=== PATIENT | male | born 1960 | race Caucasian/White ===

== ENCOUNTER 2018-01-01 15:19 | Emergency (ER) | payer OTHER ==
--- NOTE | 2018-01-01 16:37 | ER Document Report ---
ED Medical Screen (RME) - General Chief Complaint: Fever Stated Complaint: SWOLLEN FEET/POSSIBLE FEVER Time Seen by Provider: 01/01/18 16:27 Notes: RAPID MEDICAL EVALUATION DISCLOSURE I have seen this patient as part of a Rapid Medical Evaluation and, if applicable, placed any initially appropriate orders. The patient will be seen and fully evaluated, including a full history and physical exam, by a provider ( in Main ED or Fast Track) when a room becomes available. 57-year-old male here with multiple complaints including chest pain shortness of breath lower extremity edema inability to control left upper extremity. The lower extremity edema has been ongoing for the past 1 month, no history of renal failure, urinating normally. The inability to control left upper extremity started 10 days ago and he thought he was having a stroke however the symptoms have resolved and are fairly minimal now. Denies other strokelike symptoms. He also states he is able to urinate per usual other than "my urine smells like frosted flakes". Denies history of heart failure. No recent medication changes. EXAM CTAB RRR 2+ pitting edema BLEs TRAVEL OUTSIDE OF THE [place] IN LAST 30 DAYS: No - Related Data Allergies/Adverse Reactions: No Known Allergies Allergy (Verified 01/01/18 15:20) Past Medical History - Social History Chew tobacco use (# tins/day): No Frequency of alcohol use: Rare Drug Abuse: None Renal/ Medical History: Denies: Hx Peritoneal Dialysis Physical Exam - Vital signs Vitals: Temp Pulse Resp BP Pulse Ox 99.0 F 120 H 16 123/78 94 01/01/18 15:38 01/01/18 15:38 01/01/18 15:38 01/01/18 15:38 01/01/18 15:38 Course - Vital Signs Vital signs: Temp Pulse Resp BP Pulse Ox 99.0 F 120 H 16 123/78 94 01/01/18 15:38 01/01/18 15:38 01/01/18 15:38 01/01/18 15:38 01/01/18 15:38
--- NOTE | 2018-01-01 17:29 | RADIOLOGY REPORT (SQ) ---
EXAM DESCRIPTION: CT HEAD WITHOUT COMPLETED DATE/TIME: 01/01/2018 5:14 pm REASON FOR STUDY: LUE motor abnormality; eval ischemia COMPARISON: None. TECHNIQUE: Axial images acquired through the brain without intravenous contrast. Images reviewed wi th bone, brain and subdural windows. Additional sagittal and coronal reconstructions were generated. Images stored on PACS. All CT scanners at this facility use dose modulation, iterative reconstruction, and/or weight based d osing when appropriate to reduce radiation dose to as low as reasonably achievable (ALARA). [facility]: Dose Right [facility]: CareDose [facility]: Dose Right [facility]: Teradose 4D [facility]: Smart [employer] RADIATION DOSE: CT Rad equipment meets quality standard of care and radiation dose reduction techniq ues were employed. CTDIvol: 53.2 mGy. DLP: 991 mGy-cm. mGy. LIMITATIONS: None. FINDINGS: VENTRICLES: Normal size and contour. CEREBRUM: No masses. No hemorrhage. No midline shift. No evidence for acute infarction. Normal gra y/white matter differentiation. No areas of low density in the white matter. CEREBELLUM: No masses. No hemorrhage. No alteration of density. No evidence for acute infarction. EXTRAAXIAL SPACES: No fluid collections. No masses. ORBITS AND GLOBE: No intra- or extraconal masses. Normal contour of globe without masses. CALVARIUM: No fracture. PARANASAL SINUSES: No fluid or mucosal thickening. SOFT TISSUES: No mass or hematoma. OTHER: No other significant finding. IMPRESSION: NORMAL BRAIN CT WITHOUT CONTRAST. EVIDENCE OF ACUTE STROKE: NO. COMMENT: Quality ID # [id number]: Final reports with documentation of one or more dose reduction techniques (e.g., Automated exposure control, adjustment of the mA and/or kV according to patient size, use of iterative reconstruction technique) TECHNICAL DOCUMENTATION: JOB ID: [id number] [employer]- All Rights Reserved Reading location - IP/workstation name: [email or web address]
[2018-01-01 17:40] LABS: ABSOLUTE BASOPHILS # (AUTO) 0.1 10^3/uL (0.0-0.2); ABSOLUTE EOSINOPHILS # (AUTO) 0.1 10^3/uL (0.0-0.6); ABSOLUTE MONOCYTES (AUTO) 1.1 10^3/uL (0.1-1.4); ABSOLUTE NEUT (AUTO) 12.8 10^3/uL (1.7-8.2); BASOPHILS % (AUTO) 0.5 % (0-2); EOSINOPHILS % (AUTO) 0.4 % (0-6); HEMATOCRIT 36.6 % (37.9-51.0); HEMOGLOBIN 12.1 g/dL (13.5-17.0); LYMPHOCYTES % (AUTO) 6.6 % (13-45); MEAN CORPUSCULAR HEMOGLOBIN 28.3 pg (27.0-33.4); MEAN CORPUSCULAR HGB CONC 33.1 g/dL (32.0-36.0); MEAN CORPUSCULAR VOLUME 86 fl (80-97); MONOCYTES % (AUTO) 7.3 % (3-13); PLATELET COUNT 376 10^3/uL (150-450); RED BLOOD COUNT 4.28 10^6/uL (4.35-5.55); SEGMENTED NEUTROPHILS % (AUTO) 85.2 % (42-78); TOTAL CELLS COUNTED % (AUTO) 100 %; WHITE BLOOD COUNT 15.1 10^3/uL (4.0-10.5)
--- NOTE | 2018-01-01 17:42 | RADIOLOGY REPORT (SQ) ---
EXAM DESCRIPTION: CHEST 2 VIEWS COMPLETED DATE/TIME: 01/01/2018 5:29 pm REASON FOR STUDY: SOB CP COMPARISON: None. EXAM PARAMETERS: NUMBER OF VIEWS: two views TECHNIQUE: Digital Frontal and Lateral radiographic views of the chest acquired. RADIATION DOSE: NA LIMITATIONS: none FINDINGS: LUNGS AND PLEURA: No opacities, masses or pneumothorax. No pleural effusion. MEDIASTINUM AND HILAR STRUCTURES: No masses or contour abnormalities. HEART AND VASCULAR STRUCTURES: Heart normal size. No evidence for failure. BONES: No acute findings. HARDWARE: None in the chest. OTHER: No other significant finding. IMPRESSION: NO ACUTE RADIOGRAPHIC FINDING IN THE CHEST. TECHNICAL DOCUMENTATION: JOB ID: [id number] [employer]- All Rights Reserved Reading location - IP/workstation name: [email or web address]
[2018-01-01 17:55] LABS: ALANINE AMINOTRANSFERASE 21 U/L (21-72); ALBUMIN 3.5 g/dL (3.5-5.0); ALKALINE PHOSPHATASE 83 U/L (38-126); ANION GAP 15 (5-19); ASPARTATE AMINO TRANSFERASE 13 U/L (17-59); BILIRUBIN,DIRECT 0.4 mg/dL (0.0-0.4); BILIRUBIN,TOTAL 0.9 mg/dL (0.2-1.3); BLOOD UREA NITROGEN 12 mg/dL (7-20); CALCIUM 8.3 mg/dL (8.4-10.2); CARBON DIOXIDE 27 mmol/L (22-30); CHLORIDE 96 mmol/L (98-107); GLUCOSE 147 mg/dL (75-110); SODIUM 137.8 mmol/L (137-145); TOTAL PROTEIN 6.3 g/dL (6.3-8.2)
[2018-01-01 18:05] LABS: TROPONIN I 0.034 ng/mL
[2018-01-01] MEDS ORDERED: LIDOCAINE 1% INJ-PF (10 MG/ML) 30 ML SDV INFIL ONE (19:17)
[2018-01-01] MEDS ORDERED: CEFTRIAXONE INJ 1000 MG VIAL IM ONE (19:17)
--- NOTE | 2018-01-01 19:18 | ER Document Report ---
ED General - General Chief Complaint: Fever Stated Complaint: SWOLLEN FEET/POSSIBLE FEVER Time Seen by Provider: 01/01/18 16:27 Mode of Arrival: Ambulatory Information source: Patient Notes: 57-year-old male here with multiple complaints including chest pain shortness of breath lower extremity edema inability to control left upper extremity. The lower extremity edema has been ongoing for the past 1 month, no history of renal failure, urinating normally. The inability to control left upper extremity started 10 days ago and he thought he was having a stroke however the symptoms have resolved and are fairly minimal now. Denies other strokelike symptoms. He also states he is able to urinate per usual other than "my urine smells like frosted flakes". Denies history of heart failure. No recent medication changes. Chief complaint: #1 dizziness #2 right lower leg pain History of complain:( obtained from----patient) 57 years old male presents today with dizziness and ringing sensation in the right ear for the last 3 weeks. It is on and off have the dizziness for about a week and it goes away and feels fine and then again it comes back. Not associated with any nausea vomiting. Denies any focal weakness numbness tingling sensation. Denies any difficulty in walking. He has been having right lower leg particularly over the medial side of the malleolus region on the right leg redness swelling and pain for the last 1 week. On and off feverish feeling. Onset: As above Duration: Gradual Severity: Moderate Quality: Sharp Context: Possible cellulitis Exacerbating factor and relieving factors: Change of position REVIEW OF SYSTEMS: CONSTITUTIONAL : Denies fever, chills, or sweats. Denies recent illness. EENT: Denies eye, ear, throat, or mouth pain or symptoms. Denies nasal or sinus congestion or discharge. Denies throat, tongue, or mouth swelling or difficulty swallowing. CARDIOVASCULAR: Denies chest pain. Denies palpitations or racing or irregular heart beat. Denies ankle edema. RESPIRATORY: Denies cough, cold, or chest congestion. Denies shortness of breath, difficulty breathing, or wheezing. GASTROINTESTINAL: Denies distention. Denies nausea, vomiting, or diarrhea. Denies blood in vomitus, stools, or per rectum. Denies black, tarry stools. Denies constipation. GENITOURINARY: Denies difficulty urinating, painful urination, burning, frequency, blood in urine, or discharge. FEMALE GENITOURINARY: Denies vaginal bleeding, heavy or abnormal periods, irregular periods. Denies vaginal discharge or odor. MUSCULOSKELETAL: Denies back or neck pain or stiffness. Denies joint pain or swelling. SKIN: Denies rash, lesions or sores. HEMATOLOGIC : Denies easy bruising or bleeding. LYMPHATIC: Denies swollen, enlarged glands. NEUROLOGICAL: Denies confusion or altered mental status. Denies passing out or loss of consciousness. Denies dizziness or lightheadedness. Denies headache. Denies weakness or paralysis or loss of use of either side. Denies problems with gait or speech. Denies sensory loss, numbness, or tingling. Denies seizures. PSYCHIATRIC: Denies anxiety or stress. Denies depression, suicidal ideation, or homicidal ideation. ALL OTHER SYSTEMS REVIEWED AND NEGATIVE. PHYSICAL EXAMINATION: GENERAL: Well-appearing, well-nourished and in no acute distress. Obese HEAD: Atraumatic, normocephalic. EYES: Pupils equal round and reactive to light, extraocular movements intact, conjunctiva are normal. ENT: Nares patent, oropharynx clear without exudates. Moist mucous membranes. NECK: Normal range of motion, supple without lymphadenopathy LUNGS: Breath sounds clear to auscultation bilaterally and equal. No wheezes rales or rhonchi. HEART: Regular rate and rhythm without murmurs ABDOMEN: Soft, nontender, nondistended abdomen. No guarding, no rebound. No masses appreciated. Examination of genitals-deferred Musculoskeletal: Normal range of motion, no pitting or edema. No cyanosis. Examination of the right lower leg-particularly over the medial side malleolus and around the area is very warm, erythematous and diffusely tender. NEUROLOGICAL: Cranial nerves grossly intact. Normal speech, normal gait. Normal sensory, motor exams. No focal neurological deficit. No pronator drift PSYCH: Normal mood, normal affect. SKIN: Warm, Dry, normal turgor, no rashes or lesions noted. Dictation was performed using [employer] voice recognition software TRAVEL OUTSIDE OF THE [place] IN LAST 30 DAYS: No - HPI Notes: Dictated - Related Data Allergies/Adverse Reactions: No Known Allergies Allergy (Verified 01/01/18 15:20) Past Medical History - Social History Smoking Status: Current Every Day Smoker Chew tobacco use (# tins/day): No Frequency of alcohol use: Rare Drug Abuse: None Family History: Reviewed & Not Pertinent Patient has suicidal ideation: No Patient has homicidal ideation: No - Past Medical History Cardiac Medical History: Reports: Hx Hypertension Pulmonary Medical History: Reports: Hx COPD Renal/ Medical History: Denies: Hx Peritoneal Dialysis Psychiatric Medical History: Reports: Hx Depression - anxiety Past Surgical History: Reports: Hx Abdominal Surgery - hernia right groin, Hx Appendectomy, Hx Orthopedic Surgery - left ankle Review of Systems - Review of Systems Notes: Dictated Physical Exam - Vital signs Vitals: Temp Pulse Resp BP Pulse Ox 99.0 F 120 H 16 123/78 94 01/01/18 15:38 01/01/18 15:38 01/01/18 15:38 01/01/18 15:38 01/01/18 15:38 - Notes Notes: Dictated Course - Vital Signs Vital signs: Temp Pulse Resp BP Pulse Ox 99.0 F 120 H 22 H 131/87 H 88 L 01/01/18 15:38 01/01/18 15:38 01/01/18 19:01 01/01/18 19:01 01/01/18 19:01 01/01/18 19:18 He was given ceftriaxone 1 g IM - Laboratory Result Diagrams: 01/01/18 17:27 01/01/18 17:27 Laboratory results interpreted by me: 01/01/18 01/01/18 17:27 17:27 WBC 15.1 H RBC 4.28 L Hgb 12.1 L Hct 36.6 L Seg Neutrophils % 85.2 H Lymphocytes % 6.6 L Absolute Neutrophils 12.8 H Chloride 96 L Glucose 147 H Calcium 8.3 L AST 13 L - Diagnostic Test Radiology reviewed: Reports reviewed - 1. CT of the brain was reported by radiologist as normal no acute pathology. 2. Chest x-ray reported by radiologist as normal Discharge - Discharge Clinical Impression: Benign positional vertigo Qualifiers: Laterality: right Qualified Code(s): H81.11 - Benign paroxysmal vertigo, right ear Cellulitis Qualifiers: Site of cellulitis: extremity Site of cellulitis of extremity: lower extremity Laterality: right Qualified Code(s): L03.115 - Cellulitis of right lower limb Disposition: HOME, SELF-CARE Instructions: Cellulitis ([facility]), Vertigo ([facility]) Prescriptions: Cephalexin [Keflex] 500 mg PO QID #40 capsule Meclizine HCl 25 mg PO TID PRN #60 tab.chew PRN Reason:
[2018-01-01 19:50] VITALS: BP 130/70
[2018-01-01 20:24] LABS: APPEARANCE,URINE SLIGHTLY-CLOUDY; BILIRUBIN,URINE NEGATIVE (NEGATIVE); COLOR,URINE DARK YELLOW; GLUCOSE, URINE NEGATIVE (NEGATIVE); KETONES,URINE NEGATIVE (NEGATIVE); LEUKOCYTE ESTERASE,URINE NEGATIVE (NEGATIVE); NITRITE,URINE NEGATIVE (NEGATIVE); PROTEIN,URINE 30 mg/dL (NEGATIVE); URINE SPECIFIC GRAVITY 1.023
== END 2018-01-01 19:54 | disposition home or self-care (01) ==
LOC: ER 15:19
DX: H81.11 Benign paroxysmal vertigo, right ear (principal); L03.115 Cellulitis of right lower limb; M79.604 Pain in right leg; R50.9 Fever, unspecified; M79.89 Other specified soft tissue disorders; R07.9 Chest pain, unspecified; R06.02 Shortness of breath; R60.0 Localized edema; H93.11 Tinnitus, right ear; F17.200 Nicotine dependence, unspecified, uncomplicated
CPT/HCPCS: 99284; 96372; 36415; 85025; 80053; 81001; 84484; 83880; 71046; 70450; J3490; J0696

== ENCOUNTER 2018-01-14 09:28 | Emergency (ER) | payer OTHER ==
[2018-01-14 09:37] VITALS: BP 157/73
[2018-01-14] MEDS ORDERED: NAPROXEN 250 MG TABLET PO ONE (09:41)
[2018-01-14] MEDS ORDERED: METHOCARBAMOL 750 MG TABLET PO ONE (09:41)
--- NOTE | 2018-01-14 09:44 | ER Document Report ---
ED Neck/Back Problem - General Chief Complaint: Neck Injury Stated Complaint: FALL/NECK PAIN Time Seen by Provider: 01/14/18 09:40 Notes: The patient is a 57-year-old male, past medical history neuropathy, presents with posterior neck and head pain after he fell out of bed 3 nights ago. He went to the [place] this morning and was sent to the ER for further evaluation and treatment. Patient denies blurry vision, focal weakness, numbness, new tingling , difficulty walking, chest pain, shortness of breath, difficulty swallowing or stridor. TRAVEL OUTSIDE OF THE [place] IN LAST 30 DAYS: No - Related Data Allergies/Adverse Reactions: No Known Allergies Allergy (Verified 01/14/18 09:30) Past Medical History - General Information source: Patient - Social History Smoking Status: Current Every Day Smoker Family History: Reviewed & Not Pertinent - Past Medical History Cardiac Medical History: Reports: Hx Hypertension Pulmonary Medical History: Reports: Hx COPD Renal/ Medical History: Denies: Hx Peritoneal Dialysis Psychiatric Medical History: Reports: Hx Depression - anxiety Past Surgical History: Reports: Hx Abdominal Surgery - hernia right groin, Hx Appendectomy, Hx Orthopedic Surgery - left ankle Review of Systems - Review of Systems Notes: REVIEW OF SYSTEMS: CONSTITUTIONAL: -fevers, -chills EENT: -eye pain, -difficulty swallowing, -nasal congestion CARDIOVASCULAR: -chest pain, -syncope. RESPIRATORY: -cough, -SOB GASTROINTESTINAL: -abdominal pain, -nausea, -vomiting, -diarrhea GENITOURINARY: -dysuria, -hematuria MUSCULOSKELETAL: -back pain, +neck pain SKIN: -rash or skin lesions. HEMATOLOGIC: -easy bruising or bleeding. LYMPHATIC: -swollen, enlarged glands. NEUROLOGICAL: -altered mental status or loss of consciousness, +posterior headache, -neurologic symptoms PSYCHIATRIC: -anxiety, -depression. ALL OTHER SYSTEMS REVIEWED AND NEGATIVE. Physical Exam - Vital signs Vitals: Temp Pulse Resp BP Pulse Ox 98.5 F 96 20 157/73 H 96 01/14/18 09:35 01/14/18 09:35 01/14/18 09:35 01/14/18 09:35 01/14/18 09:35 - Notes Notes: PHYSICAL EXAMINATION: GENERAL: Uncomfortable. HEAD: Atraumatic, normocephalic. EYES: Pupils equal round and reactive to light, extraocular movements intact, sclera anicteric, conjunctiva are normal. ENT: nares patent, oropharynx clear without exudates. Moist mucous membranes. NECK: No midline tenderness, tenderness over B/L paracervical muscles. Pain with neck flexion and extension. Small left anterior cervical lymph node with mild tenderness. LUNGS: Breath sounds clear to auscultation bilaterally and equal. No wheezes rales or rhonchi. HEART: Regular rate and rhythm without murmurs ABDOMEN: Soft, nontender, normoactive bowel sounds. No guarding, no rebound. No masses appreciated. EXTREMITIES: Normal range of motion, no pitting or edema. No cyanosis. NEUROLOGICAL: Cranial nerves grossly intact. Normal speech, normal gait. Normal sensory and motor exams. PSYCH: Normal mood, normal affect. SKIN: Warm, Dry, normal turgor, no rashes or lesions noted. Course - Re-evaluation Re-evalutation: Patient's head CT and C-spine CT did not show any acute changes after his fall 3 days ago. He has no focal neuro deficits to suggest a spinal cord injury. He does have moderate to severe spondylitic changes on his CAT scan, which are chronic in nature. Instructed him about using anti-inflammatories, muscle relaxers and following up with his primary care physician. Given strict return precautions and he understands. - Vital Signs Vital signs: Temp Pulse Resp BP Pulse Ox 98.5 F 96 20 157/73 H 96 01/14/18 09:35 01/14/18 09:35 01/14/18 09:35 01/14/18 09:35 01/14/18 09:35 - Diagnostic Test Radiology reviewed: Image reviewed, Reports reviewed Radiology results interpreted by me: CT Head: NAD CT C-spine: No post-traumatic changes. Moderate to severe spondylitic changes C5 -C6, C6-C7. Discharge - Discharge Clinical Impression: Neck strain Qualifiers: Encounter type: initial encounter Qualified Code(s): S16.1XXA - Strain of muscle, fascia and tendon at neck level, initial encounter Head contusion Qualifiers: Encounter type: initial encounter Contusion of head detail: scalp Qualified Code(s): S00.03XA - Contusion of scalp, initial encounter Condition: Stable Disposition: HOME, SELF-CARE Additional Instructions: Your CAT scan did not show any broken neck bones or skull injuries. 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 You may benefit from physical therapy. Take anti-inflammatories and use muscle relaxers to help with any neck strain symptoms. Neck Injury (Cervical Strain) You have a neck strain. This is an injury to the muscles and ligaments in the neck. There is no evidence of a fracture of the neck bones. Also, no injury to the spinal cord or nerve roots was detected. Usually, stiffness and pain INCREASE for the first 24-48 hours after the injury. The pain will gradually resolve and the neck will become more mobile. Most patients are back at work or school within a few days. Typically, complete healing takes about two or three weeks. The usual initial treatment is rest and cold packs. A neck collar may be placed to keep the muscles of the neck at rest. Antiinflammatory and muscle relaxing medication are often used to reduce the spasm and irritation. You should call the doctor, or go to the hospital, if you develop numbness or weakness in any extremity, problems with your bladder or bowel, or pain radiating down the arms. Contusion Your injury has resulted in a contusion -- a crushing of the deep tissues. No injury to important structures was detected during the physician's exam. Contusions vary in the amount of pain they cause, and in the length of time required for healing. Typically, the area will become bruised, and will remain painful to touch for two or three weeks. However, most patients are back to working and playing within a few days. After the initial period of rest and cold-packs, your symptoms (together with the doctor's recommendations) will determine how rapidly you can get back to full activity. Usually this means "do what feels okay, but don't do things that hurt." If re-examination was recommended, it's important to follow up as instructed. Call the doctor or return any time if pain increases, if swelling becomes severe, if you develop numbness or weakness in an injured extremity, or if any other alarming symptoms occur. Prescriptions: Methocarbamol [Robaxin 500 mg Tablet] 500 mg PO Q4H PRN #15 tablet PRN Reason: Methocarbamol [Robaxin 500 mg Tablet] 500 mg PO Q4H PRN #15 tablet PRN Reason: Methocarbamol [Robaxin 500 mg Tablet] 500 mg PO Q4H PRN #15 tablet PRN Reason: Naproxen [Naprosyn 250 mg Tablet] 500 mg PO Q12H PRN #14 tablet PRN Reason: Naproxen [Naprosyn 250 mg Tablet] 500 mg PO Q12H PRN #14 tablet PRN Reason: Naproxen [Naprosyn 250 mg Tablet] 500 mg PO Q12H PRN #14 tablet PRN Reason: Forms: Elevated Blood Pressure Referrals: JEANNETTE NARANJO MD [ACTIVE STAFF] - Follow up as needed
--- NOTE | 2018-01-14 10:21 | RADIOLOGY REPORT (SQ) ---
EXAM DESCRIPTION: CT HEAD WITHOUT COMPLETED DATE/TIME: 01/14/2018 10:09 am REASON FOR STUDY: 01/01/2018 head injury, fall COMPARISON: None. TECHNIQUE: Axial images acquired through the brain without intravenous contrast. Images reviewed wi th bone, brain and subdural windows. Additional sagittal and coronal reconstructions were generated. Images stored on PACS. All CT scanners at this facility use dose modulation, iterative reconstruction, and/or weight based d osing when appropriate to reduce radiation dose to as low as reasonably achievable (ALARA). [facility]: Dose Right [facility]: CareDose [facility]: Dose Right [facility]: Teradose 4D [facility]: [email or web address] RADIATION DOSE: CT Rad equipment meets quality standard of care and radiation dose reduction techniq ues were employed. CTDIvol: 53.2 mGy. DLP: 1124 mGy-cm. mGy. LIMITATIONS: None. FINDINGS: VENTRICLES: Normal size and contour. CEREBRUM: No masses. No hemorrhage. No midline shift. No evidence for acute infarction. Normal gra y/white matter differentiation. No areas of low density in the white matter. CEREBELLUM: No masses. No hemorrhage. No alteration of density. No evidence for acute infarction. EXTRAAXIAL SPACES: No fluid collections. No masses. ORBITS AND GLOBE: No intra- or extraconal masses. Normal contour of globe without masses. CALVARIUM: No fracture. PARANASAL SINUSES: No fluid or mucosal thickening. SOFT TISSUES: No mass or hematoma. OTHER: No other significant finding. IMPRESSION: No acute intracranial findings. No interval change since the recent CT scan. EVIDENCE OF ACUTE STROKE: NO. COMMENT: Quality ID # [id number]: Final reports with documentation of one or more dose reduction techniques (e.g., Automated exposure control, adjustment of the mA and/or kV according to patient size, use of iterative reconstruction technique) TECHNICAL DOCUMENTATION: JOB ID: [id number] [employer]- All Rights Reserved Reading location - IP/workstation name: [email or web address]
--- NOTE | 2018-01-14 10:23 | RADIOLOGY REPORT (SQ) ---
EXAM DESCRIPTION: CT CERVICAL SPINE WITHOUT COMPLETED DATE/TIME: 01/14/2018 10:09 am REASON FOR STUDY: neck pain after fall COMPARISON: None. TECHNIQUE: Axial images acquired through the cervical spine without intravenous contrast. Images re viewed with lung, soft tissue and bone windows. Reconstructed coronal and sagittal MPR images review ed. Images stored on PACS. All CT scanners at this facility use dose modulation, iterative reconstruction, and/or weight based d osing when appropriate to reduce radiation dose to as low as reasonably achievable (ALARA). [facility]: Dose Right [facility]: CareDose [facility]: Dose Right [facility]: Teradose 4D [facility]: [email or web address] RADIATION DOSE: CT Rad equipment meets quality standard of care and radiation dose reduction techniq ues were employed. CTDIvol: 24.9 mGy. DLP: 492 mGy-cm. mGy. LIMITATIONS: None. FINDINGS: ALIGNMENT: Anatomic. MINERALIZATION: Normal. VERTEBRAL BODIES: No fractures or dislocation. DISCS: Moderate to severe disc space narrowing C5-C6, C6-C7. Degenerative spurring posteriorly. FACETS, LATERAL MASSES, POSTERIOR ELEMENTS: No fractures. No dislocation. No acute findings. HARDWARE: None in the spine. VISUALIZED RIBS: No fractures. LUNG APICES AND SOFT TISSUES: No significant or acute findings. OTHER: No other significant finding. IMPRESSION: No acute posttraumatic changes. Moderate to severe spondylotic change C5-C6, C6-C7. TECHNICAL DOCUMENTATION: JOB ID: [id number] Quality ID # [id number]: Final reports with documentation of one or more dose reduction techniques (e.g., Au tomated exposure control, adjustment of the mA and/or kV according to patient size, use of iterative reconstruction technique) 2010 [employer]- All Rights Reserved Reading location - IP/workstation name: [email or web address]
== END 2018-01-14 10:59 | disposition home or self-care (01) ==
LOC: ER 09:28
DX: S16.1XXA Strain of muscle, fascia and tendon at neck level, initial encounter (principal); S00.03XA Contusion of scalp, initial encounter; W06.XXXA Fall from bed, initial encounter; Y92.003 Bedroom of unspecified non-institutional (private) residence as the place of occurrence of the external cause; M46.02 Spinal enthesopathy, cervical region; I10 Essential (primary) hypertension; M54.2 Cervicalgia; R51 Headache; J44.9 Chronic obstructive pulmonary disease, unspecified; F17.200 Nicotine dependence, unspecified, uncomplicated
CPT/HCPCS: 99283; 70450; 72125; J3490

== ENCOUNTER 2018-01-28 14:46 | Inpatient (IN) | payer OTHER ==
--- NOTE | 2018-01-28 15:08 | RADIOLOGY REPORT (SQ) ---
EXAM DESCRIPTION: CT HEAD WITHOUT COMPLETED DATE/TIME: 01/28/2018 2:56 pm REASON FOR STUDY: bed 15 stroke alert COMPARISON: None. TECHNIQUE: Axial images acquired through the brain without intravenous contrast. Images reviewed wi th bone, brain and subdural windows. Additional sagittal and coronal reconstructions were generated. Images stored on PACS. All CT scanners at this facility use dose modulation, iterative reconstruction, and/or weight based d osing when appropriate to reduce radiation dose to as low as reasonably achievable (ALARA). [facility]: Dose Right [facility]: CareDose [facility]: Dose Right [facility]: Teradose 4D [facility]: [employer] RADIATION DOSE: mGy. LIMITATIONS: None. FINDINGS: VENTRICLES: Prominent. CEREBRUM: No masses. No hemorrhage. No midline shift. Old right frontal lobe are. Areas of low de nsity in the white matter most likely due to chronic micro-vascular ischemic change. No evidence for acute infarction. CEREBELLUM: No masses. No hemorrhage. Old left cerebellar infarct. No evidence for acute infarctio n. EXTRAAXIAL SPACES: Age-related involutional change. No fluid collections. No masses. ORBITS AND GLOBE: No intra- or extraconal masses. Normal contour of globe without masses. CALVARIUM: No fracture. PARANASAL SINUSES: No fluid or mucosal thickening. SOFT TISSUES: No mass or hematoma. OTHER: No other significant finding. IMPRESSION: Chronic ischemic changes. EVIDENCE OF ACUTE STROKE: NO. COMMENT: Pertinent positive or negative findings of the imaging study reported as a CRITICAL EXAM tanya Yancey at15:02 on 01/28/2018. Category of Critical Exam: Stroke alert TECHNICAL DOCUMENTATION: JOB ID: [id number] Quality ID # [id number]: Final reports with documentation of one or more dose reduction techniques (e.g., Au tomated exposure control, adjustment of the mA and/or kV according to patient size, use of iterative reconstruction technique) 2010 [employer]- All Rights Reserved Reading location - IP/workstation name: [facility]
--- NOTE | 2018-01-28 15:08 | RADIOLOGY REPORT (SQ) ---
EXAM DESCRIPTION: CHEST SINGLE VIEW COMPLETED DATE/TIME: 01/28/2018 2:54 pm REASON FOR STUDY: bed 15 stroke alert COMPARISON: None. EXAM PARAMETERS: NUMBER OF VIEWS: One view. TECHNIQUE: Single frontal radiographic view of the chest acquired. RADIATION DOSE: NA LIMITATIONS: None. FINDINGS: LUNGS AND PLEURA: No opacities, masses or pneumothorax. No pleural effusion. MEDIASTINUM AND HILAR STRUCTURES: No masses. Contour normal. HEART AND VASCULAR STRUCTURES: Heart normal in size. Normal vasculature. BONES: No acute findings. HARDWARE: None in the chest. OTHER: No other significant finding. IMPRESSION: NO ACUTE RADIOGRAPHIC FINDING IN THE CHEST. TECHNICAL DOCUMENTATION: JOB ID: [id number] [employer]- All Rights Reserved Reading location - IP/workstation name: [email or web address]
--- NOTE | 2018-01-28 15:29 | ER Document Report ---
ED General - General Stated Complaint: WEAKNESS Time Seen by Provider: 01/28/18 15:13 Information source: Patient Notes: Patient is a 57-year-old male that was brought by EMS secondary to 1 hour prior to arrival walking and then falling to the ground supposedly being "unable to walk" according to EMS. They state that the stroke screen was negative showing no focal weakness. Patient was only mumbling words. No assistance of information from bystanders. Patient was called the code stroke and immediately brought to CT scan before being presented to the provider. TRAVEL OUTSIDE OF THE [place] IN LAST 30 DAYS: No - HPI Onset: Just prior to arrival Onset/Duration: Sudden Quality of pain: Other - Unable to obtain seconadary to patient's condition. Severity: Severe Associated symptoms: Other - Unable to obtain seconadary to patient's condition. Exacerbated by: Other - Unable to obtain seconadary to patient's condition. Relieved by: Other - Unable to obtain seconadary to patient's condition. Similar symptoms previously: No - Unable to obtain seconadary to patient's condition. Recently seen / treated by doctor: No - Unable to obtain seconadary to patient' s condition. - Related Data Allergies/Adverse Reactions: No Known Allergies Allergy (Verified 01/14/18 09:30) Past Medical History - Social History Smoking Status: Unknown if Ever Smoked Cigarette use (# per day): No - Unable to obtain seconadary to patient's condition. Chew tobacco use (# tins/day): No - Unable to obtain seconadary to patient's condition. Smoking Education Provided: No - Unable to obtain seconadary to patient's condition. Frequency of alcohol use: Unable to obtain seconadary to patient's condition. Drug Abuse: Other - Unable to obtain seconadary to patient's condition. Family History: Other - Unable to obtain seconadary to patient's condition. - Past Medical History Cardiac Medical History: Reports: Hx Hypertension Pulmonary Medical History: Reports: Hx COPD Renal/ Medical History: Denies: Hx Peritoneal Dialysis Psychiatric Medical History: Reports: Hx Depression - anxiety Past Surgical History: Reports: Hx Abdominal Surgery - hernia right groin, Hx Appendectomy, Hx Orthopedic Surgery - left ankle Review of Systems - Review of Systems -: Yes ROS unobtainable due to patient's medical condition Physical Exam - Vital signs Vitals: Pulse Resp BP Pulse Ox 98 17 140/72 H 95 01/28/18 15:00 01/28/18 15:00 01/28/18 15:00 01/28/18 15:00 Interpretation: Normal Notes: Reviewed vital signs and nursing note as charted by RN. CONSTITUTIONAL: Alert but slightly lethargic. Patient does follow commands. Patient only mumbles comments unintelligibly. Patient is disheveled in appearance with bilateral legs with a lot of dirt located on the legs with matted unkept hair HEAD: Normocephalic; atraumatic EYES: PERRL; sclerae non-icteric ENT: Normal nose; no rhinorrhea; very dry appearing mucous membranes; poor dentition; pharynx without lesions noted NECK: Supple without meningismus; non-tender; no carotid bruits; no cervical lymphadenopathy, no masses CARD: Regular rate and rhythm; no murmurs, no clicks, no rubs, no gallops; symmetric distal pulses RESP: Normal chest excursion without splinting or tachypnea; breath sounds clear and equal bilaterally; no wheezes, no rhonchi, no rales ABD/GI: Normal bowel sounds; non-distended; soft, non-tender, no rebound, no guarding; no abdominal bruits or palpable masses present; no palpable organomegaly or masses BACK: The back appears normal and is non-tender to palpation EXT: Normal ROM in all joints; non-tender to palpation; no cyanosis, no effusions, no edema SKIN: See constitutional exam above; no obvious petechiae present NEURO: Patient has 5 out of 5 strength and sensation to all 4 extremities. CN II through XII appear to be intact. Course - Re-evaluation Re-evalutation: 01/28/18 15:25 Given the history and physical examination we will order CT scan of the head, basic labs, ammonia level, liver panel, coagulation profile, EKG, and a troponin. I am uncertain of the etiology of the patient's altered mental status. Patient is afebrile. NIH score as recorded. Given no focal weakness, with no underlying cause for the altered mental status, with an unclear history, with an Accu-Chek by EMS of 119, I do not believe that the patient is appropriate for TPA treatment at this time. CT scan of the head shows no obvious acute abnormalities or bleeds. EKG shows a heart of 105, sinus tachycardia, normal axis, no obvious ST elevation or depression 01/28/18 15:30 I completely undressed the patient. I do not see any obvious skin lesions. Patient has no scrotal erythema or perineal erythema or edema. No obvious patches to the back. Patient is slightly tachycardic, afebrile, with very dry mucous membranes. There is a report that the patient may have been recently diagnosed with diabetes and started on medications. Patient was seen earlier this month with some neck pain and started on an NSAID. Concern for possible dehydration/acute kidney failure, I have also added a urine drug screen and given the altered mental status with a disheveled appearance, I will provide a dose of Narcan. It appears 2 weeks prior to this the patient was here for what appears to be a foot cellulitis. 01/28/18 16:46 Labs as recorded. No obvious x-ray finding of acute pneumonia. Patient is more oriented and still denies any pain. The daughter is currently at bedside and states the patient has been having some slightly slurred speech for around 2 weeks. She also states the patient has passed out 2. She states that she went to see the primary care physician recently and was told he had new onset diabetes and hepatitis. Narcan did not appear to have any effect. Temperature 99.3. White blood cell count is recorded. Rectal temperature 99.1. Given the above history and physical examination, with some altered mental status, I am hesitant to perform a lumbar puncture given the patient's excessive intermittent movement. Blood cultures and lactic acid has been sent. I will admit the patient to the hospitalist for further assessment. I am unsure of the etiology of the patient's intermittent slurred speech for 2 weeks and the intermittent syncopal events. 01/28/18 17:18 The hospitalist will start the patient on antibiotics. He would like the patient admitted to the medical ICU. Antibiotics and blood cultures have been ordered. Given the altered mental status and the large body habitus, hospice would like lumbar puncture performed under fluoroscopy. I have called over to radiology to help expedite this process. Antibiotics will not be held. - Vital Signs Vital signs: Temp Pulse Resp BP Pulse Ox 99.1 F 98 29 H 142/92 H 95 01/28/18 16:47 01/28/18 15:00 01/28/18 16:00 01/28/18 15:24 01/28/18 16:00 - Laboratory Result Diagrams: 01/28/18 15:28 01/28/18 15:28 Laboratory results interpreted by me: 01/28/18 01/28/18 01/28/18 15:15 15:28 15:28 WBC 21.2 H RBC 4.32 L Hgb 11.6 L Hct 36.0 L MCH 26.9 L RDW 15.4 H Plt Count 551 H Seg Neuts % (Manual) 88 H Lymphocytes % (Manual) 5 L Abs Neuts (Manual) 18.7 H Chloride 96 L Glucose 204 H POC Glucose 209 H Lactic Acid Direct Bilirubin 0.5 H Ammonia Creatine Kinase 23 L Albumin 3.4 L 01/28/18 01/28/18 15:28 16:22 WBC RBC Hgb Hct MCH RDW Plt Count Seg Neuts % (Manual) Lymphocytes % (Manual) Abs Neuts (Manual) Chloride Glucose POC Glucose Lactic Acid 2.3 H Direct Bilirubin Ammonia < 8.7 L Creatine Kinase Albumin Critical Care Note - Critical Care Note Total time excluding time spent on procedures (mins): 35 Discharge - Discharge Clinical Impression: Altered mental status Qualifiers: Altered mental status type: unspecified Qualified Code(s): R41.82 - Altered mental status, unspecified Leukocytosis Qualifiers: Leukocytosis type: other Qualified Code(s): D72.828 - Other elevated white blood cell count Condition: Fair Disposition: ADMITTED INPATIENT Admitting Provider: Hospitalist Unit Admitted: ICU
[2018-01-28] MEDS ORDERED: NORMAL SALINE 1000 ML 1,000 ML IV ONE (15:36)
[2018-01-28 15:40] LABS: HEMOGLOBIN 11.6 g/dL (13.5-17.0); MEAN CORPUSCULAR HEMOGLOBIN 26.9 pg (27.0-33.4); MEAN CORPUSCULAR HGB CONC 32.3 g/dL (32.0-36.0); MEAN CORPUSCULAR VOLUME 83 fl (80-97); PLATELET COUNT 551 10^3/uL (150-450); RED BLOOD COUNT 4.32 10^6/uL (4.35-5.55); RED CELL DISTRIBUTION WIDTH 15.4 % (11.5-14.0); WHITE BLOOD COUNT 21.2 10^3/uL (4.0-10.5)
[2018-01-28] MEDS ORDERED: NALOXONE HCL INJ/PF 0.4 MG/1 ML SDV IV ONE (15:42)
[2018-01-28 15:43] LABS: INTERNATIONAL RATION (INR) 1.02; PROTHROMBIN TIME 13.9 SEC (11.4-15.4)
[2018-01-28 15:44] LABS: PARTIAL THROMBOPLASTIN TIME 23.6 SEC (23.5-35.8)
[2018-01-28 15:56] LABS: ABSOLUTE LYMPHOCYTES# (MANUAL) 1.1 10^3/uL (0.5-4.7); ABSOLUTE MONOCYTES # (MANUAL) 1.3 10^3/uL (0.1-1.4); ABSOLUTE NEUTROPHILS# (MANUAL) 18.7 10^3/uL (1.7-8.2); BASOPHILS % (MANUAL) 0 % (0-2); EOSINOPHILS % (MANUAL) 1 % (0-6); LYMPHOCYTES % (MANUAL) 5 % (13-45); MONOCYTES % (MANUAL) 6 % (3-13); SEGMENTED NEUTROPHILS % (MAN) 88 % (42-78); TOTAL CELLS COUNTED 100
[2018-01-28 15:57] LABS: ANISOCYTOSIS SLIGHT; PLATELET COMMENT INCREASED; TOXIC GRANULATION SLIGHT
[2018-01-28 15:58] LABS: ALANINE AMINOTRANSFERASE 30 U/L (21-72); ALBUMIN 3.4 g/dL (3.5-5.0); ALKALINE PHOSPHATASE 107 U/L (38-126); ANION GAP 13 (5-19); ASPARTATE AMINO TRANSFERASE 47 U/L (17-59); BILIRUBIN,DIRECT 0.5 mg/dL (0.0-0.4); BILIRUBIN,TOTAL 0.7 mg/dL (0.2-1.3); BLOOD UREA NITROGEN 13 mg/dL (7-20); CALCIUM 8.6 mg/dL (8.4-10.2); CARBON DIOXIDE 30 mmol/L (22-30); CHLORIDE 96 mmol/L (98-107); CREATINE KINASE 23 U/L (55-170); GLUCOSE 204 mg/dL (75-110); POTASSIUM 4.6 mmol/L (3.6-5.0); SODIUM 138.8 mmol/L (137-145); TOTAL PROTEIN 7.9 g/dL (6.3-8.2)
[2018-01-28 15:59] LABS: ALCOHOL < 10 mg/dL (NONE DETECTED)
[2018-01-28 16:07] LABS: CREATINE KINASE MB 0.58 ng/mL (<4.55)
[2018-01-28 16:13] LABS: TROPONIN I 0.263 ng/mL
[2018-01-28] MEDS ORDERED: CEFEPIME 2 GM/D5W RTU 2 GM/50 ML RTUPB IV SCH ×3 (17:15→18:00)
[2018-01-28] MEDS ORDERED: VANCOMYCIN HCL INJ 1000 MG VIAL IV ONE (17:16)
[2018-01-28] MEDS ORDERED: ACYCLOVIR SODIUM INJ/PF 500 MG/10 ML SDV IV ONE (17:22)
[2018-01-28] MEDS ORDERED: ONDANSETRON HCL INJ/PF 4 MG/2 ML SDV IV PRN (17:30)
[2018-01-28] MEDS ORDERED: VANCOMYCIN HCL 0 MG in DEXTROSE 5%-WATER 250 ML IV NR (17:45)
--- NOTE | 2018-01-28 18:02 | PDOC H&P ---
History of Present Illness History of Present Illness: AGNIESZKA GOMEZ is a 57 year old male with past medical history of hypertension, COPD and an anxiety disorder brought by EMS for altered mental status and questionable slurred speech. Due to cognitive impairment patient is not source of history. Brief information is obtained from ER attending note. Attending notes patient brought by EMS secondary to 1 hour prior to arrival walking and then falling to the ground supposedly being "unable to walk" according to EMS. They state that the stroke schedule was negative showing no focal weakness. Patient was only mumbling words. His initial blood workup shows leukocytosis of 31,000. CT scan of the head is negative further detailed history and review of system is unobtainable. Past Medical History Cardiac Medical History: Reports: Hypertension Pulmonary Medical History: Reports: Chronic Obstructive Pulmonary Disease (COPD) Endocrine Medical History: Reports: Diabetes Mellitus Type 2 Psychiatric Medical History: Reports: Depression - anxiety Past Surgical History Past Surgical History: Reports: Appendectomy, Orthopedic Surgery - left ankle Social History Smoking Status: Current Every Day Smoker Hx Recreational Drug Use: No Family History Family History: Other - Unable to obtain seconadary to patient's condition. Parental Family History Reviewed: Yes Children Family History Reviewed: Yes Sibling(s) Family History Reviewed.: Yes Medication/Allergy Home Medications: Cephalexin [Keflex] 500 mg PO QID #40 capsule 01/01/18 Meclizine HCl 25 mg PO TID PRN #60 tab.chew 01/01/18 Methocarbamol [Robaxin 500 mg Tablet] 500 mg PO Q4H PRN #15 tablet 01/14/18 Methocarbamol [Robaxin 500 mg Tablet] 500 mg PO Q4H PRN #15 tablet 01/14/18 Methocarbamol [Robaxin 500 mg Tablet] 500 mg PO Q4H PRN #15 tablet 01/14/18 Naproxen [Naprosyn 250 mg Tablet] 500 mg PO Q12H PRN #14 tablet 01/14/18 Naproxen [Naprosyn 250 mg Tablet] 500 mg PO Q12H PRN #14 tablet 01/14/18 Naproxen [Naprosyn 250 mg Tablet] 500 mg PO Q12H PRN #14 tablet 01/14/18 Allergies/Adverse Reactions: No Known Allergies Allergy (Verified 01/14/18 09:30) Physical Exam Vital Signs: Temp Pulse Resp BP Pulse Ox 99.1 F 98 29 H 142/92 H 95 01/28/18 16:47 01/28/18 15:00 01/28/18 16:00 01/28/18 15:24 01/28/18 16:00 Intake & Output 01/27/18 01/28/18 01/29/18 06:59 06:59 06:59 Weight 111.5 kg General appearance: PRESENT: no acute distress, disheveled Head exam: PRESENT: atraumatic Eye exam: PRESENT: conjunctiva pink Mouth exam: PRESENT: dry mucosa Neck exam: PRESENT: carotid bruit Respiratory exam: PRESENT: clear to auscultation karime. ABSENT: rales, rhonchi, wheezes Cardiovascular exam: PRESENT: RRR. ABSENT: diastolic murmur, rubs, systolic murmur Results Laboratory Results: 01/28/18 15:28 01/28/18 15:28 01/28/18 01/28/18 01/28/18 15:28 15:28 15:28 WBC 21.2 H RBC 4.32 L Hgb 11.6 L Hct 36.0 L MCV 83 MCH 26.9 L MCHC 32.3 RDW 15.4 H Plt Count 551 H Seg Neutrophils % Not Reportable Lymphocytes % Not Reportable Monocytes % Not Reportable Eosinophils % Not Reportable Basophils % Not Reportable Absolute Neutrophils Not Reportable Absolute Lymphocytes Not Reportable Absolute Monocytes Not Reportable Absolute Eosinophils Not Reportable Absolute Basophils Not Reportable Sodium 138.8 Potassium 4.6 Chloride 96 L Carbon Dioxide 30 Anion Gap 13 BUN 13 Creatinine 0.94 Est GFR ( Amer) > 60 Est GFR (Non-Af Amer) > 60 Glucose 204 H Lactic Acid Calcium 8.6 Total Bilirubin 0.7 AST 47 ALT 30 Alkaline Phosphatase 107 Ammonia < 8.7 L Total Protein 7.9 Albumin 3.4 L 01/28/18 01/28/18 16:22 16:22 WBC RBC Hgb Hct MCV MCH MCHC RDW Plt Count Seg Neutrophils % Lymphocytes % Monocytes % Eosinophils % Basophils % Absolute Neutrophils Absolute Lymphocytes Absolute Monocytes Absolute Eosinophils Absolute Basophils Sodium Potassium Chloride Carbon Dioxide Anion Gap BUN Creatinine Est GFR ( Amer) Est GFR (Non-Af Amer) Glucose Lactic Acid Cancelled 2.3 H Calcium Total Bilirubin AST ALT Alkaline Phosphatase Ammonia Total Protein Albumin 01/28/18 01/28/18 15:28 15:28 Creatine Kinase 23 L CK-MB (CK-2) 0.58 Troponin I 0.263 Impressions: Chest X-Ray 01/28/18 14:49 IMPRESSION: NO ACUTE RADIOGRAPHIC FINDING IN THE CHEST. Head CT 01/28/18 14:49 IMPRESSION: Chronic ischemic changes. EVIDENCE OF ACUTE STROKE: NO. Assessment & Plan - Diagnosis (1) Leukocytosis Is this a current diagnosis for this admission?: Yes Plan: Continue antibiotics and daily CBC (2) Altered mental status Qualifiers: Altered mental status type: unspecified Qualified Code(s): R41.82 - Altered mental status, unspecified Is this a current diagnosis for this admission?: Yes Plan: Etiology unclear at this time. LMP to rule out meningitis. MRI of the brain to rule out stroke or any acute intracranial process. Patient empirically covered with cefepime, vancomycin and Zovirax (3) Type 2 diabetes mellitus Is this a current diagnosis for this admission?: Yes Plan: Patient will be kept n.p.o. Sliding-scale (4) Hypertension Is this a current diagnosis for this admission?: Yes Plan: We will continue his home medication johnson when he is able to tolerate p.o. (5) COPD (chronic obstructive pulmonary disease) Qualifiers: Emphysema type: unspecified Is this a current diagnosis for this admission?: Yes Plan: Bronchodilator as needed
--- NOTE | 2018-01-28 20:53 | RADIOLOGY REPORT (SQ) ---
EXAM DESCRIPTION: LUMBAR PUNCTURE COMPLETED DATE/TIME: 01/28/2018 8:45 pm REASON FOR STUDY: 15, AMS, FEVER, HIGH WBC COMPARISON: CT of the head without contrast dated 01/28/2018. FLUOROSCOPY TIME: 8 seconds 2 images saved to PACS. TECHNIQUE: Fluoroscopic guided lumbar puncture with opening and closing pressures. LIMITATIONS: None. PROCEDURE: After written consent and assessment were obtained, the patient was brought into the fluo roscopy room and placed prone on the table. The patient's lower back was prepped in a sterile fashio n and an entry site was selected under live fluoroscopic guidance. The entry site was anesthetized wi th 1% lidocaine. A 22 gauge needle was advanced through the skin and into the thecal sac at the level of L3-L4. An opening pressure of 15 water units was obtained. After approximately 4.5ml of CSF was drained, a closing pressure of 15 water units was obtained. The needle was removed and a sterile band age was placed of the site. Specimens were sent to the lab for testing. A fluoroscopic spot image was saved to PACS confirming level access. FINDINGS: Clear CSF IMPRESSION: Lumbar puncture under fluoroscopy. No immediate complication. COMMENT: Patient medication list reviewed:Yes- Quality ID# [id number]:Eligible professional attests to docu menting in the medical record they obtained, updated, or reviewed the patient's current medications.. Quality ID 145: Final reports for procedures using fluoroscopy that document radiation exposure donte shazia, or exposure time and number of fluorographic images (if radiation exposure indices are not avail able) TECHNICAL DOCUMENTATION: JOB ID: [id number] [employer]- All Rights Reserved Reading location - IP/workstation name: [email or web address]
[2018-01-28 21:20] LABS: APPEARANCE ALL TUBES CLEAR; COLOR ALL TUBES COLORLESS; CSF TOTAL VOLUME 4.5 CC; CSF TUBE NUMBER 1; VOLUME TUBE 3 1.5 CC
[2018-01-28 21:21] LABS: RED BLOOD CELL,CSF 96 /uL (0-10); WHITE BLOOD CELL,CSF 2 /uL (0-5)
[2018-01-28 21:22] LABS: APPEARANCE ALL TUBES CLEAR; COLOR ALL TUBES COLORLESS; CSF TOTAL VOLUME 4.5 CC; CSF TUBE NUMBER 4; RED BLOOD CELL,CSF 1 /uL (0-10); VOLUME TUBE 3 1.5 CC
[2018-01-28 21:23] LABS: WHITE BLOOD CELL,CSF 1 /uL (0-5)
[2018-01-28 21:46] LABS: GLUCOSE,CSF 75 mg/dL (40-70); PROTEIN,CSF 71 mg/dL (12-60)
--- NOTE | 2018-01-28 22:35 | RADIOLOGY REPORT (SQ) ---
EXAM DESCRIPTION: MRI HEAD COMBO COMPLETED DATE/TIME: 01/28/2018 9:28 pm REASON FOR STUDY: Altered mental status COMPARISON: Earlier head CT TECHNIQUE: Multiplanar imaging includes noncontrasted T1, T2, FLAIR, and Diffusion with ADC map seq uences. Contrast enhanced T1 images. Images stored on PACS. CONTRAST TYPE AND DOSE: 20 mL Prohance. RENAL FUNCTION: GFR > 60. LIMITATIONS: Motion artifact FINDINGS: ANATOMY: No anomalies. Normal vascular flow voids. Pituitary fossa normal. CSF SPACES: Normal size and contour. No hemorrhage. CEREBRUM: A few high-signal intensity lesions scattered throughout the white matter on FLAIR imaging with distribution suggesting chronic microvascular ischemic change. Sulci and gyri normal in size and contour. No evidence of hemorrhage, mass or extraaxial fluid collection. No enhancing lesions. POSTERIOR FOSSA: No signal alteration. No hemorrhage. No edema, masses or mass effect. Internal audit ory canals, cerebello-pontine angles, mastoids normal. ORBITS: No masses. Globes normal. PARANASAL SINUSES: No fluid levels. Mucosa normal. OTHER: No other significant finding. DIFFUSION: Positive for acute or sub-acute punctate- lacunar infarctions in multiple locations of bot h frontal lobes, left parietal-occipital lobe, and the left cerebellum. IMPRESSION: Positive for acute or sub-acute punctate- lacunar infarctions in multiple locations of b oth frontal lobes, left parietal-occipital lobe, and the left cerebellum. This pattern suggests embo lic phenomenon but can be seen with other etiologies such as traumatic brain injury, correlate clinic ally. No enhancing lesions. EVIDENCE OF ACUTE STROKE: YES. Multiple vessel distribution TECHNICAL DOCUMENTATION: JOB ID: [id number] [place]-72 2010 [employer]- All Rights Reserved Reading location - IP/workstation name: [employer]
[2018-01-28] MEDS: PANTOPRAZOLE SODIUM 40 MG VIAL IV SCH (23:31)
[2018-01-28] MEDS: CEFEPIME 2 GM/D5W RTU 2 GM/50 ML RTUPB IV SCH (23:39)
[2018-01-28] MEDS: VANCOMYCIN HCL 2,000 MG in DEXTROSE 5%-WATER 500 ML IV SCH (23:40)
[2018-01-28] MEDS: ACYCLOVIR SODIUM 750 MG in NORMAL SALINE 250 ML IV SCH (23:44)
[2018-01-28] MEDS: NORMAL SALINE 1000 ML 1,000 ML IV PRN (23:49)
--- NOTE | 2018-01-29 00:16 | EKG REPORT ---
SEVERITY:- ABNORMAL ECG - SINUS TACHYCARDIA INFERIOR INFARCT, AGE INDETERMINATE : Confirmed by: America Swartz MD 29-Jan-2018 00:16:09
[2018-01-29 03:15] LABS: APPEARANCE,URINE SLIGHTLY-CLOUDY; BILIRUBIN,URINE NEGATIVE (NEGATIVE); COLOR,URINE YELLOW; GLUCOSE, URINE NEGATIVE (NEGATIVE); KETONES,URINE NEGATIVE (NEGATIVE); LEUKOCYTE ESTERASE,URINE NEGATIVE (NEGATIVE); NITRITE,URINE NEGATIVE (NEGATIVE); PROTEIN,URINE NEGATIVE (NEGATIVE); URINE SPECIFIC GRAVITY 1.026
[2018-01-29 05:18] LABS: ABSOLUTE BASOPHILS # (AUTO) 0.1 10^3/uL (0.0-0.2); ABSOLUTE EOSINOPHILS # (AUTO) 0.1 10^3/uL (0.0-0.6); ABSOLUTE LYMPHOCYTES (AUTO) 1.4 10^3/uL (0.5-4.7); ABSOLUTE MONOCYTES (AUTO) 0.9 10^3/uL (0.1-1.4); ABSOLUTE NEUT (AUTO) 15.2 10^3/uL (1.7-8.2); BASOPHILS % (AUTO) 0.7 % (0-2); EOSINOPHILS % (AUTO) 0.4 % (0-6); HEMATOCRIT 29.7 % (37.9-51.0); HEMOGLOBIN 9.9 g/dL (13.5-17.0); LYMPHOCYTES % (AUTO) 7.9 % (13-45); MEAN CORPUSCULAR HEMOGLOBIN 27.1 pg (27.0-33.4); MEAN CORPUSCULAR HGB CONC 33.1 g/dL (32.0-36.0); MEAN CORPUSCULAR VOLUME 82 fl (80-97); MONOCYTES % (AUTO) 4.9 % (3-13); PLATELET COUNT 464 10^3/uL (150-450); RED BLOOD COUNT 3.63 10^6/uL (4.35-5.55); RED CELL DISTRIBUTION WIDTH 15.4 % (11.5-14.0); SEGMENTED NEUTROPHILS % (AUTO) 86.1 % (42-78); TOTAL CELLS COUNTED % (AUTO) 100 %; WHITE BLOOD COUNT 17.6 10^3/uL (4.0-10.5)
[2018-01-29 05:38] LABS: ALANINE AMINOTRANSFERASE 21 U/L (21-72); ALKALINE PHOSPHATASE 88 U/L (38-126); ANION GAP 9 (5-19); ASPARTATE AMINO TRANSFERASE 38 U/L (17-59); BILIRUBIN,DIRECT 0.4 mg/dL (0.0-0.4); BILIRUBIN,TOTAL 0.6 mg/dL (0.2-1.3); BLOOD UREA NITROGEN 12 mg/dL (7-20); CALCIUM 8.3 mg/dL (8.4-10.2); CARBON DIOXIDE 26 mmol/L (22-30); CHLORIDE 103 mmol/L (98-107); GLUCOSE 140 mg/dL (75-110); POTASSIUM 3.8 mmol/L (3.6-5.0)
[2018-01-29] MEDS: HEPARIN SOD (PORCINE) 5,000 UNIT/ML 1 ML SYRINGE SUBCUT SCH ×4 (06:23→21:46)
[2018-01-29] MEDS: ACYCLOVIR SODIUM 750 MG in NORMAL SALINE 250 ML IV SCH (06:46)
[2018-01-29 09:59] LABS: URINE AMPHETAMINES SCREEN UNCONFIRMED POSITIVE; URINE BARBITURATES SCREEN NEGATIVE; URINE BENZODIAZEPINES SCREEN NEGATIVE; URINE COCAINE SCREEN NEGATIVE; URINE MARIJUANA (THC) SCREEN NEGATIVE; URINE METHADONE SCREEN NEGATIVE; URINE PHENCYCLIDINE SCREEN NEGATIVE
[2018-01-29] MEDS: PANTOPRAZOLE SODIUM 40 MG VIAL IV SCH ×2 (10:33→21:46)
[2018-01-29] MEDS: CEFEPIME 2 GM/D5W RTU 2 GM/50 ML RTUPB IV SCH (10:35)
[2018-01-29 10:48] LABS: VANCOMYCIN,TROUGH 9.6 ug/mL (5.0-20.0)
[2018-01-29] MEDS: VANCOMYCIN HCL 2,000 MG in DEXTROSE 5%-WATER 500 ML IV SCH (11:34)
--- NOTE | 2018-01-29 11:49 | RADIOLOGY REPORT (SQ) ---
EXAM DESCRIPTION: FLUORO/NEEDLE PLACEMENT/SPINE COMPLETE DATE/TIME: 01/28/2018 8:45 pm REASON FOR STUDY: AMS, FEVER, HIGH WBC FINDINGS: Please see combined report for performance of procedure and radiologic supervision and int erpretation. IMPRESSION: Please see combined report for performance of procedure and radiologic supervision and i nterpretation. Reading location - IP/workstation name: [email or web address]
[2018-01-29] MEDS ORDERED: VANCOMYCIN HCL 0 MG in DEXTROSE 5%-WATER 250 ML IV NR (14:00)
--- NOTE | 2018-01-29 14:25 | PDOC PROGRESS REPORT ---
Subjective Subjective:: This is 57 years old male patient brought by EMS for altered mental status, slurred speech and difficulty walking. Patient also running leukocytosis of 21,000. The possibility of meningitis and stroke was considered. AP produced clear CSF with WBC of 2 which is not compatible with any [employer] infection. But MRI of the brain reported as positive for acute or subacute punctate lacunar infarctions in multiple locations of both frontal lobes, left parietal-occipital lobe, and the left cerebellum. Initially patient was empirically started on Zovirax, cefepime and vancomycin. The cefepime and Lovenox has been discontinued and I continue the vancomycin since his blood culture is reported as positive for gram-positive cocci. Patient has been started on aspirin 325 mg p.o. daily Plavix 75 mg p.o. daily and Lipitor 80 mg p.o. nightly. This morning I seen patient resting in bed he is awake alert and cooperative. Carotid Doppler and echo are pending. Reason For Visit: ALTERED MENTAL STATUS,LEUKOCYTOSIS Physical Exam Vital Signs: Temp Pulse Resp BP Pulse Ox 98.0 F 78 20 157/93 H 96 01/29/18 08:46 01/29/18 11:00 01/29/18 12:00 01/29/18 12:01 01/29/18 12:01 Intake & Output 01/28/18 01/29/18 01/30/18 06:59 06:59 06:59 Intake Total 815 315 Output Total 600 Balance 815 -285 Weight 111.5 kg General appearance: PRESENT: no acute distress Mouth exam: PRESENT: moist Neck exam: ABSENT: carotid bruit, JVD, lymphadenopathy, thyromegaly Respiratory exam: PRESENT: clear to auscultation karime. ABSENT: rales, rhonchi, wheezes Cardiovascular exam: PRESENT: RRR. ABSENT: diastolic murmur, rubs, systolic murmur Neurological exam: PRESENT: alert, other - The patient has slurred speech. Results Laboratory Results: 01/29/18 05:05 01/29/18 05:05 01/28/18 01/28/18 01/28/18 20:24 20:24 20:54 WBC RBC Hgb Hct MCV MCH MCHC RDW Plt Count Seg Neutrophils % Lymphocytes % Monocytes % Eosinophils % Basophils % Absolute Neutrophils Absolute Lymphocytes Absolute Monocytes Absolute Eosinophils Absolute Basophils Sodium Potassium Chloride Carbon Dioxide Anion Gap BUN Creatinine Est GFR ( Amer) Est GFR (Non-Af Amer) Glucose Lactic Acid Calcium Total Bilirubin AST ALT Alkaline Phosphatase Total Protein Albumin Urine Color Urine Appearance Urine pH Ur Specific [place] Urine Protein Urine Glucose (UA) Urine Ketones Urine Blood Urine Nitrite Ur Leukocyte Esterase Urine WBC (Auto) Urine RBC (Auto) Fluid Tube Number 1 4 CSF Volume 4.5 4.5 CSF Appearance CLEAR CLEAR CSF Color COLORLESS COLORLESS CSF WBC 2 1 CSF RBC 96 1 CSF Glucose 75 H CSF Total Protein 71 H 01/28/18 01/29/18 01/29/18 21:46 02:23 05:05 WBC 17.6 H RBC 3.63 L Hgb 9.9 L Hct 29.7 L MCV 82 MCH 27.1 MCHC 33.1 RDW 15.4 H Plt Count 464 H Seg Neutrophils % 86.1 H Lymphocytes % 7.9 L Monocytes % 4.9 Eosinophils % 0.4 Basophils % 0.7 Absolute Neutrophils 15.2 H Absolute Lymphocytes 1.4 Absolute Monocytes 0.9 Absolute Eosinophils 0.1 Absolute Basophils 0.1 Sodium Potassium Chloride Carbon Dioxide Anion Gap BUN Creatinine Est GFR ( Amer) Est GFR (Non-Af Amer) Glucose Lactic Acid 2.5 H Calcium Total Bilirubin AST ALT Alkaline Phosphatase Total Protein Albumin Urine Color YELLOW Urine Appearance SLIGHTLY-CLOUDY Urine pH 5.0 Ur Specific [place] 1.026 Urine Protein NEGATIVE Urine Glucose (UA) NEGATIVE Urine Ketones NEGATIVE Urine Blood NEGATIVE Urine Nitrite NEGATIVE Ur Leukocyte Esterase NEGATIVE Urine WBC (Auto) 4 Urine RBC (Auto) 2 Fluid Tube Number CSF Volume CSF Appearance CSF Color CSF WBC CSF RBC CSF Glucose CSF Total Protein 01/29/18 05:05 WBC RBC Hgb Hct MCV MCH MCHC RDW Plt Count Seg Neutrophils % Lymphocytes % Monocytes % Eosinophils % Basophils % Absolute Neutrophils Absolute Lymphocytes Absolute Monocytes Absolute Eosinophils Absolute Basophils Sodium 138.0 Potassium 3.8 Chloride 103 Carbon Dioxide 26 Anion Gap 9 BUN 12 Creatinine 0.82 Est GFR ( Amer) > 60 Est GFR (Non-Af Amer) > 60 Glucose 140 H Lactic Acid Calcium 8.3 L Total Bilirubin 0.6 AST 38 ALT 21 Alkaline Phosphatase 88 Total Protein 7.0 Albumin 3.0 L Urine Color Urine Appearance Urine pH Ur Specific [place] Urine Protein Urine Glucose (UA) Urine Ketones Urine Blood Urine Nitrite Ur Leukocyte Esterase Urine WBC (Auto) Urine RBC (Auto) Fluid Tube Number CSF Volume CSF Appearance CSF Color CSF WBC CSF RBC CSF Glucose CSF Total Protein Impressions: Guidance Fluoroscopy 01/28/18 00:00 IMPRESSION: Please see combined report for performance of procedure and radiologic supervision and interpretation. Head MRI 01/28/18 00:00 IMPRESSION: Positive for acute or sub-acute punctate- lacunar infarctions in multiple locations of both frontal lobes, left parietal-occipital lobe, and the left cerebellum. This pattern suggests embolic phenomenon but can be seen with other etiologies such as traumatic brain injury, correlate clinically. No enhancing lesions. EVIDENCE OF ACUTE STROKE: YES. Multiple vessel distribution Chest X-Ray 01/28/18 14:49 IMPRESSION: NO ACUTE RADIOGRAPHIC FINDING IN THE CHEST. Head CT 01/28/18 14:49 IMPRESSION: Chronic ischemic changes. EVIDENCE OF ACUTE STROKE: NO. Lumbar Puncture 01/28/18 17:17 IMPRESSION: Lumbar puncture under fluoroscopy. No immediate complication. Assessment & Plan - Diagnosis (1) Acute ischemic stroke Is this a current diagnosis for this admission?: Yes Plan: Patient has been started on aspirin, Plavix and Lipitor. (2) Leukocytosis Is this a current diagnosis for this admission?: Yes Plan: Trending down (3) Altered mental status Qualifiers: Altered mental status type: unspecified Qualified Code(s): R41.82 - Altered mental status, unspecified Is this a current diagnosis for this admission?: Yes Plan: Due to #1 (4) Type 2 diabetes mellitus Is this a current diagnosis for this admission?: Yes Plan: Patient will be kept n.p.o. Sliding-scale (5) Hypertension Is this a current diagnosis for this admission?: Yes Plan: We will continue his home medication johnson when he is able to tolerate p.o. (6) COPD (chronic obstructive pulmonary disease) Qualifiers: Emphysema type: unspecified Is this a current diagnosis for this admission?: Yes Plan: Bronchodilator as needed
[2018-01-29] MEDS ORDERED: ASPIRIN 325 MG TABLET PO SCH (15:00)
[2018-01-29] MEDS ORDERED: CLOPIDOGREL BISULFATE 75 MG TABLET PO SCH (15:00)
[2018-01-29] MEDS ORDERED: HALOPERIDOL LACTATE INJ 5 MG/1 ML VIAL ONE (15:11)
[2018-01-29] MEDS ORDERED: HALOPERIDOL LACTATE INJ 5 MG/1 ML VIAL IV ONE (15:28)
[2018-01-29] MEDS: NORMAL SALINE 1000 ML 1,000 ML IV PRN ×2 (16:04→18:48)
[2018-01-29] MEDS ORDERED: FENTANYL CITRATE INJ/PF 100 MCG/2 ML AMPUL ONE (16:45)
--- NOTE | 2018-01-29 17:29 | Progress Note ---
Provider Note Provider Note: 01/29/2018 16:30 Pt coded on floor. Intubated patient for Hospitalist after ROSC. INTUBATION NOTE: 8.0 ETT placed using 4 Mac blade. 26 cm at the lips. No complications.
[2018-01-29] MEDS ORDERED: EPINEPHRINE INJ 1 MG/10 ML DISP.SYRIN ONE (17:46)
[2018-01-29] MEDS ORDERED: LIDOCAINE RTU 2 GM/D5W 250 ML (8 MG/ML) PREMIX IV ONE (17:46)
[2018-01-29] MEDS ORDERED: SODIUM BICARBONATE 8.4% INJ 50 MEQ/50 ML DISP.SYRIN ONE (17:46)
[2018-01-29] MEDS ORDERED: SUCCINYLCHOLINE CHLORIDE INJ 200 MG/10 ML VIAL ONE (17:53)
[2018-01-29] MEDS ORDERED: NOREPINEPHRINE BITARTRATE INJ/PF 4 MG/4 ML SDV IV ONE (17:58)
[2018-01-29] MEDS ORDERED: MIDAZOLAM HCL 50 MG/100 ML RTUINJ ONE (17:59)
[2018-01-29 18:07] LABS: ARTERIAL BLOOD BASE EXCESS -1.2 mmol/L; ARTERIAL BLOOD FIO2 40%; ARTERIAL BLOOD HCO3 23.6 mmol/L (20-26); ARTERIAL BLOOD O2 SATURATION 96.7 % (94-98); ARTERIAL BLOOD PCO2 39.9 mmHg (35-45); ARTERIAL BLOOD PH 7.39 (7.35-7.45); ARTERIAL BLOOD PO2 88.1 mmHg (80-100); ARTERIAL BLOOD TOTAL CO2 24.8 mmol/L (23-27)
[2018-01-29] MEDS ORDERED: NORMAL SALINE 1000 ML 1,000 ML IV PRN (18:32)
[2018-01-29] MEDS ORDERED: DEXTROSE 5%-WATER 250 ML with NOREPINEPHRINE BITARTRATE 4 MG IV PRN ×2 (18:32)
[2018-01-29] MEDS ORDERED: DEXTROSE 5%-WATER 250 ML with EPINEPHRINE/PF 1 MG IV PRN ×2 (18:38)
--- NOTE | 2018-01-29 18:43 | RADIOLOGY REPORT (SQ) ---
EXAM DESCRIPTION: CHEST SINGLE VIEW COMPLETED DATE/TIME: 01/29/2018 5:39 pm REASON FOR STUDY: code, intubation COMPARISON: 01/28/2018 EXAM PARAMETERS: NUMBER OF VIEWS: Two views TECHNIQUE: Single frontal radiographic view of the chest acquired. RADIATION DOSE: NA LIMITATIONS: Patient rotation. FINDINGS: LUNGS AND PLEURA: No opacities, masses or pneumothorax. No pleural effusion. MEDIASTINUM AND HILAR STRUCTURES: No masses. Contour normal. HEART AND VASCULAR STRUCTURES: Heart normal in size. Normal vasculature. BONES: No acute findings. HARDWARE: An endotracheal tube terminates approximately 4 cm cranial to the paty. An apparent ente ian tube is seen along the expected course of the esophagus, terminating subdiaphragmatically within the left upper quadrant. OTHER: No other significant finding. IMPRESSION: No evidence of acute cardiopulmonary abnormality. Endotracheal and enteric tubes demons trate appropriate positioning. TECHNICAL DOCUMENTATION: JOB ID: [id number] [employer]- All Rights Reserved Reading location - IP/workstation name: [email or web address]
[2018-01-29 18:47] LABS: HEMATOCRIT 29.1 % (37.9-51.0); HEMOGLOBIN 9.4 g/dL (13.5-17.0); MEAN CORPUSCULAR HEMOGLOBIN 26.9 pg (27.0-33.4); MEAN CORPUSCULAR HGB CONC 32.4 g/dL (32.0-36.0); MEAN CORPUSCULAR VOLUME 83 fl (80-97); PLATELET COUNT 423 10^3/uL (150-450); RED BLOOD COUNT 3.51 10^6/uL (4.35-5.55); RED CELL DISTRIBUTION WIDTH 15.3 % (11.5-14.0); WHITE BLOOD COUNT 16.1 10^3/uL (4.0-10.5)
[2018-01-29] MEDS: MAGNESIUM SULFATE/D5W 1 GM/100 ML RTUPB IV SCH (18:47)
[2018-01-29 18:49] LABS: ALANINE AMINOTRANSFERASE 92 U/L (21-72); ALBUMIN 2.5 g/dL (3.5-5.0); ALKALINE PHOSPHATASE 82 U/L (38-126); ANION GAP 14 (5-19); ASPARTATE AMINO TRANSFERASE 168 U/L (17-59); BILIRUBIN,DIRECT 0.5 mg/dL (0.0-0.4); BILIRUBIN,TOTAL 0.8 mg/dL (0.2-1.3); BLOOD UREA NITROGEN 11 mg/dL (7-20); CALCIUM 8.1 mg/dL (8.4-10.2); CARBON DIOXIDE 22 mmol/L (22-30); CHLORIDE 103 mmol/L (98-107); GLUCOSE 211 mg/dL (75-110); POTASSIUM 3.7 mmol/L (3.6-5.0); SODIUM 139.4 mmol/L (137-145)
[2018-01-29] MEDS ORDERED: MIDAZOLAM HCL 50 MG/100 ML RTUINJ IV PRN (18:56)
[2018-01-29 19:05] LABS: ABSOLUTE LYMPHOCYTES# (MANUAL) 0.8 10^3/uL (0.5-4.7); ABSOLUTE MONOCYTES # (MANUAL) 0.6 10^3/uL (0.1-1.4); ABSOLUTE NEUTROPHILS# (MANUAL) 14.7 10^3/uL (1.7-8.2); BASOPHILS % (MANUAL) 0 % (0-2); EOSINOPHILS % (MANUAL) 0 % (0-6); LYMPHOCYTES % (MANUAL) 5 % (13-45); MONOCYTES % (MANUAL) 4 % (3-13); SEGMENTED NEUTROPHILS % (MAN) 91 % (42-78); TOTAL CELLS COUNTED 100; TOXIC GRANULATION SLIGHT
[2018-01-29 19:06] LABS: ANISOCYTOSIS SLIGHT; HYPOCHROMASIA SLIGHT; PLATELET COMMENT ADEQUATE
--- NOTE | 2018-01-29 19:08 | RADIOLOGY REPORT (SQ) ---
EXAM DESCRIPTION: CHEST SINGLE VIEW COMPLETED DATE/TIME: 01/29/2018 6:56 pm REASON FOR STUDY: central line placement COMPARISON: None. EXAM PARAMETERS: NUMBER OF VIEWS: One view. TECHNIQUE: Single frontal radiographic view of the chest acquired. RADIATION DOSE: NA LIMITATIONS: The left costophrenic angle is excluded from the imaged field of view. FINDINGS: LUNGS AND PLEURA: Limited exam. No focal consolidation, large pleural effusion, or pneumo thorax is evident. MEDIASTINUM AND HILAR STRUCTURES: No masses. Contour normal. HEART AND VASCULAR STRUCTURES: Stable. BONES: No acute findings. HARDWARE: An endotracheal tube terminates approximately 3.5 cm cranial to the paty. An enteric tub e terminates subdiaphragmatically out of the field of view. Interval placement of a right-sided cent ral vascular access catheter which terminates in the region of the superior vena cava. OTHER: No other significant finding. IMPRESSION: 1. Stable pulmonary exam. 2. Lines and tubes as above. TECHNICAL DOCUMENTATION: JOB ID: [id number] [employer]- All Rights Reserved Reading location - IP/workstation name: [email or web address]
[2018-01-29 19:15] LABS: ARTERIAL BLOOD BASE EXCESS -2.2 mmol/L; ARTERIAL BLOOD H2CO3 1.51 mmol/L (1.05-1.35); ARTERIAL BLOOD HCO3 24.4 mmol/L (20-26); ARTERIAL BLOOD O2 SATURATION 46.4 % (94-98); ARTERIAL BLOOD PCO2 50.2 mmHg (35-45); ARTERIAL BLOOD PH 7.31 (7.35-7.45)
[2018-01-29 19:16] LABS: ARTERIAL BLOOD FIO2 40%
[2018-01-29 19:17] LABS: ARTERIAL BLOOD PO2 28.1 mmHg (80-100)
[2018-01-29 19:33] LABS: ARTERIAL BLOOD BASE EXCESS 0.6 mmol/L; ARTERIAL BLOOD H2CO3 1.12 mmol/L (1.05-1.35); ARTERIAL BLOOD HCO3 24.7 mmol/L (20-26); ARTERIAL BLOOD O2 SATURATION 96.7 % (94-98); ARTERIAL BLOOD PCO2 37.3 mmHg (35-45); ARTERIAL BLOOD PH 7.44 (7.35-7.45); ARTERIAL BLOOD PO2 84.5 mmHg (80-100); ARTERIAL BLOOD TOTAL CO2 25.8 mmol/L (23-27)
[2018-01-29 19:34] LABS: ARTERIAL BLOOD FIO2 40%
--- NOTE | 2018-01-29 21:05 | Progress Note ---
Provider Note Provider Note: Pt seen and examined. EKG no acute ST segment changes. Recommend ruling out PE as cause of CODE BLUE.
[2018-01-29] MEDS: VANCOMYCIN HCL 1,250 MG in DEXTROSE 5%-WATER 250 ML IV SCH (21:20)
[2018-01-29] MEDS ORDERED: ATORVASTATIN CALCIUM 80 MG TABLET PO SCH (22:00)
--- NOTE | 2018-01-29 22:50 | Operative Report ---
Nonrecallable Operative Report DATE OF SURGERY: 01/29/18 PREOPERATIVE DIAGNOSIS: 1. Pulses Electrical activity (arrhythmia). 2. Hypotension. 3. Phlebosclerosis POSTOPERATIVE DIAGNOSIS: Same as above OPERATION: 1. ultrasound-guided central venous puncture. 2. Right subclavian vein central line placement SURGEON: RASHAAD TRIVEDI ANESTHESIA: Local TISSUE REMOVED OR ALTERED: None COMPLICATIONS: None apparent ESTIMATED BLOOD LOSS: Minimal PROCEDURE: Drains/implants: Right subclavian central line at 15 cm. Procedure in detail: After emergency consent was verified with the nurse, the patient was laid in the Trendelenburg position. The area of the right neck and chest were prepped and draped in a normal sterile fashion. An ultrasound was used to identify the right subclavian vein. It was compressible with normal flow. Under direct ultrasonic guidance, the right subclavian vein was accessed. Dark venous, nonpulsatile blood was returned into the syringe. The wire was then inserted into the vein easily. The wire was confirmed to be within the lumen of the vein using the ultrasound device. The catheter was slid over the wire using a modified Seldinger technique. The catheter was aspirated and flushed 3. The catheter returned dark venous, nonpulsatile blood. The catheter was sutured to the skin, and a sterile dressing was placed. The procedure was concluded. All sponge, instrument, and needle counts were correct 2. Condition: Critical.
--- NOTE | 2018-01-29 23:03 | EKG REPORT ---
SEVERITY:- ABNORMAL ECG - SINUS RHYTHM PROBABLE INFERIOR INFARCT, AGE INDETERMINATE PROLONGED QT INTERVAL : Confirmed by: America Swartz MD 29-Jan-2018 23:03:02
[2018-01-30] MEDS ORDERED: PROPOFOL 1,000 MG/100 ML INFUS..BTL IV ONE (00:49)
[2018-01-30] MEDS ORDERED: FENTANYL CITRATE INJ/PF 100 MCG/2 ML AMPUL INJ PRN (00:53)
[2018-01-30] MEDS: PROPOFOL 1,000 MG/100 ML INFUS..BTL IV PRN ×4 (01:12→23:35)
[2018-01-30] MEDS: VANCOMYCIN HCL 1,250 MG in DEXTROSE 5%-WATER 250 ML IV SCH ×3 (03:00→18:28)
--- NOTE | 2018-01-30 03:27 | RADIOLOGY REPORT (SQ) ---
EXAM DESCRIPTION: CT HEAD WITHOUT IV CONTRAST COMPLETED DATE/TME: 01/30/2018 00:00 CLINICAL HISTORY: stroke 01/28/18. CARDIAC ARREST 01/29/18 APPROX 1630HRS COMPARISON: 01/28/2018 TECHNIQUE: Axial CT of the head obtained from the skull apex to the skull base without contrast. FINDINGS: No acute intracranial hemorrhage identified. No mass, mass effect, shift of the midline, abnormal extra-axial fluid collection or CT evidence of acute ischemic change identified. The ventricular system is unremarkable. No acute abnormalities of the supratentorial white matter, basal ganglia, cerebellum, or brainstem. The visualized paranasal sinuses and the mastoids are clear. No skull fracture identified. Visualized orbits and globes are unremarkable. Endotracheal tube identified. DLP: 1166.82 mGy-cm IMPRESSION: 1. No acute intracranial abnormality identified. This exam was performed according to our departmental dose-optimization program, which includes automated exposure control, adjustment of the mA and/or kV according to patient size and/or use of iterative reconstruction technique.
[2018-01-30] MEDS: NORMAL SALINE 1000 ML 1,000 ML IV PRN ×3 (03:32→23:34)
[2018-01-30] MEDS: HEPARIN SOD (PORCINE) 5,000 UNIT/ML 1 ML SYRINGE SUBCUT SCH ×3 (06:18→23:32)
[2018-01-30] MEDS: MAGNESIUM SULFATE/D5W 1 GM/100 ML RTUPB IV SCH (06:22)
[2018-01-30 06:25] LABS: ABSOLUTE BASOPHILS # (AUTO) 0.1 10^3/uL (0.0-0.2); ABSOLUTE EOSINOPHILS # (AUTO) 0.1 10^3/uL (0.0-0.6); ABSOLUTE LYMPHOCYTES (AUTO) 1.2 10^3/uL (0.5-4.7); ABSOLUTE MONOCYTES (AUTO) 0.7 10^3/uL (0.1-1.4); ABSOLUTE NEUT (AUTO) 10.6 10^3/uL (1.7-8.2); BASOPHILS % (AUTO) 0.5 % (0-2); EOSINOPHILS % (AUTO) 0.6 % (0-6); HEMATOCRIT 28.3 % (37.9-51.0); HEMOGLOBIN 9.1 g/dL (13.5-17.0); LYMPHOCYTES % (AUTO) 9.3 % (13-45); MEAN CORPUSCULAR HEMOGLOBIN 26.8 pg (27.0-33.4); MEAN CORPUSCULAR HGB CONC 32.1 g/dL (32.0-36.0); MEAN CORPUSCULAR VOLUME 83 fl (80-97); MONOCYTES % (AUTO) 5.2 % (3-13); PLATELET COUNT 390 10^3/uL (150-450); RED BLOOD COUNT 3.39 10^6/uL (4.35-5.55); RED CELL DISTRIBUTION WIDTH 15.7 % (11.5-14.0); SEGMENTED NEUTROPHILS % (AUTO) 84.4 % (42-78); TOTAL CELLS COUNTED % (AUTO) 100 %; WHITE BLOOD COUNT 12.6 10^3/uL (4.0-10.5)
[2018-01-30 06:39] LABS: ARTERIAL BLOOD BASE EXCESS -0.4 mmol/L; ARTERIAL BLOOD H2CO3 1.16 mmol/L (1.05-1.35); ARTERIAL BLOOD HCO3 24.1 mmol/L (20-26); ARTERIAL BLOOD O2 SATURATION 95.8 % (94-98); ARTERIAL BLOOD PCO2 38.5 mmHg (35-45); ARTERIAL BLOOD PH 7.41 (7.35-7.45); ARTERIAL BLOOD PO2 78.7 mmHg (80-100); ARTERIAL BLOOD TOTAL CO2 25.3 mmol/L (23-27)
[2018-01-30 06:44] LABS: ALANINE AMINOTRANSFERASE 65 U/L (21-72); ALBUMIN 2.4 g/dL (3.5-5.0); ALKALINE PHOSPHATASE 72 U/L (38-126); ANION GAP 8 (5-19); ASPARTATE AMINO TRANSFERASE 95 U/L (17-59); BILIRUBIN,DIRECT 0.3 mg/dL (0.0-0.4); BILIRUBIN,TOTAL 0.4 mg/dL (0.2-1.3); BLOOD UREA NITROGEN 10 mg/dL (7-20); CARBON DIOXIDE 27 mmol/L (22-30); CHLORIDE 107 mmol/L (98-107); GLUCOSE 144 mg/dL (75-110); POTASSIUM 3.9 mmol/L (3.6-5.0); SODIUM 141.7 mmol/L (137-145); TOTAL PROTEIN 5.8 g/dL (6.3-8.2)
[2018-01-30 06:47] LABS: ARTERIAL BLOOD FIO2 30%
--- NOTE | 2018-01-30 08:27 | RADIOLOGY REPORT (SQ) ---
EXAM DESCRIPTION: CHEST SINGLE VIEW COMPLETED DATE/TIME: 01/30/2018 6:13 am REASON FOR STUDY: INTUBATED COMPARISON: 01/29/2018. EXAM PARAMETERS: NUMBER OF VIEWS: One view. TECHNIQUE: Single frontal radiographic view of the chest acquired. RADIATION DOSE: NA LIMITATIONS: None. FINDINGS: LUNGS AND PLEURA: No opacities, masses or pneumothorax. No pleural effusion. MEDIASTINUM AND HILAR STRUCTURES: No masses. Contour normal. HEART AND VASCULAR STRUCTURES: Heart normal in size. Normal vasculature. BONES: No acute findings. HARDWARE: Endotracheal tube with the tip proximal to the paty. Nasogastric tube with the tip in th e stomach. Central line with the tip at the level of the superior vena cava. OTHER: No other significant finding. IMPRESSION: STABLE CHEST. NO ACUTE FINDINGS. TECHNICAL DOCUMENTATION: JOB ID: [id number] [employer]- All Rights Reserved Reading location - IP/workstation name: [email or web address]
[2018-01-30] MEDS ORDERED: CEFEPIME 2 GM/D5W RTU 2 GM/50 ML RTUPB IV SCH (10:00)
[2018-01-30] MEDS: PANTOPRAZOLE SODIUM 40 MG VIAL IV SCH ×2 (10:34→23:32)
--- NOTE | 2018-01-30 11:52 | PDOC CONSULTATION ---
Consultation Consult Date: 01/30/18 Attending physician:: JOBY NOLAN Consult reason:: Acute respiratory failure History of Present Illness Admission Date/PCP: 01/28/18 17:39 History of Present Illness: AGNIESZKA GOMEZ is a 57 year old male,admitted via ED for acute CVA (Multiple infarcts)with left-sided hemiparesis was admitted to the IMCU subsequently became bradycardic hypotensive and had a respiratory arrest after several attempts of resuscitation he went to [facility] and later had a substantial rhythm subsequently was intubated and brought to the ICU, Reportedly the patient was initially posturing but no longer is posturing and does have spontaneous respirations though is not arousable. Past Medical History Cardiac Medical History: Reports: Hypertension Pulmonary Medical History: Reports: Chronic Obstructive Pulmonary Disease (COPD) Endocrine Medical History: Reports: Diabetes Mellitus Type 2 GI Medical History: Reports: Hepatitis Skin Medical History: Reports: Psoriasis Psychiatric Medical History: Reports: Depression - anxiety Traumatic Medical History: Denies: Traumatic Brain Injury Hematology: Denies: Hemophilia, Sickle Cell Disease Infectious Medical History: Denies: Clostridium Difficile Past Surgical History Past Surgical History: Reports: Appendectomy, Orthopedic Surgery - left ankle Social History Information Source: [facility] Records Smoking Status: Current Every Day Smoker Passive smoke exposure as: Both Hx Recreational Drug Use: No Family History Family History: Other - Unable to obtain seconadary to patient's condition. Parental Family History Reviewed: No Children Family History Reviewed: No Sibling(s) Family History Reviewed.: No Medication/Allergy Home Medications: Albuterol Sulfate [Proair HFA] 2 puff IH Q6HP PRN 01/29/18 Amlodipine Besylate/Benazepril [Amlodipine-Benazepril 10-20 mg] 1 tab PO DAILY 01/29/18 Budesonide/Formoterol Fumarate [Symbicort HFA 160-4.5 mcg Inhaler 6 gm] 2 puff IH BID 01/29/18 Bupropion HCl [Wellbutrin 75 mg Tablet] 150 mg PO BID 01/29/18 Gabapentin [Neurontin] 300 mg PO Q12 01/29/18 Metformin HCl [Glucophage XR 500 mg Tablet] 1,000 mg PO DAILY 01/29/18 Tiotropium [place] [Spiriva Respimat] 2 puff IH BID 01/29/18 Allergies/Adverse Reactions: No Known Allergies Allergy (Verified 01/29/18 10:52) Review of Systems ROS unobtainable: Due to endotracheal tube, Due to mental status Physical Exam Vital Signs: Temp Pulse Resp BP Pulse Ox 95.7 F L 66 19 133/76 H 97 01/30/18 08:00 01/30/18 08:00 01/30/18 08:00 01/30/18 08:00 01/30/18 08:33 Intake & Output 01/29/18 01/30/18 01/31/18 06:59 06:59 06:59 Intake Total 815 3657 Output Total 1775 60 Balance 815 1882 -60 Weight 111.5 kg 113.3 kg 113.3 kg General appearance: PRESENT: disheveled, morbidly obese Head exam: PRESENT: atraumatic, normocephalic Eye exam: PRESENT: conjunctiva pale. ABSENT: nystagmus, periorbital swelling, scleral icterus Mouth exam: PRESENT: dry mucosa, neck supple, tongue midline, other - ET tube Neck exam: ABSENT: carotid bruit, JVD, lymphadenopathy, thyromegaly, tracheal deviation, tracheostomy Respiratory exam: PRESENT: decreased breath sounds, prolonged expiratory phas, rales, rhonchi, unlabored. ABSENT: retraction, stridor, tachypnea Cardiovascular exam: PRESENT: RRR, +S1, +S2 Pulses: PRESENT: normal radial pulses GI/Abdominal exam: PRESENT: diminished bowel sounds, soft Extremities exam: PRESENT: pedal edema. ABSENT: clubbing, joint swelling Musculoskeletal exam: ABSENT: deformity, dislocation Neurological exam: ABSENT: alert, awake, oriented to person Skin exam: PRESENT: dry, warm Results Laboratory Results: 01/30/18 05:45 01/30/18 05:45 01/29/18 01/29/18 01/29/18 17:45 17:45 17:45 WBC 16.1 H RBC 3.51 L Hgb 9.4 L Hct 29.1 L MCV 83 MCH 26.9 L MCHC 32.4 RDW 15.3 H Plt Count 423 Seg Neutrophils % Not Reportable Lymphocytes % Not Reportable Monocytes % Not Reportable Eosinophils % Not Reportable Basophils % Not Reportable Absolute Neutrophils Not Reportable Absolute Lymphocytes Not Reportable Absolute Monocytes Not Reportable Absolute Eosinophils Not Reportable Absolute Basophils Not Reportable Carbonic Acid 1.20 HCO3/H2CO3 Ratio 19:1 ABG pH 7.39 ABG pCO2 39.9 ABG pO2 88.1 ABG HCO3 23.6 ABG O2 Saturation 96.7 ABG Base Excess -1.2 FiO2 40% Sodium 139.4 Potassium 3.7 Chloride 103 Carbon Dioxide 22 Anion Gap 14 BUN 11 Creatinine 1.02 Est GFR ( Amer) > 60 Est GFR (Non-Af Amer) > 60 Glucose 211 H Calcium 8.1 L Magnesium 2.2 Total Bilirubin 0.8 AST 168 H ALT 92 H Alkaline Phosphatase 82 Total Protein 6.0 L Albumin 2.5 L 01/29/18 01/29/18 01/30/18 19:00 19:22 05:45 WBC 12.6 H RBC 3.39 L Hgb 9.1 L Hct 28.3 L MCV 83 MCH 26.8 L MCHC 32.1 RDW 15.7 H Plt Count 390 Seg Neutrophils % 84.4 H Lymphocytes % 9.3 L Monocytes % 5.2 Eosinophils % 0.6 Basophils % 0.5 Absolute Neutrophils 10.6 H Absolute Lymphocytes 1.2 Absolute Monocytes 0.7 Absolute Eosinophils 0.1 Absolute Basophils 0.1 Carbonic Acid 1.51 H 1.12 HCO3/H2CO3 Ratio 16:1 22:1 ABG pH 7.31 L 7.44 ABG pCO2 50.2 H 37.3 ABG pO2 28.1 L* 84.5 ABG HCO3 24.4 24.7 ABG O2 Saturation 46.4 L 96.7 ABG Base Excess -2.2 0.6 FiO2 40% 40% Sodium Potassium Chloride Carbon Dioxide Anion Gap BUN Creatinine Est GFR ( Amer) Est GFR (Non-Af Amer) Glucose Calcium Magnesium Total Bilirubin AST ALT Alkaline Phosphatase Total Protein Albumin 01/30/18 01/30/18 05:45 05:45 WBC RBC Hgb Hct MCV MCH MCHC RDW Plt Count Seg Neutrophils % Lymphocytes % Monocytes % Eosinophils % Basophils % Absolute Neutrophils Absolute Lymphocytes Absolute Monocytes Absolute Eosinophils Absolute Basophils Carbonic Acid 1.16 HCO3/H2CO3 Ratio 20:1 ABG pH 7.41 ABG pCO2 38.5 ABG pO2 78.7 L ABG HCO3 24.1 ABG O2 Saturation 95.8 ABG Base Excess -0.4 FiO2 30% Sodium 141.7 Potassium 3.9 Chloride 107 Carbon Dioxide 27 Anion Gap 8 BUN 10 Creatinine 0.90 Est GFR ( Amer) > 60 Est GFR (Non-Af Amer) > 60 Glucose 144 H Calcium 8.0 L Magnesium Total Bilirubin 0.4 AST 95 H ALT 65 Alkaline Phosphatase 72 Total Protein 5.8 L Albumin 2.4 L 01/28/18 20:24 Cerebral Spinal Fluid - Csf Gram Stain - Final 01/29/18 01/29/18 01/30/18 17:45 23:40 05:45 Troponin I 0.244 0.319 0.379 Impressions: Guidance Fluoroscopy 01/28/18 00:00 IMPRESSION: Please see combined report for performance of procedure and radiologic supervision and interpretation. Head MRI 01/28/18 00:00 IMPRESSION: Positive for acute or sub-acute punctate- lacunar infarctions in multiple locations of both frontal lobes, left parietal-occipital lobe, and the left cerebellum. This pattern suggests embolic phenomenon but can be seen with other etiologies such as traumatic brain injury, correlate clinically. No enhancing lesions. EVIDENCE OF ACUTE STROKE: YES. Multiple vessel distribution Lumbar Puncture 01/28/18 17:17 IMPRESSION: Lumbar puncture under fluoroscopy. No immediate complication. Head CT 01/30/18 00:00 IMPRESSION: 1. No acute intracranial abnormality identified. This exam was performed according to our departmental dose-optimization program, which includes automated exposure control, adjustment of the mA and/or kV according to patient size and/or use of iterative reconstruction technique. Chest X-Ray 01/30/18 06:00 IMPRESSION: STABLE CHEST. NO ACUTE FINDINGS. Assessment & Plan - Diagnosis (1) Acute ischemic stroke Is this a current diagnosis for this admission?: Yes Plan: Multiple infarcts radiology suspicious for thromboembolic event (2) COPD (chronic obstructive pulmonary disease) Qualifiers: Emphysema type: unspecified Is this a current diagnosis for this admission?: Yes Plan: Xopenex as needed DuoNeb every 6 hours (3) Cardiopulmonary arrest with successful resuscitation Is this a current diagnosis for this admission?: Yes Plan: Had been on 2 vasopressors currently on none currently has spontaneous respirations at least for the last 2 hours - Time Total Critical Time (Minutes): 55
[2018-01-30] MEDS ORDERED: LEVALBUTEROL HCL NEB 1.25 MG/3 ML AMPUL NEB SCH (12:00)
[2018-01-30] MEDS: CEFEPIME 2 GM/D5W RTU 2 GM/50 ML RTUPB IV SCH ×2 (12:23→23:32)
[2018-01-30 12:50] LABS: VANCOMYCIN,TROUGH 46.4 ug/mL (5.0-20.0)
[2018-01-30 13:01] LABS: ARTERIAL BLOOD BASE EXCESS 1.8 mmol/L; ARTERIAL BLOOD FIO2 30%; ARTERIAL BLOOD H2CO3 1.08 mmol/L (1.05-1.35); ARTERIAL BLOOD HCO3 25.4 mmol/L (20-26); ARTERIAL BLOOD O2 SATURATION 95.9 % (94-98); ARTERIAL BLOOD PCO2 35.9 mmHg (35-45); ARTERIAL BLOOD PH 7.47 (7.35-7.45); ARTERIAL BLOOD PO2 75.3 mmHg (80-100); ARTERIAL BLOOD TOTAL CO2 26.5 mmol/L (23-27)
[2018-01-30 13:42] LABS: CREATINE KINASE MB 5.01 ng/mL (<4.55); TROPONIN I 0.349 ng/mL
--- NOTE | 2018-01-30 14:23 | RADIOLOGY REPORT (SQ) ---
EXAM DESCRIPTION: CAROTID DOPPLER COMPLETED DATE/TIME: 01/30/2018 2:03 pm REASON FOR STUDY: Multiple stroke COMPARISON: None. TECHNIQUE: Grayscale ultrasound, Doppler velocity and spectra, and color Doppler images acquired of the extra-cranial carotid and vertebral arteries. Images stored on PACS. LIMITATIONS: None. FINDINGS: RIGHT CAROTID CCA Velocities: Within normal limits. ICA Velocities Peak systolic 0.67 m/s. End diastolic 0.21 m/s. Proximal ICA/CCA peak systolic ratio 1.0. Spectra normal. No significant plaque. LEFT CAROTID CCA Velocities: Within normal limits. ICA Velocities Peak systolic 0.82 m/s. End diastolic 0.27 m/s. Proximal ICA/CCA peak systolic ratio 1.2. Spectra normal. No significant plaque. VERTEBRAL ARTERIES: Antegrade flow. Normal waveforms. SUBCLAVIAN ARTERIES: No finding. OTHER: No other significant finding. IMPRESSION: NO HEMODYNAMICALLY SIGNIFICANT STENOSIS. COMMENT: Quality ID #[id number]: Velocity criteria are extrapolated from the diameter data as defined by t he Society of Radiologists in Ultrasound Consensus Conference. Radiology 2003: 229; 340-346. TECHNICAL DOCUMENTATION: JOB ID: [id number] [employer]- All Rights Reserved Reading location - IP/workstation name: [email or web address]
--- NOTE | 2018-01-30 16:11 | PDOC PROGRESS REPORT ---
Subjective Subjective:: This is 57 years old male patient brought by EMS for altered mental status, slurred speech and difficulty walking. Patient found to have multiple ischemic stroke based on MRI findings. Patient transferred from ED to IMCU and an hour later he become hypotensive bradycardic and went into cardiopulmonary arrest. He is coated and immediate cardiopulmonary resuscitation started, patient intubated emergently, she got 2 ampules of epinephrine and one ampule of bicarb. Patient successfully resuscitated and transferred to ICU. This morning I seen patient while he is intubated and on mechanical ventilation. He responds to noxious stimuli appropriately. Patient has been seen by Dr. Coker and I appreciate his input. Reason For Visit: ALTERED MENTAL STATUS,LEUKOCYTOSIS Physical Exam Vital Signs: Temp Pulse Resp BP Pulse Ox 98.6 F 72 11 L 137/81 H 96 01/30/18 14:19 01/30/18 12:00 01/30/18 12:00 01/30/18 14:19 01/30/18 14:21 Intake & Output 01/29/18 01/30/18 01/31/18 06:59 06:59 06:59 Intake Total 815 3657 1395 Output Total 1775 60 Balance 815 1882 1335 Weight 111.5 kg 113.3 kg 113.3 kg General appearance: PRESENT: no acute distress Eye exam: PRESENT: conjunctiva pink, other - Pupils are mildly reactive bilateral Mouth exam: PRESENT: moist Cardiovascular exam: PRESENT: RRR. ABSENT: diastolic murmur, rubs, systolic murmur GI/Abdominal exam: PRESENT: normal bowel sounds, soft. ABSENT: distended, guarding, mass, organolmegaly, rebound, tenderness Results Laboratory Results: 01/30/18 05:45 01/30/18 05:45 01/29/18 01/29/18 01/29/18 17:45 17:45 17:45 WBC 16.1 H RBC 3.51 L Hgb 9.4 L Hct 29.1 L MCV 83 MCH 26.9 L MCHC 32.4 RDW 15.3 H Plt Count 423 Seg Neutrophils % Not Reportable Lymphocytes % Not Reportable Monocytes % Not Reportable Eosinophils % Not Reportable Basophils % Not Reportable Absolute Neutrophils Not Reportable Absolute Lymphocytes Not Reportable Absolute Monocytes Not Reportable Absolute Eosinophils Not Reportable Absolute Basophils Not Reportable Carbonic Acid 1.20 HCO3/H2CO3 Ratio 19:1 ABG pH 7.39 ABG pCO2 39.9 ABG pO2 88.1 ABG HCO3 23.6 ABG O2 Saturation 96.7 ABG Base Excess -1.2 FiO2 40% Sodium 139.4 Potassium 3.7 Chloride 103 Carbon Dioxide 22 Anion Gap 14 BUN 11 Creatinine 1.02 Est GFR ( Amer) > 60 Est GFR (Non-Af Amer) > 60 Glucose 211 H Calcium 8.1 L Magnesium 2.2 Total Bilirubin 0.8 AST 168 H ALT 92 H Alkaline Phosphatase 82 Total Protein 6.0 L Albumin 2.5 L 01/29/18 01/29/18 01/30/18 19:00 19:22 05:45 WBC 12.6 H RBC 3.39 L Hgb 9.1 L Hct 28.3 L MCV 83 MCH 26.8 L MCHC 32.1 RDW 15.7 H Plt Count 390 Seg Neutrophils % 84.4 H Lymphocytes % 9.3 L Monocytes % 5.2 Eosinophils % 0.6 Basophils % 0.5 Absolute Neutrophils 10.6 H Absolute Lymphocytes 1.2 Absolute Monocytes 0.7 Absolute Eosinophils 0.1 Absolute Basophils 0.1 Carbonic Acid 1.51 H 1.12 HCO3/H2CO3 Ratio 16:1 22:1 ABG pH 7.31 L 7.44 ABG pCO2 50.2 H 37.3 ABG pO2 28.1 L* 84.5 ABG HCO3 24.4 24.7 ABG O2 Saturation 46.4 L 96.7 ABG Base Excess -2.2 0.6 FiO2 40% 40% Sodium Potassium Chloride Carbon Dioxide Anion Gap BUN Creatinine Est GFR ( Amer) Est GFR (Non-Af Amer) Glucose Calcium Magnesium Total Bilirubin AST ALT Alkaline Phosphatase Total Protein Albumin 01/30/18 01/30/18 01/30/18 05:45 05:45 12:00 WBC RBC Hgb Hct MCV MCH MCHC RDW Plt Count Seg Neutrophils % Lymphocytes % Monocytes % Eosinophils % Basophils % Absolute Neutrophils Absolute Lymphocytes Absolute Monocytes Absolute Eosinophils Absolute Basophils Carbonic Acid 1.16 1.08 HCO3/H2CO3 Ratio 20:1 23:1 ABG pH 7.41 7.47 H ABG pCO2 38.5 35.9 ABG pO2 78.7 L 75.3 L ABG HCO3 24.1 25.4 ABG O2 Saturation 95.8 95.9 ABG Base Excess -0.4 1.8 FiO2 30% 30% Sodium 141.7 Potassium 3.9 Chloride 107 Carbon Dioxide 27 Anion Gap 8 BUN 10 Creatinine 0.90 Est GFR ( Amer) > 60 Est GFR (Non-Af Amer) > 60 Glucose 144 H Calcium 8.0 L Magnesium Total Bilirubin 0.4 AST 95 H ALT 65 Alkaline Phosphatase 72 Total Protein 5.8 L Albumin 2.4 L 01/28/18 20:24 Cerebral Spinal Fluid - Csf Gram Stain - Final 01/29/18 01/29/18 01/30/18 17:45 23:40 05:45 Creatine Kinase CK-MB (CK-2) Troponin I 0.244 0.319 0.379 01/30/18 01/30/18 12:00 12:00 Creatine Kinase 105 CK-MB (CK-2) 5.01 H Troponin I 0.349 Impressions: Guidance Fluoroscopy 01/28/18 00:00 IMPRESSION: Please see combined report for performance of procedure and radiologic supervision and interpretation. Head MRI 01/28/18 00:00 IMPRESSION: Positive for acute or sub-acute punctate- lacunar infarctions in multiple locations of both frontal lobes, left parietal-occipital lobe, and the left cerebellum. This pattern suggests embolic phenomenon but can be seen with other etiologies such as traumatic brain injury, correlate clinically. No enhancing lesions. EVIDENCE OF ACUTE STROKE: YES. Multiple vessel distribution Lumbar Puncture 01/28/18 17:17 IMPRESSION: Lumbar puncture under fluoroscopy. No immediate complication. Carotid Doppler Study 01/30/18 00:00 IMPRESSION: NO HEMODYNAMICALLY SIGNIFICANT STENOSIS. Head CT 01/30/18 00:00 IMPRESSION: 1. No acute intracranial abnormality identified. This exam was performed according to our departmental dose-optimization program, which includes automated exposure control, adjustment of the mA and/or kV according to patient size and/or use of iterative reconstruction technique. Chest X-Ray 01/30/18 06:00 IMPRESSION: STABLE CHEST. NO ACUTE FINDINGS. Assessment & Plan - Diagnosis (1) Acute ischemic stroke Is this a current diagnosis for this admission?: Yes Plan: Continue Lipitor aspirin and Plavix. (2) Leukocytosis Is this a current diagnosis for this admission?: Yes Plan: Has been trending down. Continue cefepime and vancomycin. (3) Altered mental status Qualifiers: Altered mental status type: unspecified Qualified Code(s): R41.82 - Altered mental status, unspecified Is this a current diagnosis for this admission?: Yes Plan: Due to acute ischemic stroke. (4) Type 2 diabetes mellitus Is this a current diagnosis for this admission?: Yes Plan: Patient will be kept n.p.o. Sliding-scale (5) Hypertension Is this a current diagnosis for this admission?: Yes Plan: We will continue his home medication johnson when he is able to tolerate p.o. (6) COPD (chronic obstructive pulmonary disease) Qualifiers: Emphysema type: unspecified Is this a current diagnosis for this admission?: Yes Plan: Bronchodilator as needed
[2018-01-30] MEDS: LEVALBUTEROL HCL NEB 1.25 MG/3 ML AMPUL NEB SCH (16:45)
[2018-01-30 19:29] LABS: CREATINE KINASE MB 3.04 ng/mL (<4.55)
[2018-01-30 19:40] LABS: TROPONIN I 0.29 ng/mL
[2018-01-30] MEDS: FENTANYL CITRATE INJ/PF 100 MCG/2 ML AMPUL IV PRN (19:41)
--- NOTE | 2018-01-30 20:43 | PDOC PROGRESS REPORT ---
Subjective Progress Note for:: 01/30/18 Subjective:: Patient about the same and has made very little progress. There is no significant change in general condition. Patient remains intubated, sedated, patient however looks comfortable and in acute distress. Medications reviewed. Reason For Visit: ALTERED MENTAL STATUS,LEUKOCYTOSIS Physical Exam Vital Signs: Temp Pulse Resp BP Pulse Ox 99.7 F 91 17 125/70 97 01/30/18 19:34 01/30/18 18:00 01/30/18 18:00 01/30/18 18:34 01/30/18 18:19 Intake & Output 01/29/18 01/30/18 01/31/18 06:59 06:59 06:59 Intake Total 815 3657 1395 Output Total 1775 560 Balance 815 1882 835 Weight 111.5 kg 113.3 kg 113.3 kg Exam: GENERAL: well-nourished and in no acute distress. Patient is intubated and sedated. Orientation cannot be checked HEAD: Atraumatic, normocephalic. EYES: Pupils equal round and reactive to light, extraocular movements could not be checked, sclera anicteric, conjunctiva are normal. ENT: TMs normal, nares patent, oropharynx clear without exudates. Moist mucous membranes. No oral ulcerations or bleeding gums noted NECK: supple without lymphadenopathy or JVD. Trachea is central. No cervical or axillary lymphadenopathy noted. Carotids are 2+ LUNGS: Breath sounds mostly clear to auscultation patient is noted to have bibasal crackles at the extreme bases CHEST: Palpation of the chest wall shows no significant chest wall tenderness or abnormalities. HEART: [place] [employer] HAND, No PSH, 2/6 GIACOMO aortic area, 1/6 no systolic murmur mitral area , no rubs or gallops. ABDOMEN: Soft, no significant tenderness appreciated, normoactive bowel sounds. No guarding, no rebound. No rigidity noted . No masses appreciated. EXTREMITIES: Pedal pulses are 1-2+, no calf tenderness noted, 1+ pedal edema noted. No clubbing or cyanosis. NEUROLOGICAL: The patient cannot participate in the neurological exam but no facial asymmetry noted. Extremities slightly hypotonic PSYCH: This cannot be evaluated. Patient cannot participate. SKIN: No significant ecchymosis, rash, or signs of pruritus noted. MUSCULOSKELETAL EXAM: No significant joint swelling noted. Patient cannot participate in musculoskeletal exam Results Laboratory Results: 01/30/18 05:45 01/30/18 05:45 01/30/18 01/30/18 01/30/18 05:45 05:45 05:45 WBC 12.6 H RBC 3.39 L Hgb 9.1 L Hct 28.3 L MCV 83 MCH 26.8 L MCHC 32.1 RDW 15.7 H Plt Count 390 Seg Neutrophils % 84.4 H Lymphocytes % 9.3 L Monocytes % 5.2 Eosinophils % 0.6 Basophils % 0.5 Absolute Neutrophils 10.6 H Absolute Lymphocytes 1.2 Absolute Monocytes 0.7 Absolute Eosinophils 0.1 Absolute Basophils 0.1 Carbonic Acid 1.16 HCO3/H2CO3 Ratio 20:1 ABG pH 7.41 ABG pCO2 38.5 ABG pO2 78.7 L ABG HCO3 24.1 ABG O2 Saturation 95.8 ABG Base Excess -0.4 FiO2 30% Sodium 141.7 Potassium 3.9 Chloride 107 Carbon Dioxide 27 Anion Gap 8 BUN 10 Creatinine 0.90 Est GFR ( Amer) > 60 Est GFR (Non-Af Amer) > 60 Glucose 144 H Calcium 8.0 L Total Bilirubin 0.4 AST 95 H ALT 65 Alkaline Phosphatase 72 Total Protein 5.8 L Albumin 2.4 L 01/30/18 12:00 WBC RBC Hgb Hct MCV MCH MCHC RDW Plt Count Seg Neutrophils % Lymphocytes % Monocytes % Eosinophils % Basophils % Absolute Neutrophils Absolute Lymphocytes Absolute Monocytes Absolute Eosinophils Absolute Basophils Carbonic Acid 1.08 HCO3/H2CO3 Ratio 23:1 ABG pH 7.47 H ABG pCO2 35.9 ABG pO2 75.3 L ABG HCO3 25.4 ABG O2 Saturation 95.9 ABG Base Excess 1.8 FiO2 30% Sodium Potassium Chloride Carbon Dioxide Anion Gap BUN Creatinine Est GFR ( Amer) Est GFR (Non-Af Amer) Glucose Calcium Total Bilirubin AST ALT Alkaline Phosphatase Total Protein Albumin 01/28/18 20:24 Cerebral Spinal Fluid - Csf Gram Stain - Final 01/29/18 01/29/18 01/30/18 17:45 23:40 05:45 Creatine Kinase CK-MB (CK-2) Troponin I 0.244 0.319 0.379 01/30/18 01/30/18 01/30/18 12:00 12:00 18:44 Creatine Kinase 105 74 CK-MB (CK-2) 5.01 H Troponin I 0.349 01/30/18 18:44 Creatine Kinase CK-MB (CK-2) 3.04 Troponin I 0.290 EKG Comments: Shows sinus rhythm without any sustained tachycardia or bradycardia arrhythmias. Impressions: Guidance Fluoroscopy 01/28/18 00:00 IMPRESSION: Please see combined report for performance of procedure and radiologic supervision and interpretation. Head MRI 01/28/18 00:00 IMPRESSION: Positive for acute or sub-acute punctate- lacunar infarctions in multiple locations of both frontal lobes, left parietal-occipital lobe, and the left cerebellum. This pattern suggests embolic phenomenon but can be seen with other etiologies such as traumatic brain injury, correlate clinically. No enhancing lesions. EVIDENCE OF ACUTE STROKE: YES. Multiple vessel distribution Lumbar Puncture 01/28/18 17:17 IMPRESSION: Lumbar puncture under fluoroscopy. No immediate complication. Carotid Doppler Study 01/30/18 00:00 IMPRESSION: NO HEMODYNAMICALLY SIGNIFICANT STENOSIS. Head CT 01/30/18 00:00 IMPRESSION: 1. No acute intracranial abnormality identified. This exam was performed according to our departmental dose-optimization program, which includes automated exposure control, adjustment of the mA and/or kV according to patient size and/or use of iterative reconstruction technique. Chest X-Ray 01/30/18 06:00 IMPRESSION: STABLE CHEST. NO ACUTE FINDINGS. 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 2D echo shows relatively well- preserved LVEF. Recommend scheduling patient for a pulmonary CTA to rule out pulmonary embolism as cause of code. Continue current supportive care. Troponin I elevation: Most likely related to CODE BLUE. Will repeat an EKG. occasionally [employer] events can cause troponin I elevation. EKG reviewed. No acute ST-T wave or ischemic changes noted. Cannot rule out prior inferior NE possibly old. Acute ischemic stroke: Patient being well managed by hospitalist. May consider neurology consultation and evaluation. COPD: Currently stable. Patient being intubated and ventilated. Cardiopulmonary arrest: Successful resuscitation. Diabetes: Patient is being well managed by the hospitalist. - Time Time with patient: Greater than 35 minutes - More than 50% of the time spent coordinating care, discussing management plans with involved caregivers. Management plans discussed with involved personnels. Medical decision making was of moderate to high complexity, patient's has multiple comorbidities.
[2018-01-31] MEDS: LEVALBUTEROL HCL NEB 1.25 MG/3 ML AMPUL NEB SCH ×3 (00:11→16:02)
[2018-01-31] MEDS: LORAZEPAM INJ 2 MG/1 ML VIAL IV PRN (01:41)
[2018-01-31 02:34] LABS: CREATINE KINASE MB 2.1 ng/mL (<4.55); TROPONIN I 0.268 ng/mL
[2018-01-31] MEDS: VANCOMYCIN HCL 1,250 MG in DEXTROSE 5%-WATER 250 ML IV SCH ×3 (03:45→18:07)
[2018-01-31] MEDS: PROPOFOL 1,000 MG/100 ML INFUS..BTL IV PRN ×3 (03:48→17:56)
[2018-01-31] MEDS: HEPARIN SOD (PORCINE) 5,000 UNIT/ML 1 ML SYRINGE SUBCUT SCH ×3 (05:19→22:26)
[2018-01-31 05:20] LABS: ARTERIAL BLOOD BASE EXCESS -0.7 mmol/L; ARTERIAL BLOOD H2CO3 0.98 mmol/L (1.05-1.35); ARTERIAL BLOOD HCO3 22.8 mmol/L (20-26); ARTERIAL BLOOD O2 SATURATION 96.5 % (94-98); ARTERIAL BLOOD PCO2 32.6 mmHg (35-45); ARTERIAL BLOOD PH 7.46 (7.35-7.45); ARTERIAL BLOOD PO2 79.7 mmHg (80-100); ARTERIAL BLOOD TOTAL CO2 23.8 mmol/L (23-27)
[2018-01-31 05:21] LABS: ARTERIAL BLOOD FIO2 30%
[2018-01-31 05:31] LABS: ABSOLUTE BASOPHILS # (AUTO) 0.1 10^3/uL (0.0-0.2); ABSOLUTE EOSINOPHILS # (AUTO) 0.1 10^3/uL (0.0-0.6); ABSOLUTE LYMPHOCYTES (AUTO) 1.3 10^3/uL (0.5-4.7); ABSOLUTE MONOCYTES (AUTO) 0.7 10^3/uL (0.1-1.4); ABSOLUTE NEUT (AUTO) 9.3 10^3/uL (1.7-8.2); BASOPHILS % (AUTO) 0.6 % (0-2); EOSINOPHILS % (AUTO) 1.3 % (0-6); HEMATOCRIT 26.3 % (37.9-51.0); HEMOGLOBIN 8.5 g/dL (13.5-17.0); LYMPHOCYTES % (AUTO) 11.4 % (13-45); MEAN CORPUSCULAR HGB CONC 32.4 g/dL (32.0-36.0); MEAN CORPUSCULAR VOLUME 83 fl (80-97); MONOCYTES % (AUTO) 5.8 % (3-13); PLATELET COUNT 386 10^3/uL (150-450); RED BLOOD COUNT 3.16 10^6/uL (4.35-5.55); RED CELL DISTRIBUTION WIDTH 15.8 % (11.5-14.0); SEGMENTED NEUTROPHILS % (AUTO) 80.9 % (42-78); TOTAL CELLS COUNTED % (AUTO) 100 %; WHITE BLOOD COUNT 11.5 10^3/uL (4.0-10.5)
[2018-01-31 05:37] LABS: ALANINE AMINOTRANSFERASE 51 U/L (21-72); ALBUMIN 2.3 g/dL (3.5-5.0); ALKALINE PHOSPHATASE 63 U/L (38-126); ANION GAP 9 (5-19); ASPARTATE AMINO TRANSFERASE 41 U/L (17-59); BILIRUBIN,DIRECT 0.3 mg/dL (0.0-0.4); BILIRUBIN,TOTAL 0.5 mg/dL (0.2-1.3); BLOOD UREA NITROGEN 10 mg/dL (7-20); CALCIUM 7.4 mg/dL (8.4-10.2); CARBON DIOXIDE 23 mmol/L (22-30); CHLORIDE 108 mmol/L (98-107); GLUCOSE 152 mg/dL (75-110); POTASSIUM 3.8 mmol/L (3.6-5.0); SODIUM 139.9 mmol/L (137-145); TOTAL PROTEIN 5.3 g/dL (6.3-8.2)
--- NOTE | 2018-01-31 08:10 | RADIOLOGY REPORT (SQ) ---
EXAM DESCRIPTION: CHEST SINGLE VIEW COMPLETED DATE/TIME: 01/31/2018 6:14 am REASON FOR STUDY: INTUBATED COMPARISON: 01/30/2018 EXAM PARAMETERS: NUMBER OF VIEWS: One view TECHNIQUE: Single frontal radiograph of the chest. RADIATION DOSE: N/A LIMITATIONS: None. FINDINGS: TEMPORARY SUPPORT DEVICES:ETT in expected location. NG tube courses below the otto-diaphr agm in to the stomach. PICC catheter from right peripheral approach is in expected location. LUNGS AND PLEURA: No opacities. No masses. No effusions. No pneumothorax. MEDIASTINUM AND HILAR STRUCTURES: No masses. Contour normal. HEART AND VASCULAR STRUCTURES: Heart size normal. Normal vascularity. Aorta normal for age BONES: No acute findings. OTHER: No other significant finding. IMPRESSION: NO ACUTE RADIOGRAPHIC FINDING IN THE CHEST. SUPPORT DEVICE(S) IN EXPECTED LOCATIONS. TECHNICAL DOCUMENTATION: JOB ID: [id number] Circular- All Rights Reserved Reading location - IP/workstation name: [email or web address]
--- NOTE | 2018-01-31 09:57 | XCELERA REPORT ---
[address] [address] Transthoracic Echocardiogram Report Name: AGNIESZKA GOMEZ Age: 57 yrs Gender: Male : 1960 Patient Status: Inpatient Patient Location: ICU^607^A Study Date: 01/30/2018 10:34 AM Height: 71 in Weight: 245 lb BSA: 2.3 m2 Procedure: A complete two-dimensional transthoracic echocardiogram was performed (2D, M-mode, spectral and color flow Doppler). The study was technically adequate with some images being suboptimal in quality. Reason For Study: Multiple stroke Ordering Physician: JOBY NOLAN Performed By: Karla Menendez Interpretation Summary The left ventricular ejection fraction is normal. There is borderline concentric left ventricular hypertrophy. The left ventricle is grossly normal size. LV diastolic function could not be adequately assessed. Wall motion cannot be accurately commented on, but no definite regional wall motion abnormalities noted. Borderline right ventricular enlargement. The right ventricle appears to be hypertrophied The right ventricular systolic function is normal. The right atrium is normal in size The left atrial size is normal. There is no mitral valve stenosis. There is no mitral regurgitation noted. No aortic regurgitation is present. There is no aortic valve stenosis There is a trace or physiologic amount of tricuspid regurgitation Tricuspid regurgitation jet envelope not well defined to measure RV systolic pressure accurately. The aortic root is not well visualized but is probably normal size. The inferior vena cava appeared normal and decreased < 50% with respiration (RAP 10-15 mmHg) There is no pericardial effusion. MMode/2D Measurements & Calculations RVDd: 1.7 cm LVIDd: 6.0 cm FS: 42.0 % Ao root diam: 3.1 cm IVSd: 0.99 cm LVIDs: 3.5 cm EDV(Teich): 180.7 ml LVPWd: 1.0 cm ESV(Teich): 50.4 ml Ao root area: 7.7 cm2 EF(Teich): 72.1 % Doppler Measurements & Calculations MV E max lori: MV dec slope: Ao V2 max: LV V1 max P.5 cm/sec 133.7 cm/sec 5.7 mmHg MV A max lori: 431.6 cm/sec2 Ao max PG: LV V1 max: 115.4 cm/sec MV dec time: 7.1 mmHg 119.8 cm/sec MV E/A: 0.90 0.24 sec PA V2 max: 92.3 cm/sec PA max P.4 mmHg Left Ventricle The left ventricle is grossly normal size. There is borderline concentric left ventricular hypertrophy. The left ventricular ejection fraction is normal. LV diastolic function could not be adequately assessed. Wall motion cannot be accurately commented on, but no definite regional wall motion abnormalities noted. Right Ventricle Borderline right ventricular enlargement. The right ventricle appears to be hypertrophied. The right ventricular systolic function is normal. Atria The right atrium is normal in size. The left atrial size is normal. Interarterial septum not well visualized and not well dopplered. Cannot comment on ASD/PFO presence. Mitral Valve The mitral valve is grossly normal. There is no mitral valve stenosis. There is no mitral regurgitation noted. Aortic Valve The aortic valve is grossly normal. There is no aortic valve stenosis. No aortic regurgitation is present. Tricuspid Valve The tricuspid valve is not well visualized, but is grossly normal. There is no tricuspid stenosis. There is a trace or physiologic amount of tricuspid regurgitation. Tricuspid regurgitation jet envelope not well defined to measure RV systolic pressure accurately. Pulmonic Valve The pulmonic valve is not well visualized. Great Vessels The aortic root is not well visualized but is probably normal size. The inferior vena cava appeared normal and decreased < 50% with respiration (RAP 10-15 mmHg). Effusions There is no pericardial effusion. : JOBY NOLAN > Michele Davey
[2018-01-31] MEDS: PANTOPRAZOLE SODIUM 40 MG VIAL IV SCH (09:59)
[2018-01-31] MEDS: NORMAL SALINE 1000 ML 1,000 ML IV PRN ×2 (10:00→15:36)
--- NOTE | 2018-01-31 10:56 | PDOC PROGRESS REPORT ---
Subjective Progress Note for:: 01/31/18 Subjective:: intubated Reason For Visit: ALTERED MENTAL STATUS,LEUKOCYTOSIS Physical Exam Vital Signs: Temp Pulse Resp BP Pulse Ox 99.0 F 85 24 H 136/80 H 96 01/31/18 06:20 01/31/18 03:40 01/31/18 06:20 01/31/18 06:20 01/31/18 06:20 Intake & Output 01/30/18 01/31/18 02/01/18 06:59 06:59 06:59 Intake Total 3657 3135 Output Total 1775 1240 Balance 1882 1895 Weight 113.3 kg 112.6 kg General appearance: PRESENT: no acute distress, disheveled, obese. ABSENT: cooperative Head exam: PRESENT: atraumatic, normocephalic Eye exam: PRESENT: conjunctiva pale, PERRLA. ABSENT: EOMI, nystagmus, periorbital swelling, scleral icterus Mouth exam: PRESENT: dry mucosa, neck supple, tongue midline, other - ET Neck exam: ABSENT: carotid bruit, JVD, lymphadenopathy, thyromegaly, tracheal deviation, tracheostomy Respiratory exam: PRESENT: decreased breath sounds, prolonged expiratory phas, rales, rhonchi, unlabored. ABSENT: retraction, stridor Cardiovascular exam: PRESENT: RRR, +S1, +S2, tachycardia Pulses: PRESENT: normal radial pulses GI/Abdominal exam: PRESENT: diminished bowel sounds, soft Extremities exam: ABSENT: calf tenderness, clubbing, joint swelling Musculoskeletal exam: ABSENT: ambulatory, deformity, dislocation Neurological exam: ABSENT: awake, oriented to person Skin exam: PRESENT: dry, warm Results Laboratory Results: 01/31/18 05:00 01/31/18 05:00 01/30/18 01/31/18 01/31/18 12:00 05:00 05:00 WBC 11.5 H RBC 3.16 L Hgb 8.5 L Hct 26.3 L MCV 83 MCH 27.0 MCHC 32.4 RDW 15.8 H Plt Count 386 Seg Neutrophils % 80.9 H Lymphocytes % 11.4 L Monocytes % 5.8 Eosinophils % 1.3 Basophils % 0.6 Absolute Neutrophils 9.3 H Absolute Lymphocytes 1.3 Absolute Monocytes 0.7 Absolute Eosinophils 0.1 Absolute Basophils 0.1 Carbonic Acid 1.08 0.98 L HCO3/H2CO3 Ratio 23:1 23:1 ABG pH 7.47 H 7.46 H ABG pCO2 35.9 32.6 L ABG pO2 75.3 L 79.7 L ABG HCO3 25.4 22.8 ABG O2 Saturation 95.9 96.5 ABG Base Excess 1.8 -0.7 FiO2 30% 30% Sodium Potassium Chloride Carbon Dioxide Anion Gap BUN Creatinine Est GFR ( Amer) Est GFR (Non-Af Amer) Glucose Calcium Magnesium Total Bilirubin AST ALT Alkaline Phosphatase Total Protein Albumin 01/31/18 05:00 WBC RBC Hgb Hct MCV MCH MCHC RDW Plt Count Seg Neutrophils % Lymphocytes % Monocytes % Eosinophils % Basophils % Absolute Neutrophils Absolute Lymphocytes Absolute Monocytes Absolute Eosinophils Absolute Basophils Carbonic Acid HCO3/H2CO3 Ratio ABG pH ABG pCO2 ABG pO2 ABG HCO3 ABG O2 Saturation ABG Base Excess FiO2 Sodium 139.9 Potassium 3.8 Chloride 108 H Carbon Dioxide 23 Anion Gap 9 BUN 10 Creatinine 1.05 Est GFR ( Amer) > 60 Est GFR (Non-Af Amer) > 60 Glucose 152 H Calcium 7.4 L Magnesium 2.2 Total Bilirubin 0.5 AST 41 ALT 51 Alkaline Phosphatase 63 Total Protein 5.3 L Albumin 2.3 L 01/28/18 20:24 Cerebral Spinal Fluid - Csf Gram Stain - Final 01/28/18 20:24 Cerebral Spinal Fluid - Csf CSF Culture - Final NO GROWTH 3 DAYS 01/28/18 21:46 Blood Blood Culture - Final Enterococcus Faecalis(Group D) 01/29/18 01/29/18 01/30/18 17:45 23:40 05:45 Creatine Kinase CK-MB (CK-2) Troponin I 0.244 0.319 0.379 01/30/18 01/30/18 01/30/18 12:00 12:00 18:44 Creatine Kinase 105 74 CK-MB (CK-2) 5.01 H Troponin I 0.349 01/30/18 01/30/18 01/30/18 18:44 23:55 23:55 Creatine Kinase 58 CK-MB (CK-2) 3.04 2.10 Troponin I 0.290 0.268 Impressions: Guidance Fluoroscopy 01/28/18 00:00 IMPRESSION: Please see combined report for performance of procedure and radiologic supervision and interpretation. Head MRI 01/28/18 00:00 IMPRESSION: Positive for acute or sub-acute punctate- lacunar infarctions in multiple locations of both frontal lobes, left parietal-occipital lobe, and the left cerebellum. This pattern suggests embolic phenomenon but can be seen with other etiologies such as traumatic brain injury, correlate clinically. No enhancing lesions. EVIDENCE OF ACUTE STROKE: YES. Multiple vessel distribution Lumbar Puncture 01/28/18 17:17 IMPRESSION: Lumbar puncture under fluoroscopy. No immediate complication. Carotid Doppler Study 01/30/18 00:00 IMPRESSION: NO HEMODYNAMICALLY SIGNIFICANT STENOSIS. Head CT 01/30/18 00:00 IMPRESSION: 1. No acute intracranial abnormality identified. This exam was performed according to our departmental dose-optimization program, which includes automated exposure control, adjustment of the mA and/or kV according to patient size and/or use of iterative reconstruction technique. Chest X-Ray 01/31/18 06:00 IMPRESSION: NO ACUTE RADIOGRAPHIC FINDING IN THE CHEST. SUPPORT DEVICE(S) IN EXPECTED LOCATIONS. Assessment & Plan - Diagnosis (1) Acute ischemic stroke Is this a current diagnosis for this admission?: Yes Plan: no longer posturing (2) COPD (chronic obstructive pulmonary disease) Qualifiers: Emphysema type: unspecified Is this a current diagnosis for this admission?: Yes Plan: Xopenex as needed DuoNeb every 6 hours (3) Cardiopulmonary arrest with successful resuscitation Is this a current diagnosis for this admission?: Yes Plan: Had been on 2 vasopressors currently on none currently has spontaneous respirations at least for the last 2 hours - Time Total Critical Time (Minutes): 45
[2018-01-31] MEDS: CEFEPIME 2 GM/D5W RTU 2 GM/50 ML RTUPB IV SCH (12:00)
--- NOTE | 2018-01-31 12:49 | PDOC CONSULTATION ---
Consultation Consult Date: 01/29/18 Attending physician:: JOBY NOLAN Consult reason:: Positive troponin I History of Present Illness Admission Date/PCP: 01/28/18 17:39 Patient complains of: Currently intubated and sedated. Patient is status post CODE BLUE History of Present Illness: AGNIESZKA GOMEZ is a 57 year old male with past medical history of hypertension , COPD and an anxiety disorder brought by EMS for altered mental status and questionable slurred speech. Due to cognitive impairment patient is not source of history. Brief information is obtained from ER attending note. Attending notes patient brought by EMS secondary to 1 hour prior to arrival walking and then falling to the ground supposedly being "unable to walk" according to EMS. They state that the stroke schedule was negative showing no focal weakness. Patient was only mumbling words. His initial blood workup shows leukocytosis of 31,000. CT scan of the head is negative further detailed history and review of system is unobtainable. This history obtained on admission was reviewed and confirmed. Course following admission was reviewed. While recuperating in IMCU, patient subsequently became bradycardic hypotensive and had a respiratory arrest after several attempts of resuscitation he went to [facility] and later had a substantial rhythm subsequently was intubated and brought to the ICU, in the ICU he was noted to be in small dose of epinephrine drip. He was noted to be maintaining a stable sinus rhythm. Blood pressure was noted to be stabilized when patient seen in the late afternoon. Past Medical History Cardiac Medical History: Reports: Hypertension Pulmonary Medical History: Reports: Chronic Obstructive Pulmonary Disease (COPD) Endocrine Medical History: Reports: Diabetes Mellitus Type 2 Psychiatric Medical History: Reports: Depression - anxiety Past Surgical History Past Surgical History: Reports: Appendectomy, Orthopedic Surgery - left ankle Social History Information Source: [facility] Records Smoking Status: Current Every Day Smoker Hx Recreational Drug Use: No - Advance Directive Resuscitation Status: Full Code Surrogate healthcare decision maker:: Not available Family History Family History: Other - Unable to obtain seconadary to patient's condition. Parental Family History Reviewed: No Children Family History Reviewed: No Sibling(s) Family History Reviewed.: No Medication/Allergy Home Medications: Albuterol Sulfate [Proair HFA] 2 puff IH Q6HP PRN 01/29/18 Amlodipine Besylate/Benazepril [Amlodipine-Benazepril 10-20 mg] 1 tab PO DAILY 01/29/18 Budesonide/Formoterol Fumarate [Symbicort HFA 160-4.5 mcg Inhaler 6 gm] 2 puff IH BID 01/29/18 Bupropion HCl [Wellbutrin 75 mg Tablet] 150 mg PO BID 01/29/18 Gabapentin [Neurontin] 300 mg PO Q12 01/29/18 Metformin HCl [Glucophage XR 500 mg Tablet] 1,000 mg PO DAILY 01/29/18 Tiotropium Flomot [Spiriva Respimat] 2 puff IH BID 01/29/18 Allergies/Adverse Reactions: No Known Allergies Allergy (Verified 01/29/18 10:52) Review of Systems ROS unobtainable: Due to endotracheal tube Physical Exam Vital Signs: Temp Pulse Resp BP Pulse Ox 99.9 F 92 19 103/60 99 01/29/18 19:15 01/29/18 15:39 01/29/18 19:15 01/29/18 19:15 01/29/18 19:15 Intake & Output 01/28/18 01/29/18 01/30/18 06:59 06:59 06:59 Intake Total 815 2157 Output Total 800 Balance 815 1357 Weight 111.5 kg Exam: GENERAL: well-nourished and in no acute distress. Patient is intubated and sedated. Orientation cannot be checked HEAD: Atraumatic, normocephalic. EYES: Pupils equal round and reactive to light, extraocular movements could not be checked, sclera anicteric, conjunctiva are normal. ENT: TMs normal, nares patent, oropharynx clear without exudates. Moist mucous membranes. No oral ulcerations or bleeding gums noted NECK: supple without lymphadenopathy or JVD. Trachea is central. No cervical or axillary lymphadenopathy noted. Carotids are 2+ LUNGS: Breath sounds mostly clear to auscultation patient is noted to have bibasal crackles at the extreme bases CHEST: Palpation of the chest wall shows no significant chest wall tenderness or abnormalities. HEART: [place] [employer], No PSH, 2/6 GIACOMO aortic area, 1/6 no systolic murmur mitral area , no rubs or gallops. ABDOMEN: Soft, no significant tenderness appreciated, normoactive bowel sounds. No guarding, no rebound. No rigidity noted . No masses appreciated. EXTREMITIES: Pedal pulses are 1-2+, no calf tenderness noted, 1+ pedal edema noted. No clubbing or cyanosis. NEUROLOGICAL: The patient cannot participate in the neurological exam but no facial asymmetry noted. Extremities slightly hypotonic PSYCH: This cannot be evaluated. Patient cannot participate. SKIN: No significant ecchymosis, rash, or signs of pruritus noted. MUSCULOSKELETAL EXAM: No significant joint swelling noted. Patient cannot participate in musculoskeletal exam Results Laboratory Results: 01/29/18 17:45 01/29/18 17:45 01/28/18 01/28/18 01/28/18 20:24 20:24 20:54 WBC RBC Hgb Hct MCV MCH MCHC RDW Plt Count Seg Neutrophils % Lymphocytes % Monocytes % Eosinophils % Basophils % Absolute Neutrophils Absolute Lymphocytes Absolute Monocytes Absolute Eosinophils Absolute Basophils Carbonic Acid HCO3/H2CO3 Ratio ABG pH ABG pCO2 ABG pO2 ABG HCO3 ABG O2 Saturation ABG Base Excess FiO2 Sodium Potassium Chloride Carbon Dioxide Anion Gap BUN Creatinine Est GFR ( Amer) Est GFR (Non-Af Amer) Glucose Lactic Acid Calcium Magnesium Total Bilirubin AST ALT Alkaline Phosphatase Total Protein Albumin Urine Color Urine Appearance Urine pH Ur Specific Verbena Urine Protein Urine Glucose (UA) Urine Ketones Urine Blood Urine Nitrite Ur Leukocyte Esterase Urine WBC (Auto) Urine RBC (Auto) Fluid Tube Number 1 4 CSF Volume 4.5 4.5 CSF Appearance CLEAR CLEAR CSF Color COLORLESS COLORLESS CSF WBC 2 1 CSF RBC 96 1 CSF Glucose 75 H CSF Total Protein 71 H 01/28/18 01/29/18 01/29/18 21:46 02:23 05:05 WBC 17.6 H RBC 3.63 L Hgb 9.9 L Hct 29.7 L MCV 82 MCH 27.1 MCHC 33.1 RDW 15.4 H Plt Count 464 H Seg Neutrophils % 86.1 H Lymphocytes % 7.9 L Monocytes % 4.9 Eosinophils % 0.4 Basophils % 0.7 Absolute Neutrophils 15.2 H Absolute Lymphocytes 1.4 Absolute Monocytes 0.9 Absolute Eosinophils 0.1 Absolute Basophils 0.1 Carbonic Acid HCO3/H2CO3 Ratio ABG pH ABG pCO2 ABG pO2 ABG HCO3 ABG O2 Saturation ABG Base Excess FiO2 Sodium Potassium Chloride Carbon Dioxide Anion Gap BUN Creatinine Est GFR ( Amer) Est GFR (Non-Af Amer) Glucose Lactic Acid 2.5 H Calcium Magnesium Total Bilirubin AST ALT Alkaline Phosphatase Total Protein Albumin Urine Color YELLOW Urine Appearance SLIGHTLY-CLOUDY Urine pH 5.0 Ur Specific Verbena 1.026 Urine Protein NEGATIVE Urine Glucose (UA) NEGATIVE Urine Ketones NEGATIVE Urine Blood NEGATIVE Urine Nitrite NEGATIVE Ur Leukocyte Esterase NEGATIVE Urine WBC (Auto) 4 Urine RBC (Auto) 2 Fluid Tube Number CSF Volume CSF Appearance CSF Color CSF WBC CSF RBC CSF Glucose CSF Total Protein 01/29/18 01/29/18 01/29/18 05:05 17:45 17:45 WBC 16.1 H RBC 3.51 L Hgb 9.4 L Hct 29.1 L MCV 83 MCH 26.9 L MCHC 32.4 RDW 15.3 H Plt Count 423 Seg Neutrophils % Not Reportable Lymphocytes % Not Reportable Monocytes % Not Reportable Eosinophils % Not Reportable Basophils % Not Reportable Absolute Neutrophils Not Reportable Absolute Lymphocytes Not Reportable Absolute Monocytes Not Reportable Absolute Eosinophils Not Reportable Absolute Basophils Not Reportable Carbonic Acid 1.20 HCO3/H2CO3 Ratio 19:1 ABG pH 7.39 ABG pCO2 39.9 ABG pO2 88.1 ABG HCO3 23.6 ABG O2 Saturation 96.7 ABG Base Excess -1.2 FiO2 40% Sodium 138.0 Potassium 3.8 Chloride 103 Carbon Dioxide 26 Anion Gap 9 BUN 12 Creatinine 0.82 Est GFR ( Amer) > 60 Est GFR (Non-Af Amer) > 60 Glucose 140 H Lactic Acid Calcium 8.3 L Magnesium Total Bilirubin 0.6 AST 38 ALT 21 Alkaline Phosphatase 88 Total Protein 7.0 Albumin 3.0 L Urine Color Urine Appearance Urine pH Ur Specific Verbena Urine Protein Urine Glucose (UA) Urine Ketones Urine Blood Urine Nitrite Ur Leukocyte Esterase Urine WBC (Auto) Urine RBC (Auto) Fluid Tube Number CSF Volume CSF Appearance CSF Color CSF WBC CSF RBC CSF Glucose CSF Total Protein 01/29/18 01/29/18 01/29/18 17:45 19:00 19:22 WBC RBC Hgb Hct MCV MCH MCHC RDW Plt Count Seg Neutrophils % Lymphocytes % Monocytes % Eosinophils % Basophils % Absolute Neutrophils Absolute Lymphocytes Absolute Monocytes Absolute Eosinophils Absolute Basophils Carbonic Acid 1.51 H 1.12 HCO3/H2CO3 Ratio 16:1 22:1 ABG pH 7.31 L 7.44 ABG pCO2 50.2 H 37.3 ABG pO2 28.1 L* 84.5 ABG HCO3 24.4 24.7 ABG O2 Saturation 46.4 L 96.7 ABG Base Excess -2.2 0.6 FiO2 40% 40% Sodium 139.4 Potassium 3.7 Chloride 103 Carbon Dioxide 22 Anion Gap 14 BUN 11 Creatinine 1.02 Est GFR ( Amer) > 60 Est GFR (Non-Af Amer) > 60 Glucose 211 H Lactic Acid Calcium 8.1 L Magnesium 2.2 Total Bilirubin 0.8 AST 168 H ALT 92 H Alkaline Phosphatase 82 Total Protein 6.0 L Albumin 2.5 L Urine Color Urine Appearance Urine pH Ur Specific Verbena Urine Protein Urine Glucose (UA) Urine Ketones Urine Blood Urine Nitrite Ur Leukocyte Esterase Urine WBC (Auto) Urine RBC (Auto) Fluid Tube Number CSF Volume CSF Appearance CSF Color CSF WBC CSF RBC CSF Glucose CSF Total Protein 01/29/18 17:45 Troponin I 0.244 EKG Comments: Shows sinus rhythm but cannot rule out previous inferior infarct Impressions: Guidance Fluoroscopy 01/28/18 00:00 IMPRESSION: Please see combined report for performance of procedure and radiologic supervision and interpretation. Head MRI 01/28/18 00:00 IMPRESSION: Positive for acute or sub-acute punctate- lacunar infarctions in multiple locations of both frontal lobes, left parietal-occipital lobe, and the left cerebellum. This pattern suggests embolic phenomenon but can be seen with other etiologies such as traumatic brain injury, correlate clinically. No enhancing lesions. EVIDENCE OF ACUTE STROKE: YES. Multiple vessel distribution Head CT 01/28/18 14:49 IMPRESSION: Chronic ischemic changes. EVIDENCE OF ACUTE STROKE: NO. Lumbar Puncture 01/28/18 17:17 IMPRESSION: Lumbar puncture under fluoroscopy. No immediate complication. Chest X-Ray 01/29/18 18:45 IMPRESSION: 1. Stable pulmonary exam. 2. Lines and tubes as above. Assessment & Plan - Diagnosis (1) Cardiopulmonary arrest with successful resuscitation Is this a current diagnosis for this admission?: Yes (2) Acute ischemic stroke Is this a current diagnosis for this admission?: Yes (3) Altered mental status Qualifiers: Altered mental status type: unspecified Qualified Code(s): R41.82 - Altered mental status, unspecified Is this a current diagnosis for this admission?: Yes (4) COPD (chronic obstructive pulmonary disease) Qualifiers: Emphysema type: unspecified Is this a current diagnosis for this admission?: Yes (5) Type 2 diabetes mellitus Qualifiers: Diabetes mellitus usp insulin use: unspecified usp insulin use status Diabetes mellitus complication status: with unspecified complications Qualified Code(s): E11.8 - Type 2 diabetes mellitus with unspecified complications Is this a current diagnosis for this admission?: Yes - Notes Notes: Status post cardiopulmonary arrest with successful resuscitation: Need to rule out pulmonary embolism. Other causes could be cardiac dysrhythmia related, internal bleed related, pericardial tamponade however these were ruled out. Need to rule out new [place]. Cardiac enzymes has been drawn. Acute ischemic stroke: Discussed patient's presentation. Possibility of brainstem infarct cannot be ruled out as cause of cardiopulmonary arrest. Altered mental status: Secondary to acute ischemic strokes COPD: Currently intubated and being artificially ventilated Diabetes: Currently well managed by hospitalist. A 2D echo ordered will be reviewed. Further management plans to be formulated after review of 2D echo. - Time Time Spent: 30 to 50 Minutes - More than 50% of the time spent coordinating care , discussing management plans with involved caregivers. Management plans discussed with involved personnels. Medical decision making was of moderate to high complexity, patient's has multiple comorbidities. Medications reviewed and adjusted accordingly: Yes
--- NOTE | 2018-01-31 12:54 | PDOC PROGRESS REPORT ---
Subjective Progress Note for:: 01/31/18 Subjective:: I seen patient resting in bed, intubated and on full support mechanical ventilation. Currently he is off sedation and pressors. His blood culture is positive Enterococcus faecalis sensitive to penicillin and ampicillin, gentamicin and vancomycin. Reason For Visit: ALTERED MENTAL STATUS,LEUKOCYTOSIS Physical Exam Vital Signs: Temp Pulse Resp BP Pulse Ox 99.7 F 90 22 H 137/78 H 96 01/31/18 10:05 01/31/18 08:15 01/31/18 10:05 01/31/18 10:05 01/31/18 10:05 Intake & Output 01/30/18 01/31/18 02/01/18 06:59 06:59 06:59 Intake Total 3657 3135 1000 Output Total 1775 1240 440 Balance 1882 1895 560 Weight 113.3 kg 112.6 kg General appearance: PRESENT: no acute distress Head exam: PRESENT: atraumatic Neck exam: ABSENT: carotid bruit, JVD, lymphadenopathy, thyromegaly Respiratory exam: PRESENT: clear to auscultation karime. ABSENT: rales, rhonchi, wheezes Cardiovascular exam: PRESENT: RRR. ABSENT: diastolic murmur, rubs, systolic murmur Results Laboratory Results: 01/31/18 05:00 01/31/18 05:00 01/30/18 01/31/18 01/31/18 12:00 05:00 05:00 WBC 11.5 H RBC 3.16 L Hgb 8.5 L Hct 26.3 L MCV 83 MCH 27.0 MCHC 32.4 RDW 15.8 H Plt Count 386 Seg Neutrophils % 80.9 H Lymphocytes % 11.4 L Monocytes % 5.8 Eosinophils % 1.3 Basophils % 0.6 Absolute Neutrophils 9.3 H Absolute Lymphocytes 1.3 Absolute Monocytes 0.7 Absolute Eosinophils 0.1 Absolute Basophils 0.1 Carbonic Acid 1.08 0.98 L HCO3/H2CO3 Ratio 23:1 23:1 ABG pH 7.47 H 7.46 H ABG pCO2 35.9 32.6 L ABG pO2 75.3 L 79.7 L ABG HCO3 25.4 22.8 ABG O2 Saturation 95.9 96.5 ABG Base Excess 1.8 -0.7 FiO2 30% 30% Sodium Potassium Chloride Carbon Dioxide Anion Gap BUN Creatinine Est GFR ( Amer) Est GFR (Non-Af Amer) Glucose Calcium Magnesium Total Bilirubin AST ALT Alkaline Phosphatase Total Protein Albumin 01/31/18 05:00 WBC RBC Hgb Hct MCV MCH MCHC RDW Plt Count Seg Neutrophils % Lymphocytes % Monocytes % Eosinophils % Basophils % Absolute Neutrophils Absolute Lymphocytes Absolute Monocytes Absolute Eosinophils Absolute Basophils Carbonic Acid HCO3/H2CO3 Ratio ABG pH ABG pCO2 ABG pO2 ABG HCO3 ABG O2 Saturation ABG Base Excess FiO2 Sodium 139.9 Potassium 3.8 Chloride 108 H Carbon Dioxide 23 Anion Gap 9 BUN 10 Creatinine 1.05 Est GFR ( Amer) > 60 Est GFR (Non-Af Amer) > 60 Glucose 152 H Calcium 7.4 L Magnesium 2.2 Total Bilirubin 0.5 AST 41 ALT 51 Alkaline Phosphatase 63 Total Protein 5.3 L Albumin 2.3 L 01/28/18 20:24 Cerebral Spinal Fluid - Csf Gram Stain - Final 01/28/18 20:24 Cerebral Spinal Fluid - Csf CSF Culture - Final NO GROWTH 3 DAYS 01/28/18 21:46 Blood Blood Culture - Final Enterococcus Faecalis(Group D) 01/29/18 01/29/18 01/30/18 17:45 23:40 05:45 Creatine Kinase CK-MB (CK-2) Troponin I 0.244 0.319 0.379 01/30/18 01/30/18 01/30/18 12:00 12:00 18:44 Creatine Kinase 105 74 CK-MB (CK-2) 5.01 H Troponin I 0.349 01/30/18 01/30/18 01/30/18 18:44 23:55 23:55 Creatine Kinase 58 CK-MB (CK-2) 3.04 2.10 Troponin I 0.290 0.268 Impressions: Guidance Fluoroscopy 01/28/18 00:00 IMPRESSION: Please see combined report for performance of procedure and radiologic supervision and interpretation. Head MRI 01/28/18 00:00 IMPRESSION: Positive for acute or sub-acute punctate- lacunar infarctions in multiple locations of both frontal lobes, left parietal-occipital lobe, and the left cerebellum. This pattern suggests embolic phenomenon but can be seen with other etiologies such as traumatic brain injury, correlate clinically. No enhancing lesions. EVIDENCE OF ACUTE STROKE: YES. Multiple vessel distribution Lumbar Puncture 01/28/18 17:17 IMPRESSION: Lumbar puncture under fluoroscopy. No immediate complication. Carotid Doppler Study 01/30/18 00:00 IMPRESSION: NO HEMODYNAMICALLY SIGNIFICANT STENOSIS. Head CT 01/30/18 00:00 IMPRESSION: 1. No acute intracranial abnormality identified. This exam was performed according to our departmental dose-optimization program, which includes automated exposure control, adjustment of the mA and/or kV according to patient size and/or use of iterative reconstruction technique. Chest X-Ray 01/31/18 06:00 IMPRESSION: NO ACUTE RADIOGRAPHIC FINDING IN THE CHEST. SUPPORT DEVICE(S) IN EXPECTED LOCATIONS. Assessment & Plan - Diagnosis (1) Acute ischemic stroke Is this a current diagnosis for this admission?: Yes Plan: Continue Lipitor aspirin and Plavix. (2) Altered mental status Qualifiers: Altered mental status type: unspecified Qualified Code(s): R41.82 - Altered mental status, unspecified Is this a current diagnosis for this admission?: Yes Plan: Due to acute ischemic stroke. (3) Type 2 diabetes mellitus Qualifiers: Qualified Code(s): E11.8 - Type 2 diabetes mellitus with unspecified complications Is this a current diagnosis for this admission?: Yes Plan: Patient will be kept n.p.o. Sliding-scale (4) Hypertension Is this a current diagnosis for this admission?: Yes Plan: We will continue his home medication johnson when he is able to tolerate p.o. (5) COPD (chronic obstructive pulmonary disease) Qualifiers: Emphysema type: unspecified Qualified Code(s): J43.9 - Emphysema, unspecified Is this a current diagnosis for this admission?: Yes Plan: Bronchodilator as needed
[2018-01-31 16:30] LABS: ARTERIAL BLOOD BASE EXCESS -2.2 mmol/L; ARTERIAL BLOOD H2CO3 0.97 mmol/L (1.05-1.35); ARTERIAL BLOOD HCO3 21.4 mmol/L (20-26); ARTERIAL BLOOD O2 SATURATION 89.9 % (94-98); ARTERIAL BLOOD PCO2 32.3 mmHg (35-45); ARTERIAL BLOOD PH 7.44 (7.35-7.45); ARTERIAL BLOOD PO2 54.6 mmHg (80-100); ARTERIAL BLOOD TOTAL CO2 22.4 mmol/L (23-27)
[2018-01-31 16:31] LABS: ARTERIAL BLOOD FIO2 35%
[2018-01-31] MEDS: FENTANYL CITRATE INJ/PF 100 MCG/2 ML AMPUL IV PRN (16:33)
--- NOTE | 2018-01-31 16:49 | RADIOLOGY REPORT (SQ) ---
EXAM DESCRIPTION: CHEST SINGLE VIEW COMPLETED DATE/TIME: 01/31/2018 4:38 pm REASON FOR STUDY: ETT placement COMPARISON: 01/31/2018 0610 hours EXAM PARAMETERS: NUMBER OF VIEWS: One view TECHNIQUE: Single frontal radiograph of the chest. RADIATION DOSE: N/A LIMITATIONS: None. FINDINGS: TEMPORARY SUPPORT DEVICES:ETT in expected location. NG tube courses below the otto-diaphr agm in to the stomach. PICC catheter from right peripheral approach is in expected location. LUNGS AND PLEURA: No opacities. No effusions. No masses. No pneumothorax. MEDIASTINUM AND HILAR STRUCTURES: Elevated right hemidiaphragm. No mediastinal masses. HEART AND VASCULAR STRUCTURES: Heart normal in size. normal vascularity. Aorta normal for age. BONES: No acute findings. OTHER: No other significant finding. IMPRESSION: NO ACUTE RADIOGRAPHIC FINDING IN THE CHEST. SUPPORT DEVICE(S) IN EXPECTED LOCATIONS. TECHNICAL DOCUMENTATION: JOB ID: [id number] [employer]- All Rights Reserved Reading location - IP/workstation name: [email or web address]
--- NOTE | 2018-01-31 18:08 | RADIOLOGY REPORT (SQ) ---
EXAM DESCRIPTION: CTA CHEST COMPLETED DATE/TIME: 01/31/2018 5:43 pm REASON FOR STUDY: Status post code rule out pulmonary embolism COMPARISON: Chest radiograph 01/31/2018 TECHNIQUE: CT scan of the chest performed using helical scanning technique with dynamic intravenous contrast injection. Images reviewed with lung, soft tissue and bone windows. Reconstructed coronal and sagittal MPR images reviewed. Additional 3 dimensional post-processing performed to develop Maximal Intensity Projection images (PA P). All images stored on PACS. All CT scanners at this facility use dose modulation, iterative reconstruction, and/or weight based d osing when appropriate to reduce radiation dose to as low as reasonably achievable (ALARA). [facility]: Dose Right [facility]: CareDose [facility]: Dose Right [facility]: Teradose 4D [facility]: theRightAPI CONTRAST TYPE AND DOSE: contrast/concentration: Isovue 370.00 mg/ml; Total Contrast Delivered: 80.0 ml; Total Saline Delivered: 70.0 ml Contrast bolus optimized for the pulmonary arteries. Not diagnostic for the aorta. RENAL FUNCTION: BUN 10; creatinine 1.05 RADIATION DOSE: CT Rad equipment meets quality standard of care and radiation dose reduction techniq ues were employed. CTDIvol: 26.4 - 26.7 mGy. DLP: 1071 mGy-cm. . LIMITATIONS: None. FINDINGS: LUNGS AND PLEURA: Right lower lobe consolidation versus atelectasis. Left lower lobe atel ectasis. AORTA AND GREAT VESSELS: No aneurysm. Contrast bolus not optimized for the aorta. HEART: No pericardial effusion. No significant coronary artery calcifications. PULMONARY ARTERIES: No emboli visualized in the main pulmonary arteries or the segmental branches. HILAR AND MEDIASTINAL STRUCTURES: No identified masses or abnormal nodes. HARDWARE: Endotracheal tube terminates 4.0 cm cranial to the paty. Enteric tube terminates within the gastric body. Right subclavian catheter terminates within the superior vena cava. UPPER ABDOMEN: Limited exam. Cholelithiasis without evidence of cholecystitis. 5.9 cm exophytic cys t left kidney superior pole. 4.5 x 4.0 x 3.5 cm relatively hypoenhancing, irregularly marginated, he terogeneous appearing mass within the superior pole the right kidney. THYROID AND OTHER SOFT TISSUES: No masses. No adenopathy. BONES: Degenerative changes of the spine. No worrisome bone lesions. 3D MIPS: Confirm above findings. OTHER: No other significant finding. IMPRESSION: 1. Normal CTA of the chest. No pulmonary emboli. 2. Right lower lobe consolidation may represent atelectasis on the basis of submaximal aeration in t his intubated patient. Left lower lobe atelectasis. 3. 4.5 x 4.0 x 3.5 cm irregularly marginated heterogeneous appearing mass within the superior pole o f the right kidney. This requires further evaluation with dedicated renal CT or MR imaging when feas ible. COMMENT: This report was called to the patient's nurse, Brigida, at18:00 on 01/31/2018. Quality ID # [id number]: Final reports with documentation of one or more dose reduction techniques (e.g., Au tomated exposure control, adjustment of the mA and/or kV according to patient size, use of iterative reconstruction technique) TECHNICAL DOCUMENTATION: JOB ID: [id number] [employer]- All Rights Reserved Reading location - IP/workstation name: [email or web address]
[2018-01-31 18:26] LABS: ABSOLUTE BASOPHILS # (AUTO) 0.1 10^3/uL (0.0-0.2); ABSOLUTE EOSINOPHILS # (AUTO) 0.1 10^3/uL (0.0-0.6); ABSOLUTE LYMPHOCYTES (AUTO) 0.8 10^3/uL (0.5-4.7); ABSOLUTE MONOCYTES (AUTO) 0.6 10^3/uL (0.1-1.4); ABSOLUTE NEUT (AUTO) 10.2 10^3/uL (1.7-8.2); BASOPHILS % (AUTO) 0.5 % (0-2); EOSINOPHILS % (AUTO) 1.1 % (0-6); HEMATOCRIT 26.1 % (37.9-51.0); HEMOGLOBIN 8.4 g/dL (13.5-17.0); LYMPHOCYTES % (AUTO) 6.5 % (13-45); MEAN CORPUSCULAR HEMOGLOBIN 26.7 pg (27.0-33.4); MEAN CORPUSCULAR HGB CONC 32.1 g/dL (32.0-36.0); MEAN CORPUSCULAR VOLUME 83 fl (80-97); MONOCYTES % (AUTO) 5.2 % (3-13); PLATELET COUNT 400 10^3/uL (150-450); RED BLOOD COUNT 3.13 10^6/uL (4.35-5.55); RED CELL DISTRIBUTION WIDTH 15.5 % (11.5-14.0); SEGMENTED NEUTROPHILS % (AUTO) 86.7 % (42-78); TOTAL CELLS COUNTED % (AUTO) 100 %; WHITE BLOOD COUNT 11.8 10^3/uL (4.0-10.5)
[2018-01-31 18:35] LABS: FIBRINOGEN 577 mg/dL (209-497); INTERNATIONAL RATION (INR) 1.11; PROTHROMBIN TIME 14.9 SEC (11.4-15.4)
[2018-01-31 18:44] LABS: D-DIMER 2.53 ug/mL (0.00-0.50)
[2018-01-31 19:01] LABS: VANCOMYCIN,TROUGH 26.9 ug/mL (5.0-20.0)
--- NOTE | 2018-01-31 22:30 | EKG REPORT ---
SEVERITY:- ABNORMAL ECG - SINUS RHYTHM INFERIOR INFARCT, AGE INDETERMINATE BORDERLINE PROLONGED QT INTERVAL : Confirmed by: America Swartz MD 31-Jan-2018 22:29:15
[2018-02-01] MEDS: PROPOFOL 1,000 MG/100 ML INFUS..BTL IV PRN ×5 (00:14→23:33)
[2018-02-01] MEDS: LEVALBUTEROL HCL NEB 1.25 MG/3 ML AMPUL NEB SCH ×4 (00:18→23:49)
[2018-02-01] MEDS: CEFEPIME 2 GM/D5W RTU 2 GM/50 ML RTUPB IV SCH ×3 (00:49→23:33)
[2018-02-01] MEDS: NORMAL SALINE 1000 ML 1,000 ML IV PRN ×3 (02:09→18:50)
[2018-02-01] MEDS: LORAZEPAM INJ 2 MG/1 ML VIAL IV PRN ×2 (02:46→17:33)
[2018-02-01 06:16] LABS: ABSOLUTE BASOPHILS # (AUTO) 0.1 10^3/uL (0.0-0.2); ABSOLUTE EOSINOPHILS # (AUTO) 0.2 10^3/uL (0.0-0.6); ABSOLUTE LYMPHOCYTES (AUTO) 0.9 10^3/uL (0.5-4.7); ABSOLUTE MONOCYTES (AUTO) 0.5 10^3/uL (0.1-1.4); ABSOLUTE NEUT (AUTO) 8.3 10^3/uL (1.7-8.2); BASOPHILS % (AUTO) 0.7 % (0-2); EOSINOPHILS % (AUTO) 1.6 % (0-6); HEMATOCRIT 25.7 % (37.9-51.0); HEMOGLOBIN 8.4 g/dL (13.5-17.0); LYMPHOCYTES % (AUTO) 9.1 % (13-45); MEAN CORPUSCULAR HEMOGLOBIN 27.3 pg (27.0-33.4); MEAN CORPUSCULAR HGB CONC 32.8 g/dL (32.0-36.0); MEAN CORPUSCULAR VOLUME 83 fl (80-97); MONOCYTES % (AUTO) 5.5 % (3-13); PLATELET COUNT 389 10^3/uL (150-450); RED BLOOD COUNT 3.09 10^6/uL (4.35-5.55); RED CELL DISTRIBUTION WIDTH 15.9 % (11.5-14.0); SEGMENTED NEUTROPHILS % (AUTO) 83.1 % (42-78); TOTAL CELLS COUNTED % (AUTO) 100 %
[2018-02-01] MEDS: HEPARIN SOD (PORCINE) 5,000 UNIT/ML 1 ML SYRINGE SUBCUT SCH ×3 (06:21→22:44)
[2018-02-01 06:26] LABS: ARTERIAL BLOOD H2CO3 1.12 mmol/L (1.05-1.35); ARTERIAL BLOOD HCO3 23.3 mmol/L (20-26); ARTERIAL BLOOD O2 SATURATION 98.6 % (94-98); ARTERIAL BLOOD PCO2 37.1 mmHg (35-45); ARTERIAL BLOOD PH 7.42 (7.35-7.45); ARTERIAL BLOOD PO2 129.3 mmHg (80-100); ARTERIAL BLOOD TOTAL CO2 24.4 mmol/L (23-27)
[2018-02-01 06:30] LABS: ALANINE AMINOTRANSFERASE 34 U/L (21-72); ALBUMIN 2.2 g/dL (3.5-5.0); ALKALINE PHOSPHATASE 61 U/L (38-126); ANION GAP 9 (5-19); ASPARTATE AMINO TRANSFERASE 26 U/L (17-59); BILIRUBIN,DIRECT 0.4 mg/dL (0.0-0.4); BILIRUBIN,TOTAL 0.4 mg/dL (0.2-1.3); BLOOD UREA NITROGEN 8 mg/dL (7-20); CALCIUM 7.7 mg/dL (8.4-10.2); CARBON DIOXIDE 23 mmol/L (22-30); CHLORIDE 110 mmol/L (98-107); GLUCOSE 119 mg/dL (75-110); SODIUM 142.1 mmol/L (137-145); TOTAL PROTEIN 5.4 g/dL (6.3-8.2)
--- NOTE | 2018-02-01 08:21 | RADIOLOGY REPORT (SQ) ---
EXAM DESCRIPTION: CHEST SINGLE VIEW COMPLETED DATE/TIME: 02/01/2018 7:07 am REASON FOR STUDY: resp fail COMPARISON: 01/31/2018. FINDINGS: Single-view chest AP portable upright timed approximately 0650 hours. Appropriate endotracheal and nasogastric tubes. Right subclavian line remains in place. Persistently diminished lung volumes with slight elevation right hemidiaphragm. No change. No pneum othorax or new infiltrates. IMPRESSION: Stable appearance of the chest. Appropriate lines and tubes with low lung volumes gener ally. No developing infiltrates. TECHNICAL DOCUMENTATION: JOB ID: [id number] Reading location - IP/workstation name: [email or web address]
[2018-02-01] MEDS: VANCOMYCIN HCL 1,250 MG in DEXTROSE 5%-WATER 250 ML IV SCH ×2 (09:37→22:44)
--- NOTE | 2018-02-01 09:57 | PDOC CONSULTATION ---
Consultation Consult Date: 02/01/18 Attending physician:: ANIBAL HUDSON Consult reason:: renal mass History of Present Illness Admission Date/PCP: 01/28/18 17:39 History of Present Illness: AGNIESZKA GOMEZ is a 57 year old male Past Medical History Cardiac Medical History: Reports: Hypertension Pulmonary Medical History: Reports: Chronic Obstructive Pulmonary Disease (COPD) Endocrine Medical History: Reports: Diabetes Mellitus Type 2 GI Medical History: Reports: Hepatitis Skin Medical History: Reports: Psoriasis Psychiatric Medical History: Reports: Depression - anxiety Traumatic Medical History: Denies: Traumatic Brain Injury Hematology: Denies: Hemophilia, Sickle Cell Disease Infectious Medical History: Denies: Clostridium Difficile Past Surgical History Past Surgical History: Reports: Appendectomy, Orthopedic Surgery - left ankle Social History Smoking Status: Current Every Day Smoker Hx Recreational Drug Use: No - Advance Directive Resuscitation Status: Full Code Family History Family History: Other - Unable to obtain seconadary to patient's condition. Parental Family History Reviewed: No Children Family History Reviewed: No Sibling(s) Family History Reviewed.: No Medication/Allergy Home Medications: Albuterol Sulfate [Proair HFA] 2 puff IH Q6HP PRN 01/29/18 Amlodipine Besylate/Benazepril [Amlodipine-Benazepril 10-20 mg] 1 tab PO DAILY 01/29/18 Budesonide/Formoterol Fumarate [Symbicort HFA 160-4.5 mcg Inhaler 6 gm] 2 puff IH BID 01/29/18 Bupropion HCl [Wellbutrin 75 mg Tablet] 150 mg PO BID 01/29/18 Gabapentin [Neurontin] 300 mg PO Q12 01/29/18 Metformin HCl [Glucophage XR 500 mg Tablet] 1,000 mg PO DAILY 01/29/18 Tiotropium Warriormine [Spiriva Respimat] 2 puff IH BID 01/29/18 Allergies/Adverse Reactions: No Known Allergies Allergy (Verified 01/29/18 10:52) Physical Exam Vital Signs: Temp Pulse Resp BP Pulse Ox 99.1 F 79 12 132/72 H 100 02/01/18 06:00 02/01/18 08:00 02/01/18 08:00 02/01/18 03:02 02/01/18 08:00 Intake & Output 01/31/18 02/01/18 02/02/18 06:59 06:59 06:59 Intake Total 3135 3244 840 Output Total 5580 1610 145 Balance 1895 5184 695 Weight 112.6 kg 117.6 kg Results Laboratory Results: 02/01/18 05:55 02/01/18 05:55 01/31/18 01/31/18 02/01/18 16:20 18:00 05:55 WBC 11.8 H 10.0 RBC 3.13 L 3.09 L Hgb 8.4 L 8.4 L Hct 26.1 L 25.7 L MCV 83 83 MCH 26.7 L 27.3 MCHC 32.1 32.8 RDW 15.5 H 15.9 H Plt Count 400 389 Seg Neutrophils % 86.7 H 83.1 H Lymphocytes % 6.5 L 9.1 L Monocytes % 5.2 5.5 Eosinophils % 1.1 1.6 Basophils % 0.5 0.7 Absolute Neutrophils 10.2 H 8.3 H Absolute Lymphocytes 0.8 0.9 Absolute Monocytes 0.6 0.5 Absolute Eosinophils 0.1 0.2 Absolute Basophils 0.1 0.1 Carbonic Acid 0.97 L HCO3/H2CO3 Ratio 22:1 ABG pH 7.44 ABG pCO2 32.3 L ABG pO2 54.6 L ABG HCO3 21.4 ABG O2 Saturation 89.9 L ABG Base Excess -2.2 FiO2 35% Sodium Potassium Chloride Carbon Dioxide Anion Gap BUN Creatinine Est GFR ( Amer) Est GFR (Non-Af Amer) Glucose Calcium Total Bilirubin AST ALT Alkaline Phosphatase Total Protein Albumin 02/01/18 02/01/18 05:55 05:55 WBC RBC Hgb Hct MCV MCH MCHC RDW Plt Count Seg Neutrophils % Lymphocytes % Monocytes % Eosinophils % Basophils % Absolute Neutrophils Absolute Lymphocytes Absolute Monocytes Absolute Eosinophils Absolute Basophils Carbonic Acid 1.12 HCO3/H2CO3 Ratio 20:1 ABG pH 7.42 ABG pCO2 37.1 ABG pO2 129.3 H ABG HCO3 23.3 ABG O2 Saturation 98.6 H ABG Base Excess -1.0 FiO2 44% Sodium 142.1 Potassium 4.0 Chloride 110 H Carbon Dioxide 23 Anion Gap 9 BUN 8 Creatinine 1.05 Est GFR ( Amer) > 60 Est GFR (Non-Af Amer) > 60 Glucose 119 H Calcium 7.7 L Total Bilirubin 0.4 AST 26 ALT 34 Alkaline Phosphatase 61 Total Protein 5.4 L Albumin 2.2 L 01/28/18 20:24 Cerebral Spinal Fluid - Csf Gram Stain - Final 01/28/18 20:24 Cerebral Spinal Fluid - Csf CSF Culture - Final NO GROWTH 3 DAYS 01/28/18 21:46 Blood Blood Culture - Final Enterococcus Faecalis(Group D) 01/29/18 01/29/18 01/30/18 17:45 23:40 05:45 Creatine Kinase CK-MB (CK-2) Troponin I 0.244 0.319 0.379 01/30/18 01/30/18 01/30/18 12:00 12:00 18:44 Creatine Kinase 105 74 CK-MB (CK-2) 5.01 H Troponin I 0.349 01/30/18 01/30/18 01/30/18 18:44 23:55 23:55 Creatine Kinase 58 CK-MB (CK-2) 3.04 2.10 Troponin I 0.290 0.268 Impressions: Guidance Fluoroscopy 01/28/18 00:00 IMPRESSION: Please see combined report for performance of procedure and radiologic supervision and interpretation. Head MRI 01/28/18 00:00 IMPRESSION: Positive for acute or sub-acute punctate- lacunar infarctions in multiple locations of both frontal lobes, left parietal-occipital lobe, and the left cerebellum. This pattern suggests embolic phenomenon but can be seen with other etiologies such as traumatic brain injury, correlate clinically. No enhancing lesions. EVIDENCE OF ACUTE STROKE: YES. Multiple vessel distribution Lumbar Puncture 01/28/18 17:17 IMPRESSION: Lumbar puncture under fluoroscopy. No immediate complication. Carotid Doppler Study 01/30/18 00:00 IMPRESSION: NO HEMODYNAMICALLY SIGNIFICANT STENOSIS. Head CT 01/30/18 00:00 IMPRESSION: 1. No acute intracranial abnormality identified. This exam was performed according to our departmental dose-optimization program, which includes automated exposure control, adjustment of the mA and/or kV according to patient size and/or use of iterative reconstruction technique. Chest/Abdomen CTA 01/31/18 12:47 IMPRESSION: 1. Normal CTA of the chest. No pulmonary emboli. 2. Right lower lobe consolidation may represent atelectasis on the basis of submaximal aeration in this intubated patient. Left lower lobe atelectasis. 3. 4.5 x 4.0 x 3.5 cm irregularly marginated heterogeneous appearing mass within the superior pole of the right kidney. This requires further evaluation with dedicated renal CT or MR imaging when feasible. Chest X-Ray 02/01/18 06:00 IMPRESSION: Stable appearance of the chest. Appropriate lines and tubes with low lung volumes generally. No developing infiltrates. Assessment & Plan - Diagnosis (1) Right kidney mass Is this a current diagnosis for this admission?: No - Plan Summary Plan Summary: right upper pole renal mass, most likely malignant, when his condition is stable then decide the best option of treatment, excision or cryoablation .this is done after proper radiographic evaluation
--- NOTE | 2018-02-01 10:08 | PDOC PROGRESS REPORT ---
Subjective Progress Note for:: 02/01/18 Subjective:: Patient is on mechanical ventilator. His vitals are stable and his blood works are unremarkable. Yesterday he had CTA of the chest and abdomen and the report is no pulmonary emboli. He has right lower lobe consolidation may represent atelectasis. He has also 4.5 times by 4.02 x 43.5 cm irregularly marginated heterogeneous appearing mass within the superior pole of the right kidney. I consulted urologist Dr. Pina states this mass to be suspicious for renal cell carcinoma so further plan depends on how the patient responds to her his current condition. Reason For Visit: ALTERED MENTAL STATUS,LEUKOCYTOSIS Physical Exam Vital Signs: Temp Pulse Resp BP Pulse Ox 99.1 F 79 12 132/72 H 100 02/01/18 06:00 02/01/18 08:00 02/01/18 08:00 02/01/18 03:02 02/01/18 08:00 Intake & Output 01/31/18 02/01/18 02/02/18 06:59 06:59 06:59 Intake Total 3135 3244 840 Output Total 1240 1610 145 Balance 1895 1634 695 Weight 112.6 kg 117.6 kg General appearance: PRESENT: no acute distress Head exam: PRESENT: atraumatic Eye exam: PRESENT: conjunctiva pink Mouth exam: PRESENT: moist Respiratory exam: PRESENT: clear to auscultation karime. ABSENT: rales, rhonchi, wheezes Cardiovascular exam: PRESENT: RRR. ABSENT: diastolic murmur, rubs, systolic murmur Results Laboratory Results: 02/01/18 05:55 02/01/18 05:55 01/31/18 01/31/18 02/01/18 16:20 18:00 05:55 WBC 11.8 H 10.0 RBC 3.13 L 3.09 L Hgb 8.4 L 8.4 L Hct 26.1 L 25.7 L MCV 83 83 MCH 26.7 L 27.3 MCHC 32.1 32.8 RDW 15.5 H 15.9 H Plt Count 400 389 Seg Neutrophils % 86.7 H 83.1 H Lymphocytes % 6.5 L 9.1 L Monocytes % 5.2 5.5 Eosinophils % 1.1 1.6 Basophils % 0.5 0.7 Absolute Neutrophils 10.2 H 8.3 H Absolute Lymphocytes 0.8 0.9 Absolute Monocytes 0.6 0.5 Absolute Eosinophils 0.1 0.2 Absolute Basophils 0.1 0.1 Carbonic Acid 0.97 L HCO3/H2CO3 Ratio 22:1 ABG pH 7.44 ABG pCO2 32.3 L ABG pO2 54.6 L ABG HCO3 21.4 ABG O2 Saturation 89.9 L ABG Base Excess -2.2 FiO2 35% Sodium Potassium Chloride Carbon Dioxide Anion Gap BUN Creatinine Est GFR ( Amer) Est GFR (Non-Af Amer) Glucose Calcium Total Bilirubin AST ALT Alkaline Phosphatase Total Protein Albumin 02/01/18 02/01/18 05:55 05:55 WBC RBC Hgb Hct MCV MCH MCHC RDW Plt Count Seg Neutrophils % Lymphocytes % Monocytes % Eosinophils % Basophils % Absolute Neutrophils Absolute Lymphocytes Absolute Monocytes Absolute Eosinophils Absolute Basophils Carbonic Acid 1.12 HCO3/H2CO3 Ratio 20:1 ABG pH 7.42 ABG pCO2 37.1 ABG pO2 129.3 H ABG HCO3 23.3 ABG O2 Saturation 98.6 H ABG Base Excess -1.0 FiO2 44% Sodium 142.1 Potassium 4.0 Chloride 110 H Carbon Dioxide 23 Anion Gap 9 BUN 8 Creatinine 1.05 Est GFR ( Amer) > 60 Est GFR (Non-Af Amer) > 60 Glucose 119 H Calcium 7.7 L Total Bilirubin 0.4 AST 26 ALT 34 Alkaline Phosphatase 61 Total Protein 5.4 L Albumin 2.2 L 01/28/18 20:24 Cerebral Spinal Fluid - Csf Gram Stain - Final 01/28/18 20:24 Cerebral Spinal Fluid - Csf CSF Culture - Final NO GROWTH 3 DAYS 01/28/18 21:46 Blood Blood Culture - Final Enterococcus Faecalis(Group D) 01/29/18 01/29/18 01/30/18 17:45 23:40 05:45 Creatine Kinase CK-MB (CK-2) Troponin I 0.244 0.319 0.379 01/30/18 01/30/18 01/30/18 12:00 12:00 18:44 Creatine Kinase 105 74 CK-MB (CK-2) 5.01 H Troponin I 0.349 01/30/18 01/30/18 01/30/18 18:44 23:55 23:55 Creatine Kinase 58 CK-MB (CK-2) 3.04 2.10 Troponin I 0.290 0.268 Impressions: Guidance Fluoroscopy 01/28/18 00:00 IMPRESSION: Please see combined report for performance of procedure and radiologic supervision and interpretation. Head MRI 01/28/18 00:00 IMPRESSION: Positive for acute or sub-acute punctate- lacunar infarctions in multiple locations of both frontal lobes, left parietal-occipital lobe, and the left cerebellum. This pattern suggests embolic phenomenon but can be seen with other etiologies such as traumatic brain injury, correlate clinically. No enhancing lesions. EVIDENCE OF ACUTE STROKE: YES. Multiple vessel distribution Lumbar Puncture 01/28/18 17:17 IMPRESSION: Lumbar puncture under fluoroscopy. No immediate complication. Carotid Doppler Study 01/30/18 00:00 IMPRESSION: NO HEMODYNAMICALLY SIGNIFICANT STENOSIS. Head CT 01/30/18 00:00 IMPRESSION: 1. No acute intracranial abnormality identified. This exam was performed according to our departmental dose-optimization program, which includes automated exposure control, adjustment of the mA and/or kV according to patient size and/or use of iterative reconstruction technique. Chest/Abdomen CTA 01/31/18 12:47 IMPRESSION: 1. Normal CTA of the chest. No pulmonary emboli. 2. Right lower lobe consolidation may represent atelectasis on the basis of submaximal aeration in this intubated patient. Left lower lobe atelectasis. 3. 4.5 x 4.0 x 3.5 cm irregularly marginated heterogeneous appearing mass within the superior pole of the right kidney. This requires further evaluation with dedicated renal CT or MR imaging when feasible. Chest X-Ray 02/01/18 06:00 IMPRESSION: Stable appearance of the chest. Appropriate lines and tubes with low lung volumes generally. No developing infiltrates. Assessment & Plan - Diagnosis (1) Cardiopulmonary arrest with successful resuscitation Is this a current diagnosis for this admission?: Yes Plan: On mechanical ventilation. (2) Acute ischemic stroke Is this a current diagnosis for this admission?: Yes Plan: Continue Lipitor aspirin and Plavix. (3) Altered mental status Qualifiers: Altered mental status type: unspecified Qualified Code(s): R41.82 - Altered mental status, unspecified Is this a current diagnosis for this admission?: Yes Plan: Due to acute ischemic stroke. (4) Type 2 diabetes mellitus Qualifiers: Diabetes mellitus intermediate card tender insulin use: unspecified care home insulin use status Diabetes mellitus complication status: with unspecified complications Qualified Code(s): E11.8 - Type 2 diabetes mellitus with unspecified complications Is this a current diagnosis for this admission?: Yes Plan: Patient will be kept n.p.o. Sliding-scale (5) Hypertension Is this a current diagnosis for this admission?: Yes Plan: We will continue his home medication johnson when he is able to tolerate p.o. (6) COPD (chronic obstructive pulmonary disease) Qualifiers: Emphysema type: unspecified Is this a current diagnosis for this admission?: Yes Plan: Bronchodilator as needed (7) Right renal mass Is this a current diagnosis for this admission?: Yes Plan: This is a new finding on the CT scan of the abdomen. Which revealed 4.5 x. 4.0 8 x 3.5 cm irregular marginated heterogeneous appearing mass within the superior pole of the right kidney. Urologist consulted
[2018-02-01] MEDS ORDERED: ALTEPLASE INJ 2 MG VIAL (CATH CLEARANCE) IV ONE (11:30)
--- NOTE | 2018-02-01 17:44 | PDOC PROGRESS REPORT ---
Subjective Progress Note for:: 01/31/18 Subjective:: Patient was seen yesterday in the morning on critical care rounds but progress note got missed. It seems a CTA has not been done to rule out pulmonary embolism as cause of CODE BLUE. This was therefore ordered by me. Patient's lab work and EKG is reviewed. EKG and heart rhythm remained stable. No acute ST-T wave changes are noted. Patient about the same and has made very little progress. There is no significant change in general condition. Patient remains intubated, sedated, patient however looks comfortable and in acute distress. Medications reviewed. Reason For Visit: ALTERED MENTAL STATUS,LEUKOCYTOSIS Physical Exam Vital Signs: Temp Pulse Resp BP Pulse Ox 99.9 F 91 16 129/92 H 96 02/01/18 17:24 02/01/18 15:42 02/01/18 15:42 02/01/18 14:25 02/01/18 15:42 Intake & Output 01/31/18 02/01/18 02/02/18 06:59 06:59 06:59 Intake Total 3135 3294 1235 Output Total 1240 1610 1825 Balance 1895 1684 -590 Weight 112.6 kg 117.6 kg Exam: GENERAL: well-nourished and in no acute distress. Patient is intubated and sedated. Orientation cannot be checked HEAD: Atraumatic, normocephalic. EYES: Pupils equal round and reactive to light, extraocular movements could not be checked, sclera anicteric, conjunctiva are normal. ENT: TMs normal, nares patent, oropharynx clear without exudates. Moist mucous membranes. No oral ulcerations or bleeding gums noted NECK: supple without lymphadenopathy or JVD. Trachea is central. No cervical or axillary lymphadenopathy noted. Carotids are 2+ LUNGS: Breath sounds mostly clear to auscultation patient is noted to have bibasal crackles at the extreme bases CHEST: Palpation of the chest wall shows no significant chest wall tenderness or abnormalities. 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 ABDOMEN: Soft, no significant tenderness appreciated, normoactive bowel sounds. No guarding, no rebound. No rigidity noted . No masses appreciated. EXTREMITIES: Pedal pulses are 1-2+, no calf tenderness noted, 1+ pedal edema noted. No clubbing or cyanosis. NEUROLOGICAL: The patient cannot participate in the neurological exam but no facial asymmetry noted. Extremities slightly hypotonic PSYCH: This cannot be evaluated. Patient cannot participate. SKIN: No significant ecchymosis, rash, or signs of pruritus noted. MUSCULOSKELETAL EXAM: No significant joint swelling noted. Patient cannot participate in musculoskeletal exam Results Laboratory Results: 02/01/18 05:55 02/01/18 05:55 01/31/18 02/01/18 02/01/18 18:00 05:55 05:55 WBC 11.8 H 10.0 RBC 3.13 L 3.09 L Hgb 8.4 L 8.4 L Hct 26.1 L 25.7 L MCV 83 83 MCH 26.7 L 27.3 MCHC 32.1 32.8 RDW 15.5 H 15.9 H Plt Count 400 389 Seg Neutrophils % 86.7 H 83.1 H Lymphocytes % 6.5 L 9.1 L Monocytes % 5.2 5.5 Eosinophils % 1.1 1.6 Basophils % 0.5 0.7 Absolute Neutrophils 10.2 H 8.3 H Absolute Lymphocytes 0.8 0.9 Absolute Monocytes 0.6 0.5 Absolute Eosinophils 0.1 0.2 Absolute Basophils 0.1 0.1 Carbonic Acid HCO3/H2CO3 Ratio ABG pH ABG pCO2 ABG pO2 ABG HCO3 ABG O2 Saturation ABG Base Excess FiO2 Sodium 142.1 Potassium 4.0 Chloride 110 H Carbon Dioxide 23 Anion Gap 9 BUN 8 Creatinine 1.05 Est GFR ( Amer) > 60 Est GFR (Non-Af Amer) > 60 Glucose 119 H Calcium 7.7 L Total Bilirubin 0.4 AST 26 ALT 34 Alkaline Phosphatase 61 Total Protein 5.4 L Albumin 2.2 L 02/01/18 05:55 WBC RBC Hgb Hct MCV MCH MCHC RDW Plt Count Seg Neutrophils % Lymphocytes % Monocytes % Eosinophils % Basophils % Absolute Neutrophils Absolute Lymphocytes Absolute Monocytes Absolute Eosinophils Absolute Basophils Carbonic Acid 1.12 HCO3/H2CO3 Ratio 20:1 ABG pH 7.42 ABG pCO2 37.1 ABG pO2 129.3 H ABG HCO3 23.3 ABG O2 Saturation 98.6 H ABG Base Excess -1.0 FiO2 44% Sodium Potassium Chloride Carbon Dioxide Anion Gap BUN Creatinine Est GFR ( Amer) Est GFR (Non-Af Amer) Glucose Calcium Total Bilirubin AST ALT Alkaline Phosphatase Total Protein Albumin 01/30/18 03:00 Catheterized Urine Urine Culture - Final NO GROWTH 2 DAYS 01/29/18 01/29/18 01/30/18 17:45 23:40 05:45 Creatine Kinase CK-MB (CK-2) Troponin I 0.244 0.319 0.379 01/30/18 01/30/18 01/30/18 12:00 12:00 18:44 Creatine Kinase 105 74 CK-MB (CK-2) 5.01 H Troponin I 0.349 01/30/18 01/30/18 01/30/18 18:44 23:55 23:55 Creatine Kinase 58 CK-MB (CK-2) 3.04 2.10 Troponin I 0.290 0.268 Impressions: Guidance Fluoroscopy 01/28/18 00:00 IMPRESSION: Please see combined report for performance of procedure and radiologic supervision and interpretation. Head MRI 01/28/18 00:00 IMPRESSION: Positive for acute or sub-acute punctate- lacunar infarctions in multiple locations of both frontal lobes, left parietal-occipital lobe, and the left cerebellum. This pattern suggests embolic phenomenon but can be seen with other etiologies such as traumatic brain injury, correlate clinically. No enhancing lesions. EVIDENCE OF ACUTE STROKE: YES. Multiple vessel distribution Lumbar Puncture 01/28/18 17:17 IMPRESSION: Lumbar puncture under fluoroscopy. No immediate complication. Carotid Doppler Study 01/30/18 00:00 IMPRESSION: NO HEMODYNAMICALLY SIGNIFICANT STENOSIS. Head CT 01/30/18 00:00 IMPRESSION: 1. No acute intracranial abnormality identified. This exam was performed according to our departmental dose-optimization program, which includes automated exposure control, adjustment of the mA and/or kV according to patient size and/or use of iterative reconstruction technique. Chest/Abdomen CTA 01/31/18 12:47 IMPRESSION: 1. Normal CTA of the chest. No pulmonary emboli. 2. Right lower lobe consolidation may represent atelectasis on the basis of submaximal aeration in this intubated patient. Left lower lobe atelectasis. 3. 4.5 x 4.0 x 3.5 cm irregularly marginated heterogeneous appearing mass within the superior pole of the right kidney. This requires further evaluation with dedicated renal CT or MR imaging when feasible. Chest X-Ray 02/01/18 06:00 IMPRESSION: Stable appearance of the chest. Appropriate lines and tubes with low lung volumes generally. No developing infiltrates. Assessment & Plan - Diagnosis (1) Elevated troponin I level Is this a current diagnosis for this admission?: Yes (2) Acute ischemic stroke Is this a current diagnosis for this admission?: Yes (3) COPD (chronic obstructive pulmonary disease) Qualifiers: Emphysema type: unspecified Is this a current diagnosis for this admission?: Yes (4) Cardiopulmonary arrest with successful resuscitation Is this a current diagnosis for this admission?: Yes (5) Type 2 diabetes mellitus Qualifiers: Diabetes mellitus supervisor intermediates insulin use: unspecified supervisor intermediates insulin use status Diabetes mellitus complication status: with unspecified complications Qualified Code(s): E11.8 - Type 2 diabetes mellitus with unspecified complications Is this a current diagnosis for this admission?: Yes - Notes Notes: Status post cardiopulmonary arrest with successful resuscitation: CTA chest ordered. Other causes could be cardiac dysrhythmia related, internal bleed related, pericardial tamponade however these were ruled out. Cardiac enzymes are in the non-STEMI range but no definite WMA noted on echocardiogram. Patient will benefit from an ischemia evaluation when more stable especially with a nuclear stress test. Acute ischemic stroke: Reviewed patient's presentation. Possibility of brainstem infarct cannot be ruled out as cause of cardiopulmonary arrest. Altered mental status: Secondary to acute ischemic strokes. Currently mental status cannot be evaluated as patient on the ventilator. COPD: Has respiratory failure. Currently intubated and being artificially ventilated Diabetes: Currently well managed by hospitalist. 2D echo shows normal LVEF. These findings were reviewed. CTA of the chest ordered.. - Time Time with patient: 15-25 minutes - CODE STATUS was discussed, patient remains full code. Surrogate decision-maker unchanged. Multiple medical problems were addressed. More than 50% of the time spent coordinating care, discussing management plans with involved caregivers. Management plans discussed with involved personnels. Medical decision making was of moderate to high complexity , patient's has multiple comorbidities. Medications reviewed and adjusted accordingly: Yes
--- NOTE | 2018-02-01 17:50 | PDOC PROGRESS REPORT ---
Subjective Progress Note for:: 02/01/18 Subjective:: EKG and heart rhythm remained stable. No acute ST-T wave changes are noted. Patient about the same and has made very little progress. There is no significant change in general condition. Patient remains intubated, sedated, patient however looks comfortable and in acute distress. Medications reviewed. Reason For Visit: ALTERED MENTAL STATUS,LEUKOCYTOSIS Physical Exam Vital Signs: Temp Pulse Resp BP Pulse Ox 99.9 F 91 16 129/92 H 96 02/01/18 17:24 02/01/18 15:42 02/01/18 15:42 02/01/18 14:25 02/01/18 15:42 Intake & Output 01/31/18 02/01/18 02/02/18 06:59 06:59 06:59 Intake Total 3135 3294 1235 Output Total 1240 1610 1825 Balance 1895 1684 -590 Weight 112.6 kg 117.6 kg Exam: GENERAL: well-nourished and in no acute distress. Patient is intubated and sedated. Orientation cannot be checked HEAD: Atraumatic, normocephalic. EYES: Pupils equal round and reactive to light, extraocular movements could not be checked, sclera anicteric, conjunctiva are normal. ENT: TMs normal, nares patent, oropharynx clear without exudates. Moist mucous membranes. No oral ulcerations or bleeding gums noted NECK: supple without lymphadenopathy or JVD. Trachea is central. No cervical or axillary lymphadenopathy noted. Carotids are 2+ LUNGS: Breath sounds mostly clear to auscultation patient is noted to have bibasal crackles at the extreme bases CHEST: Palpation of the chest wall shows no significant chest wall tenderness or abnormalities. 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 ABDOMEN: Soft, no significant tenderness appreciated, normoactive bowel sounds. No guarding, no rebound. No rigidity noted . No masses appreciated. EXTREMITIES: Pedal pulses are 1-2+, no calf tenderness noted, 1+ pedal edema noted. No clubbing or cyanosis. NEUROLOGICAL: The patient cannot participate in the neurological exam but no facial asymmetry noted. Extremities slightly hypotonic PSYCH: This cannot be evaluated. Patient cannot participate. SKIN: No significant ecchymosis, rash, or signs of pruritus noted. MUSCULOSKELETAL EXAM: No significant joint swelling noted. Patient cannot participate in musculoskeletal exam Results Laboratory Results: 02/01/18 05:55 02/01/18 05:55 01/31/18 02/01/18 02/01/18 18:00 05:55 05:55 WBC 11.8 H 10.0 RBC 3.13 L 3.09 L Hgb 8.4 L 8.4 L Hct 26.1 L 25.7 L MCV 83 83 MCH 26.7 L 27.3 MCHC 32.1 32.8 RDW 15.5 H 15.9 H Plt Count 400 389 Seg Neutrophils % 86.7 H 83.1 H Lymphocytes % 6.5 L 9.1 L Monocytes % 5.2 5.5 Eosinophils % 1.1 1.6 Basophils % 0.5 0.7 Absolute Neutrophils 10.2 H 8.3 H Absolute Lymphocytes 0.8 0.9 Absolute Monocytes 0.6 0.5 Absolute Eosinophils 0.1 0.2 Absolute Basophils 0.1 0.1 Carbonic Acid HCO3/H2CO3 Ratio ABG pH ABG pCO2 ABG pO2 ABG HCO3 ABG O2 Saturation ABG Base Excess FiO2 Sodium 142.1 Potassium 4.0 Chloride 110 H Carbon Dioxide 23 Anion Gap 9 BUN 8 Creatinine 1.05 Est GFR ( Amer) > 60 Est GFR (Non-Af Amer) > 60 Glucose 119 H Calcium 7.7 L Total Bilirubin 0.4 AST 26 ALT 34 Alkaline Phosphatase 61 Total Protein 5.4 L Albumin 2.2 L 02/01/18 05:55 WBC RBC Hgb Hct MCV MCH MCHC RDW Plt Count Seg Neutrophils % Lymphocytes % Monocytes % Eosinophils % Basophils % Absolute Neutrophils Absolute Lymphocytes Absolute Monocytes Absolute Eosinophils Absolute Basophils Carbonic Acid 1.12 HCO3/H2CO3 Ratio 20:1 ABG pH 7.42 ABG pCO2 37.1 ABG pO2 129.3 H ABG HCO3 23.3 ABG O2 Saturation 98.6 H ABG Base Excess -1.0 FiO2 44% Sodium Potassium Chloride Carbon Dioxide Anion Gap BUN Creatinine Est GFR ( Amer) Est GFR (Non-Af Amer) Glucose Calcium Total Bilirubin AST ALT Alkaline Phosphatase Total Protein Albumin 01/30/18 03:00 Catheterized Urine Urine Culture - Final NO GROWTH 2 DAYS 01/29/18 01/29/18 01/30/18 17:45 23:40 05:45 Creatine Kinase CK-MB (CK-2) Troponin I 0.244 0.319 0.379 01/30/18 01/30/18 01/30/18 12:00 12:00 18:44 Creatine Kinase 105 74 CK-MB (CK-2) 5.01 H Troponin I 0.349 01/30/18 01/30/18 01/30/18 18:44 23:55 23:55 Creatine Kinase 58 CK-MB (CK-2) 3.04 2.10 Troponin I 0.290 0.268 EKG Comments: Patient maintaining sinus rhythm without any significant cardiac dysrhythmia being noted. Impressions: Guidance Fluoroscopy 01/28/18 00:00 IMPRESSION: Please see combined report for performance of procedure and radiologic supervision and interpretation. Head MRI 01/28/18 00:00 IMPRESSION: Positive for acute or sub-acute punctate- lacunar infarctions in multiple locations of both frontal lobes, left parietal-occipital lobe, and the left cerebellum. This pattern suggests embolic phenomenon but can be seen with other etiologies such as traumatic brain injury, correlate clinically. No enhancing lesions. EVIDENCE OF ACUTE STROKE: YES. Multiple vessel distribution Lumbar Puncture 01/28/18 17:17 IMPRESSION: Lumbar puncture under fluoroscopy. No immediate complication. Carotid Doppler Study 01/30/18 00:00 IMPRESSION: NO HEMODYNAMICALLY SIGNIFICANT STENOSIS. Head CT 01/30/18 00:00 IMPRESSION: 1. No acute intracranial abnormality identified. This exam was performed according to our departmental dose-optimization program, which includes automated exposure control, adjustment of the mA and/or kV according to patient size and/or use of iterative reconstruction technique. Chest/Abdomen CTA 01/31/18 12:47 IMPRESSION: 1. Normal CTA of the chest. No pulmonary emboli. 2. Right lower lobe consolidation may represent atelectasis on the basis of submaximal aeration in this intubated patient. Left lower lobe atelectasis. 3. 4.5 x 4.0 x 3.5 cm irregularly marginated heterogeneous appearing mass within the superior pole of the right kidney. This requires further evaluation with dedicated renal CT or MR imaging when feasible. Chest X-Ray 02/01/18 06:00 IMPRESSION: Stable appearance of the chest. Appropriate lines and tubes with low lung volumes generally. No developing infiltrates. Assessment & Plan - Diagnosis (1) Elevated troponin I level Is this a current diagnosis for this admission?: Yes (2) Acute ischemic stroke Is this a current diagnosis for this admission?: Yes (3) COPD (chronic obstructive pulmonary disease) Qualifiers: Emphysema type: unspecified Is this a current diagnosis for this admission?: Yes (4) Cardiopulmonary arrest with successful resuscitation Is this a current diagnosis for this admission?: Yes (5) Type 2 diabetes mellitus Qualifiers: Diabetes mellitus detention insulin use: unspecified detention insulin use status Diabetes mellitus complication status: with unspecified complications Qualified Code(s): E11.8 - Type 2 diabetes mellitus with unspecified complications Is this a current diagnosis for this admission?: Yes - Notes Notes: Status post cardiopulmonary arrest with successful resuscitation: CTA results reviewed. It shows possible neoplasm involving the right kidney. In addition patient noted to have right lower lobe consolidation versus atelectasis. Left lower lobe atelectasis noted. Surprisingly, coronaries did not show any calcification. Elevated troponin I: Most likely related to cardiopulmonary arrest with resultant hypoxemia, lack of blood pressure etc. Patient will however benefit from an ischemia evaluation when he is more stable and off ventilator. Acute ischemic stroke: Discussed patient's presentation. Possibility of brainstem infarct cannot be ruled out as cause of cardiopulmonary arrest. Altered mental status: Secondary to acute ischemic strokes COPD: Currently intubated and being artificially ventilated Diabetes: Currently well managed by hospitalist. 2D echo shows normal LVEF without any significant valvular abnormalities. - Time Time with patient: Greater than 35 minutes - CODE STATUS was discussed, patient remains full code. Surrogate decision-maker unchanged. Multiple medical problems were addressed. More than 50% of the time spent coordinating care, discussing management plans with involved caregivers. Management plans discussed with involved personnels. Medical decision making was of moderate to high complexity, patient's has multiple comorbidities. Medications reviewed and adjusted accordingly: Yes
[2018-02-02] MEDS: PROPOFOL 1,000 MG/100 ML INFUS..BTL IV PRN ×4 (05:53→22:15)
[2018-02-02] MEDS: NORMAL SALINE 1000 ML 1,000 ML IV PRN (05:53)
[2018-02-02] MEDS: HEPARIN SOD (PORCINE) 5,000 UNIT/ML 1 ML SYRINGE SUBCUT SCH ×3 (05:54→22:16)
[2018-02-02 05:56] LABS: ABSOLUTE BASOPHILS # (AUTO) 0.1 10^3/uL (0.0-0.2); ABSOLUTE EOSINOPHILS # (AUTO) 0.2 10^3/uL (0.0-0.6); ABSOLUTE LYMPHOCYTES (AUTO) 0.9 10^3/uL (0.5-4.7); ABSOLUTE MONOCYTES (AUTO) 0.5 10^3/uL (0.1-1.4); ABSOLUTE NEUT (AUTO) 6.5 10^3/uL (1.7-8.2); BASOPHILS % (AUTO) 0.9 % (0-2); EOSINOPHILS % (AUTO) 2.6 % (0-6); HEMATOCRIT 25.2 % (37.9-51.0); HEMOGLOBIN 8.2 g/dL (13.5-17.0); LYMPHOCYTES % (AUTO) 10.8 % (13-45); MEAN CORPUSCULAR HEMOGLOBIN 27.2 pg (27.0-33.4); MEAN CORPUSCULAR HGB CONC 32.7 g/dL (32.0-36.0); MEAN CORPUSCULAR VOLUME 83 fl (80-97); MONOCYTES % (AUTO) 6.5 % (3-13); PLATELET COUNT 410 10^3/uL (150-450); RED BLOOD COUNT 3.03 10^6/uL (4.35-5.55); RED CELL DISTRIBUTION WIDTH 15.8 % (11.5-14.0); SEGMENTED NEUTROPHILS % (AUTO) 79.2 % (42-78); TOTAL CELLS COUNTED % (AUTO) 100 %; WHITE BLOOD COUNT 8.3 10^3/uL (4.0-10.5)
[2018-02-02 06:13] LABS: ARTERIAL BLOOD BASE EXCESS -1.1 mmol/L; ARTERIAL BLOOD H2CO3 1.09 mmol/L (1.05-1.35); ARTERIAL BLOOD O2 SATURATION 98.5 % (94-98); ARTERIAL BLOOD PCO2 36.1 mmHg (35-45); ARTERIAL BLOOD PH 7.42 (7.35-7.45); ARTERIAL BLOOD PO2 120.6 mmHg (80-100); ARTERIAL BLOOD TOTAL CO2 24.2 mmol/L (23-27)
[2018-02-02 06:15] LABS: ARTERIAL BLOOD FIO2 45%
[2018-02-02 06:44] LABS: ALANINE AMINOTRANSFERASE 30 U/L (21-72); ALBUMIN 2.2 g/dL (3.5-5.0); ALKALINE PHOSPHATASE 65 U/L (38-126); ANION GAP 8 (5-19); ASPARTATE AMINO TRANSFERASE 20 U/L (17-59); BILIRUBIN,DIRECT 0.3 mg/dL (0.0-0.4); BILIRUBIN,TOTAL 0.3 mg/dL (0.2-1.3); BLOOD UREA NITROGEN 9 mg/dL (7-20); CALCIUM 7.8 mg/dL (8.4-10.2); CARBON DIOXIDE 24 mmol/L (22-30); CHLORIDE 110 mmol/L (98-107); GLUCOSE 122 mg/dL (75-110); POTASSIUM 4.1 mmol/L (3.6-5.0); SODIUM 141.5 mmol/L (137-145); TOTAL PROTEIN 5.3 g/dL (6.3-8.2)
--- NOTE | 2018-02-02 08:20 | RADIOLOGY REPORT (SQ) ---
EXAM DESCRIPTION: CHEST SINGLE VIEW COMPLETED DATE/TIME: 02/02/2018 7:10 am REASON FOR STUDY: resp failure COMPARISON: 02/01/2018. FINDINGS: AP portable upright at approximately 0639 hours. Endotracheal, nasogastric tubes and right subclavian line remain in place. Relatively low lung volumes with basilar subsegmental atelectasis but no developing pneumonia or fail ure. No pneumothorax. Stable cardiomediastinal silhouette. IMPRESSION: Stable chest. Appropriate lines and tubes. TECHNICAL DOCUMENTATION: JOB ID: [id number] Reading location - IP/workstation name: [email or web address]
[2018-02-02] MEDS: LEVALBUTEROL HCL NEB 1.25 MG/3 ML AMPUL NEB SCH ×2 (08:36→15:47)
[2018-02-02] MEDS: VANCOMYCIN HCL 1,250 MG in DEXTROSE 5%-WATER 250 ML IV SCH ×2 (09:46→22:45)
[2018-02-02] MEDS: CEFEPIME 2 GM/D5W RTU 2 GM/50 ML RTUPB IV SCH (13:06)
--- NOTE | 2018-02-02 13:10 | PDOC PROGRESS REPORT ---
Subjective Progress Note for:: 02/02/18 Subjective:: Patient remained intubated and on mechanical ventilation. Currently patient is off sedation he but barely responds to verbal stimuli. His vital signs intelligence blood works are unremarkable. Reason For Visit: ALTERED MENTAL STATUS,LEUKOCYTOSIS Physical Exam Vital Signs: Temp Pulse Resp BP Pulse Ox 99.3 F 97 17 142/77 H 96 02/02/18 10:11 02/02/18 08:36 02/02/18 10:11 02/02/18 10:11 02/02/18 11:08 Intake & Output 02/01/18 02/02/18 02/03/18 06:59 06:59 06:59 Intake Total 3294 3760 42 Output Total 1610 3060 615 Balance 1684 700 -573 Weight 117.6 kg 118.7 kg General appearance: PRESENT: no acute distress Head exam: PRESENT: atraumatic Eye exam: PRESENT: conjunctiva pink Mouth exam: PRESENT: moist Respiratory exam: PRESENT: clear to auscultation karime. ABSENT: rales, rhonchi, wheezes Cardiovascular exam: PRESENT: RRR. ABSENT: diastolic murmur, rubs, systolic murmur Results Laboratory Results: 02/02/18 05:40 02/02/18 05:40 02/02/18 02/02/18 02/02/18 05:40 05:40 05:45 WBC 8.3 RBC 3.03 L Hgb 8.2 L Hct 25.2 L MCV 83 MCH 27.2 MCHC 32.7 RDW 15.8 H Plt Count 410 Seg Neutrophils % 79.2 H Lymphocytes % 10.8 L Monocytes % 6.5 Eosinophils % 2.6 Basophils % 0.9 Absolute Neutrophils 6.5 Absolute Lymphocytes 0.9 Absolute Monocytes 0.5 Absolute Eosinophils 0.2 Absolute Basophils 0.1 Carbonic Acid 1.09 HCO3/H2CO3 Ratio 21:1 ABG pH 7.42 ABG pCO2 36.1 ABG pO2 120.6 H ABG HCO3 23.0 ABG O2 Saturation 98.5 H ABG Base Excess -1.1 FiO2 45% Sodium 141.5 Potassium 4.1 Chloride 110 H Carbon Dioxide 24 Anion Gap 8 BUN 9 Creatinine 1.03 Est GFR ( Amer) > 60 Est GFR (Non-Af Amer) > 60 Glucose 122 H Calcium 7.8 L Magnesium 2.2 Total Bilirubin 0.3 AST 20 ALT 30 Alkaline Phosphatase 65 Total Protein 5.3 L Albumin 2.2 L 01/30/18 03:00 Catheterized Urine Urine Culture - Final NO GROWTH 2 DAYS 01/29/18 01/29/18 01/30/18 17:45 23:40 05:45 Creatine Kinase CK-MB (CK-2) Troponin I 0.244 0.319 0.379 01/30/18 01/30/18 01/30/18 12:00 12:00 18:44 Creatine Kinase 105 74 CK-MB (CK-2) 5.01 H Troponin I 0.349 01/30/18 01/30/18 01/30/18 18:44 23:55 23:55 Creatine Kinase 58 CK-MB (CK-2) 3.04 2.10 Troponin I 0.290 0.268 Impressions: Guidance Fluoroscopy 01/28/18 00:00 IMPRESSION: Please see combined report for performance of procedure and radiologic supervision and interpretation. Head MRI 01/28/18 00:00 IMPRESSION: Positive for acute or sub-acute punctate- lacunar infarctions in multiple locations of both frontal lobes, left parietal-occipital lobe, and the left cerebellum. This pattern suggests embolic phenomenon but can be seen with other etiologies such as traumatic brain injury, correlate clinically. No enhancing lesions. EVIDENCE OF ACUTE STROKE: YES. Multiple vessel distribution Lumbar Puncture 01/28/18 17:17 IMPRESSION: Lumbar puncture under fluoroscopy. No immediate complication. Carotid Doppler Study 01/30/18 00:00 IMPRESSION: NO HEMODYNAMICALLY SIGNIFICANT STENOSIS. Head CT 01/30/18 00:00 IMPRESSION: 1. No acute intracranial abnormality identified. This exam was performed according to our departmental dose-optimization program, which includes automated exposure control, adjustment of the mA and/or kV according to patient size and/or use of iterative reconstruction technique. Chest/Abdomen CTA 01/31/18 12:47 IMPRESSION: 1. Normal CTA of the chest. No pulmonary emboli. 2. Right lower lobe consolidation may represent atelectasis on the basis of submaximal aeration in this intubated patient. Left lower lobe atelectasis. 3. 4.5 x 4.0 x 3.5 cm irregularly marginated heterogeneous appearing mass within the superior pole of the right kidney. This requires further evaluation with dedicated renal CT or MR imaging when feasible. Chest X-Ray 02/02/18 06:00 IMPRESSION: Stable chest. Appropriate lines and tubes. Assessment & Plan - Diagnosis (1) Cardiopulmonary arrest with successful resuscitation Is this a current diagnosis for this admission?: Yes Plan: Currently patient is on mechanical ventilation. (2) Acute ischemic stroke Is this a current diagnosis for this admission?: Yes Plan: He is on Plavix and aspirin (3) Altered mental status Qualifiers: Altered mental status type: unspecified Qualified Code(s): R41.82 - Altered mental status, unspecified Is this a current diagnosis for this admission?: Yes Plan: Due to acute ischemic stroke. (4) Type 2 diabetes mellitus Qualifiers: Diabetes mellitus detention insulin use: unspecified detention insulin use status Diabetes mellitus complication status: with unspecified complications Qualified Code(s): E11.8 - Type 2 diabetes mellitus with unspecified complications Is this a current diagnosis for this admission?: Yes Plan: Patient will be kept n.p.o. Sliding-scale (5) Hypertension Is this a current diagnosis for this admission?: Yes Plan: We will continue his home medication johnson when he is able to tolerate p.o. (6) COPD (chronic obstructive pulmonary disease) Qualifiers: Emphysema type: unspecified Is this a current diagnosis for this admission?: Yes Plan: Bronchodilator as needed (7) Right renal mass Is this a current diagnosis for this admission?: Yes Plan: This is a new finding on the CT scan of the abdomen. Which revealed 4.5 x. 4.0 8 x 3.5 cm irregular marginated heterogeneous appearing mass within the superior pole of the right kidney. Urologist consulted
--- NOTE | 2018-02-02 18:38 | PDOC PROGRESS REPORT ---
Subjective Progress Note for:: 02/02/18 Subjective:: EKG and heart rhythm remained stable. No acute ST-T wave changes are noted. Patient about the same and has made very little progress. There is no significant change in general condition. Patient remains with very little responsiveness. Patient remains intubated, sedated, patient however looks comfortable and in acute distress. Medications reviewed. Reason For Visit: ALTERED MENTAL STATUS,LEUKOCYTOSIS Physical Exam Vital Signs: Temp Pulse Resp BP Pulse Ox 99.1 F 92 16 119/66 96 02/02/18 14:00 02/02/18 15:47 02/02/18 15:47 02/02/18 13:56 02/02/18 15:47 Intake & Output 02/01/18 02/02/18 02/03/18 06:59 06:59 06:59 Intake Total 3294 3810 380 Output Total 1610 3060 1655 Balance 1684 750 -1275 Weight 117.6 kg 118.7 kg Exam: GENERAL: well-nourished and in no acute distress. Patient is intubated. Orientation cannot be checked HEAD: Atraumatic, normocephalic. EYES: Pupils equal round and reactive to light, extraocular movements could not be checked, sclera anicteric, conjunctiva are normal. ENT: TMs normal, nares patent, oropharynx clear without exudates. Moist mucous membranes. No oral ulcerations or bleeding gums noted NECK: supple without lymphadenopathy or JVD. Trachea is central. No cervical or axillary lymphadenopathy noted. Carotids are 2+ LUNGS: Breath sounds mostly clear to auscultation patient is noted to have bibasal crackles at the extreme bases CHEST: Palpation of the chest wall shows no significant chest wall tenderness or abnormalities. 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 ABDOMEN: Soft, no significant tenderness appreciated, normoactive bowel sounds. No guarding, no rebound. No rigidity noted . No masses appreciated. EXTREMITIES: Pedal pulses are 1-2+, no calf tenderness noted, 1+ pedal edema noted. No clubbing or cyanosis. NEUROLOGICAL: The patient cannot participate in the neurological exam but no facial asymmetry noted. Extremities slightly hypotonic PSYCH: This cannot be evaluated. Patient cannot participate. SKIN: No significant ecchymosis, rash, or signs of pruritus noted. MUSCULOSKELETAL EXAM: No significant joint swelling noted. Patient cannot participate in musculoskeletal exam Results Laboratory Results: 02/02/18 05:40 02/02/18 05:40 02/02/18 02/02/18 02/02/18 05:40 05:40 05:45 WBC 8.3 RBC 3.03 L Hgb 8.2 L Hct 25.2 L MCV 83 MCH 27.2 MCHC 32.7 RDW 15.8 H Plt Count 410 Seg Neutrophils % 79.2 H Lymphocytes % 10.8 L Monocytes % 6.5 Eosinophils % 2.6 Basophils % 0.9 Absolute Neutrophils 6.5 Absolute Lymphocytes 0.9 Absolute Monocytes 0.5 Absolute Eosinophils 0.2 Absolute Basophils 0.1 Carbonic Acid 1.09 HCO3/H2CO3 Ratio 21:1 ABG pH 7.42 ABG pCO2 36.1 ABG pO2 120.6 H ABG HCO3 23.0 ABG O2 Saturation 98.5 H ABG Base Excess -1.1 FiO2 45% Sodium 141.5 Potassium 4.1 Chloride 110 H Carbon Dioxide 24 Anion Gap 8 BUN 9 Creatinine 1.03 Est GFR ( Amer) > 60 Est GFR (Non-Af Amer) > 60 Glucose 122 H Calcium 7.8 L Magnesium 2.2 Total Bilirubin 0.3 AST 20 ALT 30 Alkaline Phosphatase 65 Total Protein 5.3 L Albumin 2.2 L 01/29/18 01/29/18 01/30/18 17:45 23:40 05:45 Creatine Kinase CK-MB (CK-2) Troponin I 0.244 0.319 0.379 01/30/18 01/30/18 01/30/18 12:00 12:00 18:44 Creatine Kinase 105 74 CK-MB (CK-2) 5.01 H Troponin I 0.349 01/30/18 01/30/18 01/30/18 18:44 23:55 23:55 Creatine Kinase 58 CK-MB (CK-2) 3.04 2.10 Troponin I 0.290 0.268 EKG Comments: Telemetry shows sinus rhythm, no sustained tachycardia or bradycardia noted Impressions: Guidance Fluoroscopy 01/28/18 00:00 IMPRESSION: Please see combined report for performance of procedure and radiologic supervision and interpretation. Head MRI 01/28/18 00:00 IMPRESSION: Positive for acute or sub-acute punctate- lacunar infarctions in multiple locations of both frontal lobes, left parietal-occipital lobe, and the left cerebellum. This pattern suggests embolic phenomenon but can be seen with other etiologies such as traumatic brain injury, correlate clinically. No enhancing lesions. EVIDENCE OF ACUTE STROKE: YES. Multiple vessel distribution Lumbar Puncture 01/28/18 17:17 IMPRESSION: Lumbar puncture under fluoroscopy. No immediate complication. Carotid Doppler Study 01/30/18 00:00 IMPRESSION: NO HEMODYNAMICALLY SIGNIFICANT STENOSIS. Head CT 01/30/18 00:00 IMPRESSION: 1. No acute intracranial abnormality identified. This exam was performed according to our departmental dose-optimization program, which includes automated exposure control, adjustment of the mA and/or kV according to patient size and/or use of iterative reconstruction technique. Chest/Abdomen CTA 01/31/18 12:47 IMPRESSION: 1. Normal CTA of the chest. No pulmonary emboli. 2. Right lower lobe consolidation may represent atelectasis on the basis of submaximal aeration in this intubated patient. Left lower lobe atelectasis. 3. 4.5 x 4.0 x 3.5 cm irregularly marginated heterogeneous appearing mass within the superior pole of the right kidney. This requires further evaluation with dedicated renal CT or MR imaging when feasible. Chest X-Ray 02/02/18 06:00 IMPRESSION: Stable chest. Appropriate lines and tubes. 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 This is most likely secondary to a stroke. Cardiac johnson patient has been stable without any vasopressors. Rhythm has been stable. Status post cardiopulmonary arrest with successful resuscitation: CTA results reviewed. It shows possible neoplasm involving the right kidney. In addition patient noted to have right lower lobe consolidation versus atelectasis. Left lower lobe atelectasis noted. Surprisingly, coronaries did not show any calcification. Elevated troponin I: Most likely related to cardiopulmonary arrest with resultant hypoxemia, lack of blood pressure etc. Patient will however benefit from an ischemia evaluation when he is more stable and off ventilator. However patient may have sustained some neurological damage from either acute stroke or cardiopulmonary arrest, therefore it may be a while. Acute ischemic stroke: Discussed patient's presentation. Possibility of brainstem infarct cannot be ruled out as cause of cardiopulmonary arrest. Altered mental status: Secondary to acute ischemic strokes COPD: Currently intubated and being artificially ventilated Diabetes: Currently well managed by hospitalist. 2D echo shows normal LVEF without any significant valvular abnormalities. Will sign off. Please reconsult if needed. - Time Time with patient: 15-25 minutes - CODE STATUS was discussed, patient remains full code. Surrogate decision-maker unchanged. Multiple medical problems were addressed. More than 50% of the time spent coordinating care, discussing management plans with involved caregivers. Management plans discussed with involved personnels. Medical decision making was of moderate to high complexity , patient's has multiple comorbidities. Medications reviewed and adjusted accordingly: Yes
[2018-02-02 22:48] LABS: VANCOMYCIN,TROUGH 19.6 ug/mL (5.0-20.0)
[2018-02-03] MEDS: LEVALBUTEROL HCL NEB 1.25 MG/3 ML AMPUL NEB SCH ×3 (00:29→15:45)
[2018-02-03] MEDS: CEFEPIME 2 GM/D5W RTU 2 GM/50 ML RTUPB IV SCH (02:32)
[2018-02-03] MEDS: PROPOFOL 1,000 MG/100 ML INFUS..BTL IV PRN ×2 (03:34→07:02)
[2018-02-03 05:46] LABS: ARTERIAL BLOOD BASE EXCESS 2.2 mmol/L; ARTERIAL BLOOD HCO3 26.5 mmol/L (20-26); ARTERIAL BLOOD O2 SATURATION 95.6 % (94-98); ARTERIAL BLOOD PCO2 39.9 mmHg (35-45); ARTERIAL BLOOD PH 7.44 (7.35-7.45); ARTERIAL BLOOD PO2 75.5 mmHg (80-100); ARTERIAL BLOOD TOTAL CO2 27.7 mmol/L (23-27)
[2018-02-03 05:47] LABS: ARTERIAL BLOOD FIO2 30%
[2018-02-03 05:53] LABS: ABSOLUTE BASOPHILS # (AUTO) 0.1 10^3/uL (0.0-0.2); ABSOLUTE EOSINOPHILS # (AUTO) 0.2 10^3/uL (0.0-0.6); ABSOLUTE LYMPHOCYTES (AUTO) 0.7 10^3/uL (0.5-4.7); ABSOLUTE MONOCYTES (AUTO) 0.5 10^3/uL (0.1-1.4); ABSOLUTE NEUT (AUTO) 6.4 10^3/uL (1.7-8.2); BASOPHILS % (AUTO) 0.9 % (0-2); EOSINOPHILS % (AUTO) 2.7 % (0-6); HEMATOCRIT 26.7 % (37.9-51.0); HEMOGLOBIN 8.7 g/dL (13.5-17.0); LYMPHOCYTES % (AUTO) 9.4 % (13-45); MEAN CORPUSCULAR HEMOGLOBIN 27.3 pg (27.0-33.4); MEAN CORPUSCULAR HGB CONC 32.7 g/dL (32.0-36.0); MEAN CORPUSCULAR VOLUME 84 fl (80-97); MONOCYTES % (AUTO) 6.6 % (3-13); PLATELET COUNT 410 10^3/uL (150-450); RED CELL DISTRIBUTION WIDTH 15.6 % (11.5-14.0); SEGMENTED NEUTROPHILS % (AUTO) 80.4 % (42-78); TOTAL CELLS COUNTED % (AUTO) 100 %; WHITE BLOOD COUNT 7.9 10^3/uL (4.0-10.5)
[2018-02-03] MEDS: HEPARIN SOD (PORCINE) 5,000 UNIT/ML 1 ML SYRINGE SUBCUT SCH ×3 (06:03→21:52)
[2018-02-03] MEDS: NORMAL SALINE 250 ML IV PRN (06:05)
[2018-02-03 06:14] LABS: ALANINE AMINOTRANSFERASE 27 U/L (21-72); ALBUMIN 2.3 g/dL (3.5-5.0); ALKALINE PHOSPHATASE 66 U/L (38-126); ANION GAP 8 (5-19); ASPARTATE AMINO TRANSFERASE 18 U/L (17-59); BILIRUBIN,DIRECT 0.2 mg/dL (0.0-0.4); BILIRUBIN,TOTAL 0.2 mg/dL (0.2-1.3); BLOOD UREA NITROGEN 11 mg/dL (7-20); CALCIUM 8.2 mg/dL (8.4-10.2); CARBON DIOXIDE 25 mmol/L (22-30); CHLORIDE 108 mmol/L (98-107); GLUCOSE 134 mg/dL (75-110); PHOSPHORUS 4.2 mg/dL (2.5-4.5); POTASSIUM 4.3 mmol/L (3.6-5.0); SODIUM 141.4 mmol/L (137-145); TOTAL PROTEIN 5.5 g/dL (6.3-8.2)
--- NOTE | 2018-02-03 08:51 | RADIOLOGY REPORT (SQ) ---
EXAM DESCRIPTION: CHEST SINGLE VIEW COMPLETED DATE/TIME: 02/03/2018 5:52 am REASON FOR STUDY: pna COMPARISON: 02/02/2018 NUMBER OF VIEWS: One view. TECHNIQUE: Single frontal radiographic image of the chest acquired. LIMITATIONS: Positioning. FINDINGS: LUNGS AND PLEURA: Unchanged volume loss on the right. No developing infiltrate or pneumot horax. MEDIASTINUM AND HILAR STRUCTURES: Stable heart size and mediastinal structures. HEART AND VASCULAR STRUCTURES: Stable appearance. SUPPORT DEVICES: Appropriate location without change. BONES: No acute findings. OTHER: No other significant finding. IMPRESSION: STABLE APPEARANCE OF THE CHEST. SUPPORT DEVICES UNCHANGED. TECHNICAL DOCUMENTATION: JOB ID: [id number] [employer]- All Rights Reserved Reading location - IP/workstation name: [email or web address]
--- NOTE | 2018-02-03 09:04 | EKG REPORT ---
SEVERITY:- NORMAL ECG - SINUS RHYTHM : Confirmed by: Michele Davey 03-Feb-2018 09:02:57
[2018-02-03] MEDS: VANCOMYCIN HCL 1,250 MG in DEXTROSE 5%-WATER 250 ML IV SCH ×2 (12:00→21:52)
--- NOTE | 2018-02-03 13:37 | PDOC PROGRESS REPORT ---
Subjective Progress Note for:: 02/03/18 Subjective:: Patient remained intubated. He is off sedation and pressors. He does not follow commands but responds to noxious stimuli appropriately. His blood works are remarkably normal. This morning she is reevaluated by Dr. Coker who planned to do EEG on him. Reason For Visit: ALTERED MENTAL STATUS,LEUKOCYTOSIS Physical Exam Vital Signs: Temp Pulse Resp BP Pulse Ox 100.2 F 104 H 30 H 162/94 H 95 02/03/18 12:00 02/03/18 12:00 02/03/18 12:00 02/03/18 12:00 02/03/18 12:00 Intake & Output 02/02/18 02/03/18 02/04/18 06:59 06:59 06:59 Intake Total 3810 888 70 Output Total 3060 3075 505 Balance 828 -3858 -709 Weight 118.7 kg 117.8 kg General appearance: PRESENT: no acute distress Eye exam: PRESENT: conjunctiva pink Respiratory exam: PRESENT: clear to auscultation karime. ABSENT: rales, rhonchi, wheezes Cardiovascular exam: PRESENT: RRR. ABSENT: diastolic murmur, rubs, systolic murmur Results Laboratory Results: 02/03/18 05:33 02/03/18 05:33 02/03/18 02/03/18 02/03/18 05:33 05:33 05:33 WBC 7.9 RBC 3.20 L Hgb 8.7 L Hct 26.7 L MCV 84 MCH 27.3 MCHC 32.7 RDW 15.6 H Plt Count 410 Seg Neutrophils % 80.4 H Lymphocytes % 9.4 L Monocytes % 6.6 Eosinophils % 2.7 Basophils % 0.9 Absolute Neutrophils 6.4 Absolute Lymphocytes 0.7 Absolute Monocytes 0.5 Absolute Eosinophils 0.2 Absolute Basophils 0.1 Carbonic Acid 1.20 HCO3/H2CO3 Ratio 22:1 ABG pH 7.44 ABG pCO2 39.9 ABG pO2 75.5 L ABG HCO3 26.5 H ABG O2 Saturation 95.6 ABG Base Excess 2.2 FiO2 30% Sodium 141.4 Potassium 4.3 Chloride 108 H Carbon Dioxide 25 Anion Gap 8 BUN 11 Creatinine 0.88 Est GFR ( Amer) > 60 Est GFR (Non-Af Amer) > 60 Glucose 134 H Calcium 8.2 L Phosphorus 4.2 Magnesium 2.0 Total Bilirubin 0.2 AST 18 ALT 27 Alkaline Phosphatase 66 Total Protein 5.5 L Albumin 2.3 L 01/29/18 01/29/18 01/30/18 17:45 23:40 05:45 Creatine Kinase CK-MB (CK-2) Troponin I 0.244 0.319 0.379 01/30/18 01/30/18 01/30/18 12:00 12:00 18:44 Creatine Kinase 105 74 CK-MB (CK-2) 5.01 H Troponin I 0.349 01/30/18 01/30/18 01/30/18 18:44 23:55 23:55 Creatine Kinase 58 CK-MB (CK-2) 3.04 2.10 Troponin I 0.290 0.268 Impressions: Guidance Fluoroscopy 01/28/18 00:00 IMPRESSION: Please see combined report for performance of procedure and radiologic supervision and interpretation. Head MRI 01/28/18 00:00 IMPRESSION: Positive for acute or sub-acute punctate- lacunar infarctions in multiple locations of both frontal lobes, left parietal-occipital lobe, and the left cerebellum. This pattern suggests embolic phenomenon but can be seen with other etiologies such as traumatic brain injury, correlate clinically. No enhancing lesions. EVIDENCE OF ACUTE STROKE: YES. Multiple vessel distribution Lumbar Puncture 01/28/18 17:17 IMPRESSION: Lumbar puncture under fluoroscopy. No immediate complication. Carotid Doppler Study 01/30/18 00:00 IMPRESSION: NO HEMODYNAMICALLY SIGNIFICANT STENOSIS. Head CT 01/30/18 00:00 IMPRESSION: 1. No acute intracranial abnormality identified. This exam was performed according to our departmental dose-optimization program, which includes automated exposure control, adjustment of the mA and/or kV according to patient size and/or use of iterative reconstruction technique. Chest/Abdomen CTA 01/31/18 12:47 IMPRESSION: 1. Normal CTA of the chest. No pulmonary emboli. 2. Right lower lobe consolidation may represent atelectasis on the basis of submaximal aeration in this intubated patient. Left lower lobe atelectasis. 3. 4.5 x 4.0 x 3.5 cm irregularly marginated heterogeneous appearing mass within the superior pole of the right kidney. This requires further evaluation with dedicated renal CT or MR imaging when feasible. Chest X-Ray 02/03/18 06:00 IMPRESSION: STABLE APPEARANCE OF THE CHEST. SUPPORT DEVICES UNCHANGED. Assessment & Plan - Diagnosis (1) Cardiopulmonary arrest with successful resuscitation Is this a current diagnosis for this admission?: Yes Plan: Currently patient is on mechanical ventilation. (2) Acute ischemic stroke Is this a current diagnosis for this admission?: Yes Plan: He is on Plavix and aspirin (3) Altered mental status Qualifiers: Altered mental status type: unspecified Qualified Code(s): R41.82 - Altered mental status, unspecified Is this a current diagnosis for this admission?: Yes Plan: Due to acute ischemic stroke. (4) Type 2 diabetes mellitus Qualifiers: Diabetes mellitus salvage determiner insulin use: unspecified jail insulin use status Diabetes mellitus complication status: with unspecified complications Qualified Code(s): E11.8 - Type 2 diabetes mellitus with unspecified complications Is this a current diagnosis for this admission?: Yes Plan: Patient will be kept n.p.o. Sliding-scale (5) Hypertension Is this a current diagnosis for this admission?: Yes Plan: We will continue his home medication johnson when he is able to tolerate p.o. (6) COPD (chronic obstructive pulmonary disease) Qualifiers: Emphysema type: unspecified Is this a current diagnosis for this admission?: Yes Plan: Bronchodilator as needed (7) Right renal mass Is this a current diagnosis for this admission?: Yes Plan: This is a new finding on the CT scan of the abdomen. Which revealed 4.5 x. 4.0 8 x 3.5 cm irregular marginated heterogeneous appearing mass within the superior pole of the right kidney. Urologist consulted
[2018-02-03] MEDS: PANTOPRAZOLE SODIUM 40 MG VIAL IV SCH (16:50)
[2018-02-03] MEDS: LORAZEPAM INJ 2 MG/1 ML VIAL IV PRN (20:58)
[2018-02-04] MEDS: LEVALBUTEROL HCL NEB 1.25 MG/3 ML AMPUL NEB SCH ×4 (00:05→23:43)
[2018-02-04] MEDS: LORAZEPAM INJ 2 MG/1 ML VIAL IV PRN ×2 (02:57→19:42)
[2018-02-04 05:25] LABS: ARTERIAL BLOOD H2CO3 1.14 mmol/L (1.05-1.35); ARTERIAL BLOOD HCO3 27.6 mmol/L (20-26); ARTERIAL BLOOD O2 SATURATION 97.2 % (94-98); ARTERIAL BLOOD PCO2 37.8 mmHg (35-45); ARTERIAL BLOOD PH 7.48 (7.35-7.45); ARTERIAL BLOOD PO2 86.5 mmHg (80-100); ARTERIAL BLOOD TOTAL CO2 28.8 mmol/L (23-27)
[2018-02-04 05:26] LABS: ABSOLUTE BASOPHILS # (AUTO) 0.1 10^3/uL (0.0-0.2); ABSOLUTE EOSINOPHILS # (AUTO) 0.2 10^3/uL (0.0-0.6); ABSOLUTE LYMPHOCYTES (AUTO) 0.8 10^3/uL (0.5-4.7); ABSOLUTE MONOCYTES (AUTO) 0.8 10^3/uL (0.1-1.4); BASOPHILS % (AUTO) 0.7 % (0-2); EOSINOPHILS % (AUTO) 2.2 % (0-6); HEMATOCRIT 26.7 % (37.9-51.0); HEMOGLOBIN 8.9 g/dL (13.5-17.0); LYMPHOCYTES % (AUTO) 7.5 % (13-45); MEAN CORPUSCULAR HEMOGLOBIN 27.6 pg (27.0-33.4); MEAN CORPUSCULAR HGB CONC 33.5 g/dL (32.0-36.0); MEAN CORPUSCULAR VOLUME 83 fl (80-97); PLATELET COUNT 451 10^3/uL (150-450); RED BLOOD COUNT 3.24 10^6/uL (4.35-5.55); RED CELL DISTRIBUTION WIDTH 16.5 % (11.5-14.0); SEGMENTED NEUTROPHILS % (AUTO) 82.6 % (42-78); TOTAL CELLS COUNTED % (AUTO) 100 %
[2018-02-04 05:30] LABS: ARTERIAL BLOOD FIO2 30%
[2018-02-04] MEDS: HEPARIN SOD (PORCINE) 5,000 UNIT/ML 1 ML SYRINGE SUBCUT SCH ×3 (05:44→22:46)
[2018-02-04] MEDS: NORMAL SALINE 250 ML IV PRN ×2 (05:44→22:49)
[2018-02-04 05:47] LABS: ANION GAP 7 (5-19); BLOOD UREA NITROGEN 15 mg/dL (7-20); CARBON DIOXIDE 28 mmol/L (22-30); CHLORIDE 103 mmol/L (98-107); GLUCOSE 138 mg/dL (75-110); PHOSPHORUS 4.2 mg/dL (2.5-4.5); POTASSIUM 4.2 mmol/L (3.6-5.0); SODIUM 138.2 mmol/L (137-145)
--- NOTE | 2018-02-04 06:50 | RADIOLOGY REPORT (SQ) ---
EXAM DESCRIPTION: XR CHEST 1 VIEW COMPLETED DATE/TME: 02/04/2018 06:00 CLINICAL HISTORY: 57 years Male, resp failure COMPARISON: One day prior. NUMBER OF VIEWS/TECHNIQUE: 1/AP FINDINGS: Moderate lung volume, small blunting-effusion of the right costophrenic angle, normal cardiac silhouette, tip of an endotracheal tube is 4.3 cm from the paty, adequate appearing enteric tube, right subclavian central line tip at the SVC. No pneumothorax. No acute bone defect. IMPRESSION: No significant change.
[2018-02-04] MEDS: PANTOPRAZOLE SODIUM 40 MG VIAL IV SCH (10:05)
[2018-02-04] MEDS: VANCOMYCIN HCL 1,250 MG in DEXTROSE 5%-WATER 250 ML IV SCH ×2 (10:05→22:51)
--- NOTE | 2018-02-04 15:41 | RADIOLOGY REPORT (SQ) ---
EXAM DESCRIPTION: CT ABD/PELVIS COMBO COMPLETED DATE/TIME: 02/04/2018 3:15 pm REASON FOR STUDY: renal mass COMPARISON: Chest CTA dated 01/31/2018. TECHNIQUE: CT scan of the abdomen and pelvis performed with and without intravenous contrast, and wi thout oral contrast. Contrasted imaging performed helical scanning technique and dynamic intravenous contrast injection. Images reviewed with lung, soft tissue, and bone windows. Reconstructed coronal a nd sagittal MPR images reviewed. Delayed images for evaluation of the urinary system also acquired. A ll images stored on PACS. All CT scanners at this facility use dose modulation, iterative reconstruction, and/or weight based d osing when appropriate to reduce radiation dose to as low as reasonably achievable (ALARA). [facility]: Dose Right [facility]: CareDose [facility]: Dose Right [facility]: Teradose 4D [facility]: SetMeUp CONTRAST TYPE AND DOSE: contrast/concentration: Isovue 370.00 mg/ml; Total Contrast Delivered: 62.0 ml; Total Saline Delivered: 80.0 ml RENAL FUNCTION: BUN 15 creatinine 0.85. RADIATION DOSE: CT Rad equipment meets quality standard of care and radiation dose reduction techniq ues were employed. CTDIvol: 2.8 - 56.3 mGy. DLP: 4810 mGy-cm. . LIMITATIONS: Streak artifact due to position of the patient's arms adjacent to the. FINDINGS: NON-CONTRASTED IMAGING: No significant renal or bladder calcifications. No other significa nt organ calcifications. POST-CONTRASTED IMAGING: LOWER CHEST: Small right pleural effusion and trace left pleural effusion. Basilar infiltrates, righ t greater than left. LIVER: Normal size. No masses. No dilated ducts. SPLEEN: Normal size. No focal lesions. PANCREAS: No masses. No significant calcifications. No adjacent inflammation or peripancreatic fluid collections. Pancreatic duct not dilated. GALLBLADDER: Gallstones. No inflammatory changes to suggest cholecystitis. ADRENAL GLANDS: No significant masses or asymmetry. RIGHT KIDNEY AND URETER: There is an indistinct area of decreased attenuation in the upper pole. Thi s is difficult to delineate due to the streak artifact from the patient's arms. Overall size is jaylene mated at approximately 3 to 4 cm. No significant calcifications. No hydronephrosis or hydroureter . LEFT KIDNEY AND URETER: 5.5 cm cortical cyst. No solid masses. No significant calcifications. No hydronephrosis or hydroureter. AORTA AND VESSELS: 3.5 cm infrarenal abdominal aortic aneurysm. No dissection. Renal arteries, SMA, c eliac without stenosis. RETROPERITONEUM: No retroperitoneal adenopathy, hemorrhage or masses. BOWEL AND PERITONEAL CAVITY: No masses or inflammatory changes. No free fluid or peritoneal masses. APPENDIX: Normal. PELVIS: No mass. No free fluid. Normal bladder. ABDOMINAL WALL: No masses. No hernias. BONES: No significant or acute findings. OTHER: No other significant finding. IMPRESSION: 1. LIMITED STUDY. INDISTINCT AREA OF DECREASED ATTENUATION IN THE UPPER POLE OF THE RIGHT KIDNEY, DI FFICULT TO COMPLETELY VISUALIZE DUE TO STREAK ARTIFACT FROM PATIENT'S ARMS. MALIGNANCY SUCH RENAL CELL CARCINOMA IS IN THE DIFFERENTIAL. ANOTHER POSSIBILITY COULD BE AN AREA OF RENAL INFARCTION. I DEALLY, AN MRI OF THE KIDNEYS AFTER THE PATIENT'S CLINICAL CONDITION HAS IMPROVED WOULD BE OPTIMAL TO PROVIDE COMPLETE EVALUATION. 2. CORTICAL CYST IN THE LEFT KIDNEY. 3. GALLSTONES. 4. 3.5 CM INFRARENAL ABDOMINAL AORTIC ANEURYSM. 5. SMALL PLEURAL EFFUSIONS AND BASILAR INFILTRATES, RIGHT GREATER THAN LEFT. TECHNICAL DOCUMENTATION: JOB ID: [id number] Quality ID # [id number]: Final reports with documentation of one or more dose reduction techniques (e.g., Au tomated exposure control, adjustment of the mA and/or kV according to patient size, use of iterative reconstruction technique) 2010 [employer]- All Rights Reserved Reading location - IP/workstation name: [email or web address]
--- NOTE | 2018-02-04 15:42 | EEG PRO FEE REPORT ---
EEG INTERPRETATION PATIENT NAME: AGNIESZKA GOMEZ ROOM#: [id number] ORDER#: [id number] DATE OF STUDY: 02/03/2018 : 1960 REFERRING MD: JULIETA MURILLO M.D. MEDICATIONS: Cefipime, Heparin, Xopenex, Ativan, Zofran, Vancomycin, Diprivan, Midazolam, Fentanyl History This is a 57 year old right handed man with a history of hypertension, COPD, Type II diabetes, anxiety, psoriasis, admitted with a stroke currently on life support. This EEG was requested for stroke. EEG Interpretation This EEG was recorded in the coma state only. The background is characterized by generalized periodic discharges and there was no reactivity to eye opening and closing. There was significant artifact throughout much of the EEG. Photic stimulation resulted in no significant changes. The EKG showed a regular rhythm with approximately 100 beats per minute. EEG Classification 1. Generalized periodic discharges (GPDs, formerly known as GPEDs) 2. Unreactivity 3. Artifact impairing interpretation EEG Impression This EEG is severely abnormal. It is characterized by generalized periodic discharges without reactivity. This can be associated with severe diffuse encephalopathy (e.g. anoxia, metabolic). The clinical significance is indistinct. Treatment with antiepileptic medications as beneficial is unclear. INTERPRETING PHYSICIAN: BLAKE BREWER M.D. /: MTMADI TT: 1504 ID: [id number] /: [id number] TD: 1125 JOB: [id number] cc:Manohar CALVILLO M.D. ALBERT CURSEEN, M.D. > MTDD
--- NOTE | 2018-02-04 15:51 | PDOC PROGRESS REPORT ---
Subjective Progress Note for:: 02/04/18 Subjective:: Patient remained intubated but he is breathing by himself. His blood works are unremarkable. Patient could not be extubated because he is not able to protect his airway. He had an EEG and reported "EEG is severely abnormal. It is characterized by generalized. Headache discharged without reactivity. This can be associated with severe diffuse encephalopathy. His daughter states patient does not want tracheostomy or PEG tube placement. Reason For Visit: ALTERED MENTAL STATUS,LEUKOCYTOSIS Physical Exam Vital Signs: Temp Pulse Resp BP Pulse Ox 100.0 F 92 19 130/76 H 99 02/04/18 15:16 02/04/18 14:00 02/04/18 15:16 02/04/18 15:15 02/04/18 15:17 Intake & Output 02/03/18 02/04/18 02/05/18 06:59 06:59 06:59 Intake Total 938 1284 250 Output Total 3475 1965 775 Balance -2537 -681 -525 Weight 117.8 kg 118.8 kg General appearance: PRESENT: no acute distress Head exam: PRESENT: atraumatic Neck exam: ABSENT: carotid bruit, JVD, lymphadenopathy, thyromegaly Respiratory exam: PRESENT: clear to auscultation karime. ABSENT: rales, rhonchi, wheezes Cardiovascular exam: PRESENT: RRR. ABSENT: diastolic murmur, rubs, systolic murmur Results Laboratory Results: 02/04/18 05:10 02/04/18 05:10 02/04/18 02/04/18 02/04/18 05:10 05:10 05:10 WBC 11.0 H RBC 3.24 L Hgb 8.9 L Hct 26.7 L MCV 83 MCH 27.6 MCHC 33.5 RDW 16.5 H Plt Count 451 H Seg Neutrophils % 82.6 H Lymphocytes % 7.5 L Monocytes % 7.0 Eosinophils % 2.2 Basophils % 0.7 Absolute Neutrophils 9.0 H Absolute Lymphocytes 0.8 Absolute Monocytes 0.8 Absolute Eosinophils 0.2 Absolute Basophils 0.1 Carbonic Acid 1.14 HCO3/H2CO3 Ratio 24:1 ABG pH 7.48 H ABG pCO2 37.8 ABG pO2 86.5 ABG HCO3 27.6 H ABG O2 Saturation 97.2 ABG Base Excess 4.0 FiO2 30% Sodium 138.2 Potassium 4.2 Chloride 103 Carbon Dioxide 28 Anion Gap 7 BUN 15 Creatinine 0.85 Est GFR ( Amer) > 60 Est GFR (Non-Af Amer) > 60 Glucose 138 H Calcium 8.0 L Phosphorus 4.2 Magnesium 2.0 01/29/18 01/29/18 01/30/18 17:45 23:40 05:45 Creatine Kinase CK-MB (CK-2) Troponin I 0.244 0.319 0.379 01/30/18 01/30/18 01/30/18 12:00 12:00 18:44 Creatine Kinase 105 74 CK-MB (CK-2) 5.01 H Troponin I 0.349 01/30/18 01/30/18 01/30/18 18:44 23:55 23:55 Creatine Kinase 58 CK-MB (CK-2) 3.04 2.10 Troponin I 0.290 0.268 Impressions: Guidance Fluoroscopy 01/28/18 00:00 IMPRESSION: Please see combined report for performance of procedure and radiologic supervision and interpretation. Head MRI 01/28/18 00:00 IMPRESSION: Positive for acute or sub-acute punctate- lacunar infarctions in multiple locations of both frontal lobes, left parietal-occipital lobe, and the left cerebellum. This pattern suggests embolic phenomenon but can be seen with other etiologies such as traumatic brain injury, correlate clinically. No enhancing lesions. EVIDENCE OF ACUTE STROKE: YES. Multiple vessel distribution Lumbar Puncture 01/28/18 17:17 IMPRESSION: Lumbar puncture under fluoroscopy. No immediate complication. Carotid Doppler Study 01/30/18 00:00 IMPRESSION: NO HEMODYNAMICALLY SIGNIFICANT STENOSIS. Head CT 01/30/18 00:00 IMPRESSION: 1. No acute intracranial abnormality identified. This exam was performed according to our departmental dose-optimization program, which includes automated exposure control, adjustment of the mA and/or kV according to patient size and/or use of iterative reconstruction technique. Chest/Abdomen CTA 01/31/18 12:47 IMPRESSION: 1. Normal CTA of the chest. No pulmonary emboli. 2. Right lower lobe consolidation may represent atelectasis on the basis of submaximal aeration in this intubated patient. Left lower lobe atelectasis. 3. 4.5 x 4.0 x 3.5 cm irregularly marginated heterogeneous appearing mass within the superior pole of the right kidney. This requires further evaluation with dedicated renal CT or MR imaging when feasible. Chest X-Ray 02/04/18 06:00 IMPRESSION: No significant change. Abdomen/Pelvis CT 02/04/18 10:57 IMPRESSION: 1. LIMITED STUDY. INDISTINCT AREA OF DECREASED ATTENUATION IN THE UPPER POLE OF THE RIGHT KIDNEY, DIFFICULT TO COMPLETELY VISUALIZE DUE TO STREAK ARTIFACT FROM PATIENT'S ARMS. MALIGNANCY SUCH RENAL CELL CARCINOMA IS IN THE DIFFERENTIAL. ANOTHER POSSIBILITY COULD BE AN AREA OF RENAL INFARCTION. IDEALLY, AN MRI OF THE KIDNEYS AFTER THE PATIENT'S CLINICAL CONDITION HAS IMPROVED WOULD BE OPTIMAL TO PROVIDE COMPLETE EVALUATION. 2. CORTICAL CYST IN THE LEFT KIDNEY. 3. GALLSTONES. 4. 3.5 CM INFRARENAL ABDOMINAL AORTIC ANEURYSM. 5. SMALL PLEURAL EFFUSIONS AND BASILAR INFILTRATES, RIGHT GREATER THAN LEFT. Assessment & Plan - Diagnosis (1) Cardiopulmonary arrest with successful resuscitation Is this a current diagnosis for this admission?: Yes Plan: Currently patient is on mechanical ventilation. (2) Acute ischemic stroke Is this a current diagnosis for this admission?: Yes Plan: He is on Plavix and aspirin (3) Altered mental status Qualifiers: Altered mental status type: unspecified Qualified Code(s): R41.82 - Altered mental status, unspecified Is this a current diagnosis for this admission?: Yes Plan: Due to acute ischemic stroke. (4) Type 2 diabetes mellitus Qualifiers: Diabetes mellitus ferry terminal agent insulin use: unspecified ferry terminal agent insulin use status Diabetes mellitus complication status: with unspecified complications Qualified Code(s): E11.8 - Type 2 diabetes mellitus with unspecified complications Is this a current diagnosis for this admission?: Yes Plan: Patient will be kept n.p.o. Sliding-scale (5) Hypertension Is this a current diagnosis for this admission?: Yes Plan: We will continue his home medication johnson when he is able to tolerate p.o. (6) COPD (chronic obstructive pulmonary disease) Qualifiers: Emphysema type: unspecified Is this a current diagnosis for this admission?: Yes Plan: Bronchodilator as needed (7) Right renal mass Is this a current diagnosis for this admission?: Yes Plan: This is a new finding on the CT scan of the abdomen. Which revealed 4.5 x. 4.0 8 x 3.5 cm irregular marginated heterogeneous appearing mass within the superior pole of the right kidney. Urologist consulted
[2018-02-05] MEDS: LORAZEPAM INJ 2 MG/1 ML VIAL IV PRN (00:52)
[2018-02-05 04:36] LABS: ABSOLUTE BASOPHILS # (AUTO) 0.2 10^3/uL (0.0-0.2); ABSOLUTE EOSINOPHILS # (AUTO) 0.3 10^3/uL (0.0-0.6); ABSOLUTE LYMPHOCYTES (AUTO) 1.1 10^3/uL (0.5-4.7); ABSOLUTE MONOCYTES (AUTO) 0.9 10^3/uL (0.1-1.4); ABSOLUTE NEUT (AUTO) 10.5 10^3/uL (1.7-8.2); ARTERIAL BLOOD BASE EXCESS 6.3 mmol/L; ARTERIAL BLOOD H2CO3 1.24 mmol/L (1.05-1.35); ARTERIAL BLOOD HCO3 30.3 mmol/L (20-26); ARTERIAL BLOOD O2 SATURATION 96.6 % (94-98); ARTERIAL BLOOD PCO2 41.2 mmHg (35-45); ARTERIAL BLOOD PH 7.48 (7.35-7.45); ARTERIAL BLOOD PO2 80.9 mmHg (80-100); ARTERIAL BLOOD TOTAL CO2 31.5 mmol/L (23-27); BASOPHILS % (AUTO) 1.4 % (0-2); EOSINOPHILS % (AUTO) 2.2 % (0-6); HEMATOCRIT 27.9 % (37.9-51.0); LYMPHOCYTES % (AUTO) 8.3 % (13-45); MEAN CORPUSCULAR HEMOGLOBIN 26.8 pg (27.0-33.4); MEAN CORPUSCULAR HGB CONC 32.4 g/dL (32.0-36.0); MEAN CORPUSCULAR VOLUME 83 fl (80-97); MONOCYTES % (AUTO) 6.7 % (3-13); PLATELET COUNT 466 10^3/uL (150-450); RED BLOOD COUNT 3.37 10^6/uL (4.35-5.55); RED CELL DISTRIBUTION WIDTH 16.2 % (11.5-14.0); SEGMENTED NEUTROPHILS % (AUTO) 81.4 % (42-78); TOTAL CELLS COUNTED % (AUTO) 100 %; WHITE BLOOD COUNT 12.9 10^3/uL (4.0-10.5)
[2018-02-05 04:37] LABS: ARTERIAL BLOOD FIO2 30
[2018-02-05 04:49] LABS: ALANINE AMINOTRANSFERASE 27 U/L (21-72); ALBUMIN 2.6 g/dL (3.5-5.0); ALKALINE PHOSPHATASE 69 U/L (38-126); ANION GAP 9 (5-19); ASPARTATE AMINO TRANSFERASE 47 U/L (17-59); BILIRUBIN,DIRECT 0.4 mg/dL (0.0-0.4); BILIRUBIN,TOTAL 0.4 mg/dL (0.2-1.3); BLOOD UREA NITROGEN 18 mg/dL (7-20); CALCIUM 8.4 mg/dL (8.4-10.2); CARBON DIOXIDE 29 mmol/L (22-30); CHLORIDE 100 mmol/L (98-107); GLUCOSE 145 mg/dL (75-110); POTASSIUM 4.6 mmol/L (3.6-5.0); SODIUM 138.1 mmol/L (137-145); TOTAL PROTEIN 6.3 g/dL (6.3-8.2)
--- NOTE | 2018-02-05 06:34 | RADIOLOGY REPORT (SQ) ---
EXAM DESCRIPTION: XR CHEST 1 VIEW COMPLETED DATE/TME: 02/05/2018 06:00 CLINICAL HISTORY: 57 years Male, resp failure COMPARISON: One day prior. NUMBER OF VIEWS/TECHNIQUE: 1/AP FINDINGS: Moderate lung volume, normal cardiac silhouette, adequate appearing endotracheal tube tip is 4.3 cm from the paty, adequate appearing enteric tube, right subclavian central line tip at the SVC. No pneumothorax. No acute bone defect. IMPRESSION: No significant change.
[2018-02-05] MEDS: HEPARIN SOD (PORCINE) 5,000 UNIT/ML 1 ML SYRINGE SUBCUT SCH ×3 (07:44→21:59)
[2018-02-05] MEDS: LEVALBUTEROL HCL NEB 1.25 MG/3 ML AMPUL NEB SCH ×2 (08:17→16:59)
[2018-02-05 11:18] LABS: VANCOMYCIN,TROUGH 16.2 ug/mL (5.0-20.0)
[2018-02-05] MEDS: PANTOPRAZOLE SODIUM 40 MG VIAL IV SCH (11:27)
[2018-02-05] MEDS: VANCOMYCIN HCL 1,250 MG in DEXTROSE 5%-WATER 250 ML IV SCH ×2 (11:28→21:58)
--- NOTE | 2018-02-05 14:49 | PDOC PROGRESS REPORT ---
Subjective Progress Note for:: 02/05/18 Subjective:: No new development. Patient remained intubated but his breathing by himself. Extubation is deferred because patient is not able to protect his airway. This patient will probably end up with tracheostomy if the POA approved. Reason For Visit: ALTERED MENTAL STATUS,LEUKOCYTOSIS Physical Exam Vital Signs: Temp Pulse Resp BP Pulse Ox 99.9 F 98 14 127/79 H 95 02/05/18 14:06 02/05/18 10:00 02/05/18 14:06 02/05/18 14:06 02/05/18 14:06 Intake & Output 02/04/18 02/05/18 02/06/18 06:59 06:59 06:59 Intake Total 1284 1518 Output Total 4954 7135 890 Balance -681 -737 -890 Weight 118.8 kg 116.8 kg General appearance: PRESENT: no acute distress Head exam: PRESENT: atraumatic Neck exam: ABSENT: carotid bruit, JVD, lymphadenopathy, thyromegaly Respiratory exam: PRESENT: clear to auscultation karime. ABSENT: rales, rhonchi, wheezes Cardiovascular exam: PRESENT: RRR. ABSENT: diastolic murmur, rubs, systolic murmur Results Laboratory Results: 02/05/18 04:20 02/05/18 10:10 02/05/18 02/05/18 02/05/18 04:20 04:20 04:20 WBC 12.9 H RBC 3.37 L Hgb 9.0 L Hct 27.9 L MCV 83 MCH 26.8 L MCHC 32.4 RDW 16.2 H Plt Count 466 H Seg Neutrophils % 81.4 H Lymphocytes % 8.3 L Monocytes % 6.7 Eosinophils % 2.2 Basophils % 1.4 Absolute Neutrophils 10.5 H Absolute Lymphocytes 1.1 Absolute Monocytes 0.9 Absolute Eosinophils 0.3 Absolute Basophils 0.2 Carbonic Acid 1.24 HCO3/H2CO3 Ratio 24:1 ABG pH 7.48 H ABG pCO2 41.2 ABG pO2 80.9 ABG HCO3 30.3 H ABG O2 Saturation 96.6 ABG Base Excess 6.3 FiO2 30 Sodium 138.1 Potassium 4.6 Chloride 100 Carbon Dioxide 29 Anion Gap 9 BUN 18 Creatinine 0.81 Est GFR ( Amer) > 60 Est GFR (Non-Af Amer) > 60 Glucose 145 H Calcium 8.4 Magnesium 2.1 Total Bilirubin 0.4 AST 47 ALT 27 Alkaline Phosphatase 69 Total Protein 6.3 Albumin 2.6 L 02/05/18 10:10 WBC RBC Hgb Hct MCV MCH MCHC RDW Plt Count Seg Neutrophils % Lymphocytes % Monocytes % Eosinophils % Basophils % Absolute Neutrophils Absolute Lymphocytes Absolute Monocytes Absolute Eosinophils Absolute Basophils Carbonic Acid HCO3/H2CO3 Ratio ABG pH ABG pCO2 ABG pO2 ABG HCO3 ABG O2 Saturation ABG Base Excess FiO2 Sodium Potassium Chloride Carbon Dioxide Anion Gap BUN Creatinine 0.81 Est GFR ( Amer) > 60 Est GFR (Non-Af Amer) > 60 Glucose Calcium Magnesium Total Bilirubin AST ALT Alkaline Phosphatase Total Protein Albumin 01/29/18 01/29/18 01/30/18 17:45 23:40 05:45 Creatine Kinase CK-MB (CK-2) Troponin I 0.244 0.319 0.379 01/30/18 01/30/18 01/30/18 12:00 12:00 18:44 Creatine Kinase 105 74 CK-MB (CK-2) 5.01 H Troponin I 0.349 01/30/18 01/30/18 01/30/18 18:44 23:55 23:55 Creatine Kinase 58 CK-MB (CK-2) 3.04 2.10 Troponin I 0.290 0.268 Impressions: Guidance Fluoroscopy 01/28/18 00:00 IMPRESSION: Please see combined report for performance of procedure and radiologic supervision and interpretation. Head MRI 01/28/18 00:00 IMPRESSION: Positive for acute or sub-acute punctate- lacunar infarctions in multiple locations of both frontal lobes, left parietal-occipital lobe, and the left cerebellum. This pattern suggests embolic phenomenon but can be seen with other etiologies such as traumatic brain injury, correlate clinically. No enhancing lesions. EVIDENCE OF ACUTE STROKE: YES. Multiple vessel distribution Lumbar Puncture 01/28/18 17:17 IMPRESSION: Lumbar puncture under fluoroscopy. No immediate complication. Carotid Doppler Study 01/30/18 00:00 IMPRESSION: NO HEMODYNAMICALLY SIGNIFICANT STENOSIS. Head CT 01/30/18 00:00 IMPRESSION: 1. No acute intracranial abnormality identified. This exam was performed according to our departmental dose-optimization program, which includes automated exposure control, adjustment of the mA and/or kV according to patient size and/or use of iterative reconstruction technique. Chest/Abdomen CTA 01/31/18 12:47 IMPRESSION: 1. Normal CTA of the chest. No pulmonary emboli. 2. Right lower lobe consolidation may represent atelectasis on the basis of submaximal aeration in this intubated patient. Left lower lobe atelectasis. 3. 4.5 x 4.0 x 3.5 cm irregularly marginated heterogeneous appearing mass within the superior pole of the right kidney. This requires further evaluation with dedicated renal CT or MR imaging when feasible. Abdomen/Pelvis CT 02/04/18 10:57 IMPRESSION: 1. LIMITED STUDY. INDISTINCT AREA OF DECREASED ATTENUATION IN THE UPPER POLE OF THE RIGHT KIDNEY, DIFFICULT TO COMPLETELY VISUALIZE DUE TO STREAK ARTIFACT FROM PATIENT'S ARMS. MALIGNANCY SUCH RENAL CELL CARCINOMA IS IN THE DIFFERENTIAL. ANOTHER POSSIBILITY COULD BE AN AREA OF RENAL INFARCTION. IDEALLY, AN MRI OF THE KIDNEYS AFTER THE PATIENT'S CLINICAL CONDITION HAS IMPROVED WOULD BE OPTIMAL TO PROVIDE COMPLETE EVALUATION. 2. CORTICAL CYST IN THE LEFT KIDNEY. 3. GALLSTONES. 4. 3.5 CM INFRARENAL ABDOMINAL AORTIC ANEURYSM. 5. SMALL PLEURAL EFFUSIONS AND BASILAR INFILTRATES, RIGHT GREATER THAN LEFT. Chest X-Ray 02/05/18 06:00 IMPRESSION: No significant change. Assessment & Plan - Diagnosis (1) Cardiopulmonary arrest with successful resuscitation Is this a current diagnosis for this admission?: Yes Plan: Currently patient is on mechanical ventilation. (2) Acute ischemic stroke Is this a current diagnosis for this admission?: Yes Plan: He is on Plavix and aspirin (3) Altered mental status Qualifiers: Altered mental status type: unspecified Qualified Code(s): R41.82 - Altered mental status, unspecified Is this a current diagnosis for this admission?: Yes Plan: Due to acute ischemic stroke. (4) Type 2 diabetes mellitus Qualifiers: Diabetes mellitus long term care administrator insulin use: unspecified long term care administrator insulin use status Diabetes mellitus complication status: with unspecified complications Qualified Code(s): E11.8 - Type 2 diabetes mellitus with unspecified complications Is this a current diagnosis for this admission?: Yes Plan: Patient will be kept n.p.o. Sliding-scale (5) Hypertension Is this a current diagnosis for this admission?: Yes Plan: We will continue his home medication johnson when he is able to tolerate p.o. (6) COPD (chronic obstructive pulmonary disease) Qualifiers: Emphysema type: unspecified Is this a current diagnosis for this admission?: Yes Plan: Bronchodilator as needed (7) Right renal mass Is this a current diagnosis for this admission?: Yes
[2018-02-05] MEDS: NORMAL SALINE 250 ML IV PRN (18:10)
[2018-02-06] MEDS: LEVALBUTEROL HCL NEB 1.25 MG/3 ML AMPUL NEB SCH ×4 (00:18→23:48)
[2018-02-06 06:17] LABS: ABSOLUTE BASOPHILS # (AUTO) 0.1 10^3/uL (0.0-0.2); ABSOLUTE EOSINOPHILS # (AUTO) 0.2 10^3/uL (0.0-0.6); ABSOLUTE LYMPHOCYTES (AUTO) 0.9 10^3/uL (0.5-4.7); ABSOLUTE MONOCYTES (AUTO) 0.9 10^3/uL (0.1-1.4); ABSOLUTE NEUT (AUTO) 12.1 10^3/uL (1.7-8.2); BASOPHILS % (AUTO) 0.6 % (0-2); EOSINOPHILS % (AUTO) 1.3 % (0-6); HEMATOCRIT 27.5 % (37.9-51.0); LYMPHOCYTES % (AUTO) 6.4 % (13-45); MEAN CORPUSCULAR HGB CONC 32.7 g/dL (32.0-36.0); MEAN CORPUSCULAR VOLUME 83 fl (80-97); MONOCYTES % (AUTO) 6.4 % (3-13); PLATELET COUNT 556 10^3/uL (150-450); RED BLOOD COUNT 3.33 10^6/uL (4.35-5.55); RED CELL DISTRIBUTION WIDTH 15.7 % (11.5-14.0); SEGMENTED NEUTROPHILS % (AUTO) 85.3 % (42-78); TOTAL CELLS COUNTED % (AUTO) 100 %; WHITE BLOOD COUNT 14.2 10^3/uL (4.0-10.5)
--- NOTE | 2018-02-06 06:24 | RADIOLOGY REPORT (SQ) ---
EXAM DESCRIPTION: XR CHEST 1 VIEW COMPLETED DATE/TME: 02/06/2018 06:00 CLINICAL HISTORY: 57 years Male, pna COMPARISON: One day prior. NUMBER OF VIEWS/TECHNIQUE: 1/AP FINDINGS: Moderate lung volume, normal cardiac silhouette size, pulmonary vascular congestion, endotracheal tube tip is 3.2 cm from the paty, adequate appearing enteric tube, right jugular central line tip at the junction of the brachiocephalic vein and SVC. No pneumothorax. No acute bone defect. IMPRESSION: No significant change.
[2018-02-06] MEDS: HEPARIN SOD (PORCINE) 5,000 UNIT/ML 1 ML SYRINGE SUBCUT SCH ×3 (06:30→22:46)
[2018-02-06 06:34] LABS: ALANINE AMINOTRANSFERASE 36 U/L (21-72); ALBUMIN 2.7 g/dL (3.5-5.0); ALKALINE PHOSPHATASE 84 U/L (38-126); ANION GAP 9 (5-19); ASPARTATE AMINO TRANSFERASE 51 U/L (17-59); BILIRUBIN,DIRECT 0.3 mg/dL (0.0-0.4); BILIRUBIN,TOTAL 0.3 mg/dL (0.2-1.3); BLOOD UREA NITROGEN 21 mg/dL (7-20); CALCIUM 8.5 mg/dL (8.4-10.2); CARBON DIOXIDE 30 mmol/L (22-30); CHLORIDE 99 mmol/L (98-107); GLUCOSE 164 mg/dL (75-110); POTASSIUM 4.6 mmol/L (3.6-5.0); SODIUM 138.1 mmol/L (137-145); TOTAL PROTEIN 6.2 g/dL (6.3-8.2)
[2018-02-06] MEDS: NORMAL SALINE 250 ML IV PRN (06:34)
[2018-02-06 06:51] LABS: ARTERIAL BLOOD BASE EXCESS 6.1 mmol/L; ARTERIAL BLOOD H2CO3 1.15 mmol/L (1.05-1.35); ARTERIAL BLOOD HCO3 29.6 mmol/L (20-26); ARTERIAL BLOOD O2 SATURATION 97.1 % (94-98); ARTERIAL BLOOD PCO2 38.3 mmHg (35-45); ARTERIAL BLOOD PH 7.51 (7.35-7.45); ARTERIAL BLOOD PO2 84.2 mmHg (80-100); ARTERIAL BLOOD TOTAL CO2 30.8 mmol/L (23-27)
[2018-02-06 06:52] LABS: ARTERIAL BLOOD FIO2 30%
[2018-02-06] MEDS: VANCOMYCIN HCL 1,250 MG in DEXTROSE 5%-WATER 250 ML IV SCH ×2 (09:06→22:46)
[2018-02-06] MEDS: PANTOPRAZOLE SODIUM 40 MG VIAL IV SCH (09:06)
--- NOTE | 2018-02-06 17:13 | PDOC PROGRESS REPORT ---
Subjective Subjective:: This is 57 years old male patient brought by EMS for altered mental status, slurred speech and difficulty walking. Patient also running leukocytosis of 21,000. The possibility of meningitis and stroke was considered. AP produced clear CSF with WBC of 2 which is not compatible with any DIRECTORY CLERK infection. But MRI of the brain reported as positive for acute or subacute punctate lacunar infarctions in multiple locations of both frontal lobes, left parietal-occipital lobe, and the left cerebellum. Initially patient was empirically started on Zovirax, cefepime and vancomycin. The cefepime and Lovenox has been discontinued and I continue the vancomycin since his blood culture is reported as positive for gram-positive cocci. Patient has been started on aspirin 325 mg p.o. daily Plavix 75 mg p.o. daily and Lipitor 80 mg p.o. nightly. On the second day of his admission patient went into sudden respiratory arrest at the time patient coded and immediate cardio respiratory resuscitation was performed and it was successful. Patient intubated and transferred to ICU. Currently patient is not on sedation or pressor and he is breathing by himself. He responds to noxious stimuli appropriately. But he does not respond to command. Extubation is deferred since patient is not able to protect his airway. Family does not want tracheostomy or PEG tube placement since this is patient's switch. Reason For Visit: ALTERED MENTAL STATUS,LEUKOCYTOSIS Physical Exam Vital Signs: Temp Pulse Resp BP Pulse Ox 100.0 F 98 17 136/95 H 97 02/06/18 14:00 02/06/18 10:00 02/06/18 14:00 02/06/18 13:33 02/06/18 14:00 Intake & Output 02/05/18 02/06/18 02/07/18 06:59 06:59 06:59 Intake Total 1518 1596 250 Output Total 5801 4281 550 Balance -737 -444 -300 Weight 116.8 kg 115.4 kg General appearance: PRESENT: no acute distress Head exam: PRESENT: atraumatic Neck exam: ABSENT: carotid bruit, JVD, lymphadenopathy, thyromegaly Respiratory exam: PRESENT: clear to auscultation karime. ABSENT: rales, rhonchi, wheezes Cardiovascular exam: PRESENT: RRR. ABSENT: diastolic murmur, rubs, systolic murmur GI/Abdominal exam: PRESENT: normal bowel sounds, soft. ABSENT: distended, guarding, mass, organolmegaly, rebound, tenderness Results Laboratory Results: 02/06/18 06:00 02/06/18 06:00 02/06/18 02/06/18 02/06/18 06:00 06:00 06:40 WBC 14.2 H RBC 3.33 L Hgb 9.0 L Hct 27.5 L MCV 83 MCH 27.0 MCHC 32.7 RDW 15.7 H Plt Count 556 H Seg Neutrophils % 85.3 H Lymphocytes % 6.4 L Monocytes % 6.4 Eosinophils % 1.3 Basophils % 0.6 Absolute Neutrophils 12.1 H Absolute Lymphocytes 0.9 Absolute Monocytes 0.9 Absolute Eosinophils 0.2 Absolute Basophils 0.1 Carbonic Acid 1.15 HCO3/H2CO3 Ratio 25:1 ABG pH 7.51 H ABG pCO2 38.3 ABG pO2 84.2 ABG HCO3 29.6 H ABG O2 Saturation 97.1 ABG Base Excess 6.1 FiO2 30% Sodium 138.1 Potassium 4.6 Chloride 99 Carbon Dioxide 30 Anion Gap 9 BUN 21 H Creatinine 0.80 Est GFR ( Amer) > 60 Est GFR (Non-Af Amer) > 60 Glucose 164 H Calcium 8.5 Phosphorus 4.0 Magnesium 2.2 Total Bilirubin 0.3 AST 51 ALT 36 Alkaline Phosphatase 84 Total Protein 6.2 L Albumin 2.7 L 01/29/18 01/29/18 01/30/18 17:45 23:40 05:45 Creatine Kinase CK-MB (CK-2) Troponin I 0.244 0.319 0.379 01/30/18 01/30/18 01/30/18 12:00 12:00 18:44 Creatine Kinase 105 74 CK-MB (CK-2) 5.01 H Troponin I 0.349 01/30/18 01/30/18 01/30/18 18:44 23:55 23:55 Creatine Kinase 58 CK-MB (CK-2) 3.04 2.10 Troponin I 0.290 0.268 Impressions: Guidance Fluoroscopy 01/28/18 00:00 IMPRESSION: Please see combined report for performance of procedure and radiologic supervision and interpretation. Head MRI 01/28/18 00:00 IMPRESSION: Positive for acute or sub-acute punctate- lacunar infarctions in multiple locations of both frontal lobes, left parietal-occipital lobe, and the left cerebellum. This pattern suggests embolic phenomenon but can be seen with other etiologies such as traumatic brain injury, correlate clinically. No enhancing lesions. EVIDENCE OF ACUTE STROKE: YES. Multiple vessel distribution Lumbar Puncture 01/28/18 17:17 IMPRESSION: Lumbar puncture under fluoroscopy. No immediate complication. Carotid Doppler Study 01/30/18 00:00 IMPRESSION: NO HEMODYNAMICALLY SIGNIFICANT STENOSIS. Head CT 01/30/18 00:00 IMPRESSION: 1. No acute intracranial abnormality identified. This exam was performed according to our departmental dose-optimization program, which includes automated exposure control, adjustment of the mA and/or kV according to patient size and/or use of iterative reconstruction technique. Chest/Abdomen CTA 01/31/18 12:47 IMPRESSION: 1. Normal CTA of the chest. No pulmonary emboli. 2. Right lower lobe consolidation may represent atelectasis on the basis of submaximal aeration in this intubated patient. Left lower lobe atelectasis. 3. 4.5 x 4.0 x 3.5 cm irregularly marginated heterogeneous appearing mass within the superior pole of the right kidney. This requires further evaluation with dedicated renal CT or MR imaging when feasible. Abdomen/Pelvis CT 02/04/18 10:57 IMPRESSION: 1. LIMITED STUDY. INDISTINCT AREA OF DECREASED ATTENUATION IN THE UPPER POLE OF THE RIGHT KIDNEY, DIFFICULT TO COMPLETELY VISUALIZE DUE TO STREAK ARTIFACT FROM PATIENT'S ARMS. MALIGNANCY SUCH RENAL CELL CARCINOMA IS IN THE DIFFERENTIAL. ANOTHER POSSIBILITY COULD BE AN AREA OF RENAL INFARCTION. IDEALLY, AN MRI OF THE KIDNEYS AFTER THE PATIENT'S CLINICAL CONDITION HAS IMPROVED WOULD BE OPTIMAL TO PROVIDE COMPLETE EVALUATION. 2. CORTICAL CYST IN THE LEFT KIDNEY. 3. GALLSTONES. 4. 3.5 CM INFRARENAL ABDOMINAL AORTIC ANEURYSM. 5. SMALL PLEURAL EFFUSIONS AND BASILAR INFILTRATES, RIGHT GREATER THAN LEFT. Chest X-Ray 02/06/18 06:00 IMPRESSION: No significant change. Assessment & Plan - Diagnosis (1) Cardiopulmonary arrest with successful resuscitation Is this a current diagnosis for this admission?: Yes Plan: Currently patient is on mechanical ventilation. (2) Acute ischemic stroke Is this a current diagnosis for this admission?: Yes Plan: He is on Plavix and aspirin (3) Altered mental status Qualifiers: Altered mental status type: unspecified Qualified Code(s): R41.82 - Altered mental status, unspecified Is this a current diagnosis for this admission?: Yes Plan: Due to acute ischemic stroke. (4) Type 2 diabetes mellitus Qualifiers: Diabetes mellitus fpc insulin use: unspecified fpc insulin use status Diabetes mellitus complication status: with unspecified complications Qualified Code(s): E11.8 - Type 2 diabetes mellitus with unspecified complications Is this a current diagnosis for this admission?: Yes Plan: Patient will be kept n.p.o. Sliding-scale (5) Hypertension Is this a current diagnosis for this admission?: Yes Plan: We will continue his home medication johnson when he is able to tolerate p.o. (6) COPD (chronic obstructive pulmonary disease) Qualifiers: Emphysema type: unspecified Is this a current diagnosis for this admission?: Yes Plan: Bronchodilator as needed (7) Right renal mass Is this a current diagnosis for this admission?: Yes Plan: This is a new finding on the CT scan of the abdomen. Which revealed 4.5 x. 4.0 8 x 3.5 cm irregular marginated heterogeneous appearing mass within the superior pole of the right kidney. Urologist consulted
[2018-02-06] MEDS: FENTANYL CITRATE INJ/PF 100 MCG/2 ML AMPUL IV PRN (17:22)
[2018-02-06 19:46] LABS: AMORPHOUS SEDIMENT,URINE TRACE /HPF; APPEARANCE,URINE CLOUDY; BILIRUBIN,URINE NEGATIVE (NEGATIVE); GLUCOSE, URINE NEGATIVE (NEGATIVE); KETONES,URINE NEGATIVE (NEGATIVE); LEUKOCYTE ESTERASE,URINE NEGATIVE (NEGATIVE); NITRITE,URINE NEGATIVE (NEGATIVE); PROTEIN,URINE 100 mg/dL (NEGATIVE); URINE SPECIFIC GRAVITY 1.024; UROBILINOGEN,URINE NEGATIVE mg/dL (<2.0)
[2018-02-06 19:47] LABS: COLOR,URINE YELLOW
[2018-02-07] MEDS: FENTANYL CITRATE INJ/PF 100 MCG/2 ML AMPUL IV PRN ×3 (03:43→22:48)
[2018-02-07 05:32] LABS: ABSOLUTE BASOPHILS # (AUTO) 0.1 10^3/uL (0.0-0.2); ABSOLUTE EOSINOPHILS # (AUTO) 0.2 10^3/uL (0.0-0.6); ABSOLUTE LYMPHOCYTES (AUTO) 0.9 10^3/uL (0.5-4.7); ABSOLUTE MONOCYTES (AUTO) 0.8 10^3/uL (0.1-1.4); ABSOLUTE NEUT (AUTO) 10.1 10^3/uL (1.7-8.2); ARTERIAL BLOOD BASE EXCESS 4.8 mmol/L; ARTERIAL BLOOD H2CO3 1.23 mmol/L (1.05-1.35); ARTERIAL BLOOD HCO3 28.9 mmol/L (20-26); ARTERIAL BLOOD O2 SATURATION 96.7 % (94-98); ARTERIAL BLOOD PH 7.47 (7.35-7.45); ARTERIAL BLOOD TOTAL CO2 30.2 mmol/L (23-27); BASOPHILS % (AUTO) 0.7 % (0-2); EOSINOPHILS % (AUTO) 1.8 % (0-6); HEMATOCRIT 26.4 % (37.9-51.0); HEMOGLOBIN 8.6 g/dL (13.5-17.0); LYMPHOCYTES % (AUTO) 7.3 % (13-45); MEAN CORPUSCULAR HEMOGLOBIN 26.6 pg (27.0-33.4); MEAN CORPUSCULAR HGB CONC 32.5 g/dL (32.0-36.0); MEAN CORPUSCULAR VOLUME 82 fl (80-97); MONOCYTES % (AUTO) 6.9 % (3-13); PLATELET COUNT 492 10^3/uL (150-450); RED BLOOD COUNT 3.22 10^6/uL (4.35-5.55); RED CELL DISTRIBUTION WIDTH 16.2 % (11.5-14.0); SEGMENTED NEUTROPHILS % (AUTO) 83.3 % (42-78); TOTAL CELLS COUNTED % (AUTO) 100 %; WHITE BLOOD COUNT 12.2 10^3/uL (4.0-10.5)
[2018-02-07] MEDS: HEPARIN SOD (PORCINE) 5,000 UNIT/ML 1 ML SYRINGE SUBCUT SCH ×3 (05:32→21:10)
[2018-02-07 05:40] LABS: ARTERIAL BLOOD FIO2 30%
[2018-02-07 05:53] LABS: ALANINE AMINOTRANSFERASE 38 U/L (21-72); ALBUMIN 2.8 g/dL (3.5-5.0); ALKALINE PHOSPHATASE 90 U/L (38-126); ANION GAP 10 (5-19); ASPARTATE AMINO TRANSFERASE 45 U/L (17-59); BILIRUBIN,DIRECT 0.3 mg/dL (0.0-0.4); BILIRUBIN,TOTAL 0.4 mg/dL (0.2-1.3); BLOOD UREA NITROGEN 22 mg/dL (7-20); CALCIUM 8.2 mg/dL (8.4-10.2); CARBON DIOXIDE 30 mmol/L (22-30); CHLORIDE 97 mmol/L (98-107); GLUCOSE 157 mg/dL (75-110); POTASSIUM 4.4 mmol/L (3.6-5.0); SODIUM 136.7 mmol/L (137-145); TOTAL PROTEIN 6.2 g/dL (6.3-8.2)
--- NOTE | 2018-02-07 07:40 | RADIOLOGY REPORT (SQ) ---
EXAM DESCRIPTION: XR CHEST 1 VIEW COMPLETED DATE/TME: 02/07/2018 06:00 CLINICAL HISTORY: 57 years Male, Resp. Failure COMPARISON: One day prior. NUMBER OF VIEWS/TECHNIQUE: 1/AP FINDINGS: Moderate right lung volume, tip of an endotracheal tube is 5.3 cm from the paty, partially obscured, adequate appearing enteric tube, right subclavian central line tip at the junction of the brachiocephalic vein and SVC. Normal cardiac silhouette. No pneumothorax. No acute bone defect. IMPRESSION: No significant change.
[2018-02-07] MEDS: LEVALBUTEROL HCL NEB 1.25 MG/3 ML AMPUL NEB SCH ×3 (08:35→23:25)
[2018-02-07] MEDS ORDERED: ALTEPLASE INJ 2 MG VIAL (CATH CLEARANCE) IV PRN (08:44)
[2018-02-07] MEDS ORDERED: FUROSEMIDE INJ/PF 40 MG/4 ML SDV IV ONE (09:00)
[2018-02-07] MEDS: PANTOPRAZOLE SODIUM 40 MG VIAL IV SCH (09:28)
[2018-02-07] MEDS: VANCOMYCIN HCL 1,250 MG in DEXTROSE 5%-WATER 250 ML IV SCH (09:30)
--- NOTE | 2018-02-07 13:56 | PDOC PROGRESS REPORT ---
Subjective Progress Note for:: 02/07/18 - seen on rounds this morning Subjective:: intubated- not on sedation but doesn't respond to commands Reason For Visit: ALTERED MENTAL STATUS,LEUKOCYTOSIS Physical Exam Vital Signs: Temp Pulse Resp BP Pulse Ox 99.3 F 84 15 138/80 H 96 02/07/18 06:00 02/07/18 08:00 02/07/18 06:00 02/07/18 05:33 02/07/18 06:00 Intake & Output 02/06/18 02/07/18 02/08/18 06:59 06:59 06:59 Intake Total 1596 2493 Output Total 2040 1425 225 Balance -444 1068 -225 Weight 254 lb 6.615 oz 252 lb 6.868 oz General appearance: PRESENT: no acute distress - intubated but not on sedation, other - obese Head exam: PRESENT: atraumatic, normocephalic Eye exam: PRESENT: other - constricted pupils- reacts to light but sluggish Ear exam: PRESENT: normal external ear exam Mouth exam: PRESENT: tongue midline Neck exam: ABSENT: tracheal deviation Respiratory exam: PRESENT: clear to auscultation karime, symmetrical, other - ET tube noted. ABSENT: rhonchi, wheezes Cardiovascular exam: PRESENT: +S1, +S2, other - right subclavian noted Pulses: ABSENT: +2 pedal pulses bilateral GI/Abdominal exam: PRESENT: normal bowel sounds, soft, other - NGT noted Gentrourinary exam: PRESENT: indwelling catheter Extremities exam: PRESENT: other - bilateral UE and LE edema- 1-2+ at the hands and feet. Neurological exam: PRESENT: other - intubated- unable to perform CN exams. eyes opens involuntarily. involuntary posturing. doesn't respond to commands. jayme scale- at best 4.. ABSENT: alert Skin exam: PRESENT: dry, warm Results Laboratory Results: 02/07/18 05:20 02/07/18 05:20 02/06/18 02/07/18 02/07/18 19:30 05:20 05:20 WBC 12.2 H RBC 3.22 L Hgb 8.6 L Hct 26.4 L MCV 82 MCH 26.6 L MCHC 32.5 RDW 16.2 H Plt Count 492 H Seg Neutrophils % 83.3 H Lymphocytes % 7.3 L Monocytes % 6.9 Eosinophils % 1.8 Basophils % 0.7 Absolute Neutrophils 10.1 H Absolute Lymphocytes 0.9 Absolute Monocytes 0.8 Absolute Eosinophils 0.2 Absolute Basophils 0.1 Carbonic Acid 1.23 HCO3/H2CO3 Ratio 23:1 ABG pH 7.47 H ABG pCO2 41.0 ABG pO2 83.0 ABG HCO3 28.9 H ABG O2 Saturation 96.7 ABG Base Excess 4.8 FiO2 30% Sodium Potassium Chloride Carbon Dioxide Anion Gap BUN Creatinine Est GFR ( Amer) Est GFR (Non-Af Amer) Glucose Calcium Magnesium Total Bilirubin AST ALT Alkaline Phosphatase Total Protein Albumin Urine Color YELLOW Urine Appearance CLOUDY Urine pH 5.0 Ur Specific [place] 1.024 Urine Protein 100 H Urine Glucose (UA) NEGATIVE Urine Ketones NEGATIVE Urine Blood SMALL H Urine Nitrite NEGATIVE Ur Leukocyte Esterase NEGATIVE Urine WBC (Auto) 2 Urine RBC (Auto) 4 02/07/18 05:20 WBC RBC Hgb Hct MCV MCH MCHC RDW Plt Count Seg Neutrophils % Lymphocytes % Monocytes % Eosinophils % Basophils % Absolute Neutrophils Absolute Lymphocytes Absolute Monocytes Absolute Eosinophils Absolute Basophils Carbonic Acid HCO3/H2CO3 Ratio ABG pH ABG pCO2 ABG pO2 ABG HCO3 ABG O2 Saturation ABG Base Excess FiO2 Sodium 136.7 L Potassium 4.4 Chloride 97 L Carbon Dioxide 30 Anion Gap 10 BUN 22 H Creatinine 0.87 Est GFR ( Amer) > 60 Est GFR (Non-Af Amer) > 60 Glucose 157 H Calcium 8.2 L Magnesium 2.3 Total Bilirubin 0.4 AST 45 ALT 38 Alkaline Phosphatase 90 Total Protein 6.2 L Albumin 2.8 L Urine Color Urine Appearance Urine pH Ur Specific [place] Urine Protein Urine Glucose (UA) Urine Ketones Urine Blood Urine Nitrite Ur Leukocyte Esterase Urine WBC (Auto) Urine RBC (Auto) 01/29/18 01/29/18 01/30/18 17:45 23:40 05:45 Creatine Kinase CK-MB (CK-2) Troponin I 0.244 0.319 0.379 01/30/18 01/30/18 01/30/18 12:00 12:00 18:44 Creatine Kinase 105 74 CK-MB (CK-2) 5.01 H Troponin I 0.349 01/30/18 01/30/18 01/30/18 18:44 23:55 23:55 Creatine Kinase 58 CK-MB (CK-2) 3.04 2.10 Troponin I 0.290 0.268 Impressions: Guidance Fluoroscopy 01/28/18 00:00 IMPRESSION: Please see combined report for performance of procedure and radiologic supervision and interpretation. Head MRI 01/28/18 00:00 IMPRESSION: Positive for acute or sub-acute punctate- lacunar infarctions in multiple locations of both frontal lobes, left parietal-occipital lobe, and the left cerebellum. This pattern suggests embolic phenomenon but can be seen with other etiologies such as traumatic brain injury, correlate clinically. No enhancing lesions. EVIDENCE OF ACUTE STROKE: YES. Multiple vessel distribution Lumbar Puncture 01/28/18 17:17 IMPRESSION: Lumbar puncture under fluoroscopy. No immediate complication. Carotid Doppler Study 01/30/18 00:00 IMPRESSION: NO HEMODYNAMICALLY SIGNIFICANT STENOSIS. Head CT 01/30/18 00:00 IMPRESSION: 1. No acute intracranial abnormality identified. This exam was performed according to our departmental dose-optimization program, which includes automated exposure control, adjustment of the mA and/or kV according to patient size and/or use of iterative reconstruction technique. Chest/Abdomen CTA 01/31/18 12:47 IMPRESSION: 1. Normal CTA of the chest. No pulmonary emboli. 2. Right lower lobe consolidation may represent atelectasis on the basis of submaximal aeration in this intubated patient. Left lower lobe atelectasis. 3. 4.5 x 4.0 x 3.5 cm irregularly marginated heterogeneous appearing mass within the superior pole of the right kidney. This requires further evaluation with dedicated renal CT or MR imaging when feasible. Abdomen/Pelvis CT 02/04/18 10:57 IMPRESSION: 1. LIMITED STUDY. INDISTINCT AREA OF DECREASED ATTENUATION IN THE UPPER POLE OF THE RIGHT KIDNEY, DIFFICULT TO COMPLETELY VISUALIZE DUE TO STREAK ARTIFACT FROM PATIENT'S ARMS. MALIGNANCY SUCH RENAL CELL CARCINOMA IS IN THE DIFFERENTIAL. ANOTHER POSSIBILITY COULD BE AN AREA OF RENAL INFARCTION. IDEALLY, AN MRI OF THE KIDNEYS AFTER THE PATIENT'S CLINICAL CONDITION HAS IMPROVED WOULD BE OPTIMAL TO PROVIDE COMPLETE EVALUATION. 2. CORTICAL CYST IN THE LEFT KIDNEY. 3. GALLSTONES. 4. 3.5 CM INFRARENAL ABDOMINAL AORTIC ANEURYSM. 5. SMALL PLEURAL EFFUSIONS AND BASILAR INFILTRATES, RIGHT GREATER THAN LEFT. Chest X-Ray 02/07/18 06:00 IMPRESSION: No significant change. Assessment & Plan - Diagnosis (1) Acute ischemic stroke Is this a current diagnosis for this admission?: Yes Plan: unclear etiology of his ischemia- but MRI did show bilateral ischemia suggestive of thromboembolic phenomenon - cardiology was consulted and ECHO was done. ?U/S carotids vs CTA head/neck to check for etiology of his embolic phenomenon. 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 spoke with ICU attending about this (6) Ventilator dependent Is this a current diagnosis for this admission?: Yes Plan: although he's on pressure support at times and able to take breaths at time- due to anoxic brain injury there's a concern for aspiration and able to support his airway without vent support. - Time Total Critical Time (Minutes): 45 - spoke with ICU attending on rounds Anticipated discharge: Other - awaiting families decision for trach - Plan Summary Plan Summary: Spoke with son-in-law at bedside. family is awaiting for 2 weeks of vent before considering trach. they are not sure if trach is the option for them. daughter who is POA as per chart wants to wait for 2 weeks on the vent prior to making decision on comfort care vs trach placement. his 2 weeks is due on 02/12/18
[2018-02-07] MEDS: AMPICILLIN SODIUM 2 GM in NORMAL SALINE 100 ML IV SCH ×2 (17:42→21:09)
[2018-02-07] MEDS ORDERED: AMPICILLIN SOD INJ 2 GM VIAL IV SCH (18:00)
[2018-02-07] MEDS: NORMAL SALINE 250 ML IV PRN (21:09)
[2018-02-07] MEDS: CEFTRIAXONE 2 GM/D5W RTU 2 GM/50 ML RTUPB IV SCH (21:10)
[2018-02-07] MEDS: LORAZEPAM INJ 2 MG/1 ML VIAL IV PRN (21:34)
--- NOTE | 2018-02-07 22:29 | Progress Note ---
Provider Note Provider Note: ID Consult Note Asked by Pharmacy to review patient's chart. Pt not seen or examined. Mr. Wagner is a 57 year old man with PMH including obesity, HTN, COPD and anxiety who presented to the ED on 01/28/18 with c/o inability to ambulate, acute in onset. His daughter also reported he had been having problems with speech over the past two weeks. He had been falling at home over the same time period and had prior ED visit earlier in January for fall. CT head w/o contrast was negative. No fever on presentation. Had some tachycardia. Exam was negative for murmur, abdominal pain, or focal neuro deficit. Pt had leukocytosis to 21k on initial labs. Urinalysis showed no pyuria. Blood cultures on admission showed growth of Enterococcus faecalis from both sets. For altered mental status , LP was performed, and empirically vancomycin, cefepime and acyclovir were started. CSF protein was mildly elevated 71, glucose was 75, there was no CSF pleocytosis, and CSF culture was negative. MRI on 01/28/18 showed acute or subacute punctate infarcts in multiterritory distribution - multiple locations in b/l frontal lobes, L parietal-occipital lobe, and L cerebellum. No repeat BCx were performed. An hour after transfer from ED to MICU, pt became hypotensive and bradycardic and had cardiopulmonary arrest, for which resuscitation was successful. Cefepime and acyclovir were discontinued, and vancomycin continued in light of the blood culture results. 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 Portals for entry of Enterococcus faecalis are typically GI or tract, but patient presented without a known source of this bacteremia on exam (no abdominal pain, U/A inconsistent with UTI). This presentation is concerning potentially for an endovascular infection, and Enterococcus faecalis is an organism that can cause subacute bacterial endocarditis (accounts for 5-20% of cases) and is usually a disease of older men when it occurs. Although no vegetation was visualized on TTE and pt has had no murmur appreciated, he was found to have bilateral multiterritory cerebral infarcts on brain MRI that may represent embolic phenomena in this setting. TTE sensitivity for IE is also much less than GAUTAM, variably reported in the literature but perhaps around 50-75%. The absence of vegetation on TTE cannot be taken to mean that IE has been ruled out in this setting with evidence of sustained bacteremia and possible embolic shower. - Although traditionally aminoglycosides (gentamicin or streptomycin if gentamicin resistant) have been used in combination with ampicillin, IV ampicillin/Rocephin appears to be an effective combination that may present less toxicity, particularly if appropriate monitoring of gentamicin levels (and adjustment if needed) is not necessarily assured. Recommendations - Discontinue IV vancomycin as the patient's Enterococcus faecalis isolate was sensitive to ampicillin - Treat with IV ampicillin 12 grams total daily in divided doses as long as renal function is normal in conjunction with Rocephin 2 g BID IV for synergy. Recommend completing 6 weeks treatment with this regimen (anticipated end date Mar 14) - While on IV antibiotics, CBC and CMP should be monitored at least weekly, and if PICC line is required, it should be removed once treatment has been completed. Rad Fonseca MD [facility] pager [phone]
[2018-02-08] MEDS: AMPICILLIN SODIUM 2 GM in NORMAL SALINE 100 ML IV SCH ×6 (01:39→22:15)
[2018-02-08] MEDS: HEPARIN SOD (PORCINE) 5,000 UNIT/ML 1 ML SYRINGE SUBCUT SCH ×3 (05:08→22:14)
[2018-02-08 05:28] LABS: ABSOLUTE BASOPHILS # (AUTO) 0.1 10^3/uL (0.0-0.2); ABSOLUTE EOSINOPHILS # (AUTO) 0.3 10^3/uL (0.0-0.6); ABSOLUTE LYMPHOCYTES (AUTO) 0.8 10^3/uL (0.5-4.7); ABSOLUTE MONOCYTES (AUTO) 0.8 10^3/uL (0.1-1.4); ABSOLUTE NEUT (AUTO) 8.6 10^3/uL (1.7-8.2); ARTERIAL BLOOD BASE EXCESS 7.3 mmol/L; ARTERIAL BLOOD H2CO3 1.31 mmol/L (1.05-1.35); ARTERIAL BLOOD HCO3 31.6 mmol/L (20-26); ARTERIAL BLOOD O2 SATURATION 94.7 % (94-98); ARTERIAL BLOOD PCO2 43.5 mmHg (35-45); ARTERIAL BLOOD PH 7.48 (7.35-7.45); ARTERIAL BLOOD PO2 68.3 mmHg (80-100); ARTERIAL BLOOD TOTAL CO2 32.9 mmol/L (23-27); BASOPHILS % (AUTO) 0.6 % (0-2); EOSINOPHILS % (AUTO) 2.6 % (0-6); HEMATOCRIT 26.1 % (37.9-51.0); HEMOGLOBIN 8.7 g/dL (13.5-17.0); MEAN CORPUSCULAR HEMOGLOBIN 27.4 pg (27.0-33.4); MEAN CORPUSCULAR HGB CONC 33.3 g/dL (32.0-36.0); MEAN CORPUSCULAR VOLUME 82 fl (80-97); MONOCYTES % (AUTO) 7.7 % (3-13); PLATELET COUNT 471 10^3/uL (150-450); RED BLOOD COUNT 3.17 10^6/uL (4.35-5.55); RED CELL DISTRIBUTION WIDTH 16.3 % (11.5-14.0); SEGMENTED NEUTROPHILS % (AUTO) 81.1 % (42-78); TOTAL CELLS COUNTED % (AUTO) 100 %; WHITE BLOOD COUNT 10.6 10^3/uL (4.0-10.5)
[2018-02-08 05:29] LABS: ARTERIAL BLOOD FIO2 30%
[2018-02-08 05:38] LABS: ANION GAP 9 (5-19); BLOOD UREA NITROGEN 25 mg/dL (7-20); CALCIUM 8.4 mg/dL (8.4-10.2); CARBON DIOXIDE 33 mmol/L (22-30); CHLORIDE 97 mmol/L (98-107); GLUCOSE 143 mg/dL (75-110); PHOSPHORUS 4.6 mg/dL (2.5-4.5); POTASSIUM 4.3 mmol/L (3.6-5.0); SODIUM 138.9 mmol/L (137-145)
--- NOTE | 2018-02-08 06:30 | RADIOLOGY REPORT (SQ) ---
EXAM DESCRIPTION: XR CHEST 1 VIEW COMPLETED DATE/TME: 02/08/2018 06:00 CLINICAL HISTORY: 57 years Male, Resp. Failure COMPARISON: One day prior. NUMBER OF VIEWS/TECHNIQUE: 1/AP FINDINGS: Moderate right lung volume, normal cardiac silhouette, pulmonary vascular congestion, endotracheal tube tip is 5.4 cm from the paty, right subclavian central line tip at the SVC. No pneumothorax. No acute bone defect. IMPRESSION: No significant change.
[2018-02-08] MEDS: LEVALBUTEROL HCL NEB 1.25 MG/3 ML AMPUL NEB SCH ×3 (08:24→23:50)
[2018-02-08] MEDS ORDERED: NORMAL SALINE 100 ML with PANTOPRAZOLE SODIUM 80 MG IV PRN ×2 (08:41)
[2018-02-08] MEDS: CEFTRIAXONE 2 GM/D5W RTU 2 GM/50 ML RTUPB IV SCH ×2 (09:00→22:15)
[2018-02-08] MEDS: PANTOPRAZOLE SODIUM 40 MG VIAL IV SCH (09:01)
[2018-02-08] MEDS: FUROSEMIDE INJ/PF 20 MG/2 ML SDV IV SCH (09:01)
[2018-02-08] MEDS ORDERED: ENOXAPARIN SODIUM INJ 120 MG/0.8 ML DISP.SYRIN SUBCUT SCH (13:30)
--- NOTE | 2018-02-08 13:40 | PDOC PROGRESS REPORT ---
Subjective Progress Note for:: 02/08/18 - seen patient on ICU rounds this morning Subjective:: intubated- not on sedation but doesn't respond to commands Reason For Visit: ALTERED MENTAL STATUS,LEUKOCYTOSIS Physical Exam Vital Signs: Temp Pulse Resp BP Pulse Ox 99.5 F 96 25 H 131/75 H 97 02/08/18 10:00 02/08/18 08:26 02/08/18 10:00 02/08/18 09:33 02/08/18 11:42 Intake & Output 02/07/18 02/08/18 02/09/18 06:59 06:59 06:59 Intake Total 2743 2166 Output Total 1425 3175 1400 Balance 1318 -1009 -1400 Weight 252 lb 6.868 oz 250 lb 0.067 oz General appearance: PRESENT: no acute distress, obese, other - vented Head exam: PRESENT: atraumatic, normocephalic Eye exam: PRESENT: other - doesn't open eye to command. ABSENT: conjunctival injection Ear exam: PRESENT: normal external ear exam Mouth exam: PRESENT: dry mucosa, other - sputum noted Neck exam: ABSENT: tracheal deviation Respiratory exam: PRESENT: clear to auscultation karime, decreased breath sounds - slightly decreased BS at the bases this morning, symmetrical, other - ET tube noted Cardiovascular exam: PRESENT: +S1, +S2 Pulses: PRESENT: +2 pedal pulses bilateral GI/Abdominal exam: PRESENT: normal bowel sounds, soft, other - NGT noted. ABSENT: guarding Gentrourinary exam: PRESENT: indwelling catheter Extremities exam: PRESENT: other - edema of b/l UE and LE- better today, 1-2+ Musculoskeletal exam: PRESENT: normal inspection Neurological exam: PRESENT: other - intubated- withdraws to physical stimuli, GCS- 4, pupils sluggis to light, slightly constricted Skin exam: PRESENT: dry, warm Results Laboratory Results: 02/08/18 05:15 02/08/18 05:15 02/08/18 02/08/18 02/08/18 05:15 05:15 05:15 WBC 10.6 H RBC 3.17 L Hgb 8.7 L Hct 26.1 L MCV 82 MCH 27.4 MCHC 33.3 RDW 16.3 H Plt Count 471 H Seg Neutrophils % 81.1 H Lymphocytes % 8.0 L Monocytes % 7.7 Eosinophils % 2.6 Basophils % 0.6 Absolute Neutrophils 8.6 H Absolute Lymphocytes 0.8 Absolute Monocytes 0.8 Absolute Eosinophils 0.3 Absolute Basophils 0.1 Carbonic Acid 1.31 HCO3/H2CO3 Ratio 24:1 ABG pH 7.48 H ABG pCO2 43.5 ABG pO2 68.3 L ABG HCO3 31.6 H ABG O2 Saturation 94.7 ABG Base Excess 7.3 FiO2 30% Sodium 138.9 Potassium 4.3 Chloride 97 L Carbon Dioxide 33 H Anion Gap 9 BUN 25 H Creatinine 0.89 Est GFR ( Amer) > 60 Est GFR (Non-Af Amer) > 60 Glucose 143 H Calcium 8.4 Phosphorus 4.6 H Magnesium 2.3 02/06/18 19:30 Catheterized Urine Urine Culture - Final NO GROWTH 2 DAYS 01/29/18 01/29/18 01/30/18 17:45 23:40 05:45 Creatine Kinase CK-MB (CK-2) Troponin I 0.244 0.319 0.379 01/30/18 01/30/18 01/30/18 12:00 12:00 18:44 Creatine Kinase 105 74 CK-MB (CK-2) 5.01 H Troponin I 0.349 01/30/18 01/30/18 01/30/18 18:44 23:55 23:55 Creatine Kinase 58 CK-MB (CK-2) 3.04 2.10 Troponin I 0.290 0.268 Impressions: Guidance Fluoroscopy 01/28/18 00:00 IMPRESSION: Please see combined report for performance of procedure and radiologic supervision and interpretation. Head MRI 01/28/18 00:00 IMPRESSION: Positive for acute or sub-acute punctate- lacunar infarctions in multiple locations of both frontal lobes, left parietal-occipital lobe, and the left cerebellum. This pattern suggests embolic phenomenon but can be seen with other etiologies such as traumatic brain injury, correlate clinically. No enhancing lesions. EVIDENCE OF ACUTE STROKE: YES. Multiple vessel distribution Lumbar Puncture 01/28/18 17:17 IMPRESSION: Lumbar puncture under fluoroscopy. No immediate complication. Carotid Doppler Study 01/30/18 00:00 IMPRESSION: NO HEMODYNAMICALLY SIGNIFICANT STENOSIS. Head CT 01/30/18 00:00 IMPRESSION: 1. No acute intracranial abnormality identified. This exam was performed according to our departmental dose-optimization program, which includes automated exposure control, adjustment of the mA and/or kV according to patient size and/or use of iterative reconstruction technique. Chest/Abdomen CTA 01/31/18 12:47 IMPRESSION: 1. Normal CTA of the chest. No pulmonary emboli. 2. Right lower lobe consolidation may represent atelectasis on the basis of submaximal aeration in this intubated patient. Left lower lobe atelectasis. 3. 4.5 x 4.0 x 3.5 cm irregularly marginated heterogeneous appearing mass within the superior pole of the right kidney. This requires further evaluation with dedicated renal CT or MR imaging when feasible. Abdomen/Pelvis CT 02/04/18 10:57 IMPRESSION: 1. LIMITED STUDY. INDISTINCT AREA OF DECREASED ATTENUATION IN THE UPPER POLE OF THE RIGHT KIDNEY, DIFFICULT TO COMPLETELY VISUALIZE DUE TO STREAK ARTIFACT FROM PATIENT'S ARMS. MALIGNANCY SUCH RENAL CELL CARCINOMA IS IN THE DIFFERENTIAL. ANOTHER POSSIBILITY COULD BE AN AREA OF RENAL INFARCTION. IDEALLY, AN MRI OF THE KIDNEYS AFTER THE PATIENT'S CLINICAL CONDITION HAS IMPROVED WOULD BE OPTIMAL TO PROVIDE COMPLETE EVALUATION. 2. CORTICAL CYST IN THE LEFT KIDNEY. 3. GALLSTONES. 4. 3.5 CM INFRARENAL ABDOMINAL AORTIC ANEURYSM. 5. SMALL PLEURAL EFFUSIONS AND BASILAR INFILTRATES, RIGHT GREATER THAN LEFT. Chest X-Ray 02/08/18 06:00 IMPRESSION: No significant change. Assessment & Plan - Diagnosis (1) Acute ischemic stroke Is this a current diagnosis for this admission?: Yes Plan: unclear etiology of his ischemia- but MRI did show bilateral ischemia suggestive of thromboembolic phenomenon - cardiology was consulted and ECHO was done. will start on Plavix. c/w heparin for DVT proph. ?U/S carotids vs CTA head/neck to check for etiology of his embolic phenomenon - will await for testing saturday if needed when U/S is available. currently he's intubated for airway protection. 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 appreciate her consult. please see her full note in chart from 02/07. started on Ampicillin and Rocephin on 02/07. (4) Cardiopulmonary arrest with successful resuscitation Is this a current diagnosis for this admission?: Yes (5) Elevated troponin I level Is this a current diagnosis for this admission?: Yes Plan: stable (6) Right renal mass Is this a current diagnosis for this admission?: Yes Plan: will need to discuss with family about biopsy- not sure if IR would perform this procedure in current medical condition. spoke with ICU attending about this (7) Ventilator dependent Is this a current diagnosis for this admission?: Yes Plan: although he's on pressure support at times and able to take breaths at time- due to anoxic brain injury there's a concern for aspiration and able to support his airway without vent support. - Time Total Critical Time (Minutes): 55 - 50% of time spend counseling and coordinating care
[2018-02-08] MEDS: NORMAL SALINE 250 ML IV PRN (14:26)
[2018-02-08] MEDS: CLOPIDOGREL BISULFATE 75 MG TABLET PO SCH (14:27)
[2018-02-08] MEDS: FENTANYL CITRATE INJ/PF 100 MCG/2 ML AMPUL IV PRN (22:14)
[2018-02-09] MEDS: AMPICILLIN SODIUM 2 GM in NORMAL SALINE 100 ML IV SCH ×6 (01:08→22:18)
[2018-02-09] MEDS: LORAZEPAM INJ 2 MG/1 ML VIAL IV PRN (03:41)
[2018-02-09] MEDS: HEPARIN SOD (PORCINE) 5,000 UNIT/ML 1 ML SYRINGE SUBCUT SCH ×3 (05:02→22:19)
[2018-02-09] MEDS: FENTANYL CITRATE INJ/PF 100 MCG/2 ML AMPUL IV PRN ×2 (05:02→14:39)
[2018-02-09 05:39] LABS: ABSOLUTE BASOPHILS # (AUTO) 0.1 10^3/uL (0.0-0.2); ABSOLUTE EOSINOPHILS # (AUTO) 0.2 10^3/uL (0.0-0.6); ABSOLUTE LYMPHOCYTES (AUTO) 0.9 10^3/uL (0.5-4.7); ABSOLUTE MONOCYTES (AUTO) 0.7 10^3/uL (0.1-1.4); BASOPHILS % (AUTO) 0.9 % (0-2); EOSINOPHILS % (AUTO) 2.7 % (0-6); HEMATOCRIT 25.8 % (37.9-51.0); HEMOGLOBIN 8.5 g/dL (13.5-17.0); LYMPHOCYTES % (AUTO) 9.8 % (13-45); MEAN CORPUSCULAR HEMOGLOBIN 27.2 pg (27.0-33.4); MEAN CORPUSCULAR HGB CONC 32.7 g/dL (32.0-36.0); MEAN CORPUSCULAR VOLUME 83 fl (80-97); PLATELET COUNT 519 10^3/uL (150-450); RED BLOOD COUNT 3.11 10^6/uL (4.35-5.55); RED CELL DISTRIBUTION WIDTH 16.1 % (11.5-14.0); SEGMENTED NEUTROPHILS % (AUTO) 78.6 % (42-78); TOTAL CELLS COUNTED % (AUTO) 100 %; WHITE BLOOD COUNT 8.9 10^3/uL (4.0-10.5)
[2018-02-09 05:52] LABS: ARTERIAL BLOOD H2CO3 1.32 mmol/L (1.05-1.35); ARTERIAL BLOOD HCO3 30.4 mmol/L (20-26); ARTERIAL BLOOD O2 SATURATION 96.6 % (94-98); ARTERIAL BLOOD PCO2 43.7 mmHg (35-45); ARTERIAL BLOOD PH 7.46 (7.35-7.45); ARTERIAL BLOOD PO2 82.7 mmHg (80-100); ARTERIAL BLOOD TOTAL CO2 31.7 mmol/L (23-27)
[2018-02-09 06:01] LABS: ARTERIAL BLOOD FIO2 30%
[2018-02-09 06:20] LABS: ANION GAP 8 (5-19); BLOOD UREA NITROGEN 26 mg/dL (7-20); CALCIUM 8.4 mg/dL (8.4-10.2); CARBON DIOXIDE 35 mmol/L (22-30); CHLORIDE 99 mmol/L (98-107); GLUCOSE 144 mg/dL (75-110); POTASSIUM 4.6 mmol/L (3.6-5.0); SODIUM 141.7 mmol/L (137-145)
--- NOTE | 2018-02-09 07:42 | RADIOLOGY REPORT (SQ) ---
EXAM DESCRIPTION: XR CHEST 1 VIEW COMPLETED DATE/TME: 02/09/2018 06:00 CLINICAL HISTORY: 57 years Male, resp failure COMPARISON: One day prior. NUMBER OF VIEWS/TECHNIQUE: 1/AP FINDINGS: Small right lung volume, small hazy opacity-effusion at the right lung base, prominent interstitium, pulmonary vascular congestion, normal cardiac silhouette, adequate appearing endotracheal tube tip is 4.4 cm from the paty, adequate appearing enteric tube, right subclavian central line tip at the proximal brachiocephalic vein; consider advancing the right subclavian central line by 5.9 cm. No pneumothorax. No acute bone defect. IMPRESSION: No significant change.
[2018-02-09] MEDS: LEVALBUTEROL HCL NEB 1.25 MG/3 ML AMPUL NEB SCH ×2 (07:57→15:37)
[2018-02-09] MEDS: PANTOPRAZOLE SODIUM 40 MG VIAL IV SCH (09:25)
[2018-02-09] MEDS: FUROSEMIDE INJ/PF 20 MG/2 ML SDV IV SCH (09:25)
[2018-02-09] MEDS: CEFTRIAXONE 2 GM/D5W RTU 2 GM/50 ML RTUPB IV SCH ×2 (09:26→22:18)
[2018-02-09] MEDS: NORMAL SALINE 250 ML IV PRN (09:26)
[2018-02-09] MEDS: CLOPIDOGREL BISULFATE 75 MG TABLET PO SCH (09:26)
--- NOTE | 2018-02-09 15:50 | PDOC PROGRESS REPORT ---
Subjective Progress Note for:: 02/09/18 - Patient seen on ICU rounds this morning Subjective:: intubated- not on sedation but doesn't respond to commands Interim history by previous provider: "This is 57 years old male patient brought by EMS for altered mental status, slurred speech and difficulty walking. Patient also running leukocytosis of 21,000. The possibility of meningitis and stroke was considered. AP produced clear CSF with WBC of 2 which is not compatible with any [employer] infection. But MRI of the brain reported as positive for acute or subacute punctate lacunar infarctions in multiple locations of both frontal lobes, left parietal-occipital lobe, and the left cerebellum. Initially patient was empirically started on Zovirax, cefepime and vancomycin. The cefepime and Lovenox has been discontinued and I continue the vancomycin since his blood culture is reported as positive for gram-positive cocci. Patient has been started on aspirin 325 mg p.o. daily Plavix 75 mg p.o. daily and Lipitor 80 mg p.o. nightly. On the second day of his admission patient went into sudden respiratory arrest at the time patient coded and immediate cardio respiratory resuscitation was performed and it was successful. Patient intubated and transferred to ICU. Currently patient is not on sedation or pressor and he is breathing by himself. He responds to noxious stimuli appropriately. But he does not respond to command. Extubation is deferred since patient is not able to protect his airway. Family does not want tracheostomy or PEG tube placement since this is patient's switch." I took over care on 02/07/18 Reason For Visit: ALTERED MENTAL STATUS,LEUKOCYTOSIS Physical Exam Vital Signs: Temp Pulse Resp BP Pulse Ox 99.3 F 92 12 126/69 H 94 02/09/18 14:44 02/09/18 08:01 02/09/18 14:44 02/09/18 14:44 02/09/18 14:44 Intake & Output 02/08/18 02/09/18 02/10/18 06:59 06:59 06:59 Intake Total 2166 2667 100 Output Total 3175 2650 960 Balance -1009 17 -860 Weight 250 lb 0.067 oz 250 lb 7.122 oz General appearance: PRESENT: no acute distress, obese, other - Intubated and on ventilator support. ET tube, NG tube, right subclavian line, and Simon noted Head exam: PRESENT: atraumatic, normocephalic Eye exam: ABSENT: conjunctival injection - We will, periorbital swelling, scleral icterus Neck exam: ABSENT: tracheal deviation Respiratory exam: PRESENT: clear to auscultation karime, symmetrical. ABSENT: wheezes Cardiovascular exam: PRESENT: +S1, +S2 Pulses: PRESENT: +2 pedal pulses bilateral GI/Abdominal exam: PRESENT: normal bowel sounds, soft Gentrourinary exam: PRESENT: indwelling catheter Extremities exam: PRESENT: pedal edema - 1+ edema, +1 edema - Bilateral hands Neurological exam: PRESENT: other - Intubated and unresponsive. Does respond to physical stimuli. GCS -4. Does not respond to verbal commands. Eye twitching noted. Upper extremity involuntary contractures. Still has gag reflex. Pupillary response sluggish to light Skin exam: PRESENT: dry, warm Results Laboratory Results: 02/09/18 05:12 02/09/18 05:12 02/09/18 02/09/18 02/09/18 05:12 05:12 05:12 WBC 8.9 RBC 3.11 L Hgb 8.5 L Hct 25.8 L MCV 83 MCH 27.2 MCHC 32.7 RDW 16.1 H Plt Count 519 H Seg Neutrophils % 78.6 H Lymphocytes % 9.8 L Monocytes % 8.0 Eosinophils % 2.7 Basophils % 0.9 Absolute Neutrophils 7.0 Absolute Lymphocytes 0.9 Absolute Monocytes 0.7 Absolute Eosinophils 0.2 Absolute Basophils 0.1 Carbonic Acid 1.32 HCO3/H2CO3 Ratio 23:1 ABG pH 7.46 H ABG pCO2 43.7 ABG pO2 82.7 ABG HCO3 30.4 H ABG O2 Saturation 96.6 ABG Base Excess 6.0 FiO2 30% Sodium 141.7 Potassium 4.6 Chloride 99 Carbon Dioxide 35 H Anion Gap 8 BUN 26 H Creatinine 0.94 Est GFR ( Amer) > 60 Est GFR (Non-Af Amer) > 60 Glucose 144 H Calcium 8.4 Magnesium 2.4 H 01/29/18 01/29/18 01/30/18 17:45 23:40 05:45 Creatine Kinase CK-MB (CK-2) Troponin I 0.244 0.319 0.379 01/30/18 01/30/18 01/30/18 12:00 12:00 18:44 Creatine Kinase 105 74 CK-MB (CK-2) 5.01 H Troponin I 0.349 01/30/18 01/30/18 01/30/18 18:44 23:55 23:55 Creatine Kinase 58 CK-MB (CK-2) 3.04 2.10 Troponin I 0.290 0.268 Impressions: Guidance Fluoroscopy 01/28/18 00:00 IMPRESSION: Please see combined report for performance of procedure and radiologic supervision and interpretation. Head MRI 01/28/18 00:00 IMPRESSION: Positive for acute or sub-acute punctate- lacunar infarctions in multiple locations of both frontal lobes, left parietal-occipital lobe, and the left cerebellum. This pattern suggests embolic phenomenon but can be seen with other etiologies such as traumatic brain injury, correlate clinically. No enhancing lesions. EVIDENCE OF ACUTE STROKE: YES. Multiple vessel distribution Lumbar Puncture 01/28/18 17:17 IMPRESSION: Lumbar puncture under fluoroscopy. No immediate complication. Carotid Doppler Study 01/30/18 00:00 IMPRESSION: NO HEMODYNAMICALLY SIGNIFICANT STENOSIS. Head CT 01/30/18 00:00 IMPRESSION: 1. No acute intracranial abnormality identified. This exam was performed according to our departmental dose-optimization program, which includes automated exposure control, adjustment of the mA and/or kV according to patient size and/or use of iterative reconstruction technique. Chest/Abdomen CTA 01/31/18 12:47 IMPRESSION: 1. Normal CTA of the chest. No pulmonary emboli. 2. Right lower lobe consolidation may represent atelectasis on the basis of submaximal aeration in this intubated patient. Left lower lobe atelectasis. 3. 4.5 x 4.0 x 3.5 cm irregularly marginated heterogeneous appearing mass within the superior pole of the right kidney. This requires further evaluation with dedicated renal CT or MR imaging when feasible. Abdomen/Pelvis CT 02/04/18 10:57 IMPRESSION: 1. LIMITED STUDY. INDISTINCT AREA OF DECREASED ATTENUATION IN THE UPPER POLE OF THE RIGHT KIDNEY, DIFFICULT TO COMPLETELY VISUALIZE DUE TO STREAK ARTIFACT FROM PATIENT'S ARMS. MALIGNANCY SUCH RENAL CELL CARCINOMA IS IN THE DIFFERENTIAL. ANOTHER POSSIBILITY COULD BE AN AREA OF RENAL INFARCTION. IDEALLY, AN MRI OF THE KIDNEYS AFTER THE PATIENT'S CLINICAL CONDITION HAS IMPROVED WOULD BE OPTIMAL TO PROVIDE COMPLETE EVALUATION. 2. CORTICAL CYST IN THE LEFT KIDNEY. 3. GALLSTONES. 4. 3.5 CM INFRARENAL ABDOMINAL AORTIC ANEURYSM. 5. SMALL PLEURAL EFFUSIONS AND BASILAR INFILTRATES, RIGHT GREATER THAN LEFT. Chest X-Ray 02/09/18 06:00 IMPRESSION: No significant change. 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 We have presented to the family that if they want continued care it is best to get a trach but family is reluctant. They want to wait and see if he regains consciousness and functioning. I had a long discussion with his son-in-law Winston, and told him about the poor prognosis at this point. But they optimistic and hence we will wait 2 weeks on the vent and see if there is any improvement. His 2 weeks on the vent will be this coming Saturday on 02/12/18 and at that time we will approach family again regarding trach versus comfort care. Currently is on the vent but mom states he is on pressure support during the day and does well. He is on the vent due to concern for airway protection and aspiration. He also has a renal mass which is concerning for neoplasm. I spoken with the ICU attending about the possibility of biopsy while he is intubated but no plans yet. May need to talk to her daughter tomorrow he can about the possibility of biopsy but it is futile if he is going to be made comfort care this week. 2 days ago he had edema of his upper and lower extremities and I had started him on Lasix and he had diuresed very well. I cut back on his Lasix and currently is on Lasix IV 20 mg daily. We will continue to reassess his fluid status daily and consider increasing or decreasing Lasix. ICU banana expert Dr Coker-is on consult for this patient and has been very helpful with management of this critically ill patient. line check-right subclavian subclavian central line, ET tube, NG tube for tube feeds and Simon. All necessary at this point.
[2018-02-09] MEDS: PROPOFOL 1,000 MG/100 ML INFUS..BTL IV PRN ×2 (19:23→23:45)
[2018-02-10] MEDS: LEVALBUTEROL HCL NEB 1.25 MG/3 ML AMPUL NEB SCH ×5 (00:15→23:48)
[2018-02-10] MEDS: AMPICILLIN SODIUM 2 GM in NORMAL SALINE 100 ML IV SCH ×6 (01:16→22:37)
[2018-02-10] MEDS: NORMAL SALINE 250 ML IV PRN ×2 (01:56→14:45)
[2018-02-10] MEDS: PROPOFOL 1,000 MG/100 ML INFUS..BTL IV PRN (04:00)
[2018-02-10] MEDS: HEPARIN SOD (PORCINE) 5,000 UNIT/ML 1 ML SYRINGE SUBCUT SCH ×3 (05:04→22:38)
[2018-02-10 05:29] LABS: ABSOLUTE BASOPHILS # (AUTO) 0.1 10^3/uL (0.0-0.2); ABSOLUTE EOSINOPHILS # (AUTO) 0.3 10^3/uL (0.0-0.6); ABSOLUTE LYMPHOCYTES (AUTO) 0.9 10^3/uL (0.5-4.7); ABSOLUTE MONOCYTES (AUTO) 0.6 10^3/uL (0.1-1.4); ABSOLUTE NEUT (AUTO) 5.6 10^3/uL (1.7-8.2); BASOPHILS % (AUTO) 1.4 % (0-2); EOSINOPHILS % (AUTO) 4.2 % (0-6); HEMATOCRIT 24.2 % (37.9-51.0); LYMPHOCYTES % (AUTO) 11.8 % (13-45); MEAN CORPUSCULAR HEMOGLOBIN 27.5 pg (27.0-33.4); MEAN CORPUSCULAR HGB CONC 33.1 g/dL (32.0-36.0); MEAN CORPUSCULAR VOLUME 83 fl (80-97); MONOCYTES % (AUTO) 7.7 % (3-13); PLATELET COUNT 507 10^3/uL (150-450); RED BLOOD COUNT 2.91 10^6/uL (4.35-5.55); RED CELL DISTRIBUTION WIDTH 16.4 % (11.5-14.0); SEGMENTED NEUTROPHILS % (AUTO) 74.9 % (42-78); TOTAL CELLS COUNTED % (AUTO) 100 %; WHITE BLOOD COUNT 7.5 10^3/uL (4.0-10.5)
[2018-02-10 05:57] LABS: ARTERIAL BLOOD BASE EXCESS 8.3 mmol/L; ARTERIAL BLOOD H2CO3 1.39 mmol/L (1.05-1.35); ARTERIAL BLOOD HCO3 32.9 mmol/L (20-26); ARTERIAL BLOOD O2 SATURATION 95.6 % (94-98); ARTERIAL BLOOD PCO2 46.1 mmHg (35-45); ARTERIAL BLOOD PH 7.47 (7.35-7.45); ARTERIAL BLOOD PO2 74.5 mmHg (80-100); ARTERIAL BLOOD TOTAL CO2 34.3 mmol/L (23-27)
[2018-02-10 05:58] LABS: ARTERIAL BLOOD FIO2 30%
[2018-02-10 06:21] LABS: ALANINE AMINOTRANSFERASE 32 U/L (21-72); ALBUMIN 2.6 g/dL (3.5-5.0); ALKALINE PHOSPHATASE 91 U/L (38-126); ANION GAP 10 (5-19); ASPARTATE AMINO TRANSFERASE 31 U/L (17-59); BILIRUBIN,DIRECT 0.3 mg/dL (0.0-0.4); BILIRUBIN,TOTAL 0.3 mg/dL (0.2-1.3); BLOOD UREA NITROGEN 27 mg/dL (7-20); CALCIUM 8.1 mg/dL (8.4-10.2); CARBON DIOXIDE 33 mmol/L (22-30); CHLORIDE 100 mmol/L (98-107); GLUCOSE 147 mg/dL (75-110); POTASSIUM 4.4 mmol/L (3.6-5.0); SODIUM 142.9 mmol/L (137-145); TOTAL PROTEIN 6.1 g/dL (6.3-8.2)
--- NOTE | 2018-02-10 07:17 | RADIOLOGY REPORT (SQ) ---
EXAM DESCRIPTION: CHEST SINGLE VIEW COMPLETED DATE/TIME: 02/10/2018 6:56 am REASON FOR STUDY: resp fail COMPARISON: 01/31/2018 CT chest Chest films 02/01/2018, 02/07/2018, 02/08/2018, 02/09/2018 EXAM PARAMETERS: NUMBER OF VIEWS: One view. TECHNIQUE: Single frontal radiographic view of the chest acquired. RADIATION DOSE: NA LIMITATIONS: None. FINDINGS: LUNGS AND PLEURA: No focal infiltrates. No gross pleural effusion. No pneumothorax. MEDIASTINUM AND HILAR STRUCTURES: No masses. Contour normal. HEART AND VASCULAR STRUCTURES: Heart normal in size. Normal vasculature. BONES: No acute findings. HARDWARE: Endotracheal tube tip 5 cm above the paty. Nasogastric tube tip and side port in the sto mach. Right subclavian central line tip superior vena cava OTHER: No other significant finding. IMPRESSION: Tubes and lines in good positioning. No focal infiltrates TECHNICAL DOCUMENTATION: JOB ID: [id number] [employer]- All Rights Reserved Reading location - IP/workstation name: [email or web address]
[2018-02-10] MEDS: CEFTRIAXONE 2 GM/D5W RTU 2 GM/50 ML RTUPB IV SCH ×2 (09:15→22:36)
[2018-02-10] MEDS: PANTOPRAZOLE SODIUM 40 MG VIAL IV SCH (09:16)
[2018-02-10] MEDS: FUROSEMIDE INJ/PF 20 MG/2 ML SDV IV SCH (09:17)
[2018-02-10] MEDS: CLOPIDOGREL BISULFATE 75 MG TABLET PO SCH (09:18)
--- NOTE | 2018-02-10 11:32 | PDOC PROGRESS REPORT ---
Subjective Progress Note for:: 02/10/18 Subjective:: The patient is an extremely unpleasant unfortunate 57-year-old male who was brought to the emergency room initially with altered mental status slurred speech and difficulty walking. At the time of admission the patient had a leukocytosis of 21,000. He did have a lumbar puncture which did not reveal any NEUROPSYCHOLOGY DIVISION CHIEF infection. Workup eventually revealed that he had had acute or subacute punctate lacunar infarctions in multiple locations of both frontal lobes, left parietal occipital lobes and the left cerebellum. The patient initially was started on broad-spectrum IV antibiotics as well as Zovirax. All of his antibiotics have since been discontinued except for the vancomycin as he did have a blood culture positive for gram-positive cocci. He has been started on Plavix and Lipitor for his acute CVA. On the second day of his admission the patient went into a sudden respiratory arrest. At that time the patient coded and cardiorespiratory resuscitation was performed and was successful. The patient was intubated and transferred to the ICU. The patient currently is not on sedation or pressors and has been breathing by himself. He does respond to noxious stimuli but does not respond to any commands. Extubation has been deferred by the warper creeler since the patient is not able to protect his airway. Family does not want a tracheostomy or PEG tube placement and is hoping that he will improve. This morning I spoke to Dr. Coker in the ICU. He states that the family wishes to wait a full 14 days to see if there is any meaningful recovery. He has had an EEG that was read as severely abnormal. It was characterized by generalized periodic discharges without reactivity. It was felt that this could be associated with severe diffuse encephalopathy either anoxic or metabolic. The patient's prognosis is quite grim at this point. When I saw the patient this morning there are no family members at the bedside. Again Dr. Coker states that the patient's family wants to wait until 02/12/2018 to make further decisions regarding a trach placement and PEG tube placement versus terminal extubation. Dr. Coker states that the patient may live for a while after extubation however will eventually aspirate and develop a severe pneumonia. This morning when I saw the patient he will occasionally blank. He will occasionally move his right arm or right leg. No purposeful movement. A review of systems could not be obtained Reason For Visit: ALTERED MENTAL STATUS,LEUKOCYTOSIS Physical Exam Vital Signs: Temp Pulse Resp BP Pulse Ox 98.8 F 91 21 H 138/75 H 95 02/10/18 10:00 02/10/18 10:00 02/10/18 10:00 02/10/18 10:00 02/10/18 10:00 Intake & Output 02/09/18 02/10/18 02/11/18 06:59 06:59 06:59 Intake Total 2667 2552 75 Output Total 2650 1960 600 Balance 17 592 -525 Weight 113.6 kg 113 kg General appearance: PRESENT: obese, other - Patient is quite ill appearing. He will occasionally blink. No purposeful motion. Somewhat diaphoretic this morning. Head exam: PRESENT: atraumatic, normocephalic Mouth exam: PRESENT: moist Respiratory exam: PRESENT: rhonchi - He has some scattered coarse rhonchi. Otherwise his lungs sound fairly clear, other - Currently intubated. Cardiovascular exam: PRESENT: RRR. ABSENT: diastolic murmur, rubs, systolic murmur GI/Abdominal exam: PRESENT: normal bowel sounds, soft. ABSENT: distended, guarding, mass, organolmegaly, rebound, tenderness Rectal exam: PRESENT: deferred Extremities exam: PRESENT: other - He has edema in all 4 of his extremities Musculoskeletal exam: ABSENT: ambulatory Neurological exam: PRESENT: altered, other - Basically nonresponsive. ABSENT: alert, awake, oriented to person, oriented to place, oriented to time, oriented to situation Psychiatric exam: PRESENT: other - Could not assess Skin exam: PRESENT: other - Puffy Results Laboratory Results: 02/10/18 05:15 02/10/18 05:15 02/10/18 02/10/18 02/10/18 05:15 05:15 05:15 WBC 7.5 RBC 2.91 L Hgb 8.0 L Hct 24.2 L MCV 83 MCH 27.5 MCHC 33.1 RDW 16.4 H Plt Count 507 H Seg Neutrophils % 74.9 Lymphocytes % 11.8 L Monocytes % 7.7 Eosinophils % 4.2 Basophils % 1.4 Absolute Neutrophils 5.6 Absolute Lymphocytes 0.9 Absolute Monocytes 0.6 Absolute Eosinophils 0.3 Absolute Basophils 0.1 Carbonic Acid 1.39 H HCO3/H2CO3 Ratio 23:1 ABG pH 7.47 H ABG pCO2 46.1 H ABG pO2 74.5 L ABG HCO3 32.9 H ABG O2 Saturation 95.6 ABG Base Excess 8.3 FiO2 30% Sodium 142.9 Potassium 4.4 Chloride 100 Carbon Dioxide 33 H Anion Gap 10 BUN 27 H Creatinine 0.94 Est GFR ( Amer) > 60 Est GFR (Non-Af Amer) > 60 Glucose 147 H Calcium 8.1 L Phosphorus 5.0 H Magnesium 2.5 H Total Bilirubin 0.3 AST 31 ALT 32 Alkaline Phosphatase 91 Total Protein 6.1 L Albumin 2.6 L 02/08/18 09:20 Tracheal Aspirate Gram Stain - Final 02/08/18 09:20 Tracheal Aspirate Sputum Culture - Final C.albicans/C.dubliniensis Normal Alison Absent 01/29/18 01/29/18 01/30/18 17:45 23:40 05:45 Creatine Kinase CK-MB (CK-2) Troponin I 0.244 0.319 0.379 01/30/18 01/30/18 01/30/18 12:00 12:00 18:44 Creatine Kinase 105 74 CK-MB (CK-2) 5.01 H Troponin I 0.349 01/30/18 01/30/18 01/30/18 18:44 23:55 23:55 Creatine Kinase 58 CK-MB (CK-2) 3.04 2.10 Troponin I 0.290 0.268 Impressions: Guidance Fluoroscopy 01/28/18 00:00 IMPRESSION: Please see combined report for performance of procedure and radiologic supervision and interpretation. Head MRI 01/28/18 00:00 IMPRESSION: Positive for acute or sub-acute punctate- lacunar infarctions in multiple locations of both frontal lobes, left parietal-occipital lobe, and the left cerebellum. This pattern suggests embolic phenomenon but can be seen with other etiologies such as traumatic brain injury, correlate clinically. No enhancing lesions. EVIDENCE OF ACUTE STROKE: YES. Multiple vessel distribution Lumbar Puncture 01/28/18 17:17 IMPRESSION: Lumbar puncture under fluoroscopy. No immediate complication. Carotid Doppler Study 01/30/18 00:00 IMPRESSION: NO HEMODYNAMICALLY SIGNIFICANT STENOSIS. Head CT 01/30/18 00:00 IMPRESSION: 1. No acute intracranial abnormality identified. This exam was performed according to our departmental dose-optimization program, which includes automated exposure control, adjustment of the mA and/or kV according to patient size and/or use of iterative reconstruction technique. Chest/Abdomen CTA 01/31/18 12:47 IMPRESSION: 1. Normal CTA of the chest. No pulmonary emboli. 2. Right lower lobe consolidation may represent atelectasis on the basis of submaximal aeration in this intubated patient. Left lower lobe atelectasis. 3. 4.5 x 4.0 x 3.5 cm irregularly marginated heterogeneous appearing mass within the superior pole of the right kidney. This requires further evaluation with dedicated renal CT or MR imaging when feasible. Abdomen/Pelvis CT 02/04/18 10:57 IMPRESSION: 1. LIMITED STUDY. INDISTINCT AREA OF DECREASED ATTENUATION IN THE UPPER POLE OF THE RIGHT KIDNEY, DIFFICULT TO COMPLETELY VISUALIZE DUE TO STREAK ARTIFACT FROM PATIENT'S ARMS. MALIGNANCY SUCH RENAL CELL CARCINOMA IS IN THE DIFFERENTIAL. ANOTHER POSSIBILITY COULD BE AN AREA OF RENAL INFARCTION. IDEALLY, AN MRI OF THE KIDNEYS AFTER THE PATIENT'S CLINICAL CONDITION HAS IMPROVED WOULD BE OPTIMAL TO PROVIDE COMPLETE EVALUATION. 2. CORTICAL CYST IN THE LEFT KIDNEY. 3. GALLSTONES. 4. 3.5 CM INFRARENAL ABDOMINAL AORTIC ANEURYSM. 5. SMALL PLEURAL EFFUSIONS AND BASILAR INFILTRATES, RIGHT GREATER THAN LEFT. Chest X-Ray 02/10/18 06:00 IMPRESSION: Tubes and lines in good positioning. No focal infiltrates Assessment & Plan - Diagnosis (1) Acute CVA (cerebrovascular accident) Is this a current diagnosis for this admission?: Yes Plan: Continue statin medication and Plavix via his NG tube. This appears to have been a significant event. (2) Acute respiratory failure Is this a current diagnosis for this admission?: Yes Plan: The patient suffered a cardiopulmonary arrest. Currently on mechanical ventilation in the ICU to protect his airway. (3) Acute encephalopathy Is this a current diagnosis for this admission?: Yes Plan: Likely due to an anoxic brain injury as well as his acute CVA. His mental status is not improved. He is not on any sedation at this point for his respirator. (4) Bacteremia due to Enterococcus Is this a current diagnosis for this admission?: Yes Plan: He had enterococcus in 2 out of 2 blood cultures at the time of admission. He continues on ampicillin at this point. Repeat blood cultures have not been obtained and I will order them today to document clearing. (5) Cardiopulmonary arrest with successful resuscitation Is this a current diagnosis for this admission?: Yes Plan: The patient remains intubated however. I suspect he is suffered an anoxic brain injury (6) Elevated troponin Is this a current diagnosis for this admission?: Yes Plan: No further workup at this point. Likely due to his cardiopulmonary arrest. (7) Right renal mass Is this a current diagnosis for this admission?: Yes Plan: At this point until the family makes further decisions there will be no further workup. (8) Ventilator dependent Is this a current diagnosis for this admission?: Yes Plan: According to Dr. Coker the family is going to make a decision whether they wish to pursue trach placement with PEG tube versus terminal extubation. (9) COPD (chronic obstructive pulmonary disease) Is this a current diagnosis for this admission?: Yes Plan: No evidence of exacerbation at this point. (10) Hypertension Is this a current diagnosis for this admission?: Yes Plan: Adequately controlled (11) Anemia Is this a current diagnosis for this admission?: Yes Plan: Stable (12) Hyponatremia Is this a current diagnosis for this admission?: Yes Plan: Resolved (13) Constipation Is this a current diagnosis for this admission?: Yes Plan: Nursing staff reports he has not had a bowel movement since he came into the hospital. I am going to start him on daily MiraLAX via his NG tube. (14) Full code status Is this a current diagnosis for this admission?: Yes - Time Time Spent with patient: 25-34 minutes - Inpatient Certification Medical Necessity: Need for IV Antibiotics, Other - Inpatient hospitalization remains necessary. The patient's family is trying to decide whether to extubate the patient terminally versus having a tracheostomy and PEG tube placed. Hopefully they will make this decision on 02/12/2018. In the meantime he works requires parenteral antibiotics for bacteremia. Timing of disposition will be determined by his clinical course. His prognosis is quite grim at this point.
--- NOTE | 2018-02-10 11:34 | PDOC PROGRESS REPORT ---
Subjective Progress Note for:: 02/01/18 Subjective:: intubated Reason For Visit: ALTERED MENTAL STATUS,LEUKOCYTOSIS Physical Exam Vital Signs: Temp Pulse Resp BP Pulse Ox 99.1 F 79 12 132/72 H 100 02/01/18 06:00 02/01/18 08:00 02/01/18 08:00 02/01/18 03:02 02/01/18 08:00 Intake & Output 01/31/18 02/01/18 02/02/18 06:59 06:59 06:59 Intake Total 3135 3244 Output Total 1240 1610 145 Balance 1895 1634 -145 Weight 112.6 kg 117.6 kg General appearance: PRESENT: no acute distress, disheveled, obese. ABSENT: cooperative Head exam: PRESENT: atraumatic, normocephalic Eye exam: PRESENT: conjunctiva pale. ABSENT: nystagmus, periorbital swelling, scleral icterus Mouth exam: PRESENT: dry mucosa, neck supple, tongue midline Neck exam: ABSENT: carotid bruit, JVD, lymphadenopathy, thyromegaly, tracheal deviation, tracheostomy Respiratory exam: PRESENT: decreased breath sounds, prolonged expiratory phas, rales, rhonchi. ABSENT: retraction Cardiovascular exam: PRESENT: RRR, +S1, +S2 Pulses: PRESENT: normal radial pulses GI/Abdominal exam: PRESENT: hypoactive bowel sounds, soft Gentrourinary exam: PRESENT: indwelling catheter Extremities exam: ABSENT: clubbing, joint swelling Musculoskeletal exam: ABSENT: ambulatory, deformity, dislocation Neurological exam: ABSENT: awake Skin exam: PRESENT: dry, warm Results Laboratory Results: 02/01/18 05:55 02/01/18 05:55 01/31/18 01/31/18 02/01/18 16:20 18:00 05:55 WBC 11.8 H 10.0 RBC 3.13 L 3.09 L Hgb 8.4 L 8.4 L Hct 26.1 L 25.7 L MCV 83 83 MCH 26.7 L 27.3 MCHC 32.1 32.8 RDW 15.5 H 15.9 H Plt Count 400 389 Seg Neutrophils % 86.7 H 83.1 H Lymphocytes % 6.5 L 9.1 L Monocytes % 5.2 5.5 Eosinophils % 1.1 1.6 Basophils % 0.5 0.7 Absolute Neutrophils 10.2 H 8.3 H Absolute Lymphocytes 0.8 0.9 Absolute Monocytes 0.6 0.5 Absolute Eosinophils 0.1 0.2 Absolute Basophils 0.1 0.1 Carbonic Acid 0.97 L HCO3/H2CO3 Ratio 22:1 ABG pH 7.44 ABG pCO2 32.3 L ABG pO2 54.6 L ABG HCO3 21.4 ABG O2 Saturation 89.9 L ABG Base Excess -2.2 FiO2 35% Sodium Potassium Chloride Carbon Dioxide Anion Gap BUN Creatinine Est GFR ( Amer) Est GFR (Non-Af Amer) Glucose Calcium Total Bilirubin AST ALT Alkaline Phosphatase Total Protein Albumin 02/01/18 02/01/18 05:55 05:55 WBC RBC Hgb Hct MCV MCH MCHC RDW Plt Count Seg Neutrophils % Lymphocytes % Monocytes % Eosinophils % Basophils % Absolute Neutrophils Absolute Lymphocytes Absolute Monocytes Absolute Eosinophils Absolute Basophils Carbonic Acid 1.12 HCO3/H2CO3 Ratio 20:1 ABG pH 7.42 ABG pCO2 37.1 ABG pO2 129.3 H ABG HCO3 23.3 ABG O2 Saturation 98.6 H ABG Base Excess -1.0 FiO2 44% Sodium 142.1 Potassium 4.0 Chloride 110 H Carbon Dioxide 23 Anion Gap 9 BUN 8 Creatinine 1.05 Est GFR ( Amer) > 60 Est GFR (Non-Af Amer) > 60 Glucose 119 H Calcium 7.7 L Total Bilirubin 0.4 AST 26 ALT 34 Alkaline Phosphatase 61 Total Protein 5.4 L Albumin 2.2 L 01/28/18 20:24 Cerebral Spinal Fluid - Csf Gram Stain - Final 01/28/18 20:24 Cerebral Spinal Fluid - Csf CSF Culture - Final NO GROWTH 3 DAYS 01/28/18 21:46 Blood Blood Culture - Final Enterococcus Faecalis(Group D) 01/29/18 01/29/18 01/30/18 17:45 23:40 05:45 Creatine Kinase CK-MB (CK-2) Troponin I 0.244 0.319 0.379 01/30/18 01/30/18 01/30/18 12:00 12:00 18:44 Creatine Kinase 105 74 CK-MB (CK-2) 5.01 H Troponin I 0.349 01/30/18 01/30/18 01/30/18 18:44 23:55 23:55 Creatine Kinase 58 CK-MB (CK-2) 3.04 2.10 Troponin I 0.290 0.268 Impressions: Guidance Fluoroscopy 01/28/18 00:00 IMPRESSION: Please see combined report for performance of procedure and radiologic supervision and interpretation. Head MRI 01/28/18 00:00 IMPRESSION: Positive for acute or sub-acute punctate- lacunar infarctions in multiple locations of both frontal lobes, left parietal-occipital lobe, and the left cerebellum. This pattern suggests embolic phenomenon but can be seen with other etiologies such as traumatic brain injury, correlate clinically. No enhancing lesions. EVIDENCE OF ACUTE STROKE: YES. Multiple vessel distribution Lumbar Puncture 01/28/18 17:17 IMPRESSION: Lumbar puncture under fluoroscopy. No immediate complication. Carotid Doppler Study 01/30/18 00:00 IMPRESSION: NO HEMODYNAMICALLY SIGNIFICANT STENOSIS. Head CT 01/30/18 00:00 IMPRESSION: 1. No acute intracranial abnormality identified. This exam was performed according to our departmental dose-optimization program, which includes automated exposure control, adjustment of the mA and/or kV according to patient size and/or use of iterative reconstruction technique. Chest/Abdomen CTA 01/31/18 12:47 IMPRESSION: 1. Normal CTA of the chest. No pulmonary emboli. 2. Right lower lobe consolidation may represent atelectasis on the basis of submaximal aeration in this intubated patient. Left lower lobe atelectasis. 3. 4.5 x 4.0 x 3.5 cm irregularly marginated heterogeneous appearing mass within the superior pole of the right kidney. This requires further evaluation with dedicated renal CT or MR imaging when feasible. Chest X-Ray 02/01/18 06:00 IMPRESSION: Stable appearance of the chest. Appropriate lines and tubes with low lung volumes generally. No developing infiltrates. Assessment & Plan - Diagnosis (1) Acute ischemic stroke Is this a current diagnosis for this admission?: Yes Plan: no longer posturing (2) COPD (chronic obstructive pulmonary disease) Qualifiers: Emphysema type: unspecified Qualified Code(s): J43.9 - Emphysema, unspecified Is this a current diagnosis for this admission?: Yes Plan: Xopenex as needed DuoNeb every 6 hours (3) Cardiopulmonary arrest with successful resuscitation Is this a current diagnosis for this admission?: Yes Plan: Had been on 2 vasopressors currently on none currently has spontaneous respirations at least for the last 2 hours - Time Total Critical Time (Minutes): 45
[2018-02-10] MEDS: POLYETHYLENE GLYCOL 3350 POWDER 17 GM/1 PACKET NG SCH (14:42)
[2018-02-10] MEDS: FENTANYL CITRATE INJ/PF 100 MCG/2 ML AMPUL IV PRN ×2 (15:42→23:56)
[2018-02-10] MEDS: LORAZEPAM INJ 2 MG/1 ML VIAL IV PRN (23:55)
[2018-02-11] MEDS: AMPICILLIN SODIUM 2 GM in NORMAL SALINE 100 ML IV SCH ×6 (02:10→23:26)
[2018-02-11 05:17] LABS: ARTERIAL BLOOD BASE EXCESS 7.1 mmol/L; ARTERIAL BLOOD H2CO3 1.26 mmol/L (1.05-1.35); ARTERIAL BLOOD HCO3 31.1 mmol/L (20-26); ARTERIAL BLOOD O2 SATURATION 97.3 % (94-98); ARTERIAL BLOOD PH 7.49 (7.35-7.45); ARTERIAL BLOOD PO2 88.3 mmHg (80-100); ARTERIAL BLOOD TOTAL CO2 32.4 mmol/L (23-27)
[2018-02-11 05:18] LABS: ABSOLUTE BASOPHILS # (AUTO) 0.1 10^3/uL (0.0-0.2); ABSOLUTE EOSINOPHILS # (AUTO) 0.3 10^3/uL (0.0-0.6); ABSOLUTE MONOCYTES (AUTO) 0.8 10^3/uL (0.1-1.4); ABSOLUTE NEUT (AUTO) 6.7 10^3/uL (1.7-8.2); ARTERIAL BLOOD FIO2 30%; BASOPHILS % (AUTO) 1.3 % (0-2); EOSINOPHILS % (AUTO) 3.2 % (0-6); HEMATOCRIT 26.3 % (37.9-51.0); HEMOGLOBIN 8.7 g/dL (13.5-17.0); MEAN CORPUSCULAR HEMOGLOBIN 27.5 pg (27.0-33.4); MEAN CORPUSCULAR HGB CONC 33.2 g/dL (32.0-36.0); MEAN CORPUSCULAR VOLUME 83 fl (80-97); MONOCYTES % (AUTO) 8.6 % (3-13); PLATELET COUNT 605 10^3/uL (150-450); RED BLOOD COUNT 3.17 10^6/uL (4.35-5.55); SEGMENTED NEUTROPHILS % (AUTO) 75.9 % (42-78); TOTAL CELLS COUNTED % (AUTO) 100 %; WHITE BLOOD COUNT 8.8 10^3/uL (4.0-10.5)
[2018-02-11] MEDS: HEPARIN SOD (PORCINE) 5,000 UNIT/ML 1 ML SYRINGE SUBCUT SCH ×3 (05:18→23:22)
[2018-02-11] MEDS: NORMAL SALINE 250 ML IV PRN ×2 (05:19→12:05)
[2018-02-11 05:36] LABS: ANION GAP 7 (5-19); BLOOD UREA NITROGEN 27 mg/dL (7-20); CALCIUM 8.7 mg/dL (8.4-10.2); CARBON DIOXIDE 34 mmol/L (22-30); CHLORIDE 103 mmol/L (98-107); GLUCOSE 134 mg/dL (75-110); PHOSPHORUS 4.7 mg/dL (2.5-4.5); POTASSIUM 4.6 mmol/L (3.6-5.0); SODIUM 144.3 mmol/L (137-145)
--- NOTE | 2018-02-11 07:47 | RADIOLOGY REPORT (SQ) ---
EXAM DESCRIPTION: XR CHEST 1 VIEW COMPLETED DATE/TME: 02/11/2018 06:00 CLINICAL HISTORY: 57 years Male, pna COMPARISON: One day prior. NUMBER OF VIEWS/TECHNIQUE: 1/AP FINDINGS: Pulmonary vascular congestion, mild hazy opacity-effusion of the right lower hemithorax, small right lung volume, elevated right hemidiaphragm, endotracheal tube tip is 4.7 cm from the paty, adequate appearing enteric tube, right subclavian central line tip at the upper SVC. No pneumothorax. Skeletal structures are stable. IMPRESSION: No significant change.
[2018-02-11] MEDS: LEVALBUTEROL HCL NEB 1.25 MG/3 ML AMPUL NEB SCH ×2 (08:36→16:31)
[2018-02-11] MEDS: PANTOPRAZOLE SODIUM 40 MG VIAL IV SCH (12:17)
[2018-02-11] MEDS: FUROSEMIDE INJ/PF 20 MG/2 ML SDV IV SCH (12:19)
[2018-02-11] MEDS: POLYETHYLENE GLYCOL 3350 POWDER 17 GM/1 PACKET NG SCH (12:19)
[2018-02-11] MEDS: CLOPIDOGREL BISULFATE 75 MG TABLET PO SCH (12:19)
[2018-02-11] MEDS: CEFTRIAXONE 2 GM/D5W RTU 2 GM/50 ML RTUPB IV SCH ×2 (12:19→23:21)
[2018-02-11] MEDS: FENTANYL CITRATE INJ/PF 100 MCG/2 ML AMPUL IV PRN ×2 (12:56→19:46)
[2018-02-11] MEDS: LORAZEPAM INJ 2 MG/1 ML VIAL IV PRN ×2 (12:59→19:45)
--- NOTE | 2018-02-11 17:41 | PDOC PROGRESS REPORT ---
Subjective Progress Note for:: 02/11/18 Subjective:: History is obtained solely from the chart as patient is unable to provide any history. He is currently intubated. He was admitted with an altered mental status, slurred speech as well as difficulty ambulating and was thought to have an acute or subacute lacunar infarct in multiple locations of both frontal lobes , left. And occipital lobes as well as left cerebellum. He had a lumbar puncture done which was negative. He was initially on antibiotics for this was also discontinued. Patient suffered a starting respiratory arrest and was intubated and transferred to the intensive care unit where he remains today. Patient has been having sedation holidays but it appears he is otherwise not really doing anything as he is felt to probably not be ready for extubation. It appears at this time family is hoping for an immaculate recovery although discussions by his provider as I have indicated that his prognosis is pretty poor. I am seeing this gentleman for the first time today and I held no discussions with the family but understand that the family want to give him more time to see if he will recover and they are thinking of the possible transfer to an LTAC if this is alternative Reason For Visit: ALTERED MENTAL STATUS,LEUKOCYTOSIS Physical Exam Vital Signs: Temp Pulse Resp BP Pulse Ox 99.3 F 83 29 H 145/67 H 95 02/11/18 14:00 02/11/18 08:36 02/11/18 14:00 02/11/18 13:45 02/11/18 14:00 Intake & Output 02/10/18 02/11/18 02/12/18 06:59 06:59 06:59 Intake Total 2552 1710 235 Output Total 7365 2560 1650 Balance 592 -850 -1415 Weight 113 kg 112.4 kg General appearance: PRESENT: no acute distress, other - On mechanical ventilation Neck exam: ABSENT: carotid bruit, JVD, lymphadenopathy, thyromegaly Respiratory exam: PRESENT: other - Mechanical ventilation Cardiovascular exam: PRESENT: RRR, +S1, +S2 GI/Abdominal exam: PRESENT: normal bowel sounds, soft. ABSENT: distended, guarding, mass, organolmegaly, rebound, tenderness Rectal exam: PRESENT: deferred Neurological exam: PRESENT: awake, other - Patient unable to follow commands Focused psych exam: PRESENT: restlessness Results Laboratory Results: 02/11/18 05:07 02/11/18 05:07 02/11/18 02/11/18 02/11/18 05:07 05:07 05:07 WBC 8.8 RBC 3.17 L Hgb 8.7 L Hct 26.3 L MCV 83 MCH 27.5 MCHC 33.2 RDW 16.0 H Plt Count 605 H Seg Neutrophils % 75.9 Lymphocytes % 11.0 L Monocytes % 8.6 Eosinophils % 3.2 Basophils % 1.3 Absolute Neutrophils 6.7 Absolute Lymphocytes 1.0 Absolute Monocytes 0.8 Absolute Eosinophils 0.3 Absolute Basophils 0.1 Carbonic Acid 1.26 HCO3/H2CO3 Ratio 24:1 ABG pH 7.49 H ABG pCO2 42.0 ABG pO2 88.3 ABG HCO3 31.1 H ABG O2 Saturation 97.3 ABG Base Excess 7.1 FiO2 30% Sodium 144.3 Potassium 4.6 Chloride 103 Carbon Dioxide 34 H Anion Gap 7 BUN 27 H Creatinine 1.11 Est GFR ( Amer) > 60 Est GFR (Non-Af Amer) > 60 Glucose 134 H Calcium 8.7 Phosphorus 4.7 H Magnesium 2.6 H 01/29/18 01/29/18 01/30/18 17:45 23:40 05:45 Creatine Kinase CK-MB (CK-2) Troponin I 0.244 0.319 0.379 01/30/18 01/30/18 01/30/18 12:00 12:00 18:44 Creatine Kinase 105 74 CK-MB (CK-2) 5.01 H Troponin I 0.349 01/30/18 01/30/18 01/30/18 18:44 23:55 23:55 Creatine Kinase 58 CK-MB (CK-2) 3.04 2.10 Troponin I 0.290 0.268 Impressions: Guidance Fluoroscopy 01/28/18 00:00 IMPRESSION: Please see combined report for performance of procedure and radiologic supervision and interpretation. Head MRI 01/28/18 00:00 IMPRESSION: Positive for acute or sub-acute punctate- lacunar infarctions in multiple locations of both frontal lobes, left parietal-occipital lobe, and the left cerebellum. This pattern suggests embolic phenomenon but can be seen with other etiologies such as traumatic brain injury, correlate clinically. No enhancing lesions. EVIDENCE OF ACUTE STROKE: YES. Multiple vessel distribution Lumbar Puncture 01/28/18 17:17 IMPRESSION: Lumbar puncture under fluoroscopy. No immediate complication. Carotid Doppler Study 01/30/18 00:00 IMPRESSION: NO HEMODYNAMICALLY SIGNIFICANT STENOSIS. Head CT 01/30/18 00:00 IMPRESSION: 1. No acute intracranial abnormality identified. This exam was performed according to our departmental dose-optimization program, which includes automated exposure control, adjustment of the mA and/or kV according to patient size and/or use of iterative reconstruction technique. Chest/Abdomen CTA 01/31/18 12:47 IMPRESSION: 1. Normal CTA of the chest. No pulmonary emboli. 2. Right lower lobe consolidation may represent atelectasis on the basis of submaximal aeration in this intubated patient. Left lower lobe atelectasis. 3. 4.5 x 4.0 x 3.5 cm irregularly marginated heterogeneous appearing mass within the superior pole of the right kidney. This requires further evaluation with dedicated renal CT or MR imaging when feasible. Abdomen/Pelvis CT 02/04/18 10:57 IMPRESSION: 1. LIMITED STUDY. INDISTINCT AREA OF DECREASED ATTENUATION IN THE UPPER POLE OF THE RIGHT KIDNEY, DIFFICULT TO COMPLETELY VISUALIZE DUE TO STREAK ARTIFACT FROM PATIENT'S ARMS. MALIGNANCY SUCH RENAL CELL CARCINOMA IS IN THE DIFFERENTIAL. ANOTHER POSSIBILITY COULD BE AN AREA OF RENAL INFARCTION. IDEALLY, AN MRI OF THE KIDNEYS AFTER THE PATIENT'S CLINICAL CONDITION HAS IMPROVED WOULD BE OPTIMAL TO PROVIDE COMPLETE EVALUATION. 2. CORTICAL CYST IN THE LEFT KIDNEY. 3. GALLSTONES. 4. 3.5 CM INFRARENAL ABDOMINAL AORTIC ANEURYSM. 5. SMALL PLEURAL EFFUSIONS AND BASILAR INFILTRATES, RIGHT GREATER THAN LEFT. Chest X-Ray 02/11/18 06:00 IMPRESSION: No significant change. Assessment & Plan - Time Time Spent with patient: 15-24 minutes Medications reviewed and adjusted accordingly: Yes Anticipated discharge: Other - Unknown - Inpatient Certification Based on my medical assessment, after consideration of the patient's comorbidities, presenting symptoms, or acuity I expect that the services needed warrant INPATIENT care.: Yes Medical Necessity: Need Close Monitoring Due to Risk of Patient Decompensation, Risk of Complication if Not Cared For in Hospital, Other - Patient is still on mechanical ventilation - Plan Summary Plan Summary: Acute respiratory failure status post cardiopulmonary arrest. Patient remains on ventilator although he is on SIMV appears to be breathing himself over the vent. The question is will patient be able to maintain his airway successfully if extubated. 2. Acute to subacute CVA this appears to have been the sentinel event 3. Enterococcus bacteremia patient is still on ampicillin. Repeat blood cultures are pending 4. Cardiopulmonary arrest with return of spontaneous circulation however patient remains intubated and that he probably has anoxic brain injury with poor prognosis for independent living off the ventilator 5. Elevated troponin likely secondary to acute event. No further interventions planned 6. Right renal mass further workup will be deferred 7. COPD stable 8. Stable anemia 9. Further discuss and should be held with the family to decide what the next plan of action will be
--- NOTE | 2018-02-11 17:56 | PDOC PROGRESS REPORT ---
Subjective Progress Note for:: 02/02/18 Subjective:: intubated Reason For Visit: ALTERED MENTAL STATUS,LEUKOCYTOSIS Physical Exam Vital Signs: Temp Pulse Resp BP Pulse Ox 99.3 F 97 17 142/77 H 96 02/02/18 10:11 02/02/18 08:36 02/02/18 10:11 02/02/18 10:11 02/02/18 11:08 Intake & Output 02/01/18 02/02/18 02/03/18 06:59 06:59 06:59 Intake Total 3294 3760 42 Output Total 1610 3060 615 Balance 1684 700 -573 Weight 117.6 kg 118.7 kg General appearance: PRESENT: no acute distress, disheveled, obese. ABSENT: cooperative Head exam: PRESENT: atraumatic, normocephalic Eye exam: PRESENT: conjunctiva pale. ABSENT: nystagmus, periorbital swelling, scleral icterus Mouth exam: PRESENT: dry mucosa, neck supple, tongue midline, other - ET tube Neck exam: ABSENT: carotid bruit, JVD, lymphadenopathy, thyromegaly, tracheal deviation, tracheostomy Respiratory exam: PRESENT: decreased breath sounds, prolonged expiratory phas, rales, rhonchi, unlabored. ABSENT: retraction, stridor Cardiovascular exam: PRESENT: RRR, +S1, +S2 Pulses: PRESENT: normal radial pulses GI/Abdominal exam: PRESENT: hypoactive bowel sounds, soft Extremities exam: ABSENT: clubbing, joint swelling Musculoskeletal exam: ABSENT: ambulatory, deformity, dislocation Neurological exam: ABSENT: awake Skin exam: PRESENT: dry, warm Results Laboratory Results: 02/02/18 05:40 02/02/18 05:40 02/02/18 02/02/18 02/02/18 05:40 05:40 05:45 WBC 8.3 RBC 3.03 L Hgb 8.2 L Hct 25.2 L MCV 83 MCH 27.2 MCHC 32.7 RDW 15.8 H Plt Count 410 Seg Neutrophils % 79.2 H Lymphocytes % 10.8 L Monocytes % 6.5 Eosinophils % 2.6 Basophils % 0.9 Absolute Neutrophils 6.5 Absolute Lymphocytes 0.9 Absolute Monocytes 0.5 Absolute Eosinophils 0.2 Absolute Basophils 0.1 Carbonic Acid 1.09 HCO3/H2CO3 Ratio 21:1 ABG pH 7.42 ABG pCO2 36.1 ABG pO2 120.6 H ABG HCO3 23.0 ABG O2 Saturation 98.5 H ABG Base Excess -1.1 FiO2 45% Sodium 141.5 Potassium 4.1 Chloride 110 H Carbon Dioxide 24 Anion Gap 8 BUN 9 Creatinine 1.03 Est GFR ( Amer) > 60 Est GFR (Non-Af Amer) > 60 Glucose 122 H Calcium 7.8 L Magnesium 2.2 Total Bilirubin 0.3 AST 20 ALT 30 Alkaline Phosphatase 65 Total Protein 5.3 L Albumin 2.2 L 01/30/18 03:00 Catheterized Urine Urine Culture - Final NO GROWTH 2 DAYS 01/29/18 01/29/18 01/30/18 17:45 23:40 05:45 Creatine Kinase CK-MB (CK-2) Troponin I 0.244 0.319 0.379 01/30/18 01/30/18 01/30/18 12:00 12:00 18:44 Creatine Kinase 105 74 CK-MB (CK-2) 5.01 H Troponin I 0.349 01/30/18 01/30/18 01/30/18 18:44 23:55 23:55 Creatine Kinase 58 CK-MB (CK-2) 3.04 2.10 Troponin I 0.290 0.268 Impressions: Guidance Fluoroscopy 01/28/18 00:00 IMPRESSION: Please see combined report for performance of procedure and radiologic supervision and interpretation. Head MRI 01/28/18 00:00 IMPRESSION: Positive for acute or sub-acute punctate- lacunar infarctions in multiple locations of both frontal lobes, left parietal-occipital lobe, and the left cerebellum. This pattern suggests embolic phenomenon but can be seen with other etiologies such as traumatic brain injury, correlate clinically. No enhancing lesions. EVIDENCE OF ACUTE STROKE: YES. Multiple vessel distribution Lumbar Puncture 01/28/18 17:17 IMPRESSION: Lumbar puncture under fluoroscopy. No immediate complication. Carotid Doppler Study 01/30/18 00:00 IMPRESSION: NO HEMODYNAMICALLY SIGNIFICANT STENOSIS. Head CT 01/30/18 00:00 IMPRESSION: 1. No acute intracranial abnormality identified. This exam was performed according to our departmental dose-optimization program, which includes automated exposure control, adjustment of the mA and/or kV according to patient size and/or use of iterative reconstruction technique. Chest/Abdomen CTA 01/31/18 12:47 IMPRESSION: 1. Normal CTA of the chest. No pulmonary emboli. 2. Right lower lobe consolidation may represent atelectasis on the basis of submaximal aeration in this intubated patient. Left lower lobe atelectasis. 3. 4.5 x 4.0 x 3.5 cm irregularly marginated heterogeneous appearing mass within the superior pole of the right kidney. This requires further evaluation with dedicated renal CT or MR imaging when feasible. Chest X-Ray 02/02/18 06:00 IMPRESSION: Stable chest. Appropriate lines and tubes. Assessment & Plan - Diagnosis (1) Acute ischemic stroke Is this a current diagnosis for this admission?: Yes Plan: resumed intermittent posturing (2) COPD (chronic obstructive pulmonary disease) Qualifiers: Emphysema type: unspecified Is this a current diagnosis for this admission?: Yes Plan: Xopenex as needed DuoNeb every 6 hours (3) Cardiopulmonary arrest with successful resuscitation Is this a current diagnosis for this admission?: Yes Plan: Patient was in [facility]A total of 30 minutes for code (4) Anoxic brain damage Is this a current diagnosis for this admission?: Yes Plan: Superimposed upon CVA - Time Total Critical Time (Minutes): 45
--- NOTE | 2018-02-11 17:59 | PDOC PROGRESS REPORT ---
Subjective Progress Note for:: 02/03/18 Subjective:: intubated Reason For Visit: ALTERED MENTAL STATUS,LEUKOCYTOSIS Physical Exam Vital Signs: Temp Pulse Resp BP Pulse Ox 99.7 F 85 20 118/70 97 02/03/18 07:45 02/03/18 08:00 02/03/18 07:45 02/03/18 07:45 02/03/18 07:45 Intake & Output 02/02/18 02/03/18 02/04/18 06:59 06:59 06:59 Intake Total 3810 638 70 Output Total 3060 3475 130 Balance 750 -6187 -60 Weight 118.7 kg 117.8 kg General appearance: PRESENT: no acute distress, disheveled, obese. ABSENT: cooperative Head exam: PRESENT: atraumatic, normocephalic Eye exam: PRESENT: conjunctiva pale. ABSENT: EOMI, nystagmus, periorbital swelling, scleral icterus Mouth exam: PRESENT: dry mucosa, neck supple, tongue midline, other - ET tube Neck exam: ABSENT: carotid bruit, JVD, lymphadenopathy, thyromegaly, tracheal deviation, tracheostomy Respiratory exam: PRESENT: decreased breath sounds, prolonged expiratory phas, rales, rhonchi, unlabored. ABSENT: retraction, stridor Cardiovascular exam: PRESENT: RRR, +S1, +S2 Pulses: PRESENT: normal radial pulses GI/Abdominal exam: PRESENT: normal bowel sounds, soft Gentrourinary exam: PRESENT: indwelling catheter Extremities exam: ABSENT: calf tenderness, clubbing, joint swelling Musculoskeletal exam: ABSENT: ambulatory, deformity, dislocation Neurological exam: ABSENT: awake Skin exam: PRESENT: dry, warm Results Laboratory Results: 02/03/18 05:33 02/03/18 05:33 02/03/18 02/03/18 02/03/18 05:33 05:33 05:33 WBC 7.9 RBC 3.20 L Hgb 8.7 L Hct 26.7 L MCV 84 MCH 27.3 MCHC 32.7 RDW 15.6 H Plt Count 410 Seg Neutrophils % 80.4 H Lymphocytes % 9.4 L Monocytes % 6.6 Eosinophils % 2.7 Basophils % 0.9 Absolute Neutrophils 6.4 Absolute Lymphocytes 0.7 Absolute Monocytes 0.5 Absolute Eosinophils 0.2 Absolute Basophils 0.1 Carbonic Acid 1.20 HCO3/H2CO3 Ratio 22:1 ABG pH 7.44 ABG pCO2 39.9 ABG pO2 75.5 L ABG HCO3 26.5 H ABG O2 Saturation 95.6 ABG Base Excess 2.2 FiO2 30% Sodium 141.4 Potassium 4.3 Chloride 108 H Carbon Dioxide 25 Anion Gap 8 BUN 11 Creatinine 0.88 Est GFR ( Amer) > 60 Est GFR (Non-Af Amer) > 60 Glucose 134 H Calcium 8.2 L Phosphorus 4.2 Magnesium 2.0 Total Bilirubin 0.2 AST 18 ALT 27 Alkaline Phosphatase 66 Total Protein 5.5 L Albumin 2.3 L 01/29/18 01/29/18 01/30/18 17:45 23:40 05:45 Creatine Kinase CK-MB (CK-2) Troponin I 0.244 0.319 0.379 01/30/18 01/30/18 01/30/18 12:00 12:00 18:44 Creatine Kinase 105 74 CK-MB (CK-2) 5.01 H Troponin I 0.349 01/30/18 01/30/18 01/30/18 18:44 23:55 23:55 Creatine Kinase 58 CK-MB (CK-2) 3.04 2.10 Troponin I 0.290 0.268 Impressions: Guidance Fluoroscopy 01/28/18 00:00 IMPRESSION: Please see combined report for performance of procedure and radiologic supervision and interpretation. Head MRI 01/28/18 00:00 IMPRESSION: Positive for acute or sub-acute punctate- lacunar infarctions in multiple locations of both frontal lobes, left parietal-occipital lobe, and the left cerebellum. This pattern suggests embolic phenomenon but can be seen with other etiologies such as traumatic brain injury, correlate clinically. No enhancing lesions. EVIDENCE OF ACUTE STROKE: YES. Multiple vessel distribution Lumbar Puncture 01/28/18 17:17 IMPRESSION: Lumbar puncture under fluoroscopy. No immediate complication. Carotid Doppler Study 01/30/18 00:00 IMPRESSION: NO HEMODYNAMICALLY SIGNIFICANT STENOSIS. Head CT 01/30/18 00:00 IMPRESSION: 1. No acute intracranial abnormality identified. This exam was performed according to our departmental dose-optimization program, which includes automated exposure control, adjustment of the mA and/or kV according to patient size and/or use of iterative reconstruction technique. Chest/Abdomen CTA 01/31/18 12:47 IMPRESSION: 1. Normal CTA of the chest. No pulmonary emboli. 2. Right lower lobe consolidation may represent atelectasis on the basis of submaximal aeration in this intubated patient. Left lower lobe atelectasis. 3. 4.5 x 4.0 x 3.5 cm irregularly marginated heterogeneous appearing mass within the superior pole of the right kidney. This requires further evaluation with dedicated renal CT or MR imaging when feasible. Chest X-Ray 02/03/18 06:00 IMPRESSION: STABLE APPEARANCE OF THE CHEST. SUPPORT DEVICES UNCHANGED. Assessment & Plan - Diagnosis (1) Acute ischemic stroke Is this a current diagnosis for this admission?: Yes Plan: resumed intermittent posturing (2) COPD (chronic obstructive pulmonary disease) Qualifiers: Emphysema type: unspecified Is this a current diagnosis for this admission?: Yes Plan: Stable at this time (3) Cardiopulmonary arrest with successful resuscitation Is this a current diagnosis for this admission?: Yes Plan: Patient was in [facility] total of 30 minutes for code - Time Total Critical Time (Minutes): 40
--- NOTE | 2018-02-11 18:02 | PDOC PROGRESS REPORT ---
Subjective Progress Note for:: 02/04/18 Subjective:: intubated Reason For Visit: ALTERED MENTAL STATUS,LEUKOCYTOSIS Physical Exam Vital Signs: Temp Pulse Resp BP Pulse Ox 99.9 F 98 20 149/84 H 97 02/04/18 08:00 02/04/18 08:00 02/04/18 08:00 02/04/18 08:00 02/04/18 08:00 Intake & Output 02/03/18 02/04/18 02/05/18 06:59 06:59 06:59 Intake Total 938 1284 Output Total 3475 1965 200 Balance -2537 -681 -200 Weight 117.8 kg 118.8 kg General appearance: PRESENT: no acute distress, disheveled, obese. ABSENT: cooperative Head exam: PRESENT: atraumatic, normocephalic Eye exam: PRESENT: conjunctiva pale. ABSENT: nystagmus, periorbital swelling, scleral icterus Mouth exam: PRESENT: dry mucosa, neck supple, tongue midline, other - ET tube in place Neck exam: ABSENT: carotid bruit, JVD, lymphadenopathy, thyromegaly, tracheal deviation, tracheostomy Respiratory exam: PRESENT: decreased breath sounds, prolonged expiratory phas, rales, rhonchi, unlabored. ABSENT: retraction Cardiovascular exam: PRESENT: RRR, +S1, +S2 Pulses: PRESENT: normal radial pulses GI/Abdominal exam: PRESENT: normal bowel sounds, soft Gentrourinary exam: PRESENT: indwelling catheter Extremities exam: ABSENT: clubbing, joint swelling Musculoskeletal exam: ABSENT: ambulatory, deformity, dislocation Neurological exam: ABSENT: awake Skin exam: PRESENT: dry, warm Results Laboratory Results: 02/04/18 05:10 02/04/18 05:10 02/04/18 02/04/18 02/04/18 05:10 05:10 05:10 WBC 11.0 H RBC 3.24 L Hgb 8.9 L Hct 26.7 L MCV 83 MCH 27.6 MCHC 33.5 RDW 16.5 H Plt Count 451 H Seg Neutrophils % 82.6 H Lymphocytes % 7.5 L Monocytes % 7.0 Eosinophils % 2.2 Basophils % 0.7 Absolute Neutrophils 9.0 H Absolute Lymphocytes 0.8 Absolute Monocytes 0.8 Absolute Eosinophils 0.2 Absolute Basophils 0.1 Carbonic Acid 1.14 HCO3/H2CO3 Ratio 24:1 ABG pH 7.48 H ABG pCO2 37.8 ABG pO2 86.5 ABG HCO3 27.6 H ABG O2 Saturation 97.2 ABG Base Excess 4.0 FiO2 30% Sodium 138.2 Potassium 4.2 Chloride 103 Carbon Dioxide 28 Anion Gap 7 BUN 15 Creatinine 0.85 Est GFR ( Amer) > 60 Est GFR (Non-Af Amer) > 60 Glucose 138 H Calcium 8.0 L Phosphorus 4.2 Magnesium 2.0 01/29/18 01/29/18 01/30/18 17:45 23:40 05:45 Creatine Kinase CK-MB (CK-2) Troponin I 0.244 0.319 0.379 01/30/18 01/30/18 01/30/18 12:00 12:00 18:44 Creatine Kinase 105 74 CK-MB (CK-2) 5.01 H Troponin I 0.349 01/30/18 01/30/18 01/30/18 18:44 23:55 23:55 Creatine Kinase 58 CK-MB (CK-2) 3.04 2.10 Troponin I 0.290 0.268 Impressions: Guidance Fluoroscopy 01/28/18 00:00 IMPRESSION: Please see combined report for performance of procedure and radiologic supervision and interpretation. Head MRI 01/28/18 00:00 IMPRESSION: Positive for acute or sub-acute punctate- lacunar infarctions in multiple locations of both frontal lobes, left parietal-occipital lobe, and the left cerebellum. This pattern suggests embolic phenomenon but can be seen with other etiologies such as traumatic brain injury, correlate clinically. No enhancing lesions. EVIDENCE OF ACUTE STROKE: YES. Multiple vessel distribution Lumbar Puncture 01/28/18 17:17 IMPRESSION: Lumbar puncture under fluoroscopy. No immediate complication. Carotid Doppler Study 01/30/18 00:00 IMPRESSION: NO HEMODYNAMICALLY SIGNIFICANT STENOSIS. Head CT 01/30/18 00:00 IMPRESSION: 1. No acute intracranial abnormality identified. This exam was performed according to our departmental dose-optimization program, which includes automated exposure control, adjustment of the mA and/or kV according to patient size and/or use of iterative reconstruction technique. Chest/Abdomen CTA 01/31/18 12:47 IMPRESSION: 1. Normal CTA of the chest. No pulmonary emboli. 2. Right lower lobe consolidation may represent atelectasis on the basis of submaximal aeration in this intubated patient. Left lower lobe atelectasis. 3. 4.5 x 4.0 x 3.5 cm irregularly marginated heterogeneous appearing mass within the superior pole of the right kidney. This requires further evaluation with dedicated renal CT or MR imaging when feasible. Chest X-Ray 02/04/18 06:00 IMPRESSION: No significant change. Assessment & Plan - Diagnosis (1) Acute ischemic stroke Is this a current diagnosis for this admission?: Yes Plan: resumed intermittent posturing (2) COPD (chronic obstructive pulmonary disease) Qualifiers: Emphysema type: unspecified Is this a current diagnosis for this admission?: Yes Plan: Stable at this time (3) Cardiopulmonary arrest with successful resuscitation Is this a current diagnosis for this admission?: Yes Plan: Patient was in [facility] total of 30 minutes for code - Time Total Critical Time (Minutes): 40
--- NOTE | 2018-02-11 18:04 | PDOC PROGRESS REPORT ---
Subjective Progress Note for:: 02/05/18 Subjective:: intubated Reason For Visit: ALTERED MENTAL STATUS,LEUKOCYTOSIS Physical Exam Vital Signs: Temp Pulse Resp BP Pulse Ox 99.9 F 91 21 H 132/74 H 95 02/05/18 08:00 02/05/18 08:00 02/05/18 08:00 02/05/18 08:00 02/05/18 08:59 Intake & Output 02/04/18 02/05/18 02/06/18 06:59 06:59 06:59 Intake Total 1284 1268 Output Total 1965 2255 200 Balance -681 -987 -200 Weight 118.8 kg 116.8 kg General appearance: PRESENT: no acute distress, disheveled, obese. ABSENT: cooperative Head exam: PRESENT: atraumatic, normocephalic Eye exam: PRESENT: conjunctiva pale. ABSENT: nystagmus, periorbital swelling, scleral icterus Mouth exam: PRESENT: dry mucosa, neck supple, tongue midline, other - ET tube in place Neck exam: ABSENT: carotid bruit, JVD, lymphadenopathy, thyromegaly, tracheal deviation, tracheostomy Respiratory exam: PRESENT: decreased breath sounds, prolonged expiratory phas, rhonchi, unlabored. ABSENT: wheezes Cardiovascular exam: PRESENT: RRR, +S1, +S2 Pulses: PRESENT: normal radial pulses GI/Abdominal exam: PRESENT: normal bowel sounds, soft Gentrourinary exam: PRESENT: indwelling catheter Extremities exam: ABSENT: clubbing, joint swelling, pedal edema Musculoskeletal exam: ABSENT: ambulatory, deformity Neurological exam: ABSENT: awake Skin exam: PRESENT: dry, warm Results Laboratory Results: 02/05/18 04:20 02/05/18 04:20 02/05/18 02/05/18 02/05/18 04:20 04:20 04:20 WBC 12.9 H RBC 3.37 L Hgb 9.0 L Hct 27.9 L MCV 83 MCH 26.8 L MCHC 32.4 RDW 16.2 H Plt Count 466 H Seg Neutrophils % 81.4 H Lymphocytes % 8.3 L Monocytes % 6.7 Eosinophils % 2.2 Basophils % 1.4 Absolute Neutrophils 10.5 H Absolute Lymphocytes 1.1 Absolute Monocytes 0.9 Absolute Eosinophils 0.3 Absolute Basophils 0.2 Carbonic Acid 1.24 HCO3/H2CO3 Ratio 24:1 ABG pH 7.48 H ABG pCO2 41.2 ABG pO2 80.9 ABG HCO3 30.3 H ABG O2 Saturation 96.6 ABG Base Excess 6.3 FiO2 30 Sodium 138.1 Potassium 4.6 Chloride 100 Carbon Dioxide 29 Anion Gap 9 BUN 18 Creatinine 0.81 Est GFR ( Amer) > 60 Est GFR (Non-Af Amer) > 60 Glucose 145 H Calcium 8.4 Magnesium 2.1 Total Bilirubin 0.4 AST 47 ALT 27 Alkaline Phosphatase 69 Total Protein 6.3 Albumin 2.6 L 01/29/18 01/29/18 01/30/18 17:45 23:40 05:45 Creatine Kinase CK-MB (CK-2) Troponin I 0.244 0.319 0.379 01/30/18 01/30/18 01/30/18 12:00 12:00 18:44 Creatine Kinase 105 74 CK-MB (CK-2) 5.01 H Troponin I 0.349 01/30/18 01/30/18 01/30/18 18:44 23:55 23:55 Creatine Kinase 58 CK-MB (CK-2) 3.04 2.10 Troponin I 0.290 0.268 Impressions: Guidance Fluoroscopy 01/28/18 00:00 IMPRESSION: Please see combined report for performance of procedure and radiologic supervision and interpretation. Head MRI 01/28/18 00:00 IMPRESSION: Positive for acute or sub-acute punctate- lacunar infarctions in multiple locations of both frontal lobes, left parietal-occipital lobe, and the left cerebellum. This pattern suggests embolic phenomenon but can be seen with other etiologies such as traumatic brain injury, correlate clinically. No enhancing lesions. EVIDENCE OF ACUTE STROKE: YES. Multiple vessel distribution Lumbar Puncture 01/28/18 17:17 IMPRESSION: Lumbar puncture under fluoroscopy. No immediate complication. Carotid Doppler Study 01/30/18 00:00 IMPRESSION: NO HEMODYNAMICALLY SIGNIFICANT STENOSIS. Head CT 01/30/18 00:00 IMPRESSION: 1. No acute intracranial abnormality identified. This exam was performed according to our departmental dose-optimization program, which includes automated exposure control, adjustment of the mA and/or kV according to patient size and/or use of iterative reconstruction technique. Chest/Abdomen CTA 01/31/18 12:47 IMPRESSION: 1. Normal CTA of the chest. No pulmonary emboli. 2. Right lower lobe consolidation may represent atelectasis on the basis of submaximal aeration in this intubated patient. Left lower lobe atelectasis. 3. 4.5 x 4.0 x 3.5 cm irregularly marginated heterogeneous appearing mass within the superior pole of the right kidney. This requires further evaluation with dedicated renal CT or MR imaging when feasible. Abdomen/Pelvis CT 02/04/18 10:57 IMPRESSION: 1. LIMITED STUDY. INDISTINCT AREA OF DECREASED ATTENUATION IN THE UPPER POLE OF THE RIGHT KIDNEY, DIFFICULT TO COMPLETELY VISUALIZE DUE TO STREAK ARTIFACT FROM PATIENT'S ARMS. MALIGNANCY SUCH RENAL CELL CARCINOMA IS IN THE DIFFERENTIAL. ANOTHER POSSIBILITY COULD BE AN AREA OF RENAL INFARCTION. IDEALLY, AN MRI OF THE KIDNEYS AFTER THE PATIENT'S CLINICAL CONDITION HAS IMPROVED WOULD BE OPTIMAL TO PROVIDE COMPLETE EVALUATION. 2. CORTICAL CYST IN THE LEFT KIDNEY. 3. GALLSTONES. 4. 3.5 CM INFRARENAL ABDOMINAL AORTIC ANEURYSM. 5. SMALL PLEURAL EFFUSIONS AND BASILAR INFILTRATES, RIGHT GREATER THAN LEFT. Chest X-Ray 02/05/18 06:00 IMPRESSION: No significant change. Assessment & Plan - Diagnosis (1) Acute ischemic stroke Is this a current diagnosis for this admission?: Yes Plan: resumed intermittent posturing (2) COPD (chronic obstructive pulmonary disease) Qualifiers: Emphysema type: unspecified Is this a current diagnosis for this admission?: Yes Plan: Stable at this time (3) Cardiopulmonary arrest with successful resuscitation Is this a current diagnosis for this admission?: Yes Plan: Patient was in [facility] total of 30 minutes for code - Time Total Critical Time (Minutes): 40
--- NOTE | 2018-02-11 18:06 | PDOC PROGRESS REPORT ---
Subjective Progress Note for:: 02/06/18 Subjective:: intubated Reason For Visit: ALTERED MENTAL STATUS,LEUKOCYTOSIS Physical Exam Vital Signs: Temp Pulse Resp BP Pulse Ox 99.9 F 96 19 139/87 H 96 02/06/18 08:00 02/06/18 08:27 02/06/18 08:27 02/06/18 08:00 02/06/18 08:27 Intake & Output 02/05/18 02/06/18 02/07/18 06:59 06:59 06:59 Intake Total 1518 1596 Output Total 2255 2040 150 Balance -737 -444 -150 Weight 116.8 kg 115.4 kg General appearance: PRESENT: no acute distress, disheveled, obese Head exam: PRESENT: atraumatic, normocephalic Eye exam: PRESENT: conjunctiva pale. ABSENT: nystagmus, periorbital swelling, scleral icterus Mouth exam: PRESENT: dry mucosa, neck supple, tongue midline, other - ET tube in place Neck exam: ABSENT: carotid bruit, JVD, lymphadenopathy, thyromegaly, tracheal deviation, tracheostomy Respiratory exam: PRESENT: decreased breath sounds, prolonged expiratory phas, rhonchi, unlabored. ABSENT: retraction, stridor Cardiovascular exam: PRESENT: RRR, +S1, +S2 Pulses: PRESENT: normal radial pulses GI/Abdominal exam: PRESENT: normal bowel sounds, soft Gentrourinary exam: PRESENT: indwelling catheter Extremities exam: ABSENT: clubbing, full ROM, joint swelling Musculoskeletal exam: ABSENT: ambulatory, deformity, dislocation, full ROM Neurological exam: ABSENT: awake Skin exam: PRESENT: dry, other Results Laboratory Results: 02/06/18 06:00 02/06/18 06:00 02/05/18 02/06/18 02/06/18 10:10 06:00 06:00 WBC 14.2 H RBC 3.33 L Hgb 9.0 L Hct 27.5 L MCV 83 MCH 27.0 MCHC 32.7 RDW 15.7 H Plt Count 556 H Seg Neutrophils % 85.3 H Lymphocytes % 6.4 L Monocytes % 6.4 Eosinophils % 1.3 Basophils % 0.6 Absolute Neutrophils 12.1 H Absolute Lymphocytes 0.9 Absolute Monocytes 0.9 Absolute Eosinophils 0.2 Absolute Basophils 0.1 Carbonic Acid HCO3/H2CO3 Ratio ABG pH ABG pCO2 ABG pO2 ABG HCO3 ABG O2 Saturation ABG Base Excess FiO2 Sodium 138.1 Potassium 4.6 Chloride 99 Carbon Dioxide 30 Anion Gap 9 BUN 21 H Creatinine 0.81 0.80 Est GFR ( Amer) > 60 > 60 Est GFR (Non-Af Amer) > 60 > 60 Glucose 164 H Calcium 8.5 Phosphorus 4.0 Magnesium 2.2 Total Bilirubin 0.3 AST 51 ALT 36 Alkaline Phosphatase 84 Total Protein 6.2 L Albumin 2.7 L 02/06/18 06:40 WBC RBC Hgb Hct MCV MCH MCHC RDW Plt Count Seg Neutrophils % Lymphocytes % Monocytes % Eosinophils % Basophils % Absolute Neutrophils Absolute Lymphocytes Absolute Monocytes Absolute Eosinophils Absolute Basophils Carbonic Acid 1.15 HCO3/H2CO3 Ratio 25:1 ABG pH 7.51 H ABG pCO2 38.3 ABG pO2 84.2 ABG HCO3 29.6 H ABG O2 Saturation 97.1 ABG Base Excess 6.1 FiO2 30% Sodium Potassium Chloride Carbon Dioxide Anion Gap BUN Creatinine Est GFR ( Amer) Est GFR (Non-Af Amer) Glucose Calcium Phosphorus Magnesium Total Bilirubin AST ALT Alkaline Phosphatase Total Protein Albumin 01/29/18 01/29/18 01/30/18 17:45 23:40 05:45 Creatine Kinase CK-MB (CK-2) Troponin I 0.244 0.319 0.379 01/30/18 01/30/18 01/30/18 12:00 12:00 18:44 Creatine Kinase 105 74 CK-MB (CK-2) 5.01 H Troponin I 0.349 01/30/18 01/30/18 01/30/18 18:44 23:55 23:55 Creatine Kinase 58 CK-MB (CK-2) 3.04 2.10 Troponin I 0.290 0.268 Impressions: Guidance Fluoroscopy 01/28/18 00:00 IMPRESSION: Please see combined report for performance of procedure and radiologic supervision and interpretation. Head MRI 01/28/18 00:00 IMPRESSION: Positive for acute or sub-acute punctate- lacunar infarctions in multiple locations of both frontal lobes, left parietal-occipital lobe, and the left cerebellum. This pattern suggests embolic phenomenon but can be seen with other etiologies such as traumatic brain injury, correlate clinically. No enhancing lesions. EVIDENCE OF ACUTE STROKE: YES. Multiple vessel distribution Lumbar Puncture 01/28/18 17:17 IMPRESSION: Lumbar puncture under fluoroscopy. No immediate complication. Carotid Doppler Study 01/30/18 00:00 IMPRESSION: NO HEMODYNAMICALLY SIGNIFICANT STENOSIS. Head CT 01/30/18 00:00 IMPRESSION: 1. No acute intracranial abnormality identified. This exam was performed according to our departmental dose-optimization program, which includes automated exposure control, adjustment of the mA and/or kV according to patient size and/or use of iterative reconstruction technique. Chest/Abdomen CTA 01/31/18 12:47 IMPRESSION: 1. Normal CTA of the chest. No pulmonary emboli. 2. Right lower lobe consolidation may represent atelectasis on the basis of submaximal aeration in this intubated patient. Left lower lobe atelectasis. 3. 4.5 x 4.0 x 3.5 cm irregularly marginated heterogeneous appearing mass within the superior pole of the right kidney. This requires further evaluation with dedicated renal CT or MR imaging when feasible. Abdomen/Pelvis CT 02/04/18 10:57 IMPRESSION: 1. LIMITED STUDY. INDISTINCT AREA OF DECREASED ATTENUATION IN THE UPPER POLE OF THE RIGHT KIDNEY, DIFFICULT TO COMPLETELY VISUALIZE DUE TO STREAK ARTIFACT FROM PATIENT'S ARMS. MALIGNANCY SUCH RENAL CELL CARCINOMA IS IN THE DIFFERENTIAL. ANOTHER POSSIBILITY COULD BE AN AREA OF RENAL INFARCTION. IDEALLY, AN MRI OF THE KIDNEYS AFTER THE PATIENT'S CLINICAL CONDITION HAS IMPROVED WOULD BE OPTIMAL TO PROVIDE COMPLETE EVALUATION. 2. CORTICAL CYST IN THE LEFT KIDNEY. 3. GALLSTONES. 4. 3.5 CM INFRARENAL ABDOMINAL AORTIC ANEURYSM. 5. SMALL PLEURAL EFFUSIONS AND BASILAR INFILTRATES, RIGHT GREATER THAN LEFT. Chest X-Ray 02/06/18 06:00 IMPRESSION: No significant change. Assessment & Plan - Diagnosis (1) Acute ischemic stroke Is this a current diagnosis for this admission?: Yes Plan: resumed intermittent posturing (2) COPD (chronic obstructive pulmonary disease) Qualifiers: Emphysema type: unspecified Is this a current diagnosis for this admission?: Yes Plan: Stable at this time (3) Cardiopulmonary arrest with successful resuscitation Is this a current diagnosis for this admission?: Yes Plan: Patient was in [facility] total of 30 minutes for code - Time Total Critical Time (Minutes): 45
--- NOTE | 2018-02-11 18:08 | PDOC PROGRESS REPORT ---
Subjective Progress Note for:: 02/07/18 Subjective:: intubated Reason For Visit: ALTERED MENTAL STATUS,LEUKOCYTOSIS Physical Exam Vital Signs: Temp Pulse Resp BP Pulse Ox 99.3 F 88 15 138/80 H 96 02/07/18 06:00 02/07/18 03:33 02/07/18 06:00 02/07/18 05:33 02/07/18 06:00 Intake & Output 02/06/18 02/07/18 02/08/18 06:59 06:59 06:59 Intake Total 1596 2243 Output Total 2040 1425 Balance -444 818 Weight 115.4 kg 114.5 kg General appearance: PRESENT: no acute distress, disheveled, obese Head exam: PRESENT: atraumatic, normocephalic Eye exam: PRESENT: conjunctiva pale. ABSENT: nystagmus, periorbital swelling, scleral icterus Mouth exam: PRESENT: dry mucosa, neck supple, tongue midline, other - ET tube in place Neck exam: ABSENT: carotid bruit, JVD, lymphadenopathy, thyromegaly, tracheal deviation, tracheostomy Respiratory exam: PRESENT: decreased breath sounds, prolonged expiratory phas, rhonchi, unlabored. ABSENT: retraction, stridor Cardiovascular exam: PRESENT: RRR, +S1, +S2 Pulses: PRESENT: normal radial pulses GI/Abdominal exam: PRESENT: normal bowel sounds, soft Gentrourinary exam: PRESENT: indwelling catheter Extremities exam: ABSENT: clubbing, full ROM, joint swelling Musculoskeletal exam: ABSENT: ambulatory, deformity, dislocation, full ROM Neurological exam: ABSENT: awake Skin exam: PRESENT: dry, warm Results Laboratory Results: 02/07/18 05:20 02/07/18 05:20 02/06/18 02/07/18 02/07/18 19:30 05:20 05:20 WBC 12.2 H RBC 3.22 L Hgb 8.6 L Hct 26.4 L MCV 82 MCH 26.6 L MCHC 32.5 RDW 16.2 H Plt Count 492 H Seg Neutrophils % 83.3 H Lymphocytes % 7.3 L Monocytes % 6.9 Eosinophils % 1.8 Basophils % 0.7 Absolute Neutrophils 10.1 H Absolute Lymphocytes 0.9 Absolute Monocytes 0.8 Absolute Eosinophils 0.2 Absolute Basophils 0.1 Carbonic Acid 1.23 HCO3/H2CO3 Ratio 23:1 ABG pH 7.47 H ABG pCO2 41.0 ABG pO2 83.0 ABG HCO3 28.9 H ABG O2 Saturation 96.7 ABG Base Excess 4.8 FiO2 30% Sodium Potassium Chloride Carbon Dioxide Anion Gap BUN Creatinine Est GFR ( Amer) Est GFR (Non-Af Amer) Glucose Calcium Magnesium Total Bilirubin AST ALT Alkaline Phosphatase Total Protein Albumin Urine Color YELLOW Urine Appearance CLOUDY Urine pH 5.0 Ur Specific [place] 1.024 Urine Protein 100 H Urine Glucose (UA) NEGATIVE Urine Ketones NEGATIVE Urine Blood SMALL H Urine Nitrite NEGATIVE Ur Leukocyte Esterase NEGATIVE Urine WBC (Auto) 2 Urine RBC (Auto) 4 02/07/18 05:20 WBC RBC Hgb Hct MCV MCH MCHC RDW Plt Count Seg Neutrophils % Lymphocytes % Monocytes % Eosinophils % Basophils % Absolute Neutrophils Absolute Lymphocytes Absolute Monocytes Absolute Eosinophils Absolute Basophils Carbonic Acid HCO3/H2CO3 Ratio ABG pH ABG pCO2 ABG pO2 ABG HCO3 ABG O2 Saturation ABG Base Excess FiO2 Sodium 136.7 L Potassium 4.4 Chloride 97 L Carbon Dioxide 30 Anion Gap 10 BUN 22 H Creatinine 0.87 Est GFR ( Amer) > 60 Est GFR (Non-Af Amer) > 60 Glucose 157 H Calcium 8.2 L Magnesium 2.3 Total Bilirubin 0.4 AST 45 ALT 38 Alkaline Phosphatase 90 Total Protein 6.2 L Albumin 2.8 L Urine Color Urine Appearance Urine pH Ur Specific [place] Urine Protein Urine Glucose (UA) Urine Ketones Urine Blood Urine Nitrite Ur Leukocyte Esterase Urine WBC (Auto) Urine RBC (Auto) 01/29/18 01/29/18 01/30/18 17:45 23:40 05:45 Creatine Kinase CK-MB (CK-2) Troponin I 0.244 0.319 0.379 01/30/18 01/30/18 01/30/18 12:00 12:00 18:44 Creatine Kinase 105 74 CK-MB (CK-2) 5.01 H Troponin I 0.349 01/30/18 01/30/18 01/30/18 18:44 23:55 23:55 Creatine Kinase 58 CK-MB (CK-2) 3.04 2.10 Troponin I 0.290 0.268 Impressions: Guidance Fluoroscopy 01/28/18 00:00 IMPRESSION: Please see combined report for performance of procedure and radiologic supervision and interpretation. Head MRI 01/28/18 00:00 IMPRESSION: Positive for acute or sub-acute punctate- lacunar infarctions in multiple locations of both frontal lobes, left parietal-occipital lobe, and the left cerebellum. This pattern suggests embolic phenomenon but can be seen with other etiologies such as traumatic brain injury, correlate clinically. No enhancing lesions. EVIDENCE OF ACUTE STROKE: YES. Multiple vessel distribution Lumbar Puncture 01/28/18 17:17 IMPRESSION: Lumbar puncture under fluoroscopy. No immediate complication. Carotid Doppler Study 01/30/18 00:00 IMPRESSION: NO HEMODYNAMICALLY SIGNIFICANT STENOSIS. Head CT 01/30/18 00:00 IMPRESSION: 1. No acute intracranial abnormality identified. This exam was performed according to our departmental dose-optimization program, which includes automated exposure control, adjustment of the mA and/or kV according to patient size and/or use of iterative reconstruction technique. Chest/Abdomen CTA 01/31/18 12:47 IMPRESSION: 1. Normal CTA of the chest. No pulmonary emboli. 2. Right lower lobe consolidation may represent atelectasis on the basis of submaximal aeration in this intubated patient. Left lower lobe atelectasis. 3. 4.5 x 4.0 x 3.5 cm irregularly marginated heterogeneous appearing mass within the superior pole of the right kidney. This requires further evaluation with dedicated renal CT or MR imaging when feasible. Abdomen/Pelvis CT 02/04/18 10:57 IMPRESSION: 1. LIMITED STUDY. INDISTINCT AREA OF DECREASED ATTENUATION IN THE UPPER POLE OF THE RIGHT KIDNEY, DIFFICULT TO COMPLETELY VISUALIZE DUE TO STREAK ARTIFACT FROM PATIENT'S ARMS. MALIGNANCY SUCH RENAL CELL CARCINOMA IS IN THE DIFFERENTIAL. ANOTHER POSSIBILITY COULD BE AN AREA OF RENAL INFARCTION. IDEALLY, AN MRI OF THE KIDNEYS AFTER THE PATIENT'S CLINICAL CONDITION HAS IMPROVED WOULD BE OPTIMAL TO PROVIDE COMPLETE EVALUATION. 2. CORTICAL CYST IN THE LEFT KIDNEY. 3. GALLSTONES. 4. 3.5 CM INFRARENAL ABDOMINAL AORTIC ANEURYSM. 5. SMALL PLEURAL EFFUSIONS AND BASILAR INFILTRATES, RIGHT GREATER THAN LEFT. Chest X-Ray 02/06/18 06:00 IMPRESSION: No significant change. Assessment & Plan - Diagnosis (1) Acute ischemic stroke Is this a current diagnosis for this admission?: Yes Plan: resumed intermittent posturing (2) COPD (chronic obstructive pulmonary disease) Qualifiers: Emphysema type: unspecified Is this a current diagnosis for this admission?: Yes Plan: Stable at this time (3) Cardiopulmonary arrest with successful resuscitation Is this a current diagnosis for this admission?: Yes Plan: Patient was in [facility] total of 30 minutes for code - Time Total Critical Time (Minutes): 40
--- NOTE | 2018-02-11 18:11 | PDOC PROGRESS REPORT ---
Subjective Progress Note for:: 02/08/18 Subjective:: intubated Reason For Visit: ALTERED MENTAL STATUS,LEUKOCYTOSIS Physical Exam Vital Signs: Temp Pulse Resp BP Pulse Ox 99.1 F 96 16 121/72 96 02/08/18 06:00 02/08/18 08:26 02/08/18 08:26 02/08/18 05:33 02/08/18 08:26 Intake & Output 02/07/18 02/08/18 02/09/18 06:59 06:59 06:59 Intake Total 2743 2166 Output Total 1425 3175 275 Balance 1318 -1009 -275 Weight 114.5 kg 113.4 kg General appearance: PRESENT: no acute distress, disheveled, obese Head exam: PRESENT: atraumatic, normocephalic Eye exam: PRESENT: conjunctiva pale. ABSENT: nystagmus, periorbital swelling, scleral icterus Mouth exam: PRESENT: dry mucosa, neck supple, tongue midline, other - ET tube in place Neck exam: ABSENT: carotid bruit, JVD, lymphadenopathy, thyromegaly, tracheal deviation, tracheostomy Respiratory exam: PRESENT: decreased breath sounds, prolonged expiratory phas, rhonchi, unlabored. ABSENT: retraction, stridor Cardiovascular exam: PRESENT: RRR, +S1, +S2 Pulses: PRESENT: normal radial pulses GI/Abdominal exam: PRESENT: normal bowel sounds, soft Gentrourinary exam: PRESENT: indwelling catheter Extremities exam: ABSENT: clubbing, full ROM, joint swelling Musculoskeletal exam: ABSENT: ambulatory, deformity, dislocation Neurological exam: ABSENT: awake Skin exam: PRESENT: dry, warm Results Laboratory Results: 02/08/18 05:15 02/08/18 05:15 02/08/18 02/08/18 02/08/18 05:15 05:15 05:15 WBC 10.6 H RBC 3.17 L Hgb 8.7 L Hct 26.1 L MCV 82 MCH 27.4 MCHC 33.3 RDW 16.3 H Plt Count 471 H Seg Neutrophils % 81.1 H Lymphocytes % 8.0 L Monocytes % 7.7 Eosinophils % 2.6 Basophils % 0.6 Absolute Neutrophils 8.6 H Absolute Lymphocytes 0.8 Absolute Monocytes 0.8 Absolute Eosinophils 0.3 Absolute Basophils 0.1 Carbonic Acid 1.31 HCO3/H2CO3 Ratio 24:1 ABG pH 7.48 H ABG pCO2 43.5 ABG pO2 68.3 L ABG HCO3 31.6 H ABG O2 Saturation 94.7 ABG Base Excess 7.3 FiO2 30% Sodium 138.9 Potassium 4.3 Chloride 97 L Carbon Dioxide 33 H Anion Gap 9 BUN 25 H Creatinine 0.89 Est GFR ( Amer) > 60 Est GFR (Non-Af Amer) > 60 Glucose 143 H Calcium 8.4 Phosphorus 4.6 H Magnesium 2.3 01/29/18 01/29/18 01/30/18 17:45 23:40 05:45 Creatine Kinase CK-MB (CK-2) Troponin I 0.244 0.319 0.379 01/30/18 01/30/18 01/30/18 12:00 12:00 18:44 Creatine Kinase 105 74 CK-MB (CK-2) 5.01 H Troponin I 0.349 01/30/18 01/30/18 01/30/18 18:44 23:55 23:55 Creatine Kinase 58 CK-MB (CK-2) 3.04 2.10 Troponin I 0.290 0.268 Impressions: Guidance Fluoroscopy 01/28/18 00:00 IMPRESSION: Please see combined report for performance of procedure and radiologic supervision and interpretation. Head MRI 01/28/18 00:00 IMPRESSION: Positive for acute or sub-acute punctate- lacunar infarctions in multiple locations of both frontal lobes, left parietal-occipital lobe, and the left cerebellum. This pattern suggests embolic phenomenon but can be seen with other etiologies such as traumatic brain injury, correlate clinically. No enhancing lesions. EVIDENCE OF ACUTE STROKE: YES. Multiple vessel distribution Lumbar Puncture 01/28/18 17:17 IMPRESSION: Lumbar puncture under fluoroscopy. No immediate complication. Carotid Doppler Study 01/30/18 00:00 IMPRESSION: NO HEMODYNAMICALLY SIGNIFICANT STENOSIS. Head CT 01/30/18 00:00 IMPRESSION: 1. No acute intracranial abnormality identified. This exam was performed according to our departmental dose-optimization program, which includes automated exposure control, adjustment of the mA and/or kV according to patient size and/or use of iterative reconstruction technique. Chest/Abdomen CTA 01/31/18 12:47 IMPRESSION: 1. Normal CTA of the chest. No pulmonary emboli. 2. Right lower lobe consolidation may represent atelectasis on the basis of submaximal aeration in this intubated patient. Left lower lobe atelectasis. 3. 4.5 x 4.0 x 3.5 cm irregularly marginated heterogeneous appearing mass within the superior pole of the right kidney. This requires further evaluation with dedicated renal CT or MR imaging when feasible. Abdomen/Pelvis CT 02/04/18 10:57 IMPRESSION: 1. LIMITED STUDY. INDISTINCT AREA OF DECREASED ATTENUATION IN THE UPPER POLE OF THE RIGHT KIDNEY, DIFFICULT TO COMPLETELY VISUALIZE DUE TO STREAK ARTIFACT FROM PATIENT'S ARMS. MALIGNANCY SUCH RENAL CELL CARCINOMA IS IN THE DIFFERENTIAL. ANOTHER POSSIBILITY COULD BE AN AREA OF RENAL INFARCTION. IDEALLY, AN MRI OF THE KIDNEYS AFTER THE PATIENT'S CLINICAL CONDITION HAS IMPROVED WOULD BE OPTIMAL TO PROVIDE COMPLETE EVALUATION. 2. CORTICAL CYST IN THE LEFT KIDNEY. 3. GALLSTONES. 4. 3.5 CM INFRARENAL ABDOMINAL AORTIC ANEURYSM. 5. SMALL PLEURAL EFFUSIONS AND BASILAR INFILTRATES, RIGHT GREATER THAN LEFT. Chest X-Ray 02/08/18 06:00 IMPRESSION: No significant change. Assessment & Plan - Diagnosis (1) Acute ischemic stroke Is this a current diagnosis for this admission?: Yes Plan: resumed intermittent posturing (2) COPD (chronic obstructive pulmonary disease) Qualifiers: Emphysema type: unspecified Is this a current diagnosis for this admission?: Yes Plan: Stable at this time (3) Cardiopulmonary arrest with successful resuscitation Is this a current diagnosis for this admission?: Yes Plan: Patient was in [facility] total of 30 minutes for code - Time Total Critical Time (Minutes): 40
--- NOTE | 2018-02-11 18:16 | PDOC PROGRESS REPORT ---
Subjective Progress Note for:: 02/10/18 Subjective:: intubated Reason For Visit: ALTERED MENTAL STATUS,LEUKOCYTOSIS Physical Exam Vital Signs: Temp Pulse Resp BP Pulse Ox 98.8 F 91 21 H 138/75 H 95 02/10/18 10:00 02/10/18 10:00 02/10/18 10:00 02/10/18 10:00 02/10/18 10:00 Intake & Output 02/09/18 02/10/18 02/11/18 06:59 06:59 06:59 Intake Total 2667 2552 75 Output Total 2650 1960 600 Balance 17 592 -525 Weight 113.6 kg 113 kg General appearance: PRESENT: no acute distress, disheveled, obese. ABSENT: cooperative Head exam: PRESENT: atraumatic, normocephalic Eye exam: PRESENT: conjunctiva pale. ABSENT: nystagmus, periorbital swelling, scleral icterus Mouth exam: PRESENT: dry mucosa, neck supple, tongue midline, other - ET tube in place Neck exam: ABSENT: carotid bruit, JVD, lymphadenopathy, thyromegaly, tracheal deviation, tracheostomy Respiratory exam: PRESENT: decreased breath sounds, prolonged expiratory phas, rhonchi, unlabored. ABSENT: retraction, stridor Cardiovascular exam: PRESENT: RRR, +S1, +S2 Pulses: PRESENT: normal radial pulses GI/Abdominal exam: PRESENT: normal bowel sounds, soft Gentrourinary exam: PRESENT: indwelling catheter Extremities exam: ABSENT: clubbing, full ROM, joint swelling Musculoskeletal exam: ABSENT: ambulatory, deformity, dislocation, full ROM Neurological exam: ABSENT: awake Skin exam: PRESENT: dry, warm Results Laboratory Results: 02/10/18 05:15 02/10/18 05:15 02/10/18 02/10/18 02/10/18 05:15 05:15 05:15 WBC 7.5 RBC 2.91 L Hgb 8.0 L Hct 24.2 L MCV 83 MCH 27.5 MCHC 33.1 RDW 16.4 H Plt Count 507 H Seg Neutrophils % 74.9 Lymphocytes % 11.8 L Monocytes % 7.7 Eosinophils % 4.2 Basophils % 1.4 Absolute Neutrophils 5.6 Absolute Lymphocytes 0.9 Absolute Monocytes 0.6 Absolute Eosinophils 0.3 Absolute Basophils 0.1 Carbonic Acid 1.39 H HCO3/H2CO3 Ratio 23:1 ABG pH 7.47 H ABG pCO2 46.1 H ABG pO2 74.5 L ABG HCO3 32.9 H ABG O2 Saturation 95.6 ABG Base Excess 8.3 FiO2 30% Sodium 142.9 Potassium 4.4 Chloride 100 Carbon Dioxide 33 H Anion Gap 10 BUN 27 H Creatinine 0.94 Est GFR ( Amer) > 60 Est GFR (Non-Af Amer) > 60 Glucose 147 H Calcium 8.1 L Phosphorus 5.0 H Magnesium 2.5 H Total Bilirubin 0.3 AST 31 ALT 32 Alkaline Phosphatase 91 Total Protein 6.1 L Albumin 2.6 L 02/08/18 09:20 Tracheal Aspirate Gram Stain - Final 02/08/18 09:20 Tracheal Aspirate Sputum Culture - Final C.albicans/C.dubliniensis Normal Alison Absent 01/29/18 01/29/18 01/30/18 17:45 23:40 05:45 Creatine Kinase CK-MB (CK-2) Troponin I 0.244 0.319 0.379 01/30/18 01/30/18 01/30/18 12:00 12:00 18:44 Creatine Kinase 105 74 CK-MB (CK-2) 5.01 H Troponin I 0.349 01/30/18 01/30/18 01/30/18 18:44 23:55 23:55 Creatine Kinase 58 CK-MB (CK-2) 3.04 2.10 Troponin I 0.290 0.268 Impressions: Guidance Fluoroscopy 01/28/18 00:00 IMPRESSION: Please see combined report for performance of procedure and radiologic supervision and interpretation. Head MRI 01/28/18 00:00 IMPRESSION: Positive for acute or sub-acute punctate- lacunar infarctions in multiple locations of both frontal lobes, left parietal-occipital lobe, and the left cerebellum. This pattern suggests embolic phenomenon but can be seen with other etiologies such as traumatic brain injury, correlate clinically. No enhancing lesions. EVIDENCE OF ACUTE STROKE: YES. Multiple vessel distribution Lumbar Puncture 01/28/18 17:17 IMPRESSION: Lumbar puncture under fluoroscopy. No immediate complication. Carotid Doppler Study 01/30/18 00:00 IMPRESSION: NO HEMODYNAMICALLY SIGNIFICANT STENOSIS. Head CT 01/30/18 00:00 IMPRESSION: 1. No acute intracranial abnormality identified. This exam was performed according to our departmental dose-optimization program, which includes automated exposure control, adjustment of the mA and/or kV according to patient size and/or use of iterative reconstruction technique. Chest/Abdomen CTA 01/31/18 12:47 IMPRESSION: 1. Normal CTA of the chest. No pulmonary emboli. 2. Right lower lobe consolidation may represent atelectasis on the basis of submaximal aeration in this intubated patient. Left lower lobe atelectasis. 3. 4.5 x 4.0 x 3.5 cm irregularly marginated heterogeneous appearing mass within the superior pole of the right kidney. This requires further evaluation with dedicated renal CT or MR imaging when feasible. Abdomen/Pelvis CT 02/04/18 10:57 IMPRESSION: 1. LIMITED STUDY. INDISTINCT AREA OF DECREASED ATTENUATION IN THE UPPER POLE OF THE RIGHT KIDNEY, DIFFICULT TO COMPLETELY VISUALIZE DUE TO STREAK ARTIFACT FROM PATIENT'S ARMS. MALIGNANCY SUCH RENAL CELL CARCINOMA IS IN THE DIFFERENTIAL. ANOTHER POSSIBILITY COULD BE AN AREA OF RENAL INFARCTION. IDEALLY, AN MRI OF THE KIDNEYS AFTER THE PATIENT'S CLINICAL CONDITION HAS IMPROVED WOULD BE OPTIMAL TO PROVIDE COMPLETE EVALUATION. 2. CORTICAL CYST IN THE LEFT KIDNEY. 3. GALLSTONES. 4. 3.5 CM INFRARENAL ABDOMINAL AORTIC ANEURYSM. 5. SMALL PLEURAL EFFUSIONS AND BASILAR INFILTRATES, RIGHT GREATER THAN LEFT. Chest X-Ray 02/10/18 06:00 IMPRESSION: Tubes and lines in good positioning. No focal infiltrates Assessment & Plan - Diagnosis (1) Acute ischemic stroke Is this a current diagnosis for this admission?: Yes Plan: resumed intermittent posturing (2) COPD (chronic obstructive pulmonary disease) Qualifiers: Emphysema type: unspecified Is this a current diagnosis for this admission?: Yes Plan: Stable at this time (3) Cardiopulmonary arrest with successful resuscitation Is this a current diagnosis for this admission?: Yes Plan: Patient was in [facility] total of 30 minutes for code - Time Total Critical Time (Minutes): 40
--- NOTE | 2018-02-11 18:18 | PDOC PROGRESS REPORT ---
Subjective Progress Note for:: 02/11/18 Subjective:: intubated Reason For Visit: ALTERED MENTAL STATUS,LEUKOCYTOSIS Physical Exam Vital Signs: Temp Pulse Resp BP Pulse Ox 99.3 F 92 17 135/76 H 97 02/11/18 06:44 02/10/18 23:48 02/11/18 06:44 02/11/18 06:44 02/11/18 06:44 Intake & Output 02/10/18 02/11/18 02/12/18 06:59 06:59 06:59 Intake Total 2552 1560 Output Total 1960 2560 Balance 592 -1000 Weight 113 kg 112.4 kg General appearance: PRESENT: no acute distress, disheveled, obese. ABSENT: cooperative Head exam: PRESENT: atraumatic, normocephalic Eye exam: PRESENT: conjunctiva pale. ABSENT: nystagmus, periorbital swelling, scleral icterus Mouth exam: PRESENT: dry mucosa, neck supple, tongue midline, other - ET tube in place Neck exam: ABSENT: carotid bruit, JVD, lymphadenopathy, thyromegaly, tracheal deviation, tracheostomy Respiratory exam: PRESENT: decreased breath sounds, prolonged expiratory phas, rales, rhonchi, unlabored. ABSENT: retraction, stridor Cardiovascular exam: PRESENT: RRR, +S1, +S2 Pulses: PRESENT: normal radial pulses GI/Abdominal exam: PRESENT: normal bowel sounds, soft Gentrourinary exam: PRESENT: indwelling catheter Extremities exam: ABSENT: clubbing, full ROM, joint swelling Musculoskeletal exam: ABSENT: ambulatory, deformity, dislocation, full ROM Neurological exam: ABSENT: awake Skin exam: PRESENT: dry, warm Results Laboratory Results: 02/11/18 05:07 02/11/18 05:07 02/11/18 02/11/18 02/11/18 05:07 05:07 05:07 WBC 8.8 RBC 3.17 L Hgb 8.7 L Hct 26.3 L MCV 83 MCH 27.5 MCHC 33.2 RDW 16.0 H Plt Count 605 H Seg Neutrophils % 75.9 Lymphocytes % 11.0 L Monocytes % 8.6 Eosinophils % 3.2 Basophils % 1.3 Absolute Neutrophils 6.7 Absolute Lymphocytes 1.0 Absolute Monocytes 0.8 Absolute Eosinophils 0.3 Absolute Basophils 0.1 Carbonic Acid 1.26 HCO3/H2CO3 Ratio 24:1 ABG pH 7.49 H ABG pCO2 42.0 ABG pO2 88.3 ABG HCO3 31.1 H ABG O2 Saturation 97.3 ABG Base Excess 7.1 FiO2 30% Sodium 144.3 Potassium 4.6 Chloride 103 Carbon Dioxide 34 H Anion Gap 7 BUN 27 H Creatinine 1.11 Est GFR ( Amer) > 60 Est GFR (Non-Af Amer) > 60 Glucose 134 H Calcium 8.7 Phosphorus 4.7 H Magnesium 2.6 H 02/08/18 09:20 Tracheal Aspirate Gram Stain - Final 02/08/18 09:20 Tracheal Aspirate Sputum Culture - Final C.albicans/C.dubliniensis Normal Alison Absent 01/29/18 01/29/18 01/30/18 17:45 23:40 05:45 Creatine Kinase CK-MB (CK-2) Troponin I 0.244 0.319 0.379 01/30/18 01/30/18 01/30/18 12:00 12:00 18:44 Creatine Kinase 105 74 CK-MB (CK-2) 5.01 H Troponin I 0.349 01/30/18 01/30/18 01/30/18 18:44 23:55 23:55 Creatine Kinase 58 CK-MB (CK-2) 3.04 2.10 Troponin I 0.290 0.268 Impressions: Guidance Fluoroscopy 01/28/18 00:00 IMPRESSION: Please see combined report for performance of procedure and radiologic supervision and interpretation. Head MRI 01/28/18 00:00 IMPRESSION: Positive for acute or sub-acute punctate- lacunar infarctions in multiple locations of both frontal lobes, left parietal-occipital lobe, and the left cerebellum. This pattern suggests embolic phenomenon but can be seen with other etiologies such as traumatic brain injury, correlate clinically. No enhancing lesions. EVIDENCE OF ACUTE STROKE: YES. Multiple vessel distribution Lumbar Puncture 01/28/18 17:17 IMPRESSION: Lumbar puncture under fluoroscopy. No immediate complication. Carotid Doppler Study 01/30/18 00:00 IMPRESSION: NO HEMODYNAMICALLY SIGNIFICANT STENOSIS. Head CT 01/30/18 00:00 IMPRESSION: 1. No acute intracranial abnormality identified. This exam was performed according to our departmental dose-optimization program, which includes automated exposure control, adjustment of the mA and/or kV according to patient size and/or use of iterative reconstruction technique. Chest/Abdomen CTA 01/31/18 12:47 IMPRESSION: 1. Normal CTA of the chest. No pulmonary emboli. 2. Right lower lobe consolidation may represent atelectasis on the basis of submaximal aeration in this intubated patient. Left lower lobe atelectasis. 3. 4.5 x 4.0 x 3.5 cm irregularly marginated heterogeneous appearing mass within the superior pole of the right kidney. This requires further evaluation with dedicated renal CT or MR imaging when feasible. Abdomen/Pelvis CT 02/04/18 10:57 IMPRESSION: 1. LIMITED STUDY. INDISTINCT AREA OF DECREASED ATTENUATION IN THE UPPER POLE OF THE RIGHT KIDNEY, DIFFICULT TO COMPLETELY VISUALIZE DUE TO STREAK ARTIFACT FROM PATIENT'S ARMS. MALIGNANCY SUCH RENAL CELL CARCINOMA IS IN THE DIFFERENTIAL. ANOTHER POSSIBILITY COULD BE AN AREA OF RENAL INFARCTION. IDEALLY, AN MRI OF THE KIDNEYS AFTER THE PATIENT'S CLINICAL CONDITION HAS IMPROVED WOULD BE OPTIMAL TO PROVIDE COMPLETE EVALUATION. 2. CORTICAL CYST IN THE LEFT KIDNEY. 3. GALLSTONES. 4. 3.5 CM INFRARENAL ABDOMINAL AORTIC ANEURYSM. 5. SMALL PLEURAL EFFUSIONS AND BASILAR INFILTRATES, RIGHT GREATER THAN LEFT. Chest X-Ray 02/11/18 06:00 IMPRESSION: No significant change. Assessment & Plan - Diagnosis (1) Acute ischemic stroke Is this a current diagnosis for this admission?: Yes Plan: resumed intermittent posturing (2) COPD (chronic obstructive pulmonary disease) Qualifiers: Emphysema type: unspecified Is this a current diagnosis for this admission?: Yes Plan: Stable at this time (3) Cardiopulmonary arrest with successful resuscitation Is this a current diagnosis for this admission?: Yes Plan: Patient was in PEA total of 30 minutes for code - Time Total Critical Time (Minutes): 45
[2018-02-12] MEDS: LEVALBUTEROL HCL NEB 1.25 MG/3 ML AMPUL NEB SCH ×3 (00:10→16:17)
[2018-02-12] MEDS: FENTANYL CITRATE INJ/PF 100 MCG/2 ML AMPUL IV PRN ×4 (00:32→22:16)
[2018-02-12] MEDS: LORAZEPAM INJ 2 MG/1 ML VIAL IV PRN ×4 (00:33→22:17)
[2018-02-12] MEDS: AMPICILLIN SODIUM 2 GM in NORMAL SALINE 100 ML IV SCH ×6 (07:24→22:15)
[2018-02-12] MEDS: HEPARIN SOD (PORCINE) 5,000 UNIT/ML 1 ML SYRINGE SUBCUT SCH ×3 (07:26→22:16)
[2018-02-12 07:28] LABS: ARTERIAL BLOOD BASE EXCESS 8.1 mmol/L; ARTERIAL BLOOD FIO2 30%; ARTERIAL BLOOD H2CO3 1.44 mmol/L (1.05-1.35); ARTERIAL BLOOD HCO3 32.9 mmol/L (20-26); ARTERIAL BLOOD O2 SATURATION 95.1 % (94-98); ARTERIAL BLOOD PCO2 47.8 mmHg (35-45); ARTERIAL BLOOD PH 7.46 (7.35-7.45); ARTERIAL BLOOD PO2 72.6 mmHg (80-100); ARTERIAL BLOOD TOTAL CO2 34.4 mmol/L (23-27)
--- NOTE | 2018-02-12 07:34 | RADIOLOGY REPORT (SQ) ---
EXAM DESCRIPTION: XR CHEST 1 VIEW COMPLETED DATE/TME: 02/12/2018 06:00 CLINICAL HISTORY: 57 years Male, resp failure COMPARISON: One day prior. NUMBER OF VIEWS/TECHNIQUE: 1/AP FINDINGS: Small right lung volume, small obscuration-fusion of the right costophrenic angle, normal cardiac silhouette, atherosclerosis, endotracheal tube tip is 4.3 cm from the paty, right subclavian central line tip at the proximal right brachycephalic vein, adequate appearing enteric tube. No pneumothorax. Skeletal structures are stable. IMPRESSION: No significant change.
[2018-02-12] MEDS: CEFTRIAXONE 2 GM/D5W RTU 2 GM/50 ML RTUPB IV SCH ×2 (09:41→22:15)
[2018-02-12] MEDS: PANTOPRAZOLE SODIUM 40 MG VIAL IV SCH (09:42)
[2018-02-12] MEDS: FUROSEMIDE INJ/PF 20 MG/2 ML SDV IV SCH (09:42)
[2018-02-12] MEDS: POLYETHYLENE GLYCOL 3350 POWDER 17 GM/1 PACKET NG SCH (09:42)
[2018-02-12] MEDS: CLOPIDOGREL BISULFATE 75 MG TABLET PO SCH (09:43)
--- NOTE | 2018-02-12 11:12 | PDOC PROGRESS REPORT ---
Subjective Progress Note for:: 02/12/18 Subjective:: intubated Reason For Visit: ALTERED MENTAL STATUS,LEUKOCYTOSIS Physical Exam Vital Signs: Temp Pulse Resp BP Pulse Ox 99.3 F 95 14 118/83 96 02/12/18 10:00 02/12/18 10:00 02/12/18 10:00 02/12/18 10:00 02/12/18 10:00 Intake & Output 02/11/18 02/12/18 02/13/18 06:59 06:59 06:59 Intake Total 1710 1807 100 Output Total 2560 2400 425 Balance -850 -593 -325 Weight 112.4 kg 111.6 kg General appearance: PRESENT: no acute distress, disheveled, obese Head exam: PRESENT: atraumatic, normocephalic Eye exam: PRESENT: conjunctiva pale, EOMI. ABSENT: nystagmus, periorbital swelling, scleral icterus Mouth exam: PRESENT: dry mucosa, neck supple, tongue midline, other - ET tube in place Neck exam: ABSENT: carotid bruit, JVD, lymphadenopathy, thyromegaly, tracheal deviation, tracheostomy Respiratory exam: PRESENT: decreased breath sounds, prolonged expiratory phas, rhonchi, unlabored. ABSENT: stridor, tachypnea Cardiovascular exam: PRESENT: RRR, +S1, +S2 Pulses: PRESENT: normal radial pulses GI/Abdominal exam: PRESENT: hypoactive bowel sounds, soft Gentrourinary exam: PRESENT: indwelling catheter Extremities exam: ABSENT: calf tenderness, clubbing, full ROM, joint swelling Musculoskeletal exam: ABSENT: ambulatory, deformity, dislocation, full ROM Neurological exam: ABSENT: awake Skin exam: PRESENT: dry, warm Results Laboratory Results: 02/11/18 05:07 02/11/18 05:07 02/12/18 07:00 Carbonic Acid 1.44 H HCO3/H2CO3 Ratio 22:1 ABG pH 7.46 H ABG pCO2 47.8 H ABG pO2 72.6 L ABG HCO3 32.9 H ABG O2 Saturation 95.1 ABG Base Excess 8.1 FiO2 30% 01/29/18 01/29/18 01/30/18 17:45 23:40 05:45 Creatine Kinase CK-MB (CK-2) Troponin I 0.244 0.319 0.379 01/30/18 01/30/18 01/30/18 12:00 12:00 18:44 Creatine Kinase 105 74 CK-MB (CK-2) 5.01 H Troponin I 0.349 01/30/18 01/30/18 01/30/18 18:44 23:55 23:55 Creatine Kinase 58 CK-MB (CK-2) 3.04 2.10 Troponin I 0.290 0.268 Impressions: Guidance Fluoroscopy 01/28/18 00:00 IMPRESSION: Please see combined report for performance of procedure and radiologic supervision and interpretation. Head MRI 01/28/18 00:00 IMPRESSION: Positive for acute or sub-acute punctate- lacunar infarctions in multiple locations of both frontal lobes, left parietal-occipital lobe, and the left cerebellum. This pattern suggests embolic phenomenon but can be seen with other etiologies such as traumatic brain injury, correlate clinically. No enhancing lesions. EVIDENCE OF ACUTE STROKE: YES. Multiple vessel distribution Lumbar Puncture 01/28/18 17:17 IMPRESSION: Lumbar puncture under fluoroscopy. No immediate complication. Carotid Doppler Study 01/30/18 00:00 IMPRESSION: NO HEMODYNAMICALLY SIGNIFICANT STENOSIS. Head CT 01/30/18 00:00 IMPRESSION: 1. No acute intracranial abnormality identified. This exam was performed according to our departmental dose-optimization program, which includes automated exposure control, adjustment of the mA and/or kV according to patient size and/or use of iterative reconstruction technique. Chest/Abdomen CTA 01/31/18 12:47 IMPRESSION: 1. Normal CTA of the chest. No pulmonary emboli. 2. Right lower lobe consolidation may represent atelectasis on the basis of submaximal aeration in this intubated patient. Left lower lobe atelectasis. 3. 4.5 x 4.0 x 3.5 cm irregularly marginated heterogeneous appearing mass within the superior pole of the right kidney. This requires further evaluation with dedicated renal CT or MR imaging when feasible. Abdomen/Pelvis CT 02/04/18 10:57 IMPRESSION: 1. LIMITED STUDY. INDISTINCT AREA OF DECREASED ATTENUATION IN THE UPPER POLE OF THE RIGHT KIDNEY, DIFFICULT TO COMPLETELY VISUALIZE DUE TO STREAK ARTIFACT FROM PATIENT'S ARMS. MALIGNANCY SUCH RENAL CELL CARCINOMA IS IN THE DIFFERENTIAL. ANOTHER POSSIBILITY COULD BE AN AREA OF RENAL INFARCTION. IDEALLY, AN MRI OF THE KIDNEYS AFTER THE PATIENT'S CLINICAL CONDITION HAS IMPROVED WOULD BE OPTIMAL TO PROVIDE COMPLETE EVALUATION. 2. CORTICAL CYST IN THE LEFT KIDNEY. 3. GALLSTONES. 4. 3.5 CM INFRARENAL ABDOMINAL AORTIC ANEURYSM. 5. SMALL PLEURAL EFFUSIONS AND BASILAR INFILTRATES, RIGHT GREATER THAN LEFT. Chest X-Ray 02/12/18 06:00 IMPRESSION: No significant change. Assessment & Plan - Diagnosis (1) Acute ischemic stroke Is this a current diagnosis for this admission?: Yes Plan: resumed intermittent posturing (2) COPD (chronic obstructive pulmonary disease) Qualifiers: Emphysema type: unspecified Is this a current diagnosis for this admission?: Yes Plan: Stable at this time (3) Cardiopulmonary arrest with successful resuscitation Is this a current diagnosis for this admission?: Yes Plan: Patient was in PEA total of 30 minutes for code - Plan Summary Plan Summary: Extensive talk with daughter and son-in-law while in the past he felt he did not want a trach at this time we will continue current mechanical ventilation appears to be sent to an LTAC
[2018-02-12 12:26] LABS: HEMATOCRIT 28.3 % (37.9-51.0); HEMOGLOBIN 9.1 g/dL (13.5-17.0); MEAN CORPUSCULAR HEMOGLOBIN 27.2 pg (27.0-33.4); MEAN CORPUSCULAR HGB CONC 32.1 g/dL (32.0-36.0); MEAN CORPUSCULAR VOLUME 85 fl (80-97); PLATELET COUNT 702 10^3/uL (150-450); RED BLOOD COUNT 3.34 10^6/uL (4.35-5.55); RED CELL DISTRIBUTION WIDTH 16.9 % (11.5-14.0); WHITE BLOOD COUNT 9.4 10^3/uL (4.0-10.5)
[2018-02-12 12:38] LABS: ALANINE AMINOTRANSFERASE 22 U/L (21-72); ALKALINE PHOSPHATASE 93 U/L (38-126); ANION GAP 10 (5-19); ASPARTATE AMINO TRANSFERASE 34 U/L (17-59); BILIRUBIN,DIRECT 0.3 mg/dL (0.0-0.4); BILIRUBIN,TOTAL 0.4 mg/dL (0.2-1.3); BLOOD UREA NITROGEN 30 mg/dL (7-20); CALCIUM 8.7 mg/dL (8.4-10.2); CARBON DIOXIDE 31 mmol/L (22-30); CHLORIDE 104 mmol/L (98-107); GLUCOSE 137 mg/dL (75-110); POTASSIUM 4.6 mmol/L (3.6-5.0); SODIUM 145.1 mmol/L (137-145); TOTAL PROTEIN 6.9 g/dL (6.3-8.2)
[2018-02-12 13:44] LABS: ABSOLUTE MONOCYTES # (MANUAL) 0.8 10^3/uL (0.1-1.4); ABSOLUTE NEUTROPHILS# (MANUAL) 7.3 10^3/uL (1.7-8.2); BAND NEUTROPHILS % (MANUAL) 1 % (3-5); BASOPHILS % (MANUAL) 0 % (0-2); EOSINOPHILS % (MANUAL) 2 % (0-6); LYMPHOCYTES % (MANUAL) 10 % (13-45); METAMYELOCYTES % (MANUAL) 1 % (0); MONOCYTES % (MANUAL) 9 % (3-13); PLATELET COMMENT INCREASED; SEGMENTED NEUTROPHILS % (MAN) 76 % (42-78); TOTAL CELLS COUNTED 100; TOXIC GRANULATION SLIGHT
[2018-02-12 13:45] LABS: ANISOCYTOSIS 1+; HYPOCHROMASIA SLIGHT; POLYCHROMASIA SLIGHT; ROULEAUX SLIGHT; TOXIC VACUOLATION PRESENT
--- NOTE | 2018-02-12 14:55 | PDOC PROGRESS REPORT ---
Subjective Progress Note for:: 02/12/18 Subjective:: History is obtained solely from the chart as patient is unable to provide any history. He is currently intubated. He was admitted with an altered mental status, slurred speech as well as difficulty ambulating and was thought to have an acute or subacute lacunar infarct in multiple locations of both frontal lobes , left. And occipital lobes as well as left cerebellum. He had a lumbar puncture done which was negative. He was initially on antibiotics for this was also discontinued. Patient suffered a starting respiratory arrest and was intubated and transferred to the intensive care unit where he remains today. Patient has been having sedation holidays but it appears he is otherwise not really weanable. It appears at this time family is hoping for an immaculate recovery although discussions by his provider as I have indicated that his prognosis is pretty poor. I discussed extensively with family today. It appears LTAC is their preference. Would make referral out to LTAC. They are aware there is no guarantee for acceptance Reason For Visit: ALTERED MENTAL STATUS,LEUKOCYTOSIS Physical Exam Vital Signs: Temp Pulse Resp BP Pulse Ox 99.5 F 96 16 109/68 96 02/12/18 14:00 02/12/18 12:00 02/12/18 14:00 02/12/18 13:20 02/12/18 14:00 Intake & Output 02/11/18 02/12/18 02/13/18 06:59 06:59 06:59 Intake Total 1710 1807 100 Output Total 2560 2400 925 Balance -850 -593 -825 Weight 112.4 kg 111.6 kg General appearance: PRESENT: no acute distress, other - Moving around but less alert today Head exam: PRESENT: atraumatic Teeth exam: PRESENT: other - Intubated Respiratory exam: PRESENT: decreased breath sounds, other - Mechanical ventilation Cardiovascular exam: PRESENT: RRR. ABSENT: diastolic murmur, rubs, systolic murmur GI/Abdominal exam: PRESENT: normal bowel sounds, soft. ABSENT: distended, guarding, mass, organolmegaly, rebound, tenderness Rectal exam: PRESENT: deferred Neurological exam: PRESENT: other - Unable to evaluate. ABSENT: reflexes normal - Hyperreflexia and decorticate posturing Focused psych exam: PRESENT: restlessness Results Laboratory Results: 02/12/18 07:00 02/12/18 07:00 02/12/18 02/12/18 02/12/18 07:00 07:00 07:00 WBC 9.4 RBC 3.34 L Hgb 9.1 L Hct 28.3 L MCV 85 MCH 27.2 MCHC 32.1 RDW 16.9 H Plt Count 702 H Seg Neutrophils % Not Reportable Lymphocytes % Not Reportable Monocytes % Not Reportable Eosinophils % Not Reportable Basophils % Not Reportable Absolute Neutrophils Not Reportable Absolute Lymphocytes Not Reportable Absolute Monocytes Not Reportable Absolute Eosinophils Not Reportable Absolute Basophils Not Reportable Carbonic Acid 1.44 H HCO3/H2CO3 Ratio 22:1 ABG pH 7.46 H ABG pCO2 47.8 H ABG pO2 72.6 L ABG HCO3 32.9 H ABG O2 Saturation 95.1 ABG Base Excess 8.1 FiO2 30% Sodium 145.1 H Potassium 4.6 Chloride 104 Carbon Dioxide 31 H Anion Gap 10 BUN 30 H Creatinine 1.11 Est GFR ( Amer) > 60 Est GFR (Non-Af Amer) > 60 Glucose 137 H Calcium 8.7 Magnesium 2.7 H Total Bilirubin 0.4 AST 34 ALT 22 Alkaline Phosphatase 93 Total Protein 6.9 Albumin 3.0 L 01/29/18 01/29/18 01/30/18 17:45 23:40 05:45 Creatine Kinase CK-MB (CK-2) Troponin I 0.244 0.319 0.379 01/30/18 01/30/18 01/30/18 12:00 12:00 18:44 Creatine Kinase 105 74 CK-MB (CK-2) 5.01 H Troponin I 0.349 01/30/18 01/30/18 01/30/18 18:44 23:55 23:55 Creatine Kinase 58 CK-MB (CK-2) 3.04 2.10 Troponin I 0.290 0.268 Impressions: Guidance Fluoroscopy 01/28/18 00:00 IMPRESSION: Please see combined report for performance of procedure and radiologic supervision and interpretation. Head MRI 01/28/18 00:00 IMPRESSION: Positive for acute or sub-acute punctate- lacunar infarctions in multiple locations of both frontal lobes, left parietal-occipital lobe, and the left cerebellum. This pattern suggests embolic phenomenon but can be seen with other etiologies such as traumatic brain injury, correlate clinically. No enhancing lesions. EVIDENCE OF ACUTE STROKE: YES. Multiple vessel distribution Lumbar Puncture 01/28/18 17:17 IMPRESSION: Lumbar puncture under fluoroscopy. No immediate complication. Carotid Doppler Study 01/30/18 00:00 IMPRESSION: NO HEMODYNAMICALLY SIGNIFICANT STENOSIS. Head CT 01/30/18 00:00 IMPRESSION: 1. No acute intracranial abnormality identified. This exam was performed according to our departmental dose-optimization program, which includes automated exposure control, adjustment of the mA and/or kV according to patient size and/or use of iterative reconstruction technique. Chest/Abdomen CTA 01/31/18 12:47 IMPRESSION: 1. Normal CTA of the chest. No pulmonary emboli. 2. Right lower lobe consolidation may represent atelectasis on the basis of submaximal aeration in this intubated patient. Left lower lobe atelectasis. 3. 4.5 x 4.0 x 3.5 cm irregularly marginated heterogeneous appearing mass within the superior pole of the right kidney. This requires further evaluation with dedicated renal CT or MR imaging when feasible. Abdomen/Pelvis CT 02/04/18 10:57 IMPRESSION: 1. LIMITED STUDY. INDISTINCT AREA OF DECREASED ATTENUATION IN THE UPPER POLE OF THE RIGHT KIDNEY, DIFFICULT TO COMPLETELY VISUALIZE DUE TO STREAK ARTIFACT FROM PATIENT'S ARMS. MALIGNANCY SUCH RENAL CELL CARCINOMA IS IN THE DIFFERENTIAL. ANOTHER POSSIBILITY COULD BE AN AREA OF RENAL INFARCTION. IDEALLY, AN MRI OF THE KIDNEYS AFTER THE PATIENT'S CLINICAL CONDITION HAS IMPROVED WOULD BE OPTIMAL TO PROVIDE COMPLETE EVALUATION. 2. CORTICAL CYST IN THE LEFT KIDNEY. 3. GALLSTONES. 4. 3.5 CM INFRARENAL ABDOMINAL AORTIC ANEURYSM. 5. SMALL PLEURAL EFFUSIONS AND BASILAR INFILTRATES, RIGHT GREATER THAN LEFT. Chest X-Ray 02/12/18 06:00 IMPRESSION: No significant change. Assessment & Plan - Time Time Spent with patient: 25-34 minutes Medications reviewed and adjusted accordingly: Yes Anticipated discharge: Other - LTAC Within: when bed available - Inpatient Certification Based on my medical assessment, after consideration of the patient's comorbidities, presenting symptoms, or acuity I expect that the services needed warrant INPATIENT care.: Yes Medical Necessity: Other - Mechanical ventilation - Plan Summary Plan Summary: Acute respiratory failure status post cardiopulmonary arrest. Patient remains off sedation. He is unable to follow any commands although he does have some reflexes and is moving around in bed 2. Acute to subacute CVA this appears to have been the sentinel event 3. Enterococcus bacteremia patient is still on ampicillin day #6. Repeat blood cultures are negative 4. Cardiopulmonary arrest with return of spontaneous circulation however patient remains intubated and that he probably has anoxic brain injury with poor prognosis for independent living off the ventilator 5. Elevated troponin likely secondary to acute event. No further interventions planned 6. Right renal mass further workup will be deferred 7. COPD stable 8. Stable anemia 9. Extensive discussion with family today and we will proceed with referral to LTAC. Other alternative would be hospice but at this time the not ready to entertain that
[2018-02-12] MEDS: NORMAL SALINE 250 ML IV PRN (17:32)
[2018-02-12] MEDS: ACETAMINOPHEN SOLN 325 MG/10.15 ML UDCUP NG PRN (22:47)
[2018-02-13] MEDS: LEVALBUTEROL HCL NEB 1.25 MG/3 ML AMPUL NEB SCH ×3 (00:21→16:43)
[2018-02-13] MEDS: AMPICILLIN SODIUM 2 GM in NORMAL SALINE 100 ML IV SCH ×6 (05:12→21:36)
[2018-02-13] MEDS: NORMAL SALINE 250 ML IV PRN (05:13)
[2018-02-13] MEDS: HEPARIN SOD (PORCINE) 5,000 UNIT/ML 1 ML SYRINGE SUBCUT SCH ×3 (05:13→21:36)
[2018-02-13 05:14] LABS: ARTERIAL BLOOD BASE EXCESS 4.5 mmol/L; ARTERIAL BLOOD FIO2 30%; ARTERIAL BLOOD H2CO3 1.24 mmol/L (1.05-1.35); ARTERIAL BLOOD HCO3 28.6 mmol/L (20-26); ARTERIAL BLOOD O2 SATURATION 94.6 % (94-98); ARTERIAL BLOOD PCO2 41.1 mmHg (35-45); ARTERIAL BLOOD PH 7.46 (7.35-7.45); ARTERIAL BLOOD PO2 68.5 mmHg (80-100); ARTERIAL BLOOD TOTAL CO2 29.9 mmol/L (23-27)
[2018-02-13 05:26] LABS: ANION GAP 10 (5-19); BLOOD UREA NITROGEN 29 mg/dL (7-20); CARBON DIOXIDE 33 mmol/L (22-30); CHLORIDE 105 mmol/L (98-107); GLUCOSE 130 mg/dL (75-110); POTASSIUM 4.4 mmol/L (3.6-5.0); SODIUM 147.7 mmol/L (137-145)
[2018-02-13 05:28] LABS: ABSOLUTE BASOPHILS # (AUTO) 0.2 10^3/uL (0.0-0.2); ABSOLUTE EOSINOPHILS # (AUTO) 0.3 10^3/uL (0.0-0.6); ABSOLUTE LYMPHOCYTES (AUTO) 1.1 10^3/uL (0.5-4.7); ABSOLUTE MONOCYTES (AUTO) 0.7 10^3/uL (0.1-1.4); ABSOLUTE NEUT (AUTO) 6.1 10^3/uL (1.7-8.2); BASOPHILS % (AUTO) 1.9 % (0-2); EOSINOPHILS % (AUTO) 3.9 % (0-6); HEMATOCRIT 28.2 % (37.9-51.0); HEMOGLOBIN 9.1 g/dL (13.5-17.0); LYMPHOCYTES % (AUTO) 12.6 % (13-45); MEAN CORPUSCULAR HEMOGLOBIN 27.3 pg (27.0-33.4); MEAN CORPUSCULAR HGB CONC 32.5 g/dL (32.0-36.0); MEAN CORPUSCULAR VOLUME 84 fl (80-97); MONOCYTES % (AUTO) 8.2 % (3-13); PLATELET COUNT 704 10^3/uL (150-450); RED BLOOD COUNT 3.35 10^6/uL (4.35-5.55); RED CELL DISTRIBUTION WIDTH 16.3 % (11.5-14.0); SEGMENTED NEUTROPHILS % (AUTO) 73.4 % (42-78); TOTAL CELLS COUNTED % (AUTO) 100 %; WHITE BLOOD COUNT 8.3 10^3/uL (4.0-10.5)
[2018-02-13] MEDS: LORAZEPAM INJ 2 MG/1 ML VIAL IV PRN ×3 (06:19→16:42)
--- NOTE | 2018-02-13 06:57 | RADIOLOGY REPORT (SQ) ---
EXAM DESCRIPTION: XR CHEST 1 VIEW COMPLETED DATE/TME: 02/13/2018 06:00 CLINICAL HISTORY: 57 years Male, r effusion COMPARISON: One day prior. NUMBER OF VIEWS/TECHNIQUE: 1/AP FINDINGS: Mild interstitial markings, small right lung volume, normal cardiac silhouette, endotracheal tube tip is 4.3 cm from the paty, adequate appearing enteric tube. No pneumothorax. Skeletal structures are stable. IMPRESSION: No significant change.
[2018-02-13] MEDS: FENTANYL CITRATE INJ/PF 100 MCG/2 ML AMPUL IV PRN ×2 (08:58→16:42)
[2018-02-13] MEDS: PANTOPRAZOLE SODIUM 40 MG VIAL IV SCH (10:21)
[2018-02-13] MEDS: CLOPIDOGREL BISULFATE 75 MG TABLET PO SCH (10:21)
[2018-02-13] MEDS: FUROSEMIDE INJ/PF 20 MG/2 ML SDV IV SCH (10:22)
[2018-02-13] MEDS: POLYETHYLENE GLYCOL 3350 POWDER 17 GM/1 PACKET NG SCH (10:23)
[2018-02-13] MEDS: CEFTRIAXONE 2 GM/D5W RTU 2 GM/50 ML RTUPB IV SCH ×2 (10:53→21:36)
--- NOTE | 2018-02-13 13:21 | PDOC PROGRESS REPORT ---
Subjective Progress Note for:: 02/13/18 Subjective:: intubated Reason For Visit: ALTERED MENTAL STATUS,LEUKOCYTOSIS Physical Exam Vital Signs: Temp Pulse Resp BP Pulse Ox 99.0 F 96 16 119/70 95 02/13/18 06:00 02/13/18 08:44 02/13/18 08:44 02/13/18 05:45 02/13/18 08:44 Intake & Output 02/12/18 02/13/18 02/14/18 06:59 06:59 06:59 Intake Total 1807 1706 Output Total 2400 1875 Balance -593 -169 Weight 111.6 kg General appearance: PRESENT: no acute distress, disheveled, obese. ABSENT: cooperative Head exam: PRESENT: atraumatic, normocephalic Eye exam: PRESENT: conjunctiva pale. ABSENT: EOMI, nystagmus, periorbital swelling, scleral icterus Mouth exam: PRESENT: dry mucosa, neck supple, tongue midline, other - ET tube in place Neck exam: ABSENT: carotid bruit, JVD, lymphadenopathy, thyromegaly, tracheal deviation, tracheostomy Respiratory exam: PRESENT: decreased breath sounds, prolonged expiratory phas, rales, rhonchi, unlabored. ABSENT: retraction, stridor Cardiovascular exam: PRESENT: RRR, +S1, +S2 Pulses: PRESENT: normal radial pulses GI/Abdominal exam: PRESENT: hypoactive bowel sounds, soft Gentrourinary exam: PRESENT: indwelling catheter Extremities exam: PRESENT: pedal edema. ABSENT: clubbing, joint swelling Musculoskeletal exam: ABSENT: deformity, dislocation Neurological exam: ABSENT: awake Skin exam: PRESENT: dry, warm Results Laboratory Results: 02/13/18 05:00 02/13/18 05:00 02/12/18 02/12/18 02/13/18 07:00 07:00 05:00 WBC 9.4 RBC 3.34 L Hgb 9.1 L Hct 28.3 L MCV 85 MCH 27.2 MCHC 32.1 RDW 16.9 H Plt Count 702 H Seg Neutrophils % Not Reportable Lymphocytes % Not Reportable Monocytes % Not Reportable Eosinophils % Not Reportable Basophils % Not Reportable Absolute Neutrophils Not Reportable Absolute Lymphocytes Not Reportable Absolute Monocytes Not Reportable Absolute Eosinophils Not Reportable Absolute Basophils Not Reportable Carbonic Acid 1.24 HCO3/H2CO3 Ratio 23:1 ABG pH 7.46 H ABG pCO2 41.1 ABG pO2 68.5 L ABG HCO3 28.6 H ABG O2 Saturation 94.6 ABG Base Excess 4.5 FiO2 30% Sodium 145.1 H Potassium 4.6 Chloride 104 Carbon Dioxide 31 H Anion Gap 10 BUN 30 H Creatinine 1.11 Est GFR ( Amer) > 60 Est GFR (Non-Af Amer) > 60 Glucose 137 H Calcium 8.7 Magnesium 2.7 H Total Bilirubin 0.4 AST 34 ALT 22 Alkaline Phosphatase 93 Total Protein 6.9 Albumin 3.0 L 02/13/18 02/13/18 05:00 05:00 WBC 8.3 RBC 3.35 L Hgb 9.1 L Hct 28.2 L MCV 84 MCH 27.3 MCHC 32.5 RDW 16.3 H Plt Count 704 H Seg Neutrophils % 73.4 Lymphocytes % 12.6 L Monocytes % 8.2 Eosinophils % 3.9 Basophils % 1.9 Absolute Neutrophils 6.1 Absolute Lymphocytes 1.1 Absolute Monocytes 0.7 Absolute Eosinophils 0.3 Absolute Basophils 0.2 Carbonic Acid HCO3/H2CO3 Ratio ABG pH ABG pCO2 ABG pO2 ABG HCO3 ABG O2 Saturation ABG Base Excess FiO2 Sodium 147.7 H Potassium 4.4 Chloride 105 Carbon Dioxide 33 H Anion Gap 10 BUN 29 H Creatinine 1.19 Est GFR ( Amer) > 60 Est GFR (Non-Af Amer) > 60 Glucose 130 H Calcium 9.0 Magnesium Total Bilirubin AST ALT Alkaline Phosphatase Total Protein Albumin 01/29/18 01/29/18 01/30/18 17:45 23:40 05:45 Creatine Kinase CK-MB (CK-2) Troponin I 0.244 0.319 0.379 01/30/18 01/30/18 01/30/18 12:00 12:00 18:44 Creatine Kinase 105 74 CK-MB (CK-2) 5.01 H Troponin I 0.349 01/30/18 01/30/18 01/30/18 18:44 23:55 23:55 Creatine Kinase 58 CK-MB (CK-2) 3.04 2.10 Troponin I 0.290 0.268 Impressions: Guidance Fluoroscopy 01/28/18 00:00 IMPRESSION: Please see combined report for performance of procedure and radiologic supervision and interpretation. Head MRI 01/28/18 00:00 IMPRESSION: Positive for acute or sub-acute punctate- lacunar infarctions in multiple locations of both frontal lobes, left parietal-occipital lobe, and the left cerebellum. This pattern suggests embolic phenomenon but can be seen with other etiologies such as traumatic brain injury, correlate clinically. No enhancing lesions. EVIDENCE OF ACUTE STROKE: YES. Multiple vessel distribution Lumbar Puncture 01/28/18 17:17 IMPRESSION: Lumbar puncture under fluoroscopy. No immediate complication. Carotid Doppler Study 01/30/18 00:00 IMPRESSION: NO HEMODYNAMICALLY SIGNIFICANT STENOSIS. Head CT 01/30/18 00:00 IMPRESSION: 1. No acute intracranial abnormality identified. This exam was performed according to our departmental dose-optimization program, which includes automated exposure control, adjustment of the mA and/or kV according to patient size and/or use of iterative reconstruction technique. Chest/Abdomen CTA 01/31/18 12:47 IMPRESSION: 1. Normal CTA of the chest. No pulmonary emboli. 2. Right lower lobe consolidation may represent atelectasis on the basis of submaximal aeration in this intubated patient. Left lower lobe atelectasis. 3. 4.5 x 4.0 x 3.5 cm irregularly marginated heterogeneous appearing mass within the superior pole of the right kidney. This requires further evaluation with dedicated renal CT or MR imaging when feasible. Abdomen/Pelvis CT 02/04/18 10:57 IMPRESSION: 1. LIMITED STUDY. INDISTINCT AREA OF DECREASED ATTENUATION IN THE UPPER POLE OF THE RIGHT KIDNEY, DIFFICULT TO COMPLETELY VISUALIZE DUE TO STREAK ARTIFACT FROM PATIENT'S ARMS. MALIGNANCY SUCH RENAL CELL CARCINOMA IS IN THE DIFFERENTIAL. ANOTHER POSSIBILITY COULD BE AN AREA OF RENAL INFARCTION. IDEALLY, AN MRI OF THE KIDNEYS AFTER THE PATIENT'S CLINICAL CONDITION HAS IMPROVED WOULD BE OPTIMAL TO PROVIDE COMPLETE EVALUATION. 2. CORTICAL CYST IN THE LEFT KIDNEY. 3. GALLSTONES. 4. 3.5 CM INFRARENAL ABDOMINAL AORTIC ANEURYSM. 5. SMALL PLEURAL EFFUSIONS AND BASILAR INFILTRATES, RIGHT GREATER THAN LEFT. Chest X-Ray 02/13/18 06:00 IMPRESSION: No significant change. Assessment & Plan - Diagnosis (1) Acute ischemic stroke Is this a current diagnosis for this admission?: Yes Plan: resumed intermittent posturing (2) COPD (chronic obstructive pulmonary disease) Qualifiers: Emphysema type: unspecified Is this a current diagnosis for this admission?: Yes Plan: Stable at this time (3) Cardiopulmonary arrest with successful resuscitation Is this a current diagnosis for this admission?: Yes Plan: Patient was in [facility] total of 30 minutes for code - Time Total Critical Time (Minutes): 40
--- NOTE | 2018-02-13 13:50 | PDOC PROGRESS REPORT ---
Subjective Progress Note for:: 02/13/18 Subjective:: History is obtained solely from the chart as patient is unable to provide any history. He is currently intubated. He was admitted with an altered mental status, slurred speech as well as difficulty ambulating and was thought to have an acute or subacute lacunar infarct in multiple locations of both frontal lobes , left. And occipital lobes as well as left cerebellum. He had a lumbar puncture done which was negative. He was initially on antibiotics for this was also discontinued. Patient suffered a starting respiratory arrest and was intubated and transferred to the intensive care unit where he remains today. Patient has been having sedation holidays but it appears he is otherwise not really weanable. It appears at this time family is hoping for an immaculate recovery although discussions by all providers have indicated that his prognosis is pretty poor. I discussed extensively with family again today. They are aware we still waiting for LTAC response. Patient's condition is grossly unchanged. Reason For Visit: ALTERED MENTAL STATUS,LEUKOCYTOSIS Physical Exam Vital Signs: Temp Pulse Resp BP Pulse Ox 99.9 F 97 18 140/82 H 97 02/13/18 12:00 02/13/18 12:00 02/13/18 12:00 02/13/18 12:00 02/13/18 12:45 Intake & Output 02/12/18 02/13/18 02/14/18 06:59 06:59 06:59 Intake Total 1807 1856 264 Output Total 2400 1875 810 Balance -593 -19 -546 Weight 111.6 kg 109.1 kg General appearance: PRESENT: no acute distress, other - Mechanical ventilation Head exam: PRESENT: atraumatic Eye exam: PRESENT: PERRLA Neck exam: ABSENT: carotid bruit, JVD, lymphadenopathy, thyromegaly Respiratory exam: PRESENT: decreased breath sounds, symmetrical, other - On respirator Cardiovascular exam: PRESENT: RRR, +S1, +S2 GI/Abdominal exam: PRESENT: normal bowel sounds, soft. ABSENT: distended, guarding, mass, organolmegaly, rebound, tenderness Rectal exam: PRESENT: deferred Neurological exam: PRESENT: other - Sedated Results Laboratory Results: 02/13/18 05:00 02/13/18 05:00 02/13/18 02/13/18 02/13/18 05:00 05:00 05:00 WBC 8.3 RBC 3.35 L Hgb 9.1 L Hct 28.2 L MCV 84 MCH 27.3 MCHC 32.5 RDW 16.3 H Plt Count 704 H Seg Neutrophils % 73.4 Lymphocytes % 12.6 L Monocytes % 8.2 Eosinophils % 3.9 Basophils % 1.9 Absolute Neutrophils 6.1 Absolute Lymphocytes 1.1 Absolute Monocytes 0.7 Absolute Eosinophils 0.3 Absolute Basophils 0.2 Carbonic Acid 1.24 HCO3/H2CO3 Ratio 23:1 ABG pH 7.46 H ABG pCO2 41.1 ABG pO2 68.5 L ABG HCO3 28.6 H ABG O2 Saturation 94.6 ABG Base Excess 4.5 FiO2 30% Sodium 147.7 H Potassium 4.4 Chloride 105 Carbon Dioxide 33 H Anion Gap 10 BUN 29 H Creatinine 1.19 Est GFR ( Amer) > 60 Est GFR (Non-Af Amer) > 60 Glucose 130 H Calcium 9.0 01/29/18 01/29/18 01/30/18 17:45 23:40 05:45 Creatine Kinase CK-MB (CK-2) Troponin I 0.244 0.319 0.379 01/30/18 01/30/18 01/30/18 12:00 12:00 18:44 Creatine Kinase 105 74 CK-MB (CK-2) 5.01 H Troponin I 0.349 01/30/18 01/30/18 01/30/18 18:44 23:55 23:55 Creatine Kinase 58 CK-MB (CK-2) 3.04 2.10 Troponin I 0.290 0.268 Impressions: Guidance Fluoroscopy 01/28/18 00:00 IMPRESSION: Please see combined report for performance of procedure and radiologic supervision and interpretation. Head MRI 01/28/18 00:00 IMPRESSION: Positive for acute or sub-acute punctate- lacunar infarctions in multiple locations of both frontal lobes, left parietal-occipital lobe, and the left cerebellum. This pattern suggests embolic phenomenon but can be seen with other etiologies such as traumatic brain injury, correlate clinically. No enhancing lesions. EVIDENCE OF ACUTE STROKE: YES. Multiple vessel distribution Lumbar Puncture 01/28/18 17:17 IMPRESSION: Lumbar puncture under fluoroscopy. No immediate complication. Carotid Doppler Study 01/30/18 00:00 IMPRESSION: NO HEMODYNAMICALLY SIGNIFICANT STENOSIS. Head CT 01/30/18 00:00 IMPRESSION: 1. No acute intracranial abnormality identified. This exam was performed according to our departmental dose-optimization program, which includes automated exposure control, adjustment of the mA and/or kV according to patient size and/or use of iterative reconstruction technique. Chest/Abdomen CTA 01/31/18 12:47 IMPRESSION: 1. Normal CTA of the chest. No pulmonary emboli. 2. Right lower lobe consolidation may represent atelectasis on the basis of submaximal aeration in this intubated patient. Left lower lobe atelectasis. 3. 4.5 x 4.0 x 3.5 cm irregularly marginated heterogeneous appearing mass within the superior pole of the right kidney. This requires further evaluation with dedicated renal CT or MR imaging when feasible. Abdomen/Pelvis CT 02/04/18 10:57 IMPRESSION: 1. LIMITED STUDY. INDISTINCT AREA OF DECREASED ATTENUATION IN THE UPPER POLE OF THE RIGHT KIDNEY, DIFFICULT TO COMPLETELY VISUALIZE DUE TO STREAK ARTIFACT FROM PATIENT'S ARMS. MALIGNANCY SUCH RENAL CELL CARCINOMA IS IN THE DIFFERENTIAL. ANOTHER POSSIBILITY COULD BE AN AREA OF RENAL INFARCTION. IDEALLY, AN MRI OF THE KIDNEYS AFTER THE PATIENT'S CLINICAL CONDITION HAS IMPROVED WOULD BE OPTIMAL TO PROVIDE COMPLETE EVALUATION. 2. CORTICAL CYST IN THE LEFT KIDNEY. 3. GALLSTONES. 4. 3.5 CM INFRARENAL ABDOMINAL AORTIC ANEURYSM. 5. SMALL PLEURAL EFFUSIONS AND BASILAR INFILTRATES, RIGHT GREATER THAN LEFT. Chest X-Ray 02/13/18 06:00 IMPRESSION: No significant change. Assessment & Plan - Time Time Spent with patient: 15-24 minutes Medications reviewed and adjusted accordingly: Yes Anticipated discharge: Other - To be determined - Inpatient Certification Based on my medical assessment, after consideration of the patient's comorbidities, presenting symptoms, or acuity I expect that the services needed warrant INPATIENT care.: Yes Medical Necessity: Other - Mechanical ventilation - Plan Summary Plan Summary: 1. Acute respiratory failure status post cardiopulmonary arrest. Patient remains off sedation 2. Acute to subacute CVA this appears to have been the sentinel event 3. Enterococcus bacteremia patient is still on ampicillin day #7. Repeat blood cultures are negative 4. Cardiopulmonary arrest with return of spontaneous circulation however patient remains intubated and that he probably has anoxic brain injury with poor prognosis for independent living off the ventilator 5. Elevated troponin likely secondary to acute event. No further interventions planned 6. Right renal mass further workup will be deferred 7. COPD stable 8. Stable anemia 9. Discussion with family today, awaiting response from LTAC. Other alternative would be hospice but at this time they are not ready to entertain that
[2018-02-13 15:16] LABS: PATH REVIEW PATHOLOGIST REVIEWED
[2018-02-13] MEDS: ACETAMINOPHEN SOLN 325 MG/10.15 ML UDCUP NG PRN (22:08)
[2018-02-14] MEDS: LEVALBUTEROL HCL NEB 1.25 MG/3 ML AMPUL NEB SCH ×3 (00:48→15:49)
[2018-02-14] MEDS: AMPICILLIN SODIUM 2 GM in NORMAL SALINE 100 ML IV SCH ×4 (02:26→14:15)
[2018-02-14] MEDS: LORAZEPAM INJ 2 MG/1 ML VIAL IV PRN ×4 (03:46→20:52)
[2018-02-14 05:46] LABS: ARTERIAL BLOOD BASE EXCESS 7.1 mmol/L; ARTERIAL BLOOD HCO3 31.9 mmol/L (20-26); ARTERIAL BLOOD O2 SATURATION 95.2 % (94-98); ARTERIAL BLOOD PCO2 46.6 mmHg (35-45); ARTERIAL BLOOD PH 7.45 (7.35-7.45); ARTERIAL BLOOD PO2 73.1 mmHg (80-100); ARTERIAL BLOOD TOTAL CO2 33.3 mmol/L (23-27)
[2018-02-14 05:48] LABS: ARTERIAL BLOOD FIO2 30%
[2018-02-14] MEDS: NORMAL SALINE 250 ML IV PRN (05:48)
[2018-02-14 05:49] LABS: ABSOLUTE BASOPHILS # (AUTO) 0.1 10^3/uL (0.0-0.2); ABSOLUTE EOSINOPHILS # (AUTO) 0.3 10^3/uL (0.0-0.6); ABSOLUTE MONOCYTES (AUTO) 0.7 10^3/uL (0.1-1.4); ABSOLUTE NEUT (AUTO) 6.4 10^3/uL (1.7-8.2); BASOPHILS % (AUTO) 1.3 % (0-2); EOSINOPHILS % (AUTO) 3.3 % (0-6); HEMATOCRIT 27.4 % (37.9-51.0); LYMPHOCYTES % (AUTO) 11.8 % (13-45); MEAN CORPUSCULAR HEMOGLOBIN 27.6 pg (27.0-33.4); MEAN CORPUSCULAR HGB CONC 32.9 g/dL (32.0-36.0); MEAN CORPUSCULAR VOLUME 84 fl (80-97); MONOCYTES % (AUTO) 8.3 % (3-13); PLATELET COUNT 684 10^3/uL (150-450); RED BLOOD COUNT 3.27 10^6/uL (4.35-5.55); RED CELL DISTRIBUTION WIDTH 16.3 % (11.5-14.0); SEGMENTED NEUTROPHILS % (AUTO) 75.3 % (42-78); TOTAL CELLS COUNTED % (AUTO) 100 %; WHITE BLOOD COUNT 8.5 10^3/uL (4.0-10.5)
[2018-02-14] MEDS: HEPARIN SOD (PORCINE) 5,000 UNIT/ML 1 ML SYRINGE SUBCUT SCH ×3 (05:49→21:55)
[2018-02-14] MEDS: FENTANYL CITRATE INJ/PF 100 MCG/2 ML AMPUL IV PRN ×4 (05:49→20:52)
[2018-02-14 05:59] LABS: ANION GAP 10 (5-19); BLOOD UREA NITROGEN 29 mg/dL (7-20); CALCIUM 8.6 mg/dL (8.4-10.2); CARBON DIOXIDE 31 mmol/L (22-30); CHLORIDE 106 mmol/L (98-107); GLUCOSE 141 mg/dL (75-110); POTASSIUM 4.1 mmol/L (3.6-5.0); SODIUM 147.2 mmol/L (137-145)
[2018-02-14] MEDS: POLYETHYLENE GLYCOL 3350 POWDER 17 GM/1 PACKET NG SCH (10:20)
[2018-02-14] MEDS: FUROSEMIDE INJ/PF 20 MG/2 ML SDV IV SCH (10:21)
[2018-02-14] MEDS: CLOPIDOGREL BISULFATE 75 MG TABLET PO SCH (10:22)
[2018-02-14] MEDS: CEFTRIAXONE 2 GM/D5W RTU 2 GM/50 ML RTUPB IV SCH (10:22)
--- NOTE | 2018-02-14 15:08 | PDOC PROGRESS REPORT ---
Subjective Progress Note for:: 02/14/18 Subjective:: History is obtained solely from the chart as patient is unable to provide any history. He is currently intubated. He was admitted with an altered mental status, slurred speech as well as difficulty ambulating and was thought to have an acute or subacute lacunar infarct in multiple locations of both frontal lobes , left. And occipital lobes as well as left cerebellum. He had a lumbar puncture done which was negative. He was initially on antibiotics for this was also discontinued. Patient suffered a starting respiratory arrest and was intubated and transferred to the intensive care unit where he remains today. Patient has been having sedation holidays but it appears he is otherwise not really weanable. It appears at this time family is hoping for an immaculate recovery although discussions by all providers have indicated that his prognosis is pretty poor. I discussed extensively with family again today. They are aware we still waiting for LTAC response however the patient is a [employer] so now [facility]. Patient's condition is grossly unchanged. Reason For Visit: ALTERED MENTAL STATUS,LEUKOCYTOSIS Physical Exam Vital Signs: Temp Pulse Resp BP Pulse Ox 99.9 F 88 20 144/70 H 94 02/14/18 14:00 02/14/18 14:00 02/14/18 14:00 02/14/18 14:00 02/14/18 14:00 Intake & Output 02/13/18 02/14/18 02/15/18 06:59 06:59 06:59 Intake Total 1856 2571 708 Output Total 1875 2165 1225 Balance -19 406 -517 Weight 109.1 kg 109.1 kg General appearance: PRESENT: no acute distress, well-developed, well-nourished, other - intubated Head exam: PRESENT: atraumatic, normocephalic Eye exam: PRESENT: conjunctiva pink, PERRLA. ABSENT: scleral icterus Ear exam: PRESENT: normal external ear exam Mouth exam: PRESENT: moist, tongue midline Neck exam: ABSENT: carotid bruit, JVD, lymphadenopathy, thyromegaly Respiratory exam: PRESENT: clear to auscultation karime. ABSENT: rales, rhonchi, wheezes Cardiovascular exam: PRESENT: +S1, +S2, tachycardia. ABSENT: diastolic murmur, rubs, systolic murmur Pulses: PRESENT: normal dorsalis pedis pul GI/Abdominal exam: PRESENT: normal bowel sounds, soft. ABSENT: distended, guarding, mass, organolmegaly, rebound, tenderness Rectal exam: PRESENT: deferred Extremities exam: PRESENT: full ROM. ABSENT: calf tenderness, clubbing, pedal edema Neurological exam: PRESENT: motor sensory deficit - Left sided weakness, plegia , other - unable to follow commands Skin exam: PRESENT: dry, intact, warm. ABSENT: cyanosis, rash Results Laboratory Results: 02/14/18 05:30 02/14/18 05:30 02/14/18 02/14/18 02/14/18 05:30 05:30 05:30 WBC 8.5 RBC 3.27 L Hgb 9.0 L Hct 27.4 L MCV 84 MCH 27.6 MCHC 32.9 RDW 16.3 H Plt Count 684 H Seg Neutrophils % 75.3 Lymphocytes % 11.8 L Monocytes % 8.3 Eosinophils % 3.3 Basophils % 1.3 Absolute Neutrophils 6.4 Absolute Lymphocytes 1.0 Absolute Monocytes 0.7 Absolute Eosinophils 0.3 Absolute Basophils 0.1 Carbonic Acid 1.40 H HCO3/H2CO3 Ratio 22:1 ABG pH 7.45 ABG pCO2 46.6 H ABG pO2 73.1 L ABG HCO3 31.9 H ABG O2 Saturation 95.2 ABG Base Excess 7.1 FiO2 30% Sodium 147.2 H Potassium 4.1 Chloride 106 Carbon Dioxide 31 H Anion Gap 10 BUN 29 H Creatinine 1.08 Est GFR ( Amer) > 60 Est GFR (Non-Af Amer) > 60 Glucose 141 H Calcium 8.6 01/29/18 01/29/18 01/30/18 17:45 23:40 05:45 Creatine Kinase CK-MB (CK-2) Troponin I 0.244 0.319 0.379 01/30/18 01/30/18 01/30/18 12:00 12:00 18:44 Creatine Kinase 105 74 CK-MB (CK-2) 5.01 H Troponin I 0.349 01/30/18 01/30/18 01/30/18 18:44 23:55 23:55 Creatine Kinase 58 CK-MB (CK-2) 3.04 2.10 Troponin I 0.290 0.268 Impressions: Guidance Fluoroscopy 01/28/18 00:00 IMPRESSION: Please see combined report for performance of procedure and radiologic supervision and interpretation. Head MRI 01/28/18 00:00 IMPRESSION: Positive for acute or sub-acute punctate- lacunar infarctions in multiple locations of both frontal lobes, left parietal-occipital lobe, and the left cerebellum. This pattern suggests embolic phenomenon but can be seen with other etiologies such as traumatic brain injury, correlate clinically. No enhancing lesions. EVIDENCE OF ACUTE STROKE: YES. Multiple vessel distribution Lumbar Puncture 01/28/18 17:17 IMPRESSION: Lumbar puncture under fluoroscopy. No immediate complication. Carotid Doppler Study 01/30/18 00:00 IMPRESSION: NO HEMODYNAMICALLY SIGNIFICANT STENOSIS. Head CT 01/30/18 00:00 IMPRESSION: 1. No acute intracranial abnormality identified. This exam was performed according to our departmental dose-optimization program, which includes automated exposure control, adjustment of the mA and/or kV according to patient size and/or use of iterative reconstruction technique. Chest/Abdomen CTA 01/31/18 12:47 IMPRESSION: 1. Normal CTA of the chest. No pulmonary emboli. 2. Right lower lobe consolidation may represent atelectasis on the basis of submaximal aeration in this intubated patient. Left lower lobe atelectasis. 3. 4.5 x 4.0 x 3.5 cm irregularly marginated heterogeneous appearing mass within the superior pole of the right kidney. This requires further evaluation with dedicated renal CT or MR imaging when feasible. Abdomen/Pelvis CT 02/04/18 10:57 IMPRESSION: 1. LIMITED STUDY. INDISTINCT AREA OF DECREASED ATTENUATION IN THE UPPER POLE OF THE RIGHT KIDNEY, DIFFICULT TO COMPLETELY VISUALIZE DUE TO STREAK ARTIFACT FROM PATIENT'S ARMS. MALIGNANCY SUCH RENAL CELL CARCINOMA IS IN THE DIFFERENTIAL. ANOTHER POSSIBILITY COULD BE AN AREA OF RENAL INFARCTION. IDEALLY, AN MRI OF THE KIDNEYS AFTER THE PATIENT'S CLINICAL CONDITION HAS IMPROVED WOULD BE OPTIMAL TO PROVIDE COMPLETE EVALUATION. 2. CORTICAL CYST IN THE LEFT KIDNEY. 3. GALLSTONES. 4. 3.5 CM INFRARENAL ABDOMINAL AORTIC ANEURYSM. 5. SMALL PLEURAL EFFUSIONS AND BASILAR INFILTRATES, RIGHT GREATER THAN LEFT. Chest X-Ray 02/13/18 06:00 IMPRESSION: No significant change. Assessment & Plan - Time Time Spent with patient: 25-34 minutes Medications reviewed and adjusted accordingly: Yes Anticipated discharge: Other Within: within 72 hours - Inpatient Certification Based on my medical assessment, after consideration of the patient's comorbidities, presenting symptoms, or acuity I expect that the services needed warrant INPATIENT care.: Yes Medical Necessity: Need For IV Fluids, Other - Ventilation - Plan Summary Plan Summary: 1. Acute respiratory failure status post cardiopulmonary arrest. Patient remains off sedation with no meaningful responses 2. Acute to subacute CVA this appears to have been the sentinel event 3. Enterococcus bacteremia patient is still on ampicillin day #8 to complete today. Repeat blood cultures are negative 4. Cardiopulmonary arrest with return of spontaneous circulation however patient remains intubated and that he probably has anoxic brain injury with poor prognosis for independent living off the ventilator 5. Elevated troponin likely secondary to acute event. No further interventions planned 6. Right renal mass further workup will be deferred 7. COPD stable 8. Stable anemia 9. Discussion with family again today, awaiting response from LTAC. Other alternative would be hospice but at this time they are still not ready to entertain that. Daughter is very involved and attached
[2018-02-14] MEDS: NYSTATIN TOPICAL POWDER 15 GM TP SCH (18:59)
[2018-02-15] MEDS: LEVALBUTEROL HCL NEB 1.25 MG/3 ML AMPUL NEB SCH ×3 (00:14→15:38)
[2018-02-15] MEDS: FENTANYL CITRATE INJ/PF 100 MCG/2 ML AMPUL IV PRN ×2 (01:55→18:20)
[2018-02-15] MEDS: LORAZEPAM INJ 2 MG/1 ML VIAL IV PRN ×2 (01:57→18:20)
[2018-02-15] MEDS: HEPARIN SOD (PORCINE) 5,000 UNIT/ML 1 ML SYRINGE SUBCUT SCH ×3 (06:48→23:10)
[2018-02-15 07:17] LABS: ABSOLUTE BASOPHILS # (AUTO) 0.1 10^3/uL (0.0-0.2); ABSOLUTE EOSINOPHILS # (AUTO) 0.3 10^3/uL (0.0-0.6); ABSOLUTE MONOCYTES (AUTO) 0.6 10^3/uL (0.1-1.4); ABSOLUTE NEUT (AUTO) 6.7 10^3/uL (1.7-8.2); BASOPHILS % (AUTO) 1.2 % (0-2); EOSINOPHILS % (AUTO) 3.7 % (0-6); HEMATOCRIT 28.6 % (37.9-51.0); HEMOGLOBIN 9.2 g/dL (13.5-17.0); LYMPHOCYTES % (AUTO) 11.6 % (13-45); MEAN CORPUSCULAR HEMOGLOBIN 27.2 pg (27.0-33.4); MEAN CORPUSCULAR HGB CONC 32.3 g/dL (32.0-36.0); MEAN CORPUSCULAR VOLUME 84 fl (80-97); MONOCYTES % (AUTO) 7.1 % (3-13); PLATELET COUNT 712 10^3/uL (150-450); RED CELL DISTRIBUTION WIDTH 16.4 % (11.5-14.0); SEGMENTED NEUTROPHILS % (AUTO) 76.4 % (42-78); TOTAL CELLS COUNTED % (AUTO) 100 %; WHITE BLOOD COUNT 8.8 10^3/uL (4.0-10.5)
[2018-02-15 07:19] LABS: ARTERIAL BLOOD BASE EXCESS 6.2 mmol/L; ARTERIAL BLOOD H2CO3 1.26 mmol/L (1.05-1.35); ARTERIAL BLOOD HCO3 30.4 mmol/L (20-26); ARTERIAL BLOOD O2 SATURATION 95.7 % (94-98); ARTERIAL BLOOD PH 7.48 (7.35-7.45); ARTERIAL BLOOD PO2 74.2 mmHg (80-100); ARTERIAL BLOOD TOTAL CO2 31.7 mmol/L (23-27)
[2018-02-15 07:20] LABS: ARTERIAL BLOOD FIO2 30%
[2018-02-15 07:28] LABS: ALANINE AMINOTRANSFERASE 25 U/L (21-72); ALBUMIN 3.3 g/dL (3.5-5.0); ALKALINE PHOSPHATASE 88 U/L (38-126); ANION GAP 8 (5-19); ASPARTATE AMINO TRANSFERASE 44 U/L (17-59); BILIRUBIN,DIRECT 0.3 mg/dL (0.0-0.4); BILIRUBIN,TOTAL 0.4 mg/dL (0.2-1.3); BLOOD UREA NITROGEN 30 mg/dL (7-20); CARBON DIOXIDE 33 mmol/L (22-30); CHLORIDE 105 mmol/L (98-107); GLUCOSE 122 mg/dL (75-110); POTASSIUM 4.9 mmol/L (3.6-5.0); SODIUM 145.9 mmol/L (137-145)
--- NOTE | 2018-02-15 08:46 | RADIOLOGY REPORT (SQ) ---
EXAM DESCRIPTION: CHEST SINGLE VIEW COMPLETED DATE/TIME: 02/15/2018 6:47 am REASON FOR STUDY: resp failure COMPARISON: 02/13/2018 NUMBER OF VIEWS: One view. TECHNIQUE: Single frontal radiographic image of the chest acquired. LIMITATIONS: None. FINDINGS: LUNGS AND PLEURA: Chronic elevation right diaphragm. No infiltrate or pneumothorax. MEDIASTINUM AND HILAR STRUCTURES: Stable heart size and mediastinal structures. HEART AND VASCULAR STRUCTURES: Stable appearance. SUPPORT DEVICES: Appropriate location without change. BONES: No acute findings. OTHER: No other significant finding. IMPRESSION: No significant change. No pneumothorax. TECHNICAL DOCUMENTATION: JOB ID: [id number] [employer]- All Rights Reserved Reading location - IP/workstation name: [email or web address]
[2018-02-15] MEDS: FUROSEMIDE INJ/PF 20 MG/2 ML SDV IV SCH (09:31)
[2018-02-15] MEDS: POLYETHYLENE GLYCOL 3350 POWDER 17 GM/1 PACKET NG SCH (09:31)
[2018-02-15] MEDS: CLOPIDOGREL BISULFATE 75 MG TABLET PO SCH (09:31)
[2018-02-15] MEDS: NYSTATIN TOPICAL POWDER 15 GM TP SCH ×2 (09:33→18:34)
[2018-02-15] MEDS ORDERED: ACETAMINOPHEN 650 MG SUPP.RECT PR PRN (11:34)
[2018-02-15 12:54] LABS: APPEARANCE,URINE CLEAR; BILIRUBIN,URINE NEGATIVE (NEGATIVE); COLOR,URINE YELLOW; GLUCOSE, URINE NEGATIVE (NEGATIVE); KETONES,URINE NEGATIVE (NEGATIVE); LEUKOCYTE ESTERASE,URINE NEGATIVE (NEGATIVE); NITRITE,URINE NEGATIVE (NEGATIVE); PROTEIN,URINE NEGATIVE (NEGATIVE); URINE SPECIFIC GRAVITY 1.012; UROBILINOGEN,URINE NEGATIVE mg/dL (<2.0)
--- NOTE | 2018-02-15 14:50 | PDOC PROGRESS REPORT ---
Subjective Progress Note for:: 02/15/18 Subjective:: History is obtained solely from the chart as patient is unable to provide any history. He is currently intubated. He was admitted with an altered mental status, slurred speech as well as difficulty ambulating and was thought to have an acute or subacute lacunar infarct in multiple locations of both frontal lobes , left. And occipital lobes as well as left cerebellum. He had a lumbar puncture done which was negative. He was initially on antibiotics for this was also discontinued. Patient suffered a starting respiratory arrest and was intubated and transferred to the intensive care unit where he remains today. Patient has been having sedation holidays but it appears he is otherwise not really weanable. It appears at this time family is hoping for an immaculate recovery although discussions by all providers have indicated that his prognosis is pretty poor. Patient's condition is grossly unchanged. Reason For Visit: ALTERED MENTAL STATUS,LEUKOCYTOSIS Physical Exam Vital Signs: Temp Pulse Resp BP Pulse Ox 100.0 F 96 15 114/66 94 02/15/18 14:00 02/15/18 08:36 02/15/18 12:00 02/15/18 11:46 02/15/18 12:00 Intake & Output 02/14/18 02/15/18 02/16/18 06:59 06:59 06:59 Intake Total 2571 1000 Output Total 2165 1940 1150 Balance 406 -940 -1150 Weight 109.1 kg 109.1 kg General appearance: PRESENT: no acute distress, well-developed, well-nourished, other - intubated Head exam: PRESENT: atraumatic, normocephalic Eye exam: PRESENT: conjunctiva pink, PERRLA. ABSENT: scleral icterus Mouth exam: PRESENT: moist, tongue midline Neck exam: ABSENT: carotid bruit, JVD, lymphadenopathy, thyromegaly Respiratory exam: PRESENT: clear to auscultation karime. ABSENT: rales, rhonchi, wheezes Cardiovascular exam: PRESENT: RRR, +S1, +S2. ABSENT: diastolic murmur, rubs, systolic murmur Pulses: PRESENT: normal dorsalis pedis pul Vascular exam: PRESENT: normal capillary refill GI/Abdominal exam: PRESENT: normal bowel sounds, soft. ABSENT: distended, guarding, mass, organolmegaly, rebound, tenderness Rectal exam: PRESENT: deferred Extremities exam: PRESENT: calf tenderness, other - limited L side movement. ABSENT: clubbing, pedal edema Neurological exam: PRESENT: other - not responsive, off sedation. ABSENT: motor sensory deficit Psychiatric exam: PRESENT: appropriate affect, normal mood. ABSENT: homicidal ideation, suicidal ideation Skin exam: PRESENT: dry, intact, warm. ABSENT: cyanosis, rash Results Laboratory Results: 02/15/18 06:45 02/15/18 06:45 02/15/18 02/15/18 02/15/18 06:45 06:45 06:45 WBC 8.8 RBC 3.40 L Hgb 9.2 L Hct 28.6 L MCV 84 MCH 27.2 MCHC 32.3 RDW 16.4 H Plt Count 712 H Seg Neutrophils % 76.4 Lymphocytes % 11.6 L Monocytes % 7.1 Eosinophils % 3.7 Basophils % 1.2 Absolute Neutrophils 6.7 Absolute Lymphocytes 1.0 Absolute Monocytes 0.6 Absolute Eosinophils 0.3 Absolute Basophils 0.1 Carbonic Acid 1.26 HCO3/H2CO3 Ratio 24:1 ABG pH 7.48 H ABG pCO2 42.0 ABG pO2 74.2 L ABG HCO3 30.4 H ABG O2 Saturation 95.7 ABG Base Excess 6.2 FiO2 30% Sodium 145.9 H Potassium 4.9 Chloride 105 Carbon Dioxide 33 H Anion Gap 8 BUN 30 H Creatinine 1.00 Est GFR ( Amer) > 60 Est GFR (Non-Af Amer) > 60 Glucose 122 H Calcium 9.0 Magnesium 2.4 H Total Bilirubin 0.4 AST 44 ALT 25 Alkaline Phosphatase 88 Total Protein 7.0 Albumin 3.3 L Urine Color Urine Appearance Urine pH Ur Specific [place] Urine Protein Urine Glucose (UA) Urine Ketones Urine Blood Urine Nitrite Ur Leukocyte Esterase Urine WBC (Auto) Urine RBC (Auto) 02/15/18 12:00 WBC RBC Hgb Hct MCV MCH MCHC RDW Plt Count Seg Neutrophils % Lymphocytes % Monocytes % Eosinophils % Basophils % Absolute Neutrophils Absolute Lymphocytes Absolute Monocytes Absolute Eosinophils Absolute Basophils Carbonic Acid HCO3/H2CO3 Ratio ABG pH ABG pCO2 ABG pO2 ABG HCO3 ABG O2 Saturation ABG Base Excess FiO2 Sodium Potassium Chloride Carbon Dioxide Anion Gap BUN Creatinine Est GFR ( Amer) Est GFR (Non-Af Amer) Glucose Calcium Magnesium Total Bilirubin AST ALT Alkaline Phosphatase Total Protein Albumin Urine Color YELLOW Urine Appearance CLEAR Urine pH 6.0 Ur Specific [place] 1.012 Urine Protein NEGATIVE Urine Glucose (UA) NEGATIVE Urine Ketones NEGATIVE Urine Blood NEGATIVE Urine Nitrite NEGATIVE Ur Leukocyte Esterase NEGATIVE Urine WBC (Auto) 2 Urine RBC (Auto) 0 01/29/18 01/29/18 01/30/18 17:45 23:40 05:45 Creatine Kinase CK-MB (CK-2) Troponin I 0.244 0.319 0.379 01/30/18 01/30/18 01/30/18 12:00 12:00 18:44 Creatine Kinase 105 74 CK-MB (CK-2) 5.01 H Troponin I 0.349 01/30/18 01/30/18 01/30/18 18:44 23:55 23:55 Creatine Kinase 58 CK-MB (CK-2) 3.04 2.10 Troponin I 0.290 0.268 Impressions: Guidance Fluoroscopy 01/28/18 00:00 IMPRESSION: Please see combined report for performance of procedure and radiologic supervision and interpretation. Head MRI 01/28/18 00:00 IMPRESSION: Positive for acute or sub-acute punctate- lacunar infarctions in multiple locations of both frontal lobes, left parietal-occipital lobe, and the left cerebellum. This pattern suggests embolic phenomenon but can be seen with other etiologies such as traumatic brain injury, correlate clinically. No enhancing lesions. EVIDENCE OF ACUTE STROKE: YES. Multiple vessel distribution Lumbar Puncture 01/28/18 17:17 IMPRESSION: Lumbar puncture under fluoroscopy. No immediate complication. Carotid Doppler Study 01/30/18 00:00 IMPRESSION: NO HEMODYNAMICALLY SIGNIFICANT STENOSIS. Head CT 01/30/18 00:00 IMPRESSION: 1. No acute intracranial abnormality identified. This exam was performed according to our departmental dose-optimization program, which includes automated exposure control, adjustment of the mA and/or kV according to patient size and/or use of iterative reconstruction technique. Chest/Abdomen CTA 01/31/18 12:47 IMPRESSION: 1. Normal CTA of the chest. No pulmonary emboli. 2. Right lower lobe consolidation may represent atelectasis on the basis of submaximal aeration in this intubated patient. Left lower lobe atelectasis. 3. 4.5 x 4.0 x 3.5 cm irregularly marginated heterogeneous appearing mass within the superior pole of the right kidney. This requires further evaluation with dedicated renal CT or MR imaging when feasible. Abdomen/Pelvis CT 02/04/18 10:57 IMPRESSION: 1. LIMITED STUDY. INDISTINCT AREA OF DECREASED ATTENUATION IN THE UPPER POLE OF THE RIGHT KIDNEY, DIFFICULT TO COMPLETELY VISUALIZE DUE TO STREAK ARTIFACT FROM PATIENT'S ARMS. MALIGNANCY SUCH RENAL CELL CARCINOMA IS IN THE DIFFERENTIAL. ANOTHER POSSIBILITY COULD BE AN AREA OF RENAL INFARCTION. IDEALLY, AN MRI OF THE KIDNEYS AFTER THE PATIENT'S CLINICAL CONDITION HAS IMPROVED WOULD BE OPTIMAL TO PROVIDE COMPLETE EVALUATION. 2. CORTICAL CYST IN THE LEFT KIDNEY. 3. GALLSTONES. 4. 3.5 CM INFRARENAL ABDOMINAL AORTIC ANEURYSM. 5. SMALL PLEURAL EFFUSIONS AND BASILAR INFILTRATES, RIGHT GREATER THAN LEFT. Chest X-Ray 02/15/18 06:00 IMPRESSION: No significant change. No pneumothorax. Assessment & Plan - Time Time Spent with patient: 15-24 minutes Medications reviewed and adjusted accordingly: Yes Anticipated discharge: SNF - Inpatient Certification Based on my medical assessment, after consideration of the patient's comorbidities, presenting symptoms, or acuity I expect that the services needed warrant INPATIENT care.: Yes Medical Necessity: Other - mechanical ventilation - Plan Summary Plan Summary: 1. Acute respiratory failure status post cardiopulmonary arrest. Patient remains off sedation with no meaningful responses 2. Acute to subacute CVA this appears to have been the sentinel event 3. Enterococcus bacteremia patientcompleted course of ampicillin. Repeat blood cultures are negative 4. Cardiopulmonary arrest with return of spontaneous circulation however patient remains intubated and that he probably has anoxic brain injury with poor prognosis for independent living off the ventilator 5. Elevated troponin likely secondary to acute event. No further interventions planned 6. Right renal mass further workup will be deferred 7. COPD stable 8. Stable anemia 9. Still planning for possible transfer to [facility] through [facility]
[2018-02-16] MEDS: FENTANYL CITRATE INJ/PF 100 MCG/2 ML AMPUL IV PRN ×3 (00:43→15:50)
[2018-02-16] MEDS: LORAZEPAM INJ 2 MG/1 ML VIAL IV PRN ×3 (00:44→15:50)
[2018-02-16] MEDS: LEVALBUTEROL HCL NEB 1.25 MG/3 ML AMPUL NEB SCH ×3 (00:49→16:03)
[2018-02-16] MEDS: HEPARIN SOD (PORCINE) 5,000 UNIT/ML 1 ML SYRINGE SUBCUT SCH ×3 (07:05→22:50)
--- NOTE | 2018-02-16 08:43 | RADIOLOGY REPORT (SQ) ---
EXAM DESCRIPTION: CHEST SINGLE VIEW COMPLETED DATE/TIME: 02/16/2018 7:27 am REASON FOR STUDY: resp failure COMPARISON: 02/15/2018. NUMBER OF VIEWS: One view. TECHNIQUE: Single frontal radiographic image of the chest acquired. LIMITATIONS: None. FINDINGS: LUNGS AND PLEURA: Chronic volume loss on the right. No consolidation or pneumothorax. MEDIASTINUM AND HEART: Stable heart size and mediastinal structures. SUPPORT DEVICES: Appropriate location without change. BONY STRUCTURES: No acute findings. HARDWARE: None. OTHER: No other significant finding. IMPRESSION: Chronic volume loss on the right. No significant change. Reading location - IP/workstation name: [email or web address]
[2018-02-16] MEDS: NYSTATIN TOPICAL POWDER 15 GM TP SCH ×2 (10:12→19:06)
[2018-02-16] MEDS: FUROSEMIDE INJ/PF 20 MG/2 ML SDV IV SCH (10:12)
[2018-02-16] MEDS: CLOPIDOGREL BISULFATE 75 MG TABLET PO SCH (10:12)
[2018-02-16] MEDS: POLYETHYLENE GLYCOL 3350 POWDER 17 GM/1 PACKET NG SCH (10:13)
--- NOTE | 2018-02-16 10:26 | PDOC PROGRESS REPORT ---
Subjective Progress Note for:: 02/16/18 Subjective:: History is obtained solely from the chart as patient is unable to provide any history. He is currently intubated. He was admitted with an altered mental status, slurred speech as well as difficulty ambulating and was thought to have an acute or subacute lacunar infarct in multiple locations of both frontal lobes , left. And occipital lobes as well as left cerebellum. He had a lumbar puncture done which was negative. He was initially on antibiotics for this was also discontinued. Patient suffered a starting respiratory arrest and was intubated and transferred to the intensive care unit where he remains today. Patient has been having sedation holidays but it appears he is otherwise not really weanable. It appears at this time family is hoping for an immaculate recovery although discussions by all providers have indicated that his prognosis is pretty poor. Patient's condition is grossly unchanged and no new findings Reason For Visit: ALTERED MENTAL STATUS,LEUKOCYTOSIS Physical Exam Vital Signs: Temp Pulse Resp BP Pulse Ox 99.9 F 89 21 H 127/73 H 90 L 02/16/18 09:00 02/16/18 08:45 02/16/18 09:00 02/16/18 08:46 02/16/18 09:00 Intake & Output 02/15/18 02/16/18 02/17/18 06:59 06:59 06:59 Intake Total 1000 Output Total 19390 85 Balance -940 -1920 -85 Weight 109.1 kg 107.4 kg General appearance: PRESENT: no acute distress, well-developed, well-nourished, other - intubated Head exam: PRESENT: atraumatic, normocephalic Eye exam: PRESENT: conjunctiva pink, EOMI, PERRLA. ABSENT: scleral icterus Neck exam: ABSENT: carotid bruit, JVD, lymphadenopathy, thyromegaly Respiratory exam: PRESENT: clear to auscultation karime, other - intubated. ABSENT : rales, rhonchi, wheezes Cardiovascular exam: PRESENT: RRR, +S1, +S2. ABSENT: diastolic murmur, rubs, systolic murmur Pulses: PRESENT: normal dorsalis pedis pul Vascular exam: PRESENT: normal capillary refill GI/Abdominal exam: PRESENT: normal bowel sounds, soft. ABSENT: distended, guarding, mass, organolmegaly, rebound, tenderness Rectal exam: PRESENT: deferred Extremities exam: PRESENT: other - hemiplegia L side. ABSENT: calf tenderness, clubbing, pedal edema Neurological exam: PRESENT: motor sensory deficit - L hemiplegia, other - reacts to painful stimuli. ABSENT: CN II-XII grossly intact Skin exam: PRESENT: dry, intact, warm. ABSENT: cyanosis, rash Results Laboratory Results: 02/15/18 06:45 02/15/18 06:45 02/15/18 12:00 Urine Color YELLOW Urine Appearance CLEAR Urine pH 6.0 Ur Specific [place] 1.012 Urine Protein NEGATIVE Urine Glucose (UA) NEGATIVE Urine Ketones NEGATIVE Urine Blood NEGATIVE Urine Nitrite NEGATIVE Ur Leukocyte Esterase NEGATIVE Urine WBC (Auto) 2 Urine RBC (Auto) 0 02/10/18 17:00 Blood Blood Culture - Final NO GROWTH IN 5 DAYS 02/10/18 15:10 Blood Blood Culture - Final NO GROWTH IN 5 DAYS 01/29/18 01/29/18 01/30/18 17:45 23:40 05:45 Creatine Kinase CK-MB (CK-2) Troponin I 0.244 0.319 0.379 01/30/18 01/30/18 01/30/18 12:00 12:00 18:44 Creatine Kinase 105 74 CK-MB (CK-2) 5.01 H Troponin I 0.349 01/30/18 01/30/18 01/30/18 18:44 23:55 23:55 Creatine Kinase 58 CK-MB (CK-2) 3.04 2.10 Troponin I 0.290 0.268 Impressions: Guidance Fluoroscopy 01/28/18 00:00 IMPRESSION: Please see combined report for performance of procedure and radiologic supervision and interpretation. Head MRI 01/28/18 00:00 IMPRESSION: Positive for acute or sub-acute punctate- lacunar infarctions in multiple locations of both frontal lobes, left parietal-occipital lobe, and the left cerebellum. This pattern suggests embolic phenomenon but can be seen with other etiologies such as traumatic brain injury, correlate clinically. No enhancing lesions. EVIDENCE OF ACUTE STROKE: YES. Multiple vessel distribution Lumbar Puncture 01/28/18 17:17 IMPRESSION: Lumbar puncture under fluoroscopy. No immediate complication. Carotid Doppler Study 01/30/18 00:00 IMPRESSION: NO HEMODYNAMICALLY SIGNIFICANT STENOSIS. Head CT 01/30/18 00:00 IMPRESSION: 1. No acute intracranial abnormality identified. This exam was performed according to our departmental dose-optimization program, which includes automated exposure control, adjustment of the mA and/or kV according to patient size and/or use of iterative reconstruction technique. Chest/Abdomen CTA 01/31/18 12:47 IMPRESSION: 1. Normal CTA of the chest. No pulmonary emboli. 2. Right lower lobe consolidation may represent atelectasis on the basis of submaximal aeration in this intubated patient. Left lower lobe atelectasis. 3. 4.5 x 4.0 x 3.5 cm irregularly marginated heterogeneous appearing mass within the superior pole of the right kidney. This requires further evaluation with dedicated renal CT or MR imaging when feasible. Abdomen/Pelvis CT 02/04/18 10:57 IMPRESSION: 1. LIMITED STUDY. INDISTINCT AREA OF DECREASED ATTENUATION IN THE UPPER POLE OF THE RIGHT KIDNEY, DIFFICULT TO COMPLETELY VISUALIZE DUE TO STREAK ARTIFACT FROM PATIENT'S ARMS. MALIGNANCY SUCH RENAL CELL CARCINOMA IS IN THE DIFFERENTIAL. ANOTHER POSSIBILITY COULD BE AN AREA OF RENAL INFARCTION. IDEALLY, AN MRI OF THE KIDNEYS AFTER THE PATIENT'S CLINICAL CONDITION HAS IMPROVED WOULD BE OPTIMAL TO PROVIDE COMPLETE EVALUATION. 2. CORTICAL CYST IN THE LEFT KIDNEY. 3. GALLSTONES. 4. 3.5 CM INFRARENAL ABDOMINAL AORTIC ANEURYSM. 5. SMALL PLEURAL EFFUSIONS AND BASILAR INFILTRATES, RIGHT GREATER THAN LEFT. Chest X-Ray 02/16/18 06:00 IMPRESSION: Chronic volume loss on the right. No significant change. Assessment & Plan - Time Time Spent with patient: 15-24 minutes Medications reviewed and adjusted accordingly: Yes Anticipated discharge: SNF - Inpatient Certification Based on my medical assessment, after consideration of the patient's comorbidities, presenting symptoms, or acuity I expect that the services needed warrant INPATIENT care.: Yes Medical Necessity: Other - Mechanical Ventilation - Plan Summary Plan Summary: 1. Acute respiratory failure status post cardiopulmonary arrest. Patient remains off sedation with no meaningful responses 2. Acute to subacute CVA 3. Enterococcus bacteremia patient completed course of ampicillin. Repeat blood cultures are negative 4. Cardiopulmonary arrest with return of spontaneous circulation however patient remains intubated and that he probably has anoxic brain injury with poor prognosis for independent living off the ventilator 5. Elevated troponin likely secondary to acute event. No further interventions planned 6. Right renal mass further workup will be deferred 7. COPD stable 8. Stable anemia 9. [facility] Will folow up on Saturday
--- NOTE | 2018-02-16 17:32 | PDOC PROGRESS REPORT ---
Subjective Progress Note for:: 02/14/18 Subjective:: intubated Reason For Visit: ALTERED MENTAL STATUS,LEUKOCYTOSIS Physical Exam Vital Signs: Temp Pulse Resp BP Pulse Ox 99.0 F 90 14 110/66 95 02/14/18 06:00 02/14/18 00:00 02/14/18 06:00 02/14/18 05:45 02/14/18 06:00 Intake & Output 02/13/18 02/14/18 02/15/18 06:59 06:59 06:59 Intake Total 1856 2421 Output Total 1875 2165 Balance -19 256 Weight 109.1 kg 109.1 kg General appearance: PRESENT: no acute distress, disheveled, obese. ABSENT: cooperative Head exam: PRESENT: atraumatic, normocephalic Eye exam: PRESENT: conjunctiva pale. ABSENT: nystagmus, periorbital swelling, scleral icterus Mouth exam: PRESENT: dry mucosa, neck supple, tongue midline, other - ET tube Neck exam: ABSENT: carotid bruit, JVD, lymphadenopathy, thyromegaly, tracheal deviation, tracheostomy Respiratory exam: PRESENT: decreased breath sounds, prolonged expiratory phas, rales, rhonchi, unlabored. ABSENT: retraction, stridor Cardiovascular exam: PRESENT: RRR, +S1, +S2 Pulses: PRESENT: normal radial pulses GI/Abdominal exam: PRESENT: hypoactive bowel sounds, soft. ABSENT: tenderness Gentrourinary exam: PRESENT: indwelling catheter Extremities exam: ABSENT: clubbing, full ROM, joint swelling Musculoskeletal exam: ABSENT: ambulatory, full ROM Neurological exam: ABSENT: awake Skin exam: PRESENT: warm Results Laboratory Results: 02/14/18 05:30 02/14/18 05:30 02/14/18 02/14/18 02/14/18 05:30 05:30 05:30 WBC 8.5 RBC 3.27 L Hgb 9.0 L Hct 27.4 L MCV 84 MCH 27.6 MCHC 32.9 RDW 16.3 H Plt Count 684 H Seg Neutrophils % 75.3 Lymphocytes % 11.8 L Monocytes % 8.3 Eosinophils % 3.3 Basophils % 1.3 Absolute Neutrophils 6.4 Absolute Lymphocytes 1.0 Absolute Monocytes 0.7 Absolute Eosinophils 0.3 Absolute Basophils 0.1 Carbonic Acid 1.40 H HCO3/H2CO3 Ratio 22:1 ABG pH 7.45 ABG pCO2 46.6 H ABG pO2 73.1 L ABG HCO3 31.9 H ABG O2 Saturation 95.2 ABG Base Excess 7.1 FiO2 30% Sodium 147.2 H Potassium 4.1 Chloride 106 Carbon Dioxide 31 H Anion Gap 10 BUN 29 H Creatinine 1.08 Est GFR ( Amer) > 60 Est GFR (Non-Af Amer) > 60 Glucose 141 H Calcium 8.6 01/29/18 01/29/18 01/30/18 17:45 23:40 05:45 Creatine Kinase CK-MB (CK-2) Troponin I 0.244 0.319 0.379 01/30/18 01/30/18 01/30/18 12:00 12:00 18:44 Creatine Kinase 105 74 CK-MB (CK-2) 5.01 H Troponin I 0.349 01/30/18 01/30/18 01/30/18 18:44 23:55 23:55 Creatine Kinase 58 CK-MB (CK-2) 3.04 2.10 Troponin I 0.290 0.268 Impressions: Guidance Fluoroscopy 01/28/18 00:00 IMPRESSION: Please see combined report for performance of procedure and radiologic supervision and interpretation. Head MRI 01/28/18 00:00 IMPRESSION: Positive for acute or sub-acute punctate- lacunar infarctions in multiple locations of both frontal lobes, left parietal-occipital lobe, and the left cerebellum. This pattern suggests embolic phenomenon but can be seen with other etiologies such as traumatic brain injury, correlate clinically. No enhancing lesions. EVIDENCE OF ACUTE STROKE: YES. Multiple vessel distribution Lumbar Puncture 01/28/18 17:17 IMPRESSION: Lumbar puncture under fluoroscopy. No immediate complication. Carotid Doppler Study 01/30/18 00:00 IMPRESSION: NO HEMODYNAMICALLY SIGNIFICANT STENOSIS. Head CT 01/30/18 00:00 IMPRESSION: 1. No acute intracranial abnormality identified. This exam was performed according to our departmental dose-optimization program, which includes automated exposure control, adjustment of the mA and/or kV according to patient size and/or use of iterative reconstruction technique. Chest/Abdomen CTA 01/31/18 12:47 IMPRESSION: 1. Normal CTA of the chest. No pulmonary emboli. 2. Right lower lobe consolidation may represent atelectasis on the basis of submaximal aeration in this intubated patient. Left lower lobe atelectasis. 3. 4.5 x 4.0 x 3.5 cm irregularly marginated heterogeneous appearing mass within the superior pole of the right kidney. This requires further evaluation with dedicated renal CT or MR imaging when feasible. Abdomen/Pelvis CT 02/04/18 10:57 IMPRESSION: 1. LIMITED STUDY. INDISTINCT AREA OF DECREASED ATTENUATION IN THE UPPER POLE OF THE RIGHT KIDNEY, DIFFICULT TO COMPLETELY VISUALIZE DUE TO STREAK ARTIFACT FROM PATIENT'S ARMS. MALIGNANCY SUCH RENAL CELL CARCINOMA IS IN THE DIFFERENTIAL. ANOTHER POSSIBILITY COULD BE AN AREA OF RENAL INFARCTION. IDEALLY, AN MRI OF THE KIDNEYS AFTER THE PATIENT'S CLINICAL CONDITION HAS IMPROVED WOULD BE OPTIMAL TO PROVIDE COMPLETE EVALUATION. 2. CORTICAL CYST IN THE LEFT KIDNEY. 3. GALLSTONES. 4. 3.5 CM INFRARENAL ABDOMINAL AORTIC ANEURYSM. 5. SMALL PLEURAL EFFUSIONS AND BASILAR INFILTRATES, RIGHT GREATER THAN LEFT. Chest X-Ray 02/13/18 06:00 IMPRESSION: No significant change. Assessment & Plan - Diagnosis (1) Acute ischemic stroke Is this a current diagnosis for this admission?: Yes Plan: resumed intermittent posturing (2) COPD (chronic obstructive pulmonary disease) Qualifiers: Emphysema type: unspecified Is this a current diagnosis for this admission?: Yes Plan: Stable at this time (3) Cardiopulmonary arrest with successful resuscitation Is this a current diagnosis for this admission?: Yes Plan: Patient was in [facility] total of 30 minutes for code - Time Total Critical Time (Minutes): 40
--- NOTE | 2018-02-16 17:34 | PDOC PROGRESS REPORT ---
Subjective Progress Note for:: 02/15/18 Subjective:: intubated Reason For Visit: ALTERED MENTAL STATUS,LEUKOCYTOSIS Physical Exam Vital Signs: Temp Pulse Resp BP Pulse Ox 100.4 F 83 21 H 137/77 H 94 02/15/18 08:00 02/15/18 00:15 02/15/18 08:00 02/15/18 07:46 02/15/18 08:00 Intake & Output 02/14/18 02/15/18 02/16/18 06:59 06:59 06:59 Intake Total 2571 1000 Output Total 2165 1940 375 Balance 406 -940 -375 Weight 109.1 kg 109.1 kg General appearance: PRESENT: no acute distress, disheveled, obese. ABSENT: cooperative Head exam: PRESENT: atraumatic, normocephalic Eye exam: PRESENT: conjunctiva pale. ABSENT: EOMI, nystagmus, periorbital swelling, scleral icterus Mouth exam: PRESENT: dry mucosa, neck supple, tongue midline, other - ET tube in place Neck exam: ABSENT: carotid bruit, JVD, lymphadenopathy, thyromegaly, tracheal deviation, tracheostomy Respiratory exam: PRESENT: decreased breath sounds, prolonged expiratory phas, rales, rhonchi, unlabored. ABSENT: retraction Cardiovascular exam: PRESENT: RRR, +S1, +S2 Pulses: PRESENT: normal radial pulses GI/Abdominal exam: PRESENT: hypoactive bowel sounds, soft. ABSENT: tenderness Gentrourinary exam: PRESENT: indwelling catheter Extremities exam: ABSENT: clubbing, full ROM, joint swelling Musculoskeletal exam: ABSENT: ambulatory, deformity, dislocation, full ROM Neurological exam: ABSENT: awake Skin exam: PRESENT: dry, warm Results Laboratory Results: 02/15/18 06:45 02/15/18 06:45 02/15/18 02/15/18 02/15/18 06:45 06:45 06:45 WBC 8.8 RBC 3.40 L Hgb 9.2 L Hct 28.6 L MCV 84 MCH 27.2 MCHC 32.3 RDW 16.4 H Plt Count 712 H Seg Neutrophils % 76.4 Lymphocytes % 11.6 L Monocytes % 7.1 Eosinophils % 3.7 Basophils % 1.2 Absolute Neutrophils 6.7 Absolute Lymphocytes 1.0 Absolute Monocytes 0.6 Absolute Eosinophils 0.3 Absolute Basophils 0.1 Carbonic Acid 1.26 HCO3/H2CO3 Ratio 24:1 ABG pH 7.48 H ABG pCO2 42.0 ABG pO2 74.2 L ABG HCO3 30.4 H ABG O2 Saturation 95.7 ABG Base Excess 6.2 FiO2 30% Sodium 145.9 H Potassium 4.9 Chloride 105 Carbon Dioxide 33 H Anion Gap 8 BUN 30 H Creatinine 1.00 Est GFR ( Amer) > 60 Est GFR (Non-Af Amer) > 60 Glucose 122 H Calcium 9.0 Magnesium 2.4 H Total Bilirubin 0.4 AST 44 ALT 25 Alkaline Phosphatase 88 Total Protein 7.0 Albumin 3.3 L 01/29/18 01/29/18 01/30/18 17:45 23:40 05:45 Creatine Kinase CK-MB (CK-2) Troponin I 0.244 0.319 0.379 01/30/18 01/30/18 01/30/18 12:00 12:00 18:44 Creatine Kinase 105 74 CK-MB (CK-2) 5.01 H Troponin I 0.349 01/30/18 01/30/18 01/30/18 18:44 23:55 23:55 Creatine Kinase 58 CK-MB (CK-2) 3.04 2.10 Troponin I 0.290 0.268 Impressions: Guidance Fluoroscopy 01/28/18 00:00 IMPRESSION: Please see combined report for performance of procedure and radiologic supervision and interpretation. Head MRI 01/28/18 00:00 IMPRESSION: Positive for acute or sub-acute punctate- lacunar infarctions in multiple locations of both frontal lobes, left parietal-occipital lobe, and the left cerebellum. This pattern suggests embolic phenomenon but can be seen with other etiologies such as traumatic brain injury, correlate clinically. No enhancing lesions. EVIDENCE OF ACUTE STROKE: YES. Multiple vessel distribution Lumbar Puncture 01/28/18 17:17 IMPRESSION: Lumbar puncture under fluoroscopy. No immediate complication. Carotid Doppler Study 01/30/18 00:00 IMPRESSION: NO HEMODYNAMICALLY SIGNIFICANT STENOSIS. Head CT 01/30/18 00:00 IMPRESSION: 1. No acute intracranial abnormality identified. This exam was performed according to our departmental dose-optimization program, which includes automated exposure control, adjustment of the mA and/or kV according to patient size and/or use of iterative reconstruction technique. Chest/Abdomen CTA 01/31/18 12:47 IMPRESSION: 1. Normal CTA of the chest. No pulmonary emboli. 2. Right lower lobe consolidation may represent atelectasis on the basis of submaximal aeration in this intubated patient. Left lower lobe atelectasis. 3. 4.5 x 4.0 x 3.5 cm irregularly marginated heterogeneous appearing mass within the superior pole of the right kidney. This requires further evaluation with dedicated renal CT or MR imaging when feasible. Abdomen/Pelvis CT 02/04/18 10:57 IMPRESSION: 1. LIMITED STUDY. INDISTINCT AREA OF DECREASED ATTENUATION IN THE UPPER POLE OF THE RIGHT KIDNEY, DIFFICULT TO COMPLETELY VISUALIZE DUE TO STREAK ARTIFACT FROM PATIENT'S ARMS. MALIGNANCY SUCH RENAL CELL CARCINOMA IS IN THE DIFFERENTIAL. ANOTHER POSSIBILITY COULD BE AN AREA OF RENAL INFARCTION. IDEALLY, AN MRI OF THE KIDNEYS AFTER THE PATIENT'S CLINICAL CONDITION HAS IMPROVED WOULD BE OPTIMAL TO PROVIDE COMPLETE EVALUATION. 2. CORTICAL CYST IN THE LEFT KIDNEY. 3. GALLSTONES. 4. 3.5 CM INFRARENAL ABDOMINAL AORTIC ANEURYSM. 5. SMALL PLEURAL EFFUSIONS AND BASILAR INFILTRATES, RIGHT GREATER THAN LEFT. Chest X-Ray 02/15/18 06:00 IMPRESSION: No significant change. No pneumothorax. Assessment & Plan - Diagnosis (1) Acute ischemic stroke Is this a current diagnosis for this admission?: Yes Plan: resumed intermittent posturing (2) COPD (chronic obstructive pulmonary disease) Qualifiers: Emphysema type: unspecified Is this a current diagnosis for this admission?: Yes Plan: Stable at this time (3) Cardiopulmonary arrest with successful resuscitation Is this a current diagnosis for this admission?: Yes Plan: Patient was in [facility] total of 30 minutes for code
--- NOTE | 2018-02-16 17:36 | PDOC PROGRESS REPORT ---
Subjective Progress Note for:: 02/16/18 Subjective:: intubated Reason For Visit: ALTERED MENTAL STATUS,LEUKOCYTOSIS Physical Exam Vital Signs: Temp Pulse Resp BP Pulse Ox 99.9 F 89 21 H 127/73 H 94 02/16/18 09:00 02/16/18 08:45 02/16/18 09:00 02/16/18 08:46 02/16/18 12:00 Intake & Output 02/15/18 02/16/18 02/17/18 06:59 06:59 06:59 Intake Total 1000 Output Total 1939 Balance -940 -1919 - Weight 109.1 kg 107.4 kg General appearance: PRESENT: no acute distress, disheveled, obese Head exam: PRESENT: atraumatic, normocephalic Eye exam: PRESENT: conjunctiva pale. ABSENT: EOMI, nystagmus, periorbital swelling, scleral icterus Mouth exam: PRESENT: dry mucosa, neck supple, tongue midline, other - ET tube in place Neck exam: ABSENT: carotid bruit, JVD, lymphadenopathy, thyromegaly, tracheal deviation, tracheostomy Respiratory exam: PRESENT: decreased breath sounds, prolonged expiratory phas, rales, rhonchi, unlabored, wheezes. ABSENT: retraction, stridor Cardiovascular exam: PRESENT: RRR, +S1, +S2 Pulses: PRESENT: normal radial pulses GI/Abdominal exam: PRESENT: hypoactive bowel sounds, soft. ABSENT: tenderness Gentrourinary exam: PRESENT: indwelling catheter Extremities exam: ABSENT: clubbing, full ROM, joint swelling Musculoskeletal exam: ABSENT: ambulatory, deformity, dislocation, full ROM Neurological exam: ABSENT: awake Skin exam: PRESENT: dry, warm Results Laboratory Results: 02/15/18 06:45 02/15/18 06:45 02/15/18 12:00 Urine Color YELLOW Urine Appearance CLEAR Urine pH 6.0 Ur Specific [place] 1.012 Urine Protein NEGATIVE Urine Glucose (UA) NEGATIVE Urine Ketones NEGATIVE Urine Blood NEGATIVE Urine Nitrite NEGATIVE Ur Leukocyte Esterase NEGATIVE Urine WBC (Auto) 2 Urine RBC (Auto) 0 02/10/18 17:00 Blood Blood Culture - Final NO GROWTH IN 5 DAYS 02/10/18 15:10 Blood Blood Culture - Final NO GROWTH IN 5 DAYS 01/29/18 01/29/18 01/30/18 17:45 23:40 05:45 Creatine Kinase CK-MB (CK-2) Troponin I 0.244 0.319 0.379 01/30/18 01/30/18 01/30/18 12:00 12:00 18:44 Creatine Kinase 105 74 CK-MB (CK-2) 5.01 H Troponin I 0.349 01/30/18 01/30/18 01/30/18 18:44 23:55 23:55 Creatine Kinase 58 CK-MB (CK-2) 3.04 2.10 Troponin I 0.290 0.268 Impressions: Guidance Fluoroscopy 01/28/18 00:00 IMPRESSION: Please see combined report for performance of procedure and radiologic supervision and interpretation. Head MRI 01/28/18 00:00 IMPRESSION: Positive for acute or sub-acute punctate- lacunar infarctions in multiple locations of both frontal lobes, left parietal-occipital lobe, and the left cerebellum. This pattern suggests embolic phenomenon but can be seen with other etiologies such as traumatic brain injury, correlate clinically. No enhancing lesions. EVIDENCE OF ACUTE STROKE: YES. Multiple vessel distribution Lumbar Puncture 01/28/18 17:17 IMPRESSION: Lumbar puncture under fluoroscopy. No immediate complication. Carotid Doppler Study 01/30/18 00:00 IMPRESSION: NO HEMODYNAMICALLY SIGNIFICANT STENOSIS. Head CT 01/30/18 00:00 IMPRESSION: 1. No acute intracranial abnormality identified. This exam was performed according to our departmental dose-optimization program, which includes automated exposure control, adjustment of the mA and/or kV according to patient size and/or use of iterative reconstruction technique. Chest/Abdomen CTA 01/31/18 12:47 IMPRESSION: 1. Normal CTA of the chest. No pulmonary emboli. 2. Right lower lobe consolidation may represent atelectasis on the basis of submaximal aeration in this intubated patient. Left lower lobe atelectasis. 3. 4.5 x 4.0 x 3.5 cm irregularly marginated heterogeneous appearing mass within the superior pole of the right kidney. This requires further evaluation with dedicated renal CT or MR imaging when feasible. Abdomen/Pelvis CT 02/04/18 10:57 IMPRESSION: 1. LIMITED STUDY. INDISTINCT AREA OF DECREASED ATTENUATION IN THE UPPER POLE OF THE RIGHT KIDNEY, DIFFICULT TO COMPLETELY VISUALIZE DUE TO STREAK ARTIFACT FROM PATIENT'S ARMS. MALIGNANCY SUCH RENAL CELL CARCINOMA IS IN THE DIFFERENTIAL. ANOTHER POSSIBILITY COULD BE AN AREA OF RENAL INFARCTION. IDEALLY, AN MRI OF THE KIDNEYS AFTER THE PATIENT'S CLINICAL CONDITION HAS IMPROVED WOULD BE OPTIMAL TO PROVIDE COMPLETE EVALUATION. 2. CORTICAL CYST IN THE LEFT KIDNEY. 3. GALLSTONES. 4. 3.5 CM INFRARENAL ABDOMINAL AORTIC ANEURYSM. 5. SMALL PLEURAL EFFUSIONS AND BASILAR INFILTRATES, RIGHT GREATER THAN LEFT. Chest X-Ray 02/16/18 06:00 IMPRESSION: Chronic volume loss on the right. No significant change. Assessment & Plan - Diagnosis (1) Acute ischemic stroke Is this a current diagnosis for this admission?: Yes Plan: resumed intermittent posturing (2) COPD (chronic obstructive pulmonary disease) Qualifiers: Emphysema type: unspecified Is this a current diagnosis for this admission?: Yes Plan: Stable at this time (3) Cardiopulmonary arrest with successful resuscitation Is this a current diagnosis for this admission?: Yes Plan: Patient was in [facility]A total of 30 minutes for code - Time Total Critical Time (Minutes): 40
[2018-02-16] MEDS: PROPOFOL 1,000 MG/100 ML INFUS..BTL IV PRN (20:29)
[2018-02-17] MEDS: LEVALBUTEROL HCL NEB 1.25 MG/3 ML AMPUL NEB SCH ×3 (00:30→16:07)
[2018-02-17] MEDS: PROPOFOL 1,000 MG/100 ML INFUS..BTL IV PRN (01:28)
[2018-02-17 07:34] LABS: ARTERIAL BLOOD BASE EXCESS 7.2 mmol/L; ARTERIAL BLOOD H2CO3 1.44 mmol/L (1.05-1.35); ARTERIAL BLOOD HCO3 32.1 mmol/L (20-26); ARTERIAL BLOOD O2 SATURATION 81.7 % (94-98); ARTERIAL BLOOD PCO2 47.7 mmHg (35-45); ARTERIAL BLOOD PH 7.45 (7.35-7.45); ARTERIAL BLOOD PO2 44.3 mmHg (80-100); ARTERIAL BLOOD TOTAL CO2 33.6 mmol/L (23-27)
[2018-02-17 07:41] LABS: ARTERIAL BLOOD FIO2 35%
[2018-02-17 07:50] LABS: ABSOLUTE BASOPHILS # (AUTO) 0.1 10^3/uL (0.0-0.2); ABSOLUTE EOSINOPHILS # (AUTO) 0.4 10^3/uL (0.0-0.6); ABSOLUTE LYMPHOCYTES (AUTO) 0.9 10^3/uL (0.5-4.7); ABSOLUTE MONOCYTES (AUTO) 0.5 10^3/uL (0.1-1.4); ABSOLUTE NEUT (AUTO) 6.1 10^3/uL (1.7-8.2); BASOPHILS % (AUTO) 0.9 % (0-2); EOSINOPHILS % (AUTO) 5.2 % (0-6); HEMATOCRIT 31.1 % (37.9-51.0); LYMPHOCYTES % (AUTO) 11.6 % (13-45); MEAN CORPUSCULAR VOLUME 85 fl (80-97); MONOCYTES % (AUTO) 6.8 % (3-13); PLATELET COUNT 680 10^3/uL (150-450); RED BLOOD COUNT 3.68 10^6/uL (4.35-5.55); SEGMENTED NEUTROPHILS % (AUTO) 75.5 % (42-78); TOTAL CELLS COUNTED % (AUTO) 100 %; WHITE BLOOD COUNT 8.1 10^3/uL (4.0-10.5)
[2018-02-17 08:05] LABS: ANION GAP 11 (5-19); BLOOD UREA NITROGEN 32 mg/dL (7-20); CARBON DIOXIDE 30 mmol/L (22-30); CHLORIDE 104 mmol/L (98-107); GLUCOSE 123 mg/dL (75-110); PHOSPHORUS 4.9 mg/dL (2.5-4.5); POTASSIUM 4.4 mmol/L (3.6-5.0); SODIUM 145.1 mmol/L (137-145)
--- NOTE | 2018-02-17 08:37 | RADIOLOGY REPORT (SQ) ---
EXAM DESCRIPTION: CHEST SINGLE VIEW COMPLETED DATE/TIME: 02/17/2018 8:08 am REASON FOR STUDY: resp failure FINDINGS: LUNGS AND PLEURA: Volume loss on the right, stable finding. No acute pulmonary consolida tion. No pneumothorax or pleural effusion. Elevation of the right hemidiaphragm, unchanged finding. MEDIASTINUM AND HILAR STRUCTURES: No masses. Contour normal. HEART AND VASCULAR STRUCTURES: Heart size normal. Normal vascularity. BONES: No acute findings. OTHER: Support devices, appropriate in location without change. IMPRESSION: 1 No significant interval changes since the prior study dated 02/16/2018. Chronic volume loss on the right. No acute findings. 2. Support devices, appropriate in location without change. TECHNICAL DOCUMENTATION: JOB ID: [id number] [employer]- All Rights Reserved COMPARISON: None. 02/16/2018 None. EXAM PARAMETERS: NUMBER OF VIEWS: One view TECHNIQUE: Single frontal radiograph of the chest. RADIATION DOSE: N/A LIMITATIONS: None. Reading location - IP/workstation name: [email or web address]
[2018-02-17] MEDS: POLYETHYLENE GLYCOL 3350 POWDER 17 GM/1 PACKET NG SCH (09:38)
[2018-02-17] MEDS: HEPARIN SOD (PORCINE) 5,000 UNIT/ML 1 ML SYRINGE SUBCUT SCH ×3 (09:38→21:14)
[2018-02-17] MEDS: NYSTATIN TOPICAL POWDER 15 GM TP SCH ×2 (09:43→18:54)
[2018-02-17] MEDS: FUROSEMIDE INJ/PF 20 MG/2 ML SDV IV SCH (09:43)
[2018-02-17] MEDS: CLOPIDOGREL BISULFATE 75 MG TABLET PO SCH (09:44)
[2018-02-17] MEDS: LORAZEPAM INJ 2 MG/1 ML VIAL IV PRN ×4 (09:52→23:11)
[2018-02-17] MEDS: FENTANYL CITRATE INJ/PF 100 MCG/2 ML AMPUL IV PRN ×4 (09:53→22:54)
--- NOTE | 2018-02-17 10:48 | PDOC PROGRESS REPORT ---
Subjective Progress Note for:: 02/17/18 Subjective:: History is obtained solely from the chart as patient is unable to provide any history. He is currently intubated. He was admitted with an altered mental status, slurred speech as well as difficulty ambulating and was thought to have an acute or subacute lacunar infarct in multiple locations of both frontal lobes , left. And occipital lobes as well as left cerebellum. He had a lumbar puncture done which was negative. He was initially on antibiotics for this was also discontinued. Patient suffered a starting respiratory arrest and was intubated and transferred to the intensive care unit where he remains today. Patient has been having sedation holidays but it appears he is otherwise not really weanable. It appears at this time family is hoping for an immaculate recovery although discussions by all providers have indicated that his prognosis is pretty poor. Patient's condition is grossly unchanged and no new findings We are still waiting [facility] and there is no new information this morning. I suggest getting get over the family again in another couple of days if there are no new complaints to discuss what the plan of action would be regarding possible trial of extubation and may be tracheostomy. The family is not ready to entertain the possibility of terminal extubation Reason For Visit: ALTERED MENTAL STATUS,LEUKOCYTOSIS Physical Exam Vital Signs: Temp Pulse Resp BP Pulse Ox 99.5 F 90 11 L 118/76 94 02/17/18 10:03 02/17/18 10:00 02/17/18 10:03 02/17/18 10:03 02/17/18 10:03 Intake & Output 02/16/18 02/17/18 02/18/18 06:59 06:59 06:59 Intake Total 67 1968 Output Total 1920 1445 350 Balance -1920 -1378 1618 Weight 107.4 kg 107.4 kg General appearance: PRESENT: no acute distress, morbidly obese, other - Mechanical ventilation Head exam: PRESENT: atraumatic Eye exam: PRESENT: PERRLA Neck exam: ABSENT: JVD, thyromegaly Respiratory exam: PRESENT: decreased breath sounds, unlabored. ABSENT: rhonchi , stridor, tachypnea Cardiovascular exam: PRESENT: RRR. ABSENT: diastolic murmur, rubs, systolic murmur GI/Abdominal exam: PRESENT: normal bowel sounds, soft. ABSENT: distended, guarding, mass, organolmegaly, rebound, tenderness Rectal exam: PRESENT: deferred Extremities exam: ABSENT: calf tenderness, full ROM - Left sided hemiplegia Neurological exam: PRESENT: other - Intermittently awake but no meaningful responses or actions. Patient does respond to painful stimuli Psychiatric exam: PRESENT: other - Unable to evaluate Results Laboratory Results: 02/17/18 07:35 02/17/18 07:35 02/17/18 02/17/18 02/17/18 06:50 07:35 07:35 WBC 8.1 RBC 3.68 L Hgb 10.0 L Hct 31.1 L MCV 85 MCH 27.0 MCHC 32.0 RDW 17.0 H Plt Count 680 H Seg Neutrophils % 75.5 Lymphocytes % 11.6 L Monocytes % 6.8 Eosinophils % 5.2 Basophils % 0.9 Absolute Neutrophils 6.1 Absolute Lymphocytes 0.9 Absolute Monocytes 0.5 Absolute Eosinophils 0.4 Absolute Basophils 0.1 Carbonic Acid 1.44 H HCO3/H2CO3 Ratio 22:1 ABG pH 7.45 ABG pCO2 47.7 H ABG pO2 44.3 L ABG HCO3 32.1 H ABG O2 Saturation 81.7 L ABG Base Excess 7.2 FiO2 35% Sodium 145.1 H Potassium 4.4 Chloride 104 Carbon Dioxide 30 Anion Gap 11 BUN 32 H Creatinine 1.04 Est GFR ( Amer) > 60 Est GFR (Non-Af Amer) > 60 Glucose 123 H Calcium 9.0 Phosphorus 4.9 H Magnesium 2.5 H 02/15/18 12:00 Tracheal Aspirate Gram Stain - Final 02/15/18 12:00 Tracheal Aspirate Sputum Culture - Final C.albicans/C.dubliniensis Normal Alison Absent 01/29/18 01/29/18 01/30/18 17:45 23:40 05:45 Creatine Kinase CK-MB (CK-2) Troponin I 0.244 0.319 0.379 01/30/18 01/30/18 01/30/18 12:00 12:00 18:44 Creatine Kinase 105 74 CK-MB (CK-2) 5.01 H Troponin I 0.349 01/30/18 01/30/18 01/30/18 18:44 23:55 23:55 Creatine Kinase 58 CK-MB (CK-2) 3.04 2.10 Troponin I 0.290 0.268 Impressions: Guidance Fluoroscopy 01/28/18 00:00 IMPRESSION: Please see combined report for performance of procedure and radiologic supervision and interpretation. Head MRI 01/28/18 00:00 IMPRESSION: Positive for acute or sub-acute punctate- lacunar infarctions in multiple locations of both frontal lobes, left parietal-occipital lobe, and the left cerebellum. This pattern suggests embolic phenomenon but can be seen with other etiologies such as traumatic brain injury, correlate clinically. No enhancing lesions. EVIDENCE OF ACUTE STROKE: YES. Multiple vessel distribution Lumbar Puncture 01/28/18 17:17 IMPRESSION: Lumbar puncture under fluoroscopy. No immediate complication. Carotid Doppler Study 01/30/18 00:00 IMPRESSION: NO HEMODYNAMICALLY SIGNIFICANT STENOSIS. Head CT 01/30/18 00:00 IMPRESSION: 1. No acute intracranial abnormality identified. This exam was performed according to our departmental dose-optimization program, which includes automated exposure control, adjustment of the mA and/or kV according to patient size and/or use of iterative reconstruction technique. Chest/Abdomen CTA 01/31/18 12:47 IMPRESSION: 1. Normal CTA of the chest. No pulmonary emboli. 2. Right lower lobe consolidation may represent atelectasis on the basis of submaximal aeration in this intubated patient. Left lower lobe atelectasis. 3. 4.5 x 4.0 x 3.5 cm irregularly marginated heterogeneous appearing mass within the superior pole of the right kidney. This requires further evaluation with dedicated renal CT or MR imaging when feasible. Abdomen/Pelvis CT 02/04/18 10:57 IMPRESSION: 1. LIMITED STUDY. INDISTINCT AREA OF DECREASED ATTENUATION IN THE UPPER POLE OF THE RIGHT KIDNEY, DIFFICULT TO COMPLETELY VISUALIZE DUE TO STREAK ARTIFACT FROM PATIENT'S ARMS. MALIGNANCY SUCH RENAL CELL CARCINOMA IS IN THE DIFFERENTIAL. ANOTHER POSSIBILITY COULD BE AN AREA OF RENAL INFARCTION. IDEALLY, AN MRI OF THE KIDNEYS AFTER THE PATIENT'S CLINICAL CONDITION HAS IMPROVED WOULD BE OPTIMAL TO PROVIDE COMPLETE EVALUATION. 2. CORTICAL CYST IN THE LEFT KIDNEY. 3. GALLSTONES. 4. 3.5 CM INFRARENAL ABDOMINAL AORTIC ANEURYSM. 5. SMALL PLEURAL EFFUSIONS AND BASILAR INFILTRATES, RIGHT GREATER THAN LEFT. Chest X-Ray 02/17/18 06:00 IMPRESSION: 1 No significant interval changes since the prior study dated 2017. Chronic volume loss on the right. No acute findings. 2. Support devices, appropriate in location without change. Assessment & Plan - Time Time Spent with patient: 15-24 minutes Medications reviewed and adjusted accordingly: Yes Anticipated discharge: Other - Possible LTAC - Inpatient Certification Based on my medical assessment, after consideration of the patient's comorbidities, presenting symptoms, or acuity I expect that the services needed warrant INPATIENT care.: Yes Medical Necessity: Other - Mechanical ventilation - Plan Summary Plan Summary: 1. Acute respiratory failure status post cardiopulmonary arrest. Patient remains off sedation with no meaningful responses except for responses to painful stimuli. It is unclear if patient will be able to maintain adequate respiration once extubated. Family do want him to have a tracheostomy and a decision will have to be made as to how to proceed regarding that. The plan had been to possibly transfer to LTAC with the endotracheal tube in situ but at this time we are still awaiting contact with LTAC 2. Acute to subacute CVA-this is the initial admitting diagnosis 3. Enterococcus bacteremia patient completed course of ampicillin. Repeat blood cultures are negative 4. Cardiopulmonary arrest with return of spontaneous circulation however patient remains intubated and that he probably has anoxic brain injury with poor prognosis for independent living off the ventilator. Please discussed with family and Dr. Santizo regarding further management 5. Elevated troponin likely secondary to acute event. No further interventions planned 6. Right renal mass further workup will be deferred 7. COPD stable 8. Stable anemia 9. Still awaiting transfer to LTAC through the [place]. discussed with case management and no new information as of this morning
[2018-02-18] MEDS: LEVALBUTEROL HCL NEB 1.25 MG/3 ML AMPUL NEB SCH ×3 (00:20→16:55)
[2018-02-18] MEDS: FENTANYL CITRATE INJ/PF 100 MCG/2 ML AMPUL IV PRN ×3 (05:01→15:43)
[2018-02-18] MEDS: HEPARIN SOD (PORCINE) 5,000 UNIT/ML 1 ML SYRINGE SUBCUT SCH ×3 (05:22→22:42)
[2018-02-18 06:09] LABS: ARTERIAL BLOOD BASE EXCESS 7.5 mmol/L; ARTERIAL BLOOD H2CO3 1.45 mmol/L (1.05-1.35); ARTERIAL BLOOD HCO3 32.5 mmol/L (20-26); ARTERIAL BLOOD PCO2 48.3 mmHg (35-45); ARTERIAL BLOOD PH 7.45 (7.35-7.45); ARTERIAL BLOOD PO2 72.4 mmHg (80-100)
[2018-02-18 06:10] LABS: ARTERIAL BLOOD FIO2 35%
[2018-02-18] MEDS: FUROSEMIDE INJ/PF 20 MG/2 ML SDV IV SCH (10:43)
[2018-02-18] MEDS: NYSTATIN TOPICAL POWDER 15 GM TP SCH ×2 (10:43→17:58)
[2018-02-18] MEDS: LORAZEPAM INJ 2 MG/1 ML VIAL IV PRN ×2 (10:43→15:43)
[2018-02-18] MEDS: POLYETHYLENE GLYCOL 3350 POWDER 17 GM/1 PACKET NG SCH (10:44)
[2018-02-18] MEDS: CLOPIDOGREL BISULFATE 75 MG TABLET PO SCH (10:44)
[2018-02-18 11:05] LABS: INTERNATIONAL RATION (INR) 0.97; PROTHROMBIN TIME 13.4 SEC (11.4-15.4)
[2018-02-18 11:06] LABS: PARTIAL THROMBOPLASTIN TIME 32.1 SEC (23.5-35.8)
--- NOTE | 2018-02-18 20:06 | PDOC PROGRESS REPORT ---
Subjective Progress Note for:: 02/18/18 Subjective:: Assumed care. Patient was initially admitted for acute CVA. Patient did went into arrest, PA on the floor and was subsequently admitted. Patient has been on day 19 of the and the ventilator. No acute event overnight. No significant secretions from the ED. No purposeful movement. Patient does not track. Discussed with family again today and they are now amenable to proceeding with tracheostomy. Reason For Visit: ALTERED MENTAL STATUS,LEUKOCYTOSIS Physical Exam Vital Signs: Temp Pulse Resp BP Pulse Ox 99.3 F 90 18 102/72 92 02/18/18 19:40 02/18/18 17:31 02/18/18 18:00 02/18/18 17:31 02/18/18 18:00 Intake & Output 02/17/18 02/18/18 02/19/18 06:59 06:59 06:59 Intake Total 67 2656 1121 Output Total 1445 1570 1045 Balance -1378 1086 76 Weight 236 lb 12.423 oz 237 lb 7.005 oz General appearance: PRESENT: no acute distress Head exam: PRESENT: atraumatic, normocephalic Eye exam: PRESENT: conjunctiva pink, EOMI, PERRLA. ABSENT: scleral icterus Neck exam: ABSENT: carotid bruit, JVD, lymphadenopathy, thyromegaly Respiratory exam: PRESENT: clear to auscultation karime. ABSENT: rales, rhonchi, wheezes Pulses: PRESENT: normal dorsalis pedis pul Rectal exam: PRESENT: deferred Neurological exam: PRESENT: motor sensory deficit - 0/5 motor strength on the left upper and lower extremities, patient does not track, cranial nerves III to appear to be intact, patient also has gag reflex Results Laboratory Results: 02/17/18 07:35 02/17/18 07:35 02/18/18 05:10 Carbonic Acid 1.45 H HCO3/H2CO3 Ratio 22:1 ABG pH 7.45 ABG pCO2 48.3 H ABG pO2 72.4 L ABG HCO3 32.5 H ABG O2 Saturation 95.0 ABG Base Excess 7.5 FiO2 35% 01/29/18 01/29/18 01/30/18 17:45 23:40 05:45 Creatine Kinase CK-MB (CK-2) Troponin I 0.244 0.319 0.379 01/30/18 01/30/18 01/30/18 12:00 12:00 18:44 Creatine Kinase 105 74 CK-MB (CK-2) 5.01 H Troponin I 0.349 01/30/18 01/30/18 01/30/18 18:44 23:55 23:55 Creatine Kinase 58 CK-MB (CK-2) 3.04 2.10 Troponin I 0.290 0.268 Impressions: Guidance Fluoroscopy 01/28/18 00:00 IMPRESSION: Please see combined report for performance of procedure and radiologic supervision and interpretation. Head MRI 01/28/18 00:00 IMPRESSION: Positive for acute or sub-acute punctate- lacunar infarctions in multiple locations of both frontal lobes, left parietal-occipital lobe, and the left cerebellum. This pattern suggests embolic phenomenon but can be seen with other etiologies such as traumatic brain injury, correlate clinically. No enhancing lesions. EVIDENCE OF ACUTE STROKE: YES. Multiple vessel distribution Lumbar Puncture 01/28/18 17:17 IMPRESSION: Lumbar puncture under fluoroscopy. No immediate complication. Carotid Doppler Study 01/30/18 00:00 IMPRESSION: NO HEMODYNAMICALLY SIGNIFICANT STENOSIS. Head CT 01/30/18 00:00 IMPRESSION: 1. No acute intracranial abnormality identified. This exam was performed according to our departmental dose-optimization program, which includes automated exposure control, adjustment of the mA and/or kV according to patient size and/or use of iterative reconstruction technique. Chest/Abdomen CTA 01/31/18 12:47 IMPRESSION: 1. Normal CTA of the chest. No pulmonary emboli. 2. Right lower lobe consolidation may represent atelectasis on the basis of submaximal aeration in this intubated patient. Left lower lobe atelectasis. 3. 4.5 x 4.0 x 3.5 cm irregularly marginated heterogeneous appearing mass within the superior pole of the right kidney. This requires further evaluation with dedicated renal CT or MR imaging when feasible. Abdomen/Pelvis CT 02/04/18 10:57 IMPRESSION: 1. LIMITED STUDY. INDISTINCT AREA OF DECREASED ATTENUATION IN THE UPPER POLE OF THE RIGHT KIDNEY, DIFFICULT TO COMPLETELY VISUALIZE DUE TO STREAK ARTIFACT FROM PATIENT'S ARMS. MALIGNANCY SUCH RENAL CELL CARCINOMA IS IN THE DIFFERENTIAL. ANOTHER POSSIBILITY COULD BE AN AREA OF RENAL INFARCTION. IDEALLY, AN MRI OF THE KIDNEYS AFTER THE PATIENT'S CLINICAL CONDITION HAS IMPROVED WOULD BE OPTIMAL TO PROVIDE COMPLETE EVALUATION. 2. CORTICAL CYST IN THE LEFT KIDNEY. 3. GALLSTONES. 4. 3.5 CM INFRARENAL ABDOMINAL AORTIC ANEURYSM. 5. SMALL PLEURAL EFFUSIONS AND BASILAR INFILTRATES, RIGHT GREATER THAN LEFT. Chest X-Ray 02/17/18 06:00 IMPRESSION: 1 No significant interval changes since the prior study dated 2017. Chronic volume loss on the right. No acute findings. 2. Support devices, appropriate in location without change. Assessment & Plan - Diagnosis (1) Acute respiratory failure Is this a current diagnosis for this admission?: Yes Plan: Patient was intubated after going into PEA arrest. Patient has been on a 19 of being on the ventilator. Weaning has been difficult for this patient. He is currently on FiO2 30%. Discussed with family and the are not amenable to proceeding with tracheostomy. Surgery was consulted for tracheostomy. - Time Time Spent with patient: 25-34 minutes
[2018-02-19] MEDS: LEVALBUTEROL HCL NEB 1.25 MG/3 ML AMPUL NEB SCH ×4 (00:50→23:59)
[2018-02-19] MEDS: LORAZEPAM INJ 2 MG/1 ML VIAL IV PRN ×2 (01:56→17:07)
[2018-02-19] MEDS: FENTANYL CITRATE INJ/PF 100 MCG/2 ML AMPUL IV PRN ×2 (01:56→17:07)
[2018-02-19] MEDS: HEPARIN SOD (PORCINE) 5,000 UNIT/ML 1 ML SYRINGE SUBCUT SCH ×3 (05:06→22:04)
[2018-02-19 05:39] LABS: ARTERIAL BLOOD BASE EXCESS 4.2 mmol/L; ARTERIAL BLOOD H2CO3 1.19 mmol/L (1.05-1.35); ARTERIAL BLOOD HCO3 28.2 mmol/L (20-26); ARTERIAL BLOOD PCO2 39.6 mmHg (35-45); ARTERIAL BLOOD PH 7.47 (7.35-7.45); ARTERIAL BLOOD PO2 86.2 mmHg (80-100); ARTERIAL BLOOD TOTAL CO2 29.4 mmol/L (23-27)
[2018-02-19 05:40] LABS: ARTERIAL BLOOD FIO2 30%
[2018-02-19 05:47] LABS: ABSOLUTE BASOPHILS # (AUTO) 0.1 10^3/uL (0.0-0.2); ABSOLUTE EOSINOPHILS # (AUTO) 0.4 10^3/uL (0.0-0.6); ABSOLUTE LYMPHOCYTES (AUTO) 0.9 10^3/uL (0.5-4.7); ABSOLUTE MONOCYTES (AUTO) 0.6 10^3/uL (0.1-1.4); ABSOLUTE NEUT (AUTO) 6.9 10^3/uL (1.7-8.2); BASOPHILS % (AUTO) 0.8 % (0-2); EOSINOPHILS % (AUTO) 4.3 % (0-6); HEMATOCRIT 31.1 % (37.9-51.0); LYMPHOCYTES % (AUTO) 10.4 % (13-45); MEAN CORPUSCULAR HEMOGLOBIN 27.3 pg (27.0-33.4); MEAN CORPUSCULAR HGB CONC 32.3 g/dL (32.0-36.0); MEAN CORPUSCULAR VOLUME 84 fl (80-97); MONOCYTES % (AUTO) 6.8 % (3-13); PLATELET COUNT 617 10^3/uL (150-450); RED BLOOD COUNT 3.68 10^6/uL (4.35-5.55); RED CELL DISTRIBUTION WIDTH 17.6 % (11.5-14.0); SEGMENTED NEUTROPHILS % (AUTO) 77.7 % (42-78); TOTAL CELLS COUNTED % (AUTO) 100 %; WHITE BLOOD COUNT 8.8 10^3/uL (4.0-10.5)
[2018-02-19 06:05] LABS: ANION GAP 11 (5-19); BLOOD UREA NITROGEN 35 mg/dL (7-20); CALCIUM 9.1 mg/dL (8.4-10.2); CARBON DIOXIDE 31 mmol/L (22-30); CHLORIDE 102 mmol/L (98-107); GLUCOSE 148 mg/dL (75-110); POTASSIUM 4.3 mmol/L (3.6-5.0)
--- NOTE | 2018-02-19 10:01 | PDOC CONSULTATION ---
Consultation Consult Date: 02/19/18 Consult reason:: Tracheostomy and PEG History of Present Illness Admission Date/PCP: 01/28/18 17:39 History of Present Illness: AGNIESZKA GOMEZ is a 57 year old male seen at the request of Dr. Coker. This patient underwent a cerebrovascular accident and subsequently suffered PEA. The patient was anoxic for a prolonged period of time. Since that time, the patient has been minimally responsive and unable to wean from the ventilator. The patient has been intubated for 21 days. Patient has been tolerating tube feeds, and is otherwise stable. A review of systems is unable to be obtained due to the patient's mental state. All history is obtained from the chart and from the family. Past Medical History Cardiac Medical History: Reports: Hypertension Pulmonary Medical History: Reports: Chronic Obstructive Pulmonary Disease (COPD) Endocrine Medical History: Reports: Diabetes Mellitus Type 2 GI Medical History: Reports: Hepatitis Skin Medical History: Reports: Psoriasis Psychiatric Medical History: Reports: Depression - anxiety Traumatic Medical History: Denies: Traumatic Brain Injury Hematology: Denies: Hemophilia, Sickle Cell Disease Infectious Medical History: Denies: Clostridium Difficile Past Surgical History Past Surgical History: Reports: Appendectomy, Orthopedic Surgery - left ankle Social History Smoking Status: Current Every Day Smoker Hx Recreational Drug Use: No - Advance Directive Resuscitation Status: Full Code Family History Family History: Other - Unable to obtain seconadary to patient's condition. Parental Family History Reviewed: Yes Children Family History Reviewed: Yes Sibling(s) Family History Reviewed.: Yes Medication/Allergy Home Medications: Albuterol Sulfate [Proair HFA] 2 puff IH Q6HP PRN 01/29/18 Amlodipine Besylate/Benazepril [Amlodipine-Benazepril 10-20 mg] 1 tab PO DAILY 01/29/18 Budesonide/Formoterol Fumarate [Symbicort HFA 160-4.5 mcg Inhaler 6 gm] 2 puff IH BID 01/29/18 Bupropion HCl [Wellbutrin 75 mg Tablet] 150 mg PO BID 01/29/18 Gabapentin [Neurontin] 300 mg PO Q12 01/29/18 Metformin HCl [Glucophage XR 500 mg Tablet] 1,000 mg PO DAILY 01/29/18 Tiotropium [place] [Spiriva Respimat] 2 puff IH BID 01/29/18 Allergies/Adverse Reactions: No Known Allergies Allergy (Verified 01/29/18 10:52) Review of Systems ROS unobtainable: Due to endotracheal tube, Due to mental status Physical Exam Vital Signs: Temp Pulse Resp BP Pulse Ox 99.3 F 91 23 H 121/76 93 02/19/18 06:00 02/19/18 09:07 02/19/18 09:07 02/19/18 05:56 02/19/18 09:07 Intake & Output 02/18/18 02/19/18 02/20/18 06:59 06:59 06:59 Intake Total 2656 1887 Output Total 1570 1375 100 Balance 1086 512 -100 Weight 107.7 kg 103.4 kg General appearance: PRESENT: no acute distress Head exam: PRESENT: atraumatic, normocephalic Mouth exam: PRESENT: neck supple Teeth exam: PRESENT: poor dentation Neck exam: ABSENT: lymphadenopathy, meningismus, tenderness, thyromegaly, tracheal deviation Respiratory exam: PRESENT: rales, symmetrical. ABSENT: accessory muscle use, chest wall tenderness, wheezes Cardiovascular exam: PRESENT: RRR Pulses: PRESENT: normal radial pulses Vascular exam: PRESENT: normal capillary refill. ABSENT: pallor GI/Abdominal exam: PRESENT: soft. ABSENT: distended, guarding, tenderness Rectal exam: PRESENT: deferred Extremities exam: ABSENT: clubbing Musculoskeletal exam: ABSENT: deformity Neurological exam: ABSENT: alert, awake, oriented to person, oriented to place, oriented to time, oriented to situation, reflexes normal Psychiatric exam: ABSENT: agitated, anxious, appropriate affect Focused psych exam: PRESENT: other - Comatose Skin exam: ABSENT: cyanosis, erythema, jaundice Results Laboratory Results: 02/19/18 05:15 02/19/18 05:15 02/19/18 02/19/18 02/19/18 05:15 05:15 05:15 WBC 8.8 RBC 3.68 L Hgb 10.0 L Hct 31.1 L MCV 84 MCH 27.3 MCHC 32.3 RDW 17.6 H Plt Count 617 H Seg Neutrophils % 77.7 Lymphocytes % 10.4 L Monocytes % 6.8 Eosinophils % 4.3 Basophils % 0.8 Absolute Neutrophils 6.9 Absolute Lymphocytes 0.9 Absolute Monocytes 0.6 Absolute Eosinophils 0.4 Absolute Basophils 0.1 Carbonic Acid 1.19 HCO3/H2CO3 Ratio 23:1 ABG pH 7.47 H ABG pCO2 39.6 ABG pO2 86.2 ABG HCO3 28.2 H ABG O2 Saturation 97.0 ABG Base Excess 4.2 FiO2 30% Sodium 144.0 Potassium 4.3 Chloride 102 Carbon Dioxide 31 H Anion Gap 11 BUN 35 H Creatinine 0.99 Est GFR ( Amer) > 60 Est GFR (Non-Af Amer) > 60 Glucose 148 H Calcium 9.1 01/29/18 01/29/18 01/30/18 17:45 23:40 05:45 Creatine Kinase CK-MB (CK-2) Troponin I 0.244 0.319 0.379 01/30/18 01/30/18 01/30/18 12:00 12:00 18:44 Creatine Kinase 105 74 CK-MB (CK-2) 5.01 H Troponin I 0.349 01/30/18 01/30/18 01/30/18 18:44 23:55 23:55 Creatine Kinase 58 CK-MB (CK-2) 3.04 2.10 Troponin I 0.290 0.268 Impressions: Guidance Fluoroscopy 01/28/18 00:00 IMPRESSION: Please see combined report for performance of procedure and radiologic supervision and interpretation. Head MRI 01/28/18 00:00 IMPRESSION: Positive for acute or sub-acute punctate- lacunar infarctions in multiple locations of both frontal lobes, left parietal-occipital lobe, and the left cerebellum. This pattern suggests embolic phenomenon but can be seen with other etiologies such as traumatic brain injury, correlate clinically. No enhancing lesions. EVIDENCE OF ACUTE STROKE: YES. Multiple vessel distribution Lumbar Puncture 01/28/18 17:17 IMPRESSION: Lumbar puncture under fluoroscopy. No immediate complication. Carotid Doppler Study 01/30/18 00:00 IMPRESSION: NO HEMODYNAMICALLY SIGNIFICANT STENOSIS. Head CT 01/30/18 00:00 IMPRESSION: 1. No acute intracranial abnormality identified. This exam was performed according to our departmental dose-optimization program, which includes automated exposure control, adjustment of the mA and/or kV according to patient size and/or use of iterative reconstruction technique. Chest/Abdomen CTA 01/31/18 12:47 IMPRESSION: 1. Normal CTA of the chest. No pulmonary emboli. 2. Right lower lobe consolidation may represent atelectasis on the basis of submaximal aeration in this intubated patient. Left lower lobe atelectasis. 3. 4.5 x 4.0 x 3.5 cm irregularly marginated heterogeneous appearing mass within the superior pole of the right kidney. This requires further evaluation with dedicated renal CT or MR imaging when feasible. Abdomen/Pelvis CT 02/04/18 10:57 IMPRESSION: 1. LIMITED STUDY. INDISTINCT AREA OF DECREASED ATTENUATION IN THE UPPER POLE OF THE RIGHT KIDNEY, DIFFICULT TO COMPLETELY VISUALIZE DUE TO STREAK ARTIFACT FROM PATIENT'S ARMS. MALIGNANCY SUCH RENAL CELL CARCINOMA IS IN THE DIFFERENTIAL. ANOTHER POSSIBILITY COULD BE AN AREA OF RENAL INFARCTION. IDEALLY, AN MRI OF THE KIDNEYS AFTER THE PATIENT'S CLINICAL CONDITION HAS IMPROVED WOULD BE OPTIMAL TO PROVIDE COMPLETE EVALUATION. 2. CORTICAL CYST IN THE LEFT KIDNEY. 3. GALLSTONES. 4. 3.5 CM INFRARENAL ABDOMINAL AORTIC ANEURYSM. 5. SMALL PLEURAL EFFUSIONS AND BASILAR INFILTRATES, RIGHT GREATER THAN LEFT. Chest X-Ray 02/17/18 06:00 IMPRESSION: 1 No significant interval changes since the prior study dated 2017. Chronic volume loss on the right. No acute findings. 2. Support devices, appropriate in location without change. Assessment & Plan - Diagnosis (1) Acute CVA (cerebrovascular accident) Is this a current diagnosis for this admission?: Yes (2) Inanition Is this a current diagnosis for this admission?: Yes (3) Ventilator dependent Is this a current diagnosis for this admission?: Yes - Plan Summary Plan Summary: This is a 57-year-old male status post cerebrovascular accident. Patient has been intubated for 21 days. I have had a long discussion with the patient's daughter and son-in-law. They wish to continue his medical care despite his lack of brain function. They are hoping to transfer him to LTAC/rehab for continued medical services. They are requesting tracheostomy and gastrostomy to facilitate this. I had a long discussion about the risks and benefits of the procedures. These procedures will not assist with his brain function or his recovery. They will however facilitate his continued his medical treatment at a long-term acute care facility. Informed consent obtained from the patient' s daughter. All of her questions were answered.
[2018-02-19] MEDS: NYSTATIN TOPICAL POWDER 15 GM TP SCH ×2 (10:36→17:58)
[2018-02-19] MEDS: POLYETHYLENE GLYCOL 3350 POWDER 17 GM/1 PACKET NG SCH (10:36)
[2018-02-19] MEDS: FUROSEMIDE INJ/PF 20 MG/2 ML SDV IV SCH (10:36)
[2018-02-19] MEDS: CLOPIDOGREL BISULFATE 75 MG TABLET PO SCH (10:37)
--- NOTE | 2018-02-19 14:00 | PDOC PROGRESS REPORT ---
Subjective Progress Note for:: 02/19/18 Subjective:: No acute event overnight. No significant secretions from the ET. Continues to have no purposeful movement. Patient did have spontaneous eye movement this morning but does not track. Reason For Visit: ALTERED MENTAL STATUS,LEUKOCYTOSIS Physical Exam Vital Signs: Temp Pulse Resp BP Pulse Ox 99.5 F 91 13 122/72 97 02/19/18 10:00 02/19/18 09:07 02/19/18 10:00 02/19/18 09:56 02/19/18 12:32 Intake & Output 02/18/18 02/19/18 02/20/18 06:59 06:59 06:59 Intake Total 2656 1887 Output Total 1570 1375 650 Balance 1086 512 -650 Weight 237 lb 7.005 oz 227 lb 15.327 oz General appearance: PRESENT: no acute distress, well-developed, well-nourished Head exam: PRESENT: atraumatic, normocephalic Eye exam: PRESENT: conjunctiva pink, PERRLA. ABSENT: scleral icterus Neck exam: ABSENT: carotid bruit, JVD, lymphadenopathy, thyromegaly Respiratory exam: ABSENT: rales, rhonchi - occasonal rhonchi on the bases, wheezes Cardiovascular exam: PRESENT: diastolic murmur, RRR. ABSENT: rubs Pulses: PRESENT: normal dorsalis pedis pul GI/Abdominal exam: PRESENT: normal bowel sounds, soft. ABSENT: distended, guarding, mass, organolmegaly, rebound, tenderness Rectal exam: PRESENT: deferred Neurological exam: PRESENT: other - motor sensory deficit - 0/5 motor strength on the left upper and lower extremities, patient does not track, cranial nerves III to appear to be intact, patient also has gag reflex Results Laboratory Results: 02/19/18 05:15 02/19/18 05:15 02/19/18 02/19/18 02/19/18 05:15 05:15 05:15 WBC 8.8 RBC 3.68 L Hgb 10.0 L Hct 31.1 L MCV 84 MCH 27.3 MCHC 32.3 RDW 17.6 H Plt Count 617 H Seg Neutrophils % 77.7 Lymphocytes % 10.4 L Monocytes % 6.8 Eosinophils % 4.3 Basophils % 0.8 Absolute Neutrophils 6.9 Absolute Lymphocytes 0.9 Absolute Monocytes 0.6 Absolute Eosinophils 0.4 Absolute Basophils 0.1 Carbonic Acid 1.19 HCO3/H2CO3 Ratio 23:1 ABG pH 7.47 H ABG pCO2 39.6 ABG pO2 86.2 ABG HCO3 28.2 H ABG O2 Saturation 97.0 ABG Base Excess 4.2 FiO2 30% Sodium 144.0 Potassium 4.3 Chloride 102 Carbon Dioxide 31 H Anion Gap 11 BUN 35 H Creatinine 0.99 Est GFR ( Amer) > 60 Est GFR (Non-Af Amer) > 60 Glucose 148 H Calcium 9.1 01/29/18 01/29/18 01/30/18 17:45 23:40 05:45 Creatine Kinase CK-MB (CK-2) Troponin I 0.244 0.319 0.379 01/30/18 01/30/18 01/30/18 12:00 12:00 18:44 Creatine Kinase 105 74 CK-MB (CK-2) 5.01 H Troponin I 0.349 01/30/18 01/30/18 01/30/18 18:44 23:55 23:55 Creatine Kinase 58 CK-MB (CK-2) 3.04 2.10 Troponin I 0.290 0.268 Impressions: Guidance Fluoroscopy 01/28/18 00:00 IMPRESSION: Please see combined report for performance of procedure and radiologic supervision and interpretation. Head MRI 01/28/18 00:00 IMPRESSION: Positive for acute or sub-acute punctate- lacunar infarctions in multiple locations of both frontal lobes, left parietal-occipital lobe, and the left cerebellum. This pattern suggests embolic phenomenon but can be seen with other etiologies such as traumatic brain injury, correlate clinically. No enhancing lesions. EVIDENCE OF ACUTE STROKE: YES. Multiple vessel distribution Lumbar Puncture 01/28/18 17:17 IMPRESSION: Lumbar puncture under fluoroscopy. No immediate complication. Carotid Doppler Study 01/30/18 00:00 IMPRESSION: NO HEMODYNAMICALLY SIGNIFICANT STENOSIS. Head CT 01/30/18 00:00 IMPRESSION: 1. No acute intracranial abnormality identified. This exam was performed according to our departmental dose-optimization program, which includes automated exposure control, adjustment of the mA and/or kV according to patient size and/or use of iterative reconstruction technique. Chest/Abdomen CTA 01/31/18 12:47 IMPRESSION: 1. Normal CTA of the chest. No pulmonary emboli. 2. Right lower lobe consolidation may represent atelectasis on the basis of submaximal aeration in this intubated patient. Left lower lobe atelectasis. 3. 4.5 x 4.0 x 3.5 cm irregularly marginated heterogeneous appearing mass within the superior pole of the right kidney. This requires further evaluation with dedicated renal CT or MR imaging when feasible. Abdomen/Pelvis CT 02/04/18 10:57 IMPRESSION: 1. LIMITED STUDY. INDISTINCT AREA OF DECREASED ATTENUATION IN THE UPPER POLE OF THE RIGHT KIDNEY, DIFFICULT TO COMPLETELY VISUALIZE DUE TO STREAK ARTIFACT FROM PATIENT'S ARMS. MALIGNANCY SUCH RENAL CELL CARCINOMA IS IN THE DIFFERENTIAL. ANOTHER POSSIBILITY COULD BE AN AREA OF RENAL INFARCTION. IDEALLY, AN MRI OF THE KIDNEYS AFTER THE PATIENT'S CLINICAL CONDITION HAS IMPROVED WOULD BE OPTIMAL TO PROVIDE COMPLETE EVALUATION. 2. CORTICAL CYST IN THE LEFT KIDNEY. 3. GALLSTONES. 4. 3.5 CM INFRARENAL ABDOMINAL AORTIC ANEURYSM. 5. SMALL PLEURAL EFFUSIONS AND BASILAR INFILTRATES, RIGHT GREATER THAN LEFT. Chest X-Ray 02/17/18 06:00 IMPRESSION: 1 No significant interval changes since the prior study dated 2017. Chronic volume loss on the right. No acute findings. 2. Support devices, appropriate in location without change. Assessment & Plan - Diagnosis (1) Acute respiratory failure Is this a current diagnosis for this admission?: Yes Plan: Patient was intubated after going into PEA arrest. Patient is on day 20 of being on the ventilator. He is currently on FiO2 30%. Surgery is planning to proceed with tracheostomy and PEG placement tomorrow. (2) Acute CVA (cerebrovascular accident) Is this a current diagnosis for this admission?: Yes Plan: Patient's MRI showed acute or subacute punctate lacunar infarctions in multiple locations of both the frontal lobes, left parietal occipital lobe and the left cerebellum. Patient was not a TPA candidate as he presented be in the window. (3) Bacteremia due to Enterococcus Is this a current diagnosis for this admission?: Yes Plan: Patient has completed antibiotic course with ampicillin. Repeat blood cultures showed clearance of bacteremia. (4) Cardiopulmonary arrest with successful resuscitation Is this a current diagnosis for this admission?: Yes Plan: Patient's cardiopulmonary arrest was likely secondary to acute CVA. (5) Right renal mass Is this a current diagnosis for this admission?: Yes Plan: Urology was consulted for this. However due to patient's current status, further workup for this will be deferred for now. - Time Time Spent with patient: 25-34 minutes
[2018-02-19] MEDS: NORMAL SALINE 250 ML IV PRN (17:57)
[2018-02-19] MEDS: PROPOFOL 1,000 MG/100 ML INFUS..BTL IV PRN (20:20)
[2018-02-20] MEDS: PROPOFOL 1,000 MG/100 ML INFUS..BTL IV PRN ×3 (02:47→19:39)
[2018-02-20] MEDS: HEPARIN SOD (PORCINE) 5,000 UNIT/ML 1 ML SYRINGE SUBCUT SCH ×3 (05:07→21:24)
[2018-02-20] MEDS: LEVALBUTEROL HCL NEB 1.25 MG/3 ML AMPUL NEB SCH ×2 (08:52→16:52)
[2018-02-20] MEDS ORDERED: ROCURONIUM BROMIDE INJ 50 MG/5 ML VIAL IV ONE (09:42)
[2018-02-20] MEDS: CLOPIDOGREL BISULFATE 75 MG TABLET PO SCH (09:46)
[2018-02-20] MEDS: POLYETHYLENE GLYCOL 3350 POWDER 17 GM/1 PACKET NG SCH (09:46)
[2018-02-20] MEDS: FUROSEMIDE INJ/PF 20 MG/2 ML SDV IV SCH (10:22)
[2018-02-20] MEDS: NYSTATIN TOPICAL POWDER 15 GM TP SCH ×2 (10:29→17:29)
--- NOTE | 2018-02-20 12:39 | PDOC PROGRESS REPORT ---
Subjective Progress Note for:: 02/20/18 Subjective:: There is a 57-year-old male with ventilator dependence and anoxic brain injury. The patient's status has not changed since yesterday. The family still requesting tracheostomy and gastrostomy placement. Reason For Visit: ALTERED MENTAL STATUS,LEUKOCYTOSIS Physical Exam Vital Signs: Temp Pulse Resp BP Pulse Ox 98.4 F 83 18 118/77 100 02/20/18 10:15 02/20/18 08:52 02/20/18 10:15 02/20/18 10:15 02/20/18 11:41 Intake & Output 02/19/18 02/20/18 02/21/18 06:59 06:59 06:59 Intake Total 1887 43 Output Total 1375 1080 310 Balance 512 -1037 -310 Weight 103.4 kg 106.1 kg General appearance: PRESENT: no acute distress Head exam: PRESENT: atraumatic Mouth exam: PRESENT: neck supple Neck exam: ABSENT: thyromegaly, tracheal deviation Respiratory exam: PRESENT: rales Cardiovascular exam: PRESENT: RRR Pulses: PRESENT: normal radial pulses Rectal exam: PRESENT: deferred Extremities exam: ABSENT: clubbing Musculoskeletal exam: ABSENT: deformity Neurological exam: ABSENT: alert, awake, oriented to person, oriented to place, oriented to time, oriented to situation, reflexes normal Focused psych exam: PRESENT: other - Comatose Skin exam: ABSENT: erythema, jaundice Results Laboratory Results: 02/19/18 05:15 02/19/18 05:15 01/29/18 01/29/18 01/30/18 17:45 23:40 05:45 Creatine Kinase CK-MB (CK-2) Troponin I 0.244 0.319 0.379 01/30/18 01/30/18 01/30/18 12:00 12:00 18:44 Creatine Kinase 105 74 CK-MB (CK-2) 5.01 H Troponin I 0.349 01/30/18 01/30/18 01/30/18 18:44 23:55 23:55 Creatine Kinase 58 CK-MB (CK-2) 3.04 2.10 Troponin I 0.290 0.268 Impressions: Guidance Fluoroscopy 01/28/18 00:00 IMPRESSION: Please see combined report for performance of procedure and radiologic supervision and interpretation. Head MRI 01/28/18 00:00 IMPRESSION: Positive for acute or sub-acute punctate- lacunar infarctions in multiple locations of both frontal lobes, left parietal-occipital lobe, and the left cerebellum. This pattern suggests embolic phenomenon but can be seen with other etiologies such as traumatic brain injury, correlate clinically. No enhancing lesions. EVIDENCE OF ACUTE STROKE: YES. Multiple vessel distribution Lumbar Puncture 01/28/18 17:17 IMPRESSION: Lumbar puncture under fluoroscopy. No immediate complication. Carotid Doppler Study 01/30/18 00:00 IMPRESSION: NO HEMODYNAMICALLY SIGNIFICANT STENOSIS. Head CT 01/30/18 00:00 IMPRESSION: 1. No acute intracranial abnormality identified. This exam was performed according to our departmental dose-optimization program, which includes automated exposure control, adjustment of the mA and/or kV according to patient size and/or use of iterative reconstruction technique. Chest/Abdomen CTA 01/31/18 12:47 IMPRESSION: 1. Normal CTA of the chest. No pulmonary emboli. 2. Right lower lobe consolidation may represent atelectasis on the basis of submaximal aeration in this intubated patient. Left lower lobe atelectasis. 3. 4.5 x 4.0 x 3.5 cm irregularly marginated heterogeneous appearing mass within the superior pole of the right kidney. This requires further evaluation with dedicated renal CT or MR imaging when feasible. Abdomen/Pelvis CT 02/04/18 10:57 IMPRESSION: 1. LIMITED STUDY. INDISTINCT AREA OF DECREASED ATTENUATION IN THE UPPER POLE OF THE RIGHT KIDNEY, DIFFICULT TO COMPLETELY VISUALIZE DUE TO STREAK ARTIFACT FROM PATIENT'S ARMS. MALIGNANCY SUCH RENAL CELL CARCINOMA IS IN THE DIFFERENTIAL. ANOTHER POSSIBILITY COULD BE AN AREA OF RENAL INFARCTION. IDEALLY, AN MRI OF THE KIDNEYS AFTER THE PATIENT'S CLINICAL CONDITION HAS IMPROVED WOULD BE OPTIMAL TO PROVIDE COMPLETE EVALUATION. 2. CORTICAL CYST IN THE LEFT KIDNEY. 3. GALLSTONES. 4. 3.5 CM INFRARENAL ABDOMINAL AORTIC ANEURYSM. 5. SMALL PLEURAL EFFUSIONS AND BASILAR INFILTRATES, RIGHT GREATER THAN LEFT. Chest X-Ray 02/17/18 06:00 IMPRESSION: 1 No significant interval changes since the prior study dated 2017. Chronic volume loss on the right. No acute findings. 2. Support devices, appropriate in location without change. Assessment & Plan - Diagnosis (1) Acute CVA (cerebrovascular accident) Is this a current diagnosis for this admission?: Yes (2) Inanition Is this a current diagnosis for this admission?: Yes (3) Ventilator dependent Is this a current diagnosis for this admission?: Yes - Plan Summary Plan Summary: 57-year-old male status post CVA with anoxic brain injury. The patient's family is requesting tracheostomy and gastrostomy for long-term placement purposes. Plan for surgery today. Risks/benefits discussed with the patient's daughter, informed consent obtained, and all questions answered.
[2018-02-20] MEDS ORDERED: BUPIVACAINE HCL 0.25 % INJ/PF (2.5 MG/1 ML) 30 ML VIAL ONE (14:08)
[2018-02-20] MEDS ORDERED: CEFAZOLIN INJ 1 GM VIAL ONE (14:43)
[2018-02-20] MEDS ORDERED: METRONIDAZOLE 500 MG/NS RTU 500 MG/100 ML RTUPB IV ONE (14:52)
--- NOTE | 2018-02-20 15:56 | Operative Report ---
Nonrecallable Operative Report DATE OF SURGERY: 02/20/18 PREOPERATIVE DIAGNOSIS: 1. Anoxic brain injury. 2. CVA. 3. Inanition. POSTOPERATIVE DIAGNOSIS: Same as above OPERATION: 1. Tracheostomy. 2. Percutaneous endoscopic gastrostomy. SURGEON: RASHAAD TRIVEDI ANESTHESIA: GA TISSUE REMOVED OR ALTERED: None COMPLICATIONS: None apparent ESTIMATED BLOOD LOSS: Minimal PROCEDURE: Drains/implants: 1. #8 Shiley tracheostomy. 2. Percutaneous endoscopic gastrostomy. Procedure in detail: After informed consent was obtained, the patient was brought to the operating room and laid in the supine position. The area of the neck was prepped and draped in a normal sterile fashion. An incision was created in the anterior neck. Dissection was carried through the subcutaneous tissue using Bovie electrocautery. The trachea was identified and cleaned using electrocautery and blunt dissection. The thyroid was displaced inferiorly. The cricoid cartilage was grasped with a tracheostomy hook and retracted superiorly. The third tracheal ring was then identified. 0 Ethibond suture was used as stay sutures for retraction purposes. An incision was created at the third tracheal ring. The endotracheal tube was visualized, and was pulled back by anesthesia. #8 Shiley tracheostomy was then inserted into the opening in the trachea. The ventilator was then attached to the tracheostomy. End-tidal CO2 was confirmed. The patient's sats never dropped below 95% during the entire maneuver. The tracheostomy was then sutured to the skin using 0 Prolene suture 4. A tracheostomy strap was then placed. This portion of the procedure was then concluded. Attention was turned to placement of the percutaneous endoscopic gastrostomy. The endoscope was passed down the oropharynx, down the esophagus, and into the stomach. A suitable place on the stomach was identified for PEG placement. This was done with one-to-one ballottement and transillumination. Once this was confirmed, the abdomen was prepped and draped. A needle was inserted percutaneously under direct endoscopic visualization into the stomach. The wire was passed through the needle. The wire was then grasped with a snare and pulled out through the mouth. The PEG tube was attached to the wire. The wire was pulled, and the PEG tube was pulled into the stomach. This maneuver left the bumper within the lumen of the stomach. The external grommet was placed on the PEG tube. The tube sat at 4-1/2 cm at the skin. The grommet was sutured to the skin using 0 Prolene suture 3. At this time, the procedure was concluded. All sponge, instrument, and needle counts were correct 2. Condition: Stable.
--- NOTE | 2018-02-20 18:39 | PDOC PROGRESS REPORT ---
Subjective Progress Note for:: 02/20/18 Subjective:: No acute event overnight. No significant secretions from the ET. Patient did have spontaneous eye movement this morning but does not track. Scheduled for trach and PEG later today. Reason For Visit: ALTERED MENTAL STATUS,LEUKOCYTOSIS Physical Exam Vital Signs: Temp Pulse Resp BP Pulse Ox 99.0 F 82 16 119/81 100 02/20/18 14:36 02/20/18 14:36 02/20/18 14:36 02/20/18 14:36 02/20/18 14:36 Intake & Output 02/19/18 02/20/18 02/21/18 06:59 06:59 06:59 Intake Total 1887 43 79 Output Total 1375 1080 810 Balance 617 -3999 -969 Weight 227 lb 15.327 oz 233 lb 14.567 oz General appearance: PRESENT: no acute distress, obese Eye exam: PRESENT: conjunctiva pink, PERRLA. ABSENT: scleral icterus Neck exam: ABSENT: carotid bruit, JVD, lymphadenopathy, thyromegaly Respiratory exam: PRESENT: clear to auscultation karime. ABSENT: rales, rhonchi, wheezes Cardiovascular exam: PRESENT: RRR. ABSENT: diastolic murmur, rubs, systolic murmur GI/Abdominal exam: PRESENT: normal bowel sounds, soft. ABSENT: distended, guarding, mass, organolmegaly, rebound, tenderness Rectal exam: PRESENT: deferred Neurological exam: PRESENT: other - motor sensory deficit - 0/5 motor strength on the left upper and lower extremities, patient does not track, cranial nerves III to appear to be intact, patient also has gag reflex Results Laboratory Results: 02/19/18 05:15 02/19/18 05:15 01/29/18 01/29/18 01/30/18 17:45 23:40 05:45 Creatine Kinase CK-MB (CK-2) Troponin I 0.244 0.319 0.379 01/30/18 01/30/18 01/30/18 12:00 12:00 18:44 Creatine Kinase 105 74 CK-MB (CK-2) 5.01 H Troponin I 0.349 01/30/18 01/30/18 01/30/18 18:44 23:55 23:55 Creatine Kinase 58 CK-MB (CK-2) 3.04 2.10 Troponin I 0.290 0.268 Impressions: Guidance Fluoroscopy 01/28/18 00:00 IMPRESSION: Please see combined report for performance of procedure and radiologic supervision and interpretation. Head MRI 01/28/18 00:00 IMPRESSION: Positive for acute or sub-acute punctate- lacunar infarctions in multiple locations of both frontal lobes, left parietal-occipital lobe, and the left cerebellum. This pattern suggests embolic phenomenon but can be seen with other etiologies such as traumatic brain injury, correlate clinically. No enhancing lesions. EVIDENCE OF ACUTE STROKE: YES. Multiple vessel distribution Lumbar Puncture 01/28/18 17:17 IMPRESSION: Lumbar puncture under fluoroscopy. No immediate complication. Carotid Doppler Study 01/30/18 00:00 IMPRESSION: NO HEMODYNAMICALLY SIGNIFICANT STENOSIS. Head CT 01/30/18 00:00 IMPRESSION: 1. No acute intracranial abnormality identified. This exam was performed according to our departmental dose-optimization program, which includes automated exposure control, adjustment of the mA and/or kV according to patient size and/or use of iterative reconstruction technique. Chest/Abdomen CTA 01/31/18 12:47 IMPRESSION: 1. Normal CTA of the chest. No pulmonary emboli. 2. Right lower lobe consolidation may represent atelectasis on the basis of submaximal aeration in this intubated patient. Left lower lobe atelectasis. 3. 4.5 x 4.0 x 3.5 cm irregularly marginated heterogeneous appearing mass within the superior pole of the right kidney. This requires further evaluation with dedicated renal CT or MR imaging when feasible. Abdomen/Pelvis CT 02/04/18 10:57 IMPRESSION: 1. LIMITED STUDY. INDISTINCT AREA OF DECREASED ATTENUATION IN THE UPPER POLE OF THE RIGHT KIDNEY, DIFFICULT TO COMPLETELY VISUALIZE DUE TO STREAK ARTIFACT FROM PATIENT'S ARMS. MALIGNANCY SUCH RENAL CELL CARCINOMA IS IN THE DIFFERENTIAL. ANOTHER POSSIBILITY COULD BE AN AREA OF RENAL INFARCTION. IDEALLY, AN MRI OF THE KIDNEYS AFTER THE PATIENT'S CLINICAL CONDITION HAS IMPROVED WOULD BE OPTIMAL TO PROVIDE COMPLETE EVALUATION. 2. CORTICAL CYST IN THE LEFT KIDNEY. 3. GALLSTONES. 4. 3.5 CM INFRARENAL ABDOMINAL AORTIC ANEURYSM. 5. SMALL PLEURAL EFFUSIONS AND BASILAR INFILTRATES, RIGHT GREATER THAN LEFT. Chest X-Ray 02/17/18 06:00 IMPRESSION: 1 No significant interval changes since the prior study dated 2017. Chronic volume loss on the right. No acute findings. 2. Support devices, appropriate in location without change. Assessment & Plan - Diagnosis (1) Acute respiratory failure Is this a current diagnosis for this admission?: Yes Plan: Patient was intubated after going into PEA arrest. Patient is on day 21 of being on the ventilator. He is currently on FiO2 30%. Scheduled for tracheostomy and PEG placement today. (2) Acute CVA (cerebrovascular accident) Is this a current diagnosis for this admission?: Yes Plan: Patient's MRI showed acute or subacute punctate lacunar infarctions in multiple locations of both the frontal lobes, left parietal occipital lobe and the left cerebellum. Patient was not a TPA candidate as he presented be in the window. (3) Bacteremia due to Enterococcus Is this a current diagnosis for this admission?: Yes Plan: Patient has completed antibiotic course with ampicillin. Repeat blood cultures showed clearance of bacteremia. (4) Cardiopulmonary arrest with successful resuscitation Is this a current diagnosis for this admission?: Yes Plan: Patient's cardiopulmonary arrest was likely secondary to acute CVA. (5) Right renal mass Is this a current diagnosis for this admission?: Yes Plan: Urology was consulted for this. However due to patient's current status, further workup for this will be deferred for now. - Time Time Spent with patient: 15-24 minutes
[2018-02-20] MEDS: FENTANYL CITRATE INJ/PF 100 MCG/2 ML AMPUL IV PRN (21:36)
[2018-02-21] MEDS: LEVALBUTEROL HCL NEB 1.25 MG/3 ML AMPUL NEB SCH ×3 (00:32→15:17)
[2018-02-21] MEDS: PROPOFOL 1,000 MG/100 ML INFUS..BTL IV PRN ×4 (00:54→17:52)
[2018-02-21] MEDS: NORMAL SALINE 250 ML IV PRN ×2 (00:55→18:00)
[2018-02-21] MEDS: FENTANYL CITRATE INJ/PF 100 MCG/2 ML AMPUL IV PRN ×4 (02:14→22:38)
[2018-02-21 05:46] LABS: ABSOLUTE BASOPHILS # (AUTO) 0.1 10^3/uL (0.0-0.2); ABSOLUTE EOSINOPHILS # (AUTO) 0.2 10^3/uL (0.0-0.6); ABSOLUTE LYMPHOCYTES (AUTO) 0.8 10^3/uL (0.5-4.7); ABSOLUTE MONOCYTES (AUTO) 0.6 10^3/uL (0.1-1.4); ABSOLUTE NEUT (AUTO) 6.5 10^3/uL (1.7-8.2); ARTERIAL BLOOD BASE EXCESS 6.9 mmol/L; ARTERIAL BLOOD H2CO3 1.36 mmol/L (1.05-1.35); ARTERIAL BLOOD HCO3 31.5 mmol/L (20-26); ARTERIAL BLOOD PCO2 45.2 mmHg (35-45); ARTERIAL BLOOD PH 7.46 (7.35-7.45); ARTERIAL BLOOD PO2 71.4 mmHg (80-100); ARTERIAL BLOOD TOTAL CO2 32.9 mmol/L (23-27); BASOPHILS % (AUTO) 0.8 % (0-2); EOSINOPHILS % (AUTO) 2.8 % (0-6); HEMATOCRIT 30.7 % (37.9-51.0); LYMPHOCYTES % (AUTO) 9.8 % (13-45); MEAN CORPUSCULAR HEMOGLOBIN 27.6 pg (27.0-33.4); MEAN CORPUSCULAR HGB CONC 32.7 g/dL (32.0-36.0); MEAN CORPUSCULAR VOLUME 84 fl (80-97); MONOCYTES % (AUTO) 7.7 % (3-13); PLATELET COUNT 536 10^3/uL (150-450); RED BLOOD COUNT 3.63 10^6/uL (4.35-5.55); RED CELL DISTRIBUTION WIDTH 18.1 % (11.5-14.0); SEGMENTED NEUTROPHILS % (AUTO) 78.9 % (42-78); TOTAL CELLS COUNTED % (AUTO) 100 %; WHITE BLOOD COUNT 8.3 10^3/uL (4.0-10.5)
[2018-02-21 05:50] LABS: ARTERIAL BLOOD FIO2 30%
[2018-02-21] MEDS: HEPARIN SOD (PORCINE) 5,000 UNIT/ML 1 ML SYRINGE SUBCUT SCH ×3 (05:52→21:00)
[2018-02-21 05:58] LABS: ANION GAP 11 (5-19); BLOOD UREA NITROGEN 31 mg/dL (7-20); CALCIUM 8.8 mg/dL (8.4-10.2); CARBON DIOXIDE 30 mmol/L (22-30); CHLORIDE 104 mmol/L (98-107); GLUCOSE 115 mg/dL (75-110); POTASSIUM 3.9 mmol/L (3.6-5.0)
[2018-02-21] MEDS: FUROSEMIDE INJ/PF 20 MG/2 ML SDV IV SCH (09:02)
[2018-02-21] MEDS: POLYETHYLENE GLYCOL 3350 POWDER 17 GM/1 PACKET NG SCH (09:03)
[2018-02-21] MEDS: CLOPIDOGREL BISULFATE 75 MG TABLET PO SCH (09:03)
[2018-02-21] MEDS: NYSTATIN TOPICAL POWDER 15 GM TP SCH ×2 (09:03→17:11)
--- NOTE | 2018-02-21 10:20 | PDOC PROGRESS REPORT ---
Subjective Reason For Visit: ALTERED MENTAL STATUS,LEUKOCYTOSIS Physical Exam Vital Signs: Temp Pulse Resp BP Pulse Ox 99.1 F 81 15 112/78 100 02/21/18 08:00 02/21/18 08:00 02/21/18 08:00 02/21/18 07:40 02/21/18 08:00 Intake & Output 02/20/18 02/21/18 02/22/18 06:59 06:59 06:59 Intake Total 293 343 127 Output Total 1080 1475 110 Balance -926 -1290 17 Weight 106.1 kg 100.8 kg Results Laboratory Results: 02/21/18 05:30 02/21/18 05:30 02/21/18 02/21/18 02/21/18 05:30 05:30 05:30 WBC 8.3 RBC 3.63 L Hgb 10.0 L Hct 30.7 L MCV 84 MCH 27.6 MCHC 32.7 RDW 18.1 H Plt Count 536 H Seg Neutrophils % 78.9 H Lymphocytes % 9.8 L Monocytes % 7.7 Eosinophils % 2.8 Basophils % 0.8 Absolute Neutrophils 6.5 Absolute Lymphocytes 0.8 Absolute Monocytes 0.6 Absolute Eosinophils 0.2 Absolute Basophils 0.1 Carbonic Acid 1.36 H HCO3/H2CO3 Ratio 23:1 ABG pH 7.46 H ABG pCO2 45.2 H ABG pO2 71.4 L ABG HCO3 31.5 H ABG O2 Saturation 95.0 ABG Base Excess 6.9 FiO2 30% Sodium 145.0 Potassium 3.9 Chloride 104 Carbon Dioxide 30 Anion Gap 11 BUN 31 H Creatinine 1.05 Est GFR ( Amer) > 60 Est GFR (Non-Af Amer) > 60 Glucose 115 H Calcium 8.8 01/29/18 01/29/18 01/30/18 17:45 23:40 05:45 Creatine Kinase CK-MB (CK-2) Troponin I 0.244 0.319 0.379 01/30/18 01/30/18 01/30/18 12:00 12:00 18:44 Creatine Kinase 105 74 CK-MB (CK-2) 5.01 H Troponin I 0.349 01/30/18 01/30/18 01/30/18 18:44 23:55 23:55 Creatine Kinase 58 CK-MB (CK-2) 3.04 2.10 Troponin I 0.290 0.268 Impressions: Guidance Fluoroscopy 01/28/18 00:00 IMPRESSION: Please see combined report for performance of procedure and radiologic supervision and interpretation. Head MRI 01/28/18 00:00 IMPRESSION: Positive for acute or sub-acute punctate- lacunar infarctions in multiple locations of both frontal lobes, left parietal-occipital lobe, and the left cerebellum. This pattern suggests embolic phenomenon but can be seen with other etiologies such as traumatic brain injury, correlate clinically. No enhancing lesions. EVIDENCE OF ACUTE STROKE: YES. Multiple vessel distribution Lumbar Puncture 01/28/18 17:17 IMPRESSION: Lumbar puncture under fluoroscopy. No immediate complication. Carotid Doppler Study 01/30/18 00:00 IMPRESSION: NO HEMODYNAMICALLY SIGNIFICANT STENOSIS. Head CT 01/30/18 00:00 IMPRESSION: 1. No acute intracranial abnormality identified. This exam was performed according to our departmental dose-optimization program, which includes automated exposure control, adjustment of the mA and/or kV according to patient size and/or use of iterative reconstruction technique. Chest/Abdomen CTA 01/31/18 12:47 IMPRESSION: 1. Normal CTA of the chest. No pulmonary emboli. 2. Right lower lobe consolidation may represent atelectasis on the basis of submaximal aeration in this intubated patient. Left lower lobe atelectasis. 3. 4.5 x 4.0 x 3.5 cm irregularly marginated heterogeneous appearing mass within the superior pole of the right kidney. This requires further evaluation with dedicated renal CT or MR imaging when feasible. Abdomen/Pelvis CT 02/04/18 10:57 IMPRESSION: 1. LIMITED STUDY. INDISTINCT AREA OF DECREASED ATTENUATION IN THE UPPER POLE OF THE RIGHT KIDNEY, DIFFICULT TO COMPLETELY VISUALIZE DUE TO STREAK ARTIFACT FROM PATIENT'S ARMS. MALIGNANCY SUCH RENAL CELL CARCINOMA IS IN THE DIFFERENTIAL. ANOTHER POSSIBILITY COULD BE AN AREA OF RENAL INFARCTION. IDEALLY, AN MRI OF THE KIDNEYS AFTER THE PATIENT'S CLINICAL CONDITION HAS IMPROVED WOULD BE OPTIMAL TO PROVIDE COMPLETE EVALUATION. 2. CORTICAL CYST IN THE LEFT KIDNEY. 3. GALLSTONES. 4. 3.5 CM INFRARENAL ABDOMINAL AORTIC ANEURYSM. 5. SMALL PLEURAL EFFUSIONS AND BASILAR INFILTRATES, RIGHT GREATER THAN LEFT. Chest X-Ray 02/17/18 06:00 IMPRESSION: 1 No significant interval changes since the prior study dated 8/12/ 2018. Chronic volume loss on the right. No acute findings. 2. Support devices, appropriate in location without change. Assessment & Plan - Diagnosis (1) Acute CVA (cerebrovascular accident) Is this a current diagnosis for this admission?: Yes (2) Inanition Is this a current diagnosis for this admission?: Yes (3) Ventilator dependent Is this a current diagnosis for this admission?: Yes - Plan Summary Plan Summary: 57-year-old male status post trach and PEG. Okay to use gastrostomy at this time. The trach is in place, and the patient is satting well on the ventilator. I will see the patient again on an as-needed basis. Please renotify with any questions or concerns.
--- NOTE | 2018-02-21 11:13 | PDOC PROGRESS REPORT ---
Subjective Progress Note for:: 02/21/18 Subjective:: Patient underwent tracheostomy and PEG tube placement yesterday which was uneventful. No acute event overnight. No significant secretions from the ET. Patient did have spontaneous eye movement this morning but does not track. Still awaiting for LTAC placement. Reason For Visit: ALTERED MENTAL STATUS,LEUKOCYTOSIS Physical Exam Vital Signs: Temp Pulse Resp BP Pulse Ox 99.5 F 81 28 H 124/76 100 02/21/18 10:40 02/21/18 08:00 02/21/18 10:40 02/21/18 10:40 02/21/18 10:40 Intake & Output 02/20/18 02/21/18 02/22/18 06:59 06:59 06:59 Intake Total 293 343 127 Output Total 1080 1475 110 Balance -787 -1132 17 Weight 233 lb 14.567 oz 222 lb 3.615 oz General appearance: PRESENT: no acute distress Eye exam: PRESENT: PERRLA, other - No tracking Neck exam: ABSENT: carotid bruit, JVD, lymphadenopathy, thyromegaly Respiratory exam: PRESENT: rhonchi - No wheezing or crackles Cardiovascular exam: PRESENT: RRR. ABSENT: diastolic murmur, rubs, systolic murmur GI/Abdominal exam: PRESENT: other - Obese, no tenderness or palpable mass, PEG tube in place Rectal exam: PRESENT: deferred Neurological exam: PRESENT: other - motor sensory deficit - 0/5 motor strength on the left upper and lower extremities, patient does not track, cranial nerves III to appear to be intact, patient also has gag reflex Results Laboratory Results: 02/21/18 05:30 02/21/18 05:30 02/21/18 02/21/18 02/21/18 05:30 05:30 05:30 WBC 8.3 RBC 3.63 L Hgb 10.0 L Hct 30.7 L MCV 84 MCH 27.6 MCHC 32.7 RDW 18.1 H Plt Count 536 H Seg Neutrophils % 78.9 H Lymphocytes % 9.8 L Monocytes % 7.7 Eosinophils % 2.8 Basophils % 0.8 Absolute Neutrophils 6.5 Absolute Lymphocytes 0.8 Absolute Monocytes 0.6 Absolute Eosinophils 0.2 Absolute Basophils 0.1 Carbonic Acid 1.36 H HCO3/H2CO3 Ratio 23:1 ABG pH 7.46 H ABG pCO2 45.2 H ABG pO2 71.4 L ABG HCO3 31.5 H ABG O2 Saturation 95.0 ABG Base Excess 6.9 FiO2 30% Sodium 145.0 Potassium 3.9 Chloride 104 Carbon Dioxide 30 Anion Gap 11 BUN 31 H Creatinine 1.05 Est GFR ( Amer) > 60 Est GFR (Non-Af Amer) > 60 Glucose 115 H Calcium 8.8 01/29/18 01/29/18 01/30/18 17:45 23:40 05:45 Creatine Kinase CK-MB (CK-2) Troponin I 0.244 0.319 0.379 01/30/18 01/30/18 01/30/18 12:00 12:00 18:44 Creatine Kinase 105 74 CK-MB (CK-2) 5.01 H Troponin I 0.349 01/30/18 01/30/18 01/30/18 18:44 23:55 23:55 Creatine Kinase 58 CK-MB (CK-2) 3.04 2.10 Troponin I 0.290 0.268 Impressions: Guidance Fluoroscopy 01/28/18 00:00 IMPRESSION: Please see combined report for performance of procedure and radiologic supervision and interpretation. Head MRI 01/28/18 00:00 IMPRESSION: Positive for acute or sub-acute punctate- lacunar infarctions in multiple locations of both frontal lobes, left parietal-occipital lobe, and the left cerebellum. This pattern suggests embolic phenomenon but can be seen with other etiologies such as traumatic brain injury, correlate clinically. No enhancing lesions. EVIDENCE OF ACUTE STROKE: YES. Multiple vessel distribution Lumbar Puncture 01/28/18 17:17 IMPRESSION: Lumbar puncture under fluoroscopy. No immediate complication. Carotid Doppler Study 01/30/18 00:00 IMPRESSION: NO HEMODYNAMICALLY SIGNIFICANT STENOSIS. Head CT 01/30/18 00:00 IMPRESSION: 1. No acute intracranial abnormality identified. This exam was performed according to our departmental dose-optimization program, which includes automated exposure control, adjustment of the mA and/or kV according to patient size and/or use of iterative reconstruction technique. Chest/Abdomen CTA 01/31/18 12:47 IMPRESSION: 1. Normal CTA of the chest. No pulmonary emboli. 2. Right lower lobe consolidation may represent atelectasis on the basis of submaximal aeration in this intubated patient. Left lower lobe atelectasis. 3. 4.5 x 4.0 x 3.5 cm irregularly marginated heterogeneous appearing mass within the superior pole of the right kidney. This requires further evaluation with dedicated renal CT or MR imaging when feasible. Abdomen/Pelvis CT 02/04/18 10:57 IMPRESSION: 1. LIMITED STUDY. INDISTINCT AREA OF DECREASED ATTENUATION IN THE UPPER POLE OF THE RIGHT KIDNEY, DIFFICULT TO COMPLETELY VISUALIZE DUE TO STREAK ARTIFACT FROM PATIENT'S ARMS. MALIGNANCY SUCH RENAL CELL CARCINOMA IS IN THE DIFFERENTIAL. ANOTHER POSSIBILITY COULD BE AN AREA OF RENAL INFARCTION. IDEALLY, AN MRI OF THE KIDNEYS AFTER THE PATIENT'S CLINICAL CONDITION HAS IMPROVED WOULD BE OPTIMAL TO PROVIDE COMPLETE EVALUATION. 2. CORTICAL CYST IN THE LEFT KIDNEY. 3. GALLSTONES. 4. 3.5 CM INFRARENAL ABDOMINAL AORTIC ANEURYSM. 5. SMALL PLEURAL EFFUSIONS AND BASILAR INFILTRATES, RIGHT GREATER THAN LEFT. Chest X-Ray 02/17/18 06:00 IMPRESSION: 1 No significant interval changes since the prior study dated 2017. Chronic volume loss on the right. No acute findings. 2. Support devices, appropriate in location without change. Assessment & Plan - Diagnosis (1) Acute respiratory failure Is this a current diagnosis for this admission?: Yes Plan: Patient was intubated after going into PEA arrest. S/P tracheostomy and PEG tube placement on 02/10/18. Saturating well on minimal vent settings with FiO2 30 %. Awaiting for acceptance at LT[facility]. (2) Acute CVA (cerebrovascular accident) Is this a current diagnosis for this admission?: Yes Plan: Patient's MRI showed acute or subacute punctate lacunar infarctions in multiple locations of both the frontal lobes, left parietal occipital lobe and the left cerebellum. Patient was not a TPA candidate as he presented beyond the window period. (3) Bacteremia due to Enterococcus Is this a current diagnosis for this admission?: Yes Plan: Patient has completed antibiotic course with ampicillin. Repeat blood cultures showed clearance of bacteremia. (4) Cardiopulmonary arrest with successful resuscitation Is this a current diagnosis for this admission?: Yes Plan: Patient's cardiopulmonary arrest was likely secondary to acute CVA. (5) Right renal mass Is this a current diagnosis for this admission?: Yes Plan: Urology was consulted for this. However due to patient's current status, further workup for this will be deferred for now. - Time Time Spent with patient: 15-24 minutes
[2018-02-21] MEDS: PANTOPRAZOLE SODIUM 40 MG VIAL IV SCH (11:17)
[2018-02-22] MEDS: LEVALBUTEROL HCL NEB 1.25 MG/3 ML AMPUL NEB SCH ×3 (00:15→16:12)
[2018-02-22] MEDS: PROPOFOL 1,000 MG/100 ML INFUS..BTL IV PRN ×3 (01:56→14:56)
[2018-02-22] MEDS: LORAZEPAM INJ 2 MG/1 ML VIAL IV PRN (02:09)
[2018-02-22] MEDS: HEPARIN SOD (PORCINE) 5,000 UNIT/ML 1 ML SYRINGE SUBCUT SCH ×3 (05:00→22:00)
[2018-02-22 05:34] LABS: ARTERIAL BLOOD BASE EXCESS 5.1 mmol/L; ARTERIAL BLOOD H2CO3 1.23 mmol/L (1.05-1.35); ARTERIAL BLOOD HCO3 29.1 mmol/L (20-26); ARTERIAL BLOOD O2 SATURATION 93.4 % (94-98); ARTERIAL BLOOD PCO2 40.7 mmHg (35-45); ARTERIAL BLOOD PH 7.47 (7.35-7.45); ARTERIAL BLOOD PO2 63.1 mmHg (80-100); ARTERIAL BLOOD TOTAL CO2 30.3 mmol/L (23-27)
[2018-02-22 05:45] LABS: HEMATOCRIT 30.7 % (37.9-51.0); MEAN CORPUSCULAR HEMOGLOBIN 27.5 pg (27.0-33.4); MEAN CORPUSCULAR HGB CONC 32.6 g/dL (32.0-36.0); MEAN CORPUSCULAR VOLUME 84 fl (80-97); PLATELET COUNT 509 10^3/uL (150-450); RED BLOOD COUNT 3.64 10^6/uL (4.35-5.55); WHITE BLOOD COUNT 9.2 10^3/uL (4.0-10.5)
[2018-02-22 05:56] LABS: ANION GAP 11 (5-19); BLOOD UREA NITROGEN 32 mg/dL (7-20); CALCIUM 8.9 mg/dL (8.4-10.2); CARBON DIOXIDE 31 mmol/L (22-30); CHLORIDE 103 mmol/L (98-107); GLUCOSE 118 mg/dL (75-110); POTASSIUM 4.2 mmol/L (3.6-5.0); SODIUM 144.9 mmol/L (137-145)
[2018-02-22] MEDS: NORMAL SALINE 250 ML IV PRN ×2 (07:00→14:56)
[2018-02-22 07:10] LABS: ARTERIAL BLOOD FIO2 25%
--- NOTE | 2018-02-22 08:16 | RADIOLOGY REPORT (SQ) ---
EXAM DESCRIPTION: CHEST SINGLE VIEW COMPLETED DATE/TIME: 02/22/2018 7:16 am REASON FOR STUDY: resp failure COMPARISON: Chest radiograph 02/17/2018 EXAM PARAMETERS: NUMBER OF VIEWS: One view. TECHNIQUE: Single frontal radiographic view of the chest acquired. RADIATION DOSE: NA LIMITATIONS: None. FINDINGS: LUNGS AND PLEURA: Lungs are hypoaerated. Persistent elevation of the right hemidiaphragm. No opacities, masses or pneumothorax. No pleural effusion. MEDIASTINUM AND HILAR STRUCTURES: No masses. Contour normal. HEART AND VASCULAR STRUCTURES: Heart normal in size. Normal vasculature. BONES: No acute findings. HARDWARE: Interval removal of endotracheal and enteric tubes. Interval placement of tracheostomy tub e with the tip terminating at the level of the clavicles. Unchanged positioning of a right-sided PIC C line. OTHER: No other significant finding. IMPRESSION: 1. Interval removal of endotracheal and enteric tubes. Placement of a tracheostomy tube terminating at the level of the clavicles. 2. Otherwise, no significant interval change. TECHNICAL DOCUMENTATION: JOB ID: [id number] [employer]- All Rights Reserved Reading location - IP/workstation name: [email or web address]
[2018-02-22] MEDS: POLYETHYLENE GLYCOL 3350 POWDER 17 GM/1 PACKET NG SCH (09:57)
[2018-02-22] MEDS: FUROSEMIDE INJ/PF 20 MG/2 ML SDV IV SCH (09:57)
[2018-02-22] MEDS: CLOPIDOGREL BISULFATE 75 MG TABLET PO SCH (09:57)
[2018-02-22] MEDS: PANTOPRAZOLE SODIUM 40 MG VIAL IV SCH (09:57)
[2018-02-22] MEDS: NYSTATIN TOPICAL POWDER 15 GM TP SCH ×2 (09:58→17:17)
--- NOTE | 2018-02-22 15:15 | PDOC PROGRESS REPORT ---
Subjective Progress Note for:: 02/22/18 Subjective:: S/P tracheostomy and PEG tube placement on 02/20/18 which was uneventful. No acute event overnight. No significant secretions from the ET. Continues to have spontaneous eye movement but does not track. Still awaiting for LTAC placement. Reason For Visit: ALTERED MENTAL STATUS,LEUKOCYTOSIS Physical Exam Vital Signs: Temp Pulse Resp BP Pulse Ox 100.2 F 86 10 L 126/74 H 100 02/22/18 15:00 02/22/18 14:44 02/22/18 15:00 02/22/18 14:55 02/22/18 15:00 Intake & Output 02/21/18 02/22/18 02/23/18 06:59 06:59 06:59 Intake Total 343 1492 889 Output Total 1475 985 865 Balance -1132 507 24 Weight 222 lb 3.615 oz 231 lb 11.293 oz General appearance: PRESENT: no acute distress Head exam: PRESENT: atraumatic Eye exam: PRESENT: PERRLA Neck exam: ABSENT: carotid bruit, JVD, lymphadenopathy, thyromegaly Respiratory exam: PRESENT: clear to auscultation karime, rhonchi. ABSENT: rales, wheezes Cardiovascular exam: PRESENT: RRR. ABSENT: diastolic murmur, rubs, systolic murmur Pulses: PRESENT: normal dorsalis pedis pul GI/Abdominal exam: PRESENT: normal bowel sounds, soft. ABSENT: distended, guarding, mass, organolmegaly, rebound, tenderness Rectal exam: PRESENT: deferred Neurological exam: PRESENT: other - motor sensory deficit - 0/5 motor strength on the left upper and lower extremities, patient does not track, cranial nerves III to appear to be intact, patient also has gag reflex Results Laboratory Results: 02/22/18 05:25 02/22/18 05:25 02/22/18 02/22/18 02/22/18 05:25 05:25 05:25 WBC 9.2 RBC 3.64 L Hgb 10.0 L Hct 30.7 L MCV 84 MCH 27.5 MCHC 32.6 RDW 18.0 H Plt Count 509 H Carbonic Acid 1.23 HCO3/H2CO3 Ratio 23:1 ABG pH 7.47 H ABG pCO2 40.7 ABG pO2 63.1 L ABG HCO3 29.1 H ABG O2 Saturation 93.4 L ABG Base Excess 5.1 FiO2 25% Sodium 144.9 Potassium 4.2 Chloride 103 Carbon Dioxide 31 H Anion Gap 11 BUN 32 H Creatinine 1.09 Est GFR ( Amer) > 60 Est GFR (Non-Af Amer) > 60 Glucose 118 H Calcium 8.9 01/29/18 01/29/18 01/30/18 17:45 23:40 05:45 Creatine Kinase CK-MB (CK-2) Troponin I 0.244 0.319 0.379 01/30/18 01/30/18 01/30/18 12:00 12:00 18:44 Creatine Kinase 105 74 CK-MB (CK-2) 5.01 H Troponin I 0.349 01/30/18 01/30/18 01/30/18 18:44 23:55 23:55 Creatine Kinase 58 CK-MB (CK-2) 3.04 2.10 Troponin I 0.290 0.268 Impressions: Guidance Fluoroscopy 01/28/18 00:00 IMPRESSION: Please see combined report for performance of procedure and radiologic supervision and interpretation. Head MRI 01/28/18 00:00 IMPRESSION: Positive for acute or sub-acute punctate- lacunar infarctions in multiple locations of both frontal lobes, left parietal-occipital lobe, and the left cerebellum. This pattern suggests embolic phenomenon but can be seen with other etiologies such as traumatic brain injury, correlate clinically. No enhancing lesions. EVIDENCE OF ACUTE STROKE: YES. Multiple vessel distribution Lumbar Puncture 01/28/18 17:17 IMPRESSION: Lumbar puncture under fluoroscopy. No immediate complication. Carotid Doppler Study 01/30/18 00:00 IMPRESSION: NO HEMODYNAMICALLY SIGNIFICANT STENOSIS. Head CT 01/30/18 00:00 IMPRESSION: 1. No acute intracranial abnormality identified. This exam was performed according to our departmental dose-optimization program, which includes automated exposure control, adjustment of the mA and/or kV according to patient size and/or use of iterative reconstruction technique. Chest/Abdomen CTA 01/31/18 12:47 IMPRESSION: 1. Normal CTA of the chest. No pulmonary emboli. 2. Right lower lobe consolidation may represent atelectasis on the basis of submaximal aeration in this intubated patient. Left lower lobe atelectasis. 3. 4.5 x 4.0 x 3.5 cm irregularly marginated heterogeneous appearing mass within the superior pole of the right kidney. This requires further evaluation with dedicated renal CT or MR imaging when feasible. Abdomen/Pelvis CT 02/04/18 10:57 IMPRESSION: 1. LIMITED STUDY. INDISTINCT AREA OF DECREASED ATTENUATION IN THE UPPER POLE OF THE RIGHT KIDNEY, DIFFICULT TO COMPLETELY VISUALIZE DUE TO STREAK ARTIFACT FROM PATIENT'S ARMS. MALIGNANCY SUCH RENAL CELL CARCINOMA IS IN THE DIFFERENTIAL. ANOTHER POSSIBILITY COULD BE AN AREA OF RENAL INFARCTION. IDEALLY, AN MRI OF THE KIDNEYS AFTER THE PATIENT'S CLINICAL CONDITION HAS IMPROVED WOULD BE OPTIMAL TO PROVIDE COMPLETE EVALUATION. 2. CORTICAL CYST IN THE LEFT KIDNEY. 3. GALLSTONES. 4. 3.5 CM INFRARENAL ABDOMINAL AORTIC ANEURYSM. 5. SMALL PLEURAL EFFUSIONS AND BASILAR INFILTRATES, RIGHT GREATER THAN LEFT. Chest X-Ray 02/22/18 06:00 IMPRESSION: 1. Interval removal of endotracheal and enteric tubes. Placement of a tracheostomy tube terminating at the level of the clavicles. 2. Otherwise, no significant interval change. Assessment & Plan - Diagnosis (1) Acute respiratory failure Is this a current diagnosis for this admission?: Yes Plan: Patient was intubated after going into PEA arrest. S/P tracheostomy and PEG tube placement on 02/20/18. Saturating well on minimal vent settings with FiO2 30%. Still awaiting for acceptance at LTAC. (2) Acute CVA (cerebrovascular accident) Is this a current diagnosis for this admission?: Yes Plan: Patient's MRI showed acute or subacute punctate lacunar infarctions in multiple locations of both the frontal lobes, left parietal occipital lobe and the left cerebellum. Patient was not a TPA candidate as he presented beyond the window period. (3) Bacteremia due to Enterococcus Is this a current diagnosis for this admission?: Yes Plan: Patient has completed antibiotic course with ampicillin. Repeat blood cultures showed clearance of bacteremia. (4) Cardiopulmonary arrest with successful resuscitation Is this a current diagnosis for this admission?: Yes Plan: Patient's cardiopulmonary arrest was likely secondary to acute CVA. (5) Right renal mass Is this a current diagnosis for this admission?: Yes Plan: Urology was consulted for this. However due to patient's current status, further workup for this will be deferred for now. - Time Time Spent with patient: 15-24 minutes
[2018-02-22] MEDS: ACETAMINOPHEN SOLN 325 MG/10.15 ML UDCUP NG PRN (16:08)
[2018-02-22] MEDS: FENTANYL CITRATE INJ/PF 100 MCG/2 ML AMPUL IV PRN (17:17)
[2018-02-23] MEDS: PROPOFOL 1,000 MG/100 ML INFUS..BTL IV PRN ×2 (00:09→05:50)
[2018-02-23] MEDS: LEVALBUTEROL HCL NEB 1.25 MG/3 ML AMPUL NEB SCH ×3 (00:40→16:12)
[2018-02-23] MEDS: FENTANYL CITRATE INJ/PF 100 MCG/2 ML AMPUL IV PRN ×4 (01:03→22:26)
[2018-02-23] MEDS: NORMAL SALINE 250 ML IV PRN (03:23)
[2018-02-23] MEDS: LORAZEPAM INJ 2 MG/1 ML VIAL IV PRN ×4 (05:49→21:00)
[2018-02-23] MEDS: HEPARIN SOD (PORCINE) 5,000 UNIT/ML 1 ML SYRINGE SUBCUT SCH ×3 (05:49→21:08)
[2018-02-23] MEDS: FUROSEMIDE INJ/PF 20 MG/2 ML SDV IV SCH (09:33)
[2018-02-23] MEDS: POLYETHYLENE GLYCOL 3350 POWDER 17 GM/1 PACKET NG SCH (09:33)
[2018-02-23] MEDS: PANTOPRAZOLE SODIUM 40 MG VIAL IV SCH (09:33)
[2018-02-23] MEDS: CLOPIDOGREL BISULFATE 75 MG TABLET PO SCH (09:34)
[2018-02-23] MEDS: NYSTATIN TOPICAL POWDER 15 GM TP SCH ×2 (09:34→17:21)
--- NOTE | 2018-02-23 15:37 | PDOC PROGRESS REPORT ---
Subjective Progress Note for:: 02/23/18 Subjective:: S/P tracheostomy and PEG tube placement on 02/20/18 which was uneventful. No acute event overnight. No significant secretions from the ET. Continues to have spontaneous eye movement but does not track. Tolerating tube feeding well. Still awaiting for LTAC placement. Reason For Visit: ALTERED MENTAL STATUS,LEUKOCYTOSIS Physical Exam Vital Signs: Temp Pulse Resp BP Pulse Ox 99.5 F 87 16 123/75 98 02/23/18 14:00 02/23/18 14:00 02/23/18 14:00 02/23/18 14:00 02/23/18 14:00 Intake & Output 02/22/18 02/23/18 02/24/18 06:59 06:59 06:59 Intake Total 1492 1567 Output Total 985 1290 870 Balance 507 277 -870 Weight 231 lb 11.293 oz 233 lb 14.567 oz General appearance: PRESENT: no acute distress, obese Head exam: PRESENT: atraumatic, normocephalic Eye exam: PRESENT: conjunctiva pink, EOMI, PERRLA. ABSENT: scleral icterus Neck exam: ABSENT: carotid bruit, JVD, lymphadenopathy, thyromegaly Respiratory exam: PRESENT: clear to auscultation karime. ABSENT: rales, rhonchi, wheezes Cardiovascular exam: PRESENT: RRR. ABSENT: diastolic murmur, rubs, systolic murmur GI/Abdominal exam: PRESENT: normal bowel sounds, soft. ABSENT: distended, guarding, mass, organolmegaly, rebound, tenderness Rectal exam: PRESENT: deferred Neurological exam: PRESENT: other - motor sensory deficit - 0/5 motor strength on the left upper and lower extremities, patient does not track, cranial nerves III to appear to be intact, patient also has gag reflex Results Laboratory Results: 02/22/18 05:25 02/22/18 05:25 01/29/18 01/29/18 01/30/18 17:45 23:40 05:45 Creatine Kinase CK-MB (CK-2) Troponin I 0.244 0.319 0.379 01/30/18 01/30/18 01/30/18 12:00 12:00 18:44 Creatine Kinase 105 74 CK-MB (CK-2) 5.01 H Troponin I 0.349 01/30/18 01/30/18 01/30/18 18:44 23:55 23:55 Creatine Kinase 58 CK-MB (CK-2) 3.04 2.10 Troponin I 0.290 0.268 Impressions: Guidance Fluoroscopy 01/28/18 00:00 IMPRESSION: Please see combined report for performance of procedure and radiologic supervision and interpretation. Head MRI 01/28/18 00:00 IMPRESSION: Positive for acute or sub-acute punctate- lacunar infarctions in multiple locations of both frontal lobes, left parietal-occipital lobe, and the left cerebellum. This pattern suggests embolic phenomenon but can be seen with other etiologies such as traumatic brain injury, correlate clinically. No enhancing lesions. EVIDENCE OF ACUTE STROKE: YES. Multiple vessel distribution Lumbar Puncture 01/28/18 17:17 IMPRESSION: Lumbar puncture under fluoroscopy. No immediate complication. Carotid Doppler Study 01/30/18 00:00 IMPRESSION: NO HEMODYNAMICALLY SIGNIFICANT STENOSIS. Head CT 01/30/18 00:00 IMPRESSION: 1. No acute intracranial abnormality identified. This exam was performed according to our departmental dose-optimization program, which includes automated exposure control, adjustment of the mA and/or kV according to patient size and/or use of iterative reconstruction technique. Chest/Abdomen CTA 01/31/18 12:47 IMPRESSION: 1. Normal CTA of the chest. No pulmonary emboli. 2. Right lower lobe consolidation may represent atelectasis on the basis of submaximal aeration in this intubated patient. Left lower lobe atelectasis. 3. 4.5 x 4.0 x 3.5 cm irregularly marginated heterogeneous appearing mass within the superior pole of the right kidney. This requires further evaluation with dedicated renal CT or MR imaging when feasible. Abdomen/Pelvis CT 02/04/18 10:57 IMPRESSION: 1. LIMITED STUDY. INDISTINCT AREA OF DECREASED ATTENUATION IN THE UPPER POLE OF THE RIGHT KIDNEY, DIFFICULT TO COMPLETELY VISUALIZE DUE TO STREAK ARTIFACT FROM PATIENT'S ARMS. MALIGNANCY SUCH RENAL CELL CARCINOMA IS IN THE DIFFERENTIAL. ANOTHER POSSIBILITY COULD BE AN AREA OF RENAL INFARCTION. IDEALLY, AN MRI OF THE KIDNEYS AFTER THE PATIENT'S CLINICAL CONDITION HAS IMPROVED WOULD BE OPTIMAL TO PROVIDE COMPLETE EVALUATION. 2. CORTICAL CYST IN THE LEFT KIDNEY. 3. GALLSTONES. 4. 3.5 CM INFRARENAL ABDOMINAL AORTIC ANEURYSM. 5. SMALL PLEURAL EFFUSIONS AND BASILAR INFILTRATES, RIGHT GREATER THAN LEFT. Chest X-Ray 02/22/18 06:00 IMPRESSION: 1. Interval removal of endotracheal and enteric tubes. Placement of a tracheostomy tube terminating at the level of the clavicles. 2. Otherwise, no significant interval change. Assessment & Plan - Diagnosis (1) Acute respiratory failure Is this a current diagnosis for this admission?: Yes Plan: Patient was intubated after going into PEA arrest. S/P tracheostomy and PEG tube placement on 02/20/18. Saturating well on minimal vent settings. Still awaiting for acceptance at LTAC. (2) Acute CVA (cerebrovascular accident) Is this a current diagnosis for this admission?: Yes Plan: Patient's MRI showed acute or subacute punctate lacunar infarctions in multiple locations of both the frontal lobes, left parietal occipital lobe and the left cerebellum. Patient was not a TPA candidate as he presented beyond the window period. (3) Bacteremia due to Enterococcus Is this a current diagnosis for this admission?: Yes Plan: Patient has completed antibiotic course with ampicillin. Repeat blood cultures showed clearance of bacteremia. (4) Cardiopulmonary arrest with successful resuscitation Is this a current diagnosis for this admission?: Yes Plan: Patient's cardiopulmonary arrest was likely secondary to acute CVA. (5) Right renal mass Is this a current diagnosis for this admission?: Yes Plan: Urology was consulted for this. However due to patient's current status, further workup has been deferred.
[2018-02-24] MEDS: LEVALBUTEROL HCL NEB 1.25 MG/3 ML AMPUL NEB SCH ×4 (00:19→23:24)
[2018-02-24] MEDS: NORMAL SALINE 250 ML IV PRN (01:17)
[2018-02-24] MEDS: LORAZEPAM INJ 2 MG/1 ML VIAL IV PRN ×3 (02:17→21:08)
[2018-02-24] MEDS: FENTANYL CITRATE INJ/PF 100 MCG/2 ML AMPUL IV PRN ×4 (04:01→21:07)
[2018-02-24] MEDS: HEPARIN SOD (PORCINE) 5,000 UNIT/ML 1 ML SYRINGE SUBCUT SCH ×3 (05:04→21:08)
[2018-02-24 09:12] LABS: ABSOLUTE BASOPHILS # (AUTO) 0.1 10^3/uL (0.0-0.2); ABSOLUTE EOSINOPHILS # (AUTO) 0.3 10^3/uL (0.0-0.6); ABSOLUTE LYMPHOCYTES (AUTO) 1.1 10^3/uL (0.5-4.7); ABSOLUTE MONOCYTES (AUTO) 0.7 10^3/uL (0.1-1.4); ABSOLUTE NEUT (AUTO) 8.1 10^3/uL (1.7-8.2); BASOPHILS % (AUTO) 0.8 % (0-2); EOSINOPHILS % (AUTO) 3.4 % (0-6); HEMATOCRIT 29.9 % (37.9-51.0); HEMOGLOBIN 9.7 g/dL (13.5-17.0); LYMPHOCYTES % (AUTO) 10.4 % (13-45); MEAN CORPUSCULAR HEMOGLOBIN 27.4 pg (27.0-33.4); MEAN CORPUSCULAR HGB CONC 32.4 g/dL (32.0-36.0); MEAN CORPUSCULAR VOLUME 85 fl (80-97); MONOCYTES % (AUTO) 6.7 % (3-13); PLATELET COUNT 449 10^3/uL (150-450); RED BLOOD COUNT 3.53 10^6/uL (4.35-5.55); RED CELL DISTRIBUTION WIDTH 18.2 % (11.5-14.0); SEGMENTED NEUTROPHILS % (AUTO) 78.7 % (42-78); TOTAL CELLS COUNTED % (AUTO) 100 %; WHITE BLOOD COUNT 10.2 10^3/uL (4.0-10.5)
[2018-02-24] MEDS: ACETAMINOPHEN SOLN 325 MG/10.15 ML UDCUP NG PRN ×2 (09:12→17:13)
[2018-02-24] MEDS: FUROSEMIDE INJ/PF 20 MG/2 ML SDV IV SCH (09:12)
[2018-02-24] MEDS: POLYETHYLENE GLYCOL 3350 POWDER 17 GM/1 PACKET NG SCH (09:13)
[2018-02-24] MEDS: CLOPIDOGREL BISULFATE 75 MG TABLET PO SCH (09:13)
[2018-02-24] MEDS: NYSTATIN TOPICAL POWDER 15 GM TP SCH ×2 (09:13→17:13)
[2018-02-24] MEDS: PANTOPRAZOLE SODIUM 40 MG VIAL IV SCH (09:13)
[2018-02-24 09:35] LABS: ANION GAP 9 (5-19); BLOOD UREA NITROGEN 27 mg/dL (7-20); CALCIUM 8.8 mg/dL (8.4-10.2); CARBON DIOXIDE 31 mmol/L (22-30); CHLORIDE 102 mmol/L (98-107); GLUCOSE 135 mg/dL (75-110); POTASSIUM 3.7 mmol/L (3.6-5.0); SODIUM 141.9 mmol/L (137-145)
[2018-02-24] MEDS: NORMAL SALINE 500 ML IV PRN (13:47)
--- NOTE | 2018-02-24 17:26 | PDOC PROGRESS REPORT ---
Subjective Progress Note for:: 02/24/18 Subjective:: S/P tracheostomy and PEG tube placement on 02/20/18 which was uneventful. No acute event overnight. No significant secretions from the ET. Continues to have spontaneous eye movement but does not track. Tolerating tube feeding well. Still awaiting for LTAC placement. Daughter on bedside. Updated on patient's status and disposition. Reason For Visit: ALTERED MENTAL STATUS,LEUKOCYTOSIS Physical Exam Vital Signs: Temp Pulse Resp BP Pulse Ox 100.0 F 96 19 122/72 92 02/24/18 16:02 02/24/18 08:57 02/24/18 16:02 02/24/18 16:02 02/24/18 16:02 Intake & Output 02/23/18 02/24/18 02/25/18 06:59 06:59 06:59 Intake Total 1567 250 0 Output Total 1290 1220 830 Balance 277 -970 -830 Weight 233 lb 14.567 oz 232 lb 12.93 oz General appearance: PRESENT: no acute distress, obese Head exam: PRESENT: atraumatic, normocephalic Neck exam: ABSENT: carotid bruit, JVD, lymphadenopathy, thyromegaly Respiratory exam: PRESENT: clear to auscultation karime. ABSENT: rales, rhonchi, wheezes Cardiovascular exam: PRESENT: RRR. ABSENT: diastolic murmur, rubs, systolic murmur GI/Abdominal exam: PRESENT: normal bowel sounds, soft. ABSENT: distended, guarding, mass, organolmegaly, rebound, tenderness Rectal exam: PRESENT: deferred Neurological exam: PRESENT: other - motor sensory deficit - 0/5 motor strength on the left upper and lower extremities, patient does not track, cranial nerves III to appear to be intact, patient also has gag reflex Results Laboratory Results: 02/24/18 08:50 02/24/18 08:50 02/24/18 02/24/18 08:50 08:50 WBC 10.2 RBC 3.53 L Hgb 9.7 L Hct 29.9 L MCV 85 MCH 27.4 MCHC 32.4 RDW 18.2 H Plt Count 449 Seg Neutrophils % 78.7 H Lymphocytes % 10.4 L Monocytes % 6.7 Eosinophils % 3.4 Basophils % 0.8 Absolute Neutrophils 8.1 Absolute Lymphocytes 1.1 Absolute Monocytes 0.7 Absolute Eosinophils 0.3 Absolute Basophils 0.1 Sodium 141.9 Potassium 3.7 Chloride 102 Carbon Dioxide 31 H Anion Gap 9 BUN 27 H Creatinine 0.87 Est GFR ( Amer) > 60 Est GFR (Non-Af Amer) > 60 Glucose 135 H Calcium 8.8 01/29/18 01/29/18 01/30/18 17:45 23:40 05:45 Creatine Kinase CK-MB (CK-2) Troponin I 0.244 0.319 0.379 01/30/18 01/30/18 01/30/18 12:00 12:00 18:44 Creatine Kinase 105 74 CK-MB (CK-2) 5.01 H Troponin I 0.349 01/30/18 01/30/18 01/30/18 18:44 23:55 23:55 Creatine Kinase 58 CK-MB (CK-2) 3.04 2.10 Troponin I 0.290 0.268 Impressions: Guidance Fluoroscopy 01/28/18 00:00 IMPRESSION: Please see combined report for performance of procedure and radiologic supervision and interpretation. Head MRI 01/28/18 00:00 IMPRESSION: Positive for acute or sub-acute punctate- lacunar infarctions in multiple locations of both frontal lobes, left parietal-occipital lobe, and the left cerebellum. This pattern suggests embolic phenomenon but can be seen with other etiologies such as traumatic brain injury, correlate clinically. No enhancing lesions. EVIDENCE OF ACUTE STROKE: YES. Multiple vessel distribution Lumbar Puncture 01/28/18 17:17 IMPRESSION: Lumbar puncture under fluoroscopy. No immediate complication. Carotid Doppler Study 01/30/18 00:00 IMPRESSION: NO HEMODYNAMICALLY SIGNIFICANT STENOSIS. Head CT 01/30/18 00:00 IMPRESSION: 1. No acute intracranial abnormality identified. This exam was performed according to our departmental dose-optimization program, which includes automated exposure control, adjustment of the mA and/or kV according to patient size and/or use of iterative reconstruction technique. Chest/Abdomen CTA 01/31/18 12:47 IMPRESSION: 1. Normal CTA of the chest. No pulmonary emboli. 2. Right lower lobe consolidation may represent atelectasis on the basis of submaximal aeration in this intubated patient. Left lower lobe atelectasis. 3. 4.5 x 4.0 x 3.5 cm irregularly marginated heterogeneous appearing mass within the superior pole of the right kidney. This requires further evaluation with dedicated renal CT or MR imaging when feasible. Abdomen/Pelvis CT 02/04/18 10:57 IMPRESSION: 1. LIMITED STUDY. INDISTINCT AREA OF DECREASED ATTENUATION IN THE UPPER POLE OF THE RIGHT KIDNEY, DIFFICULT TO COMPLETELY VISUALIZE DUE TO STREAK ARTIFACT FROM PATIENT'S ARMS. MALIGNANCY SUCH RENAL CELL CARCINOMA IS IN THE DIFFERENTIAL. ANOTHER POSSIBILITY COULD BE AN AREA OF RENAL INFARCTION. IDEALLY, AN MRI OF THE KIDNEYS AFTER THE PATIENT'S CLINICAL CONDITION HAS IMPROVED WOULD BE OPTIMAL TO PROVIDE COMPLETE EVALUATION. 2. CORTICAL CYST IN THE LEFT KIDNEY. 3. GALLSTONES. 4. 3.5 CM INFRARENAL ABDOMINAL AORTIC ANEURYSM. 5. SMALL PLEURAL EFFUSIONS AND BASILAR INFILTRATES, RIGHT GREATER THAN LEFT. Chest X-Ray 02/22/18 06:00 IMPRESSION: 1. Interval removal of endotracheal and enteric tubes. Placement of a tracheostomy tube terminating at the level of the clavicles. 2. Otherwise, no significant interval change. Assessment & Plan - Diagnosis (1) Acute respiratory failure Is this a current diagnosis for this admission?: Yes Plan: Patient was intubated after going into PEA arrest. S/P tracheostomy and PEG tube placement on 02/20/18. Saturating well on minimal vent settings. Still awaiting for acceptance at LTAC. (2) Acute CVA (cerebrovascular accident) Is this a current diagnosis for this admission?: Yes Plan: Patient's MRI showed acute or subacute punctate lacunar infarctions in multiple locations of both the frontal lobes, left parietal occipital lobe and the left cerebellum. Patient was not a TPA candidate as he presented beyond the window period. (3) Bacteremia due to Enterococcus Is this a current diagnosis for this admission?: Yes Plan: Patient has completed antibiotic course with ampicillin. Repeat blood cultures showed clearance of bacteremia. (4) Cardiopulmonary arrest with successful resuscitation Is this a current diagnosis for this admission?: Yes Plan: Patient's cardiopulmonary arrest was likely secondary to acute CVA. (5) Right renal mass Is this a current diagnosis for this admission?: Yes Plan: Urology was consulted for this. However due to patient's current status, further workup has been deferred. 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 - Time Time Spent with patient: 15-24 minutes
[2018-02-25] MEDS: FENTANYL CITRATE INJ/PF 100 MCG/2 ML AMPUL IV PRN ×2 (03:06→19:34)
[2018-02-25] MEDS: LORAZEPAM INJ 2 MG/1 ML VIAL IV PRN ×2 (03:06→19:35)
[2018-02-25] MEDS: HEPARIN SOD (PORCINE) 5,000 UNIT/ML 1 ML SYRINGE SUBCUT SCH ×3 (06:17→22:31)
[2018-02-25] MEDS: LEVALBUTEROL HCL NEB 1.25 MG/3 ML AMPUL NEB SCH ×2 (08:15→15:41)
[2018-02-25] MEDS: CLOPIDOGREL BISULFATE 75 MG TABLET PO SCH (10:21)
[2018-02-25] MEDS: FUROSEMIDE INJ/PF 20 MG/2 ML SDV IV SCH (10:21)
[2018-02-25] MEDS: POLYETHYLENE GLYCOL 3350 POWDER 17 GM/1 PACKET NG SCH (10:21)
[2018-02-25] MEDS: NYSTATIN TOPICAL POWDER 15 GM TP SCH ×2 (10:21→17:29)
[2018-02-25] MEDS: NORMAL SALINE 500 ML IV PRN (15:59)
[2018-02-25] MEDS: ACETAMINOPHEN SOLN 325 MG/10.15 ML UDCUP NG PRN (19:35)
[2018-02-26] MEDS: LEVALBUTEROL HCL NEB 1.25 MG/3 ML AMPUL NEB SCH ×3 (00:22→15:51)
[2018-02-26] MEDS: FENTANYL CITRATE INJ/PF 100 MCG/2 ML AMPUL IV PRN ×2 (01:39→05:42)
[2018-02-26] MEDS: LORAZEPAM INJ 2 MG/1 ML VIAL IV PRN ×2 (01:40→05:41)
[2018-02-26] MEDS: HEPARIN SOD (PORCINE) 5,000 UNIT/ML 1 ML SYRINGE SUBCUT SCH ×3 (05:42→21:42)
[2018-02-26] MEDS: PROPOFOL 1,000 MG/100 ML INFUS..BTL IV PRN ×3 (08:36→21:41)
[2018-02-26] MEDS: FUROSEMIDE INJ/PF 20 MG/2 ML SDV IV SCH (10:37)
[2018-02-26] MEDS: CLOPIDOGREL BISULFATE 75 MG TABLET PO SCH (10:38)
[2018-02-26] MEDS: NYSTATIN TOPICAL POWDER 15 GM TP SCH ×2 (10:38→18:22)
[2018-02-26] MEDS: POLYETHYLENE GLYCOL 3350 POWDER 17 GM/1 PACKET NG SCH (10:38)
[2018-02-26] MEDS: NORMAL SALINE 500 ML IV PRN (18:22)
--- NOTE | 2018-02-26 21:18 | PDOC PROGRESS REPORT ---
Subjective Progress Note for:: 02/26/18 Subjective:: Status post tracheostomy and PEG tube placement on 02/20/2018. PEG tube and tracheostomy tube are functional. There was some inflammation and purulent secretion around PEG tube insertion site 1 of the socorro were removed by the nurse and the following the the purulent discharge had disappeared the discharge was sent to be cultured which came back negative so far. No acute events overnight family still deciding on disposition of the patient. Patient's clinical status remains the same Reason For Visit: ALTERED MENTAL STATUS,LEUKOCYTOSIS Physical Exam Vital Signs: Temp Pulse Resp BP Pulse Ox 100.9 F H 84 17 110/66 94 02/26/18 19:47 02/26/18 15:51 02/26/18 18:06 02/26/18 18:06 02/26/18 18:06 Intake & Output 02/25/18 02/26/18 02/27/18 06:59 06:59 06:59 Intake Total 1386 1924 1802 Output Total 1390 1065 710 Balance -4 859 1092 Weight 107.6 kg 105.5 kg General appearance: PRESENT: no acute distress, well-developed, well-nourished Head exam: PRESENT: atraumatic, normocephalic Eye exam: PRESENT: conjunctiva pink, PERRLA. ABSENT: scleral icterus Ear exam: PRESENT: normal external ear exam Mouth exam: PRESENT: moist, tongue midline Neck exam: ABSENT: carotid bruit, JVD, lymphadenopathy, thyromegaly Respiratory exam: PRESENT: clear to auscultation karime. ABSENT: rales, rhonchi, wheezes Cardiovascular exam: PRESENT: RRR. ABSENT: diastolic murmur, rubs, systolic murmur Pulses: PRESENT: normal dorsalis pedis pul Vascular exam: PRESENT: normal capillary refill GI/Abdominal exam: PRESENT: normal bowel sounds, soft. ABSENT: distended, guarding, mass, organolmegaly, rebound, tenderness Rectal exam: PRESENT: deferred Extremities exam: PRESENT: full ROM. ABSENT: calf tenderness, clubbing, pedal edema Psychiatric exam: PRESENT: appropriate affect, normal mood. ABSENT: homicidal ideation, suicidal ideation Skin exam: PRESENT: dry, intact, warm. ABSENT: cyanosis, rash Results Laboratory Results: 02/24/18 08:50 02/24/18 08:50 02/25/18 00:40 Groin - Incision Site MRSA Culture - Final NO MRSA RECOVERED 01/29/18 01/29/18 01/30/18 17:45 23:40 05:45 Creatine Kinase CK-MB (CK-2) Troponin I 0.244 0.319 0.379 01/30/18 01/30/18 01/30/18 12:00 12:00 18:44 Creatine Kinase 105 74 CK-MB (CK-2) 5.01 H Troponin I 0.349 01/30/18 01/30/18 01/30/18 18:44 23:55 23:55 Creatine Kinase 58 CK-MB (CK-2) 3.04 2.10 Troponin I 0.290 0.268 Impressions: Guidance Fluoroscopy 01/28/18 00:00 IMPRESSION: Please see combined report for performance of procedure and radiologic supervision and interpretation. Head MRI 01/28/18 00:00 IMPRESSION: Positive for acute or sub-acute punctate- lacunar infarctions in multiple locations of both frontal lobes, left parietal-occipital lobe, and the left cerebellum. This pattern suggests embolic phenomenon but can be seen with other etiologies such as traumatic brain injury, correlate clinically. No enhancing lesions. EVIDENCE OF ACUTE STROKE: YES. Multiple vessel distribution Lumbar Puncture 01/28/18 17:17 IMPRESSION: Lumbar puncture under fluoroscopy. No immediate complication. Carotid Doppler Study 01/30/18 00:00 IMPRESSION: NO HEMODYNAMICALLY SIGNIFICANT STENOSIS. Head CT 01/30/18 00:00 IMPRESSION: 1. No acute intracranial abnormality identified. This exam was performed according to our departmental dose-optimization program, which includes automated exposure control, adjustment of the mA and/or kV according to patient size and/or use of iterative reconstruction technique. Chest/Abdomen CTA 01/31/18 12:47 IMPRESSION: 1. Normal CTA of the chest. No pulmonary emboli. 2. Right lower lobe consolidation may represent atelectasis on the basis of submaximal aeration in this intubated patient. Left lower lobe atelectasis. 3. 4.5 x 4.0 x 3.5 cm irregularly marginated heterogeneous appearing mass within the superior pole of the right kidney. This requires further evaluation with dedicated renal CT or MR imaging when feasible. Abdomen/Pelvis CT 02/04/18 10:57 IMPRESSION: 1. LIMITED STUDY. INDISTINCT AREA OF DECREASED ATTENUATION IN THE UPPER POLE OF THE RIGHT KIDNEY, DIFFICULT TO COMPLETELY VISUALIZE DUE TO STREAK ARTIFACT FROM PATIENT'S ARMS. MALIGNANCY SUCH RENAL CELL CARCINOMA IS IN THE DIFFERENTIAL. ANOTHER POSSIBILITY COULD BE AN AREA OF RENAL INFARCTION. IDEALLY, AN MRI OF THE KIDNEYS AFTER THE PATIENT'S CLINICAL CONDITION HAS IMPROVED WOULD BE OPTIMAL TO PROVIDE COMPLETE EVALUATION. 2. CORTICAL CYST IN THE LEFT KIDNEY. 3. GALLSTONES. 4. 3.5 CM INFRARENAL ABDOMINAL AORTIC ANEURYSM. 5. SMALL PLEURAL EFFUSIONS AND BASILAR INFILTRATES, RIGHT GREATER THAN LEFT. Chest X-Ray 02/22/18 06:00 IMPRESSION: 1. Interval removal of endotracheal and enteric tubes. Placement of a tracheostomy tube terminating at the level of the clavicles. 2. Otherwise, no significant interval change. Assessment & Plan - Diagnosis (1) Acute CVA (cerebrovascular accident) Is this a current diagnosis for this admission?: Yes (2) Acute respiratory failure Is this a current diagnosis for this admission?: Yes Plan: .Patient's MRI had showed acute or subacute punctate lacunar infarction in multiple locations along both frontal lobes left parietal occipital lobe on the left cerebellum. Patient was not a TPA candidate as he presented beyond the window. Patient has remained neurologically unchanged. Disposition decision is pending on family decision. We will continue supportive care (3) Cardiopulmonary arrest with successful resuscitation Is this a current diagnosis for this admission?: Yes Plan: Patient is a status post tracheostomy and PEG tube placement on 02/20/2018. Patient is saturating well on the vitals are stable. Patient is pending family decision on disposition (4) Bacteremia due to Enterococcus Is this a current diagnosis for this admission?: Yes Plan: Patient completed a course of antibiotics repeat blood cultures has remained negative. If any signs of bacteremia we will repeat blood cultures and start on empiric antibiotics. (5) HIE (hypoxic-ischemic encephalopathy) Is this a current diagnosis for this admission?: Yes Plan: Patient likely has hypoxic ischemic top of the most likely due to PEA cardiac arrest and multiple severe
[2018-02-27] MEDS: LEVALBUTEROL HCL NEB 1.25 MG/3 ML AMPUL NEB SCH ×3 (00:08→16:30)
[2018-02-27] MEDS: HEPARIN SOD (PORCINE) 5,000 UNIT/ML 1 ML SYRINGE SUBCUT SCH ×3 (05:08→22:33)
[2018-02-27] MEDS: PROPOFOL 1,000 MG/100 ML INFUS..BTL IV PRN ×2 (05:08→13:51)
[2018-02-27 05:16] LABS: ABSOLUTE BASOPHILS # (AUTO) 0.1 10^3/uL (0.0-0.2); ABSOLUTE EOSINOPHILS # (AUTO) 0.5 10^3/uL (0.0-0.6); ABSOLUTE MONOCYTES (AUTO) 0.6 10^3/uL (0.1-1.4); ABSOLUTE NEUT (AUTO) 7.5 10^3/uL (1.7-8.2); BASOPHILS % (AUTO) 0.8 % (0-2); EOSINOPHILS % (AUTO) 5.1 % (0-6); HEMATOCRIT 29.5 % (37.9-51.0); HEMOGLOBIN 9.7 g/dL (13.5-17.0); LYMPHOCYTES % (AUTO) 10.5 % (13-45); MEAN CORPUSCULAR HGB CONC 32.9 g/dL (32.0-36.0); MEAN CORPUSCULAR VOLUME 85 fl (80-97); MONOCYTES % (AUTO) 6.3 % (3-13); PLATELET COUNT 406 10^3/uL (150-450); RED BLOOD COUNT 3.46 10^6/uL (4.35-5.55); RED CELL DISTRIBUTION WIDTH 17.6 % (11.5-14.0); SEGMENTED NEUTROPHILS % (AUTO) 77.3 % (42-78); TOTAL CELLS COUNTED % (AUTO) 100 %; WHITE BLOOD COUNT 9.7 10^3/uL (4.0-10.5)
[2018-02-27 05:18] LABS: ARTERIAL BLOOD BASE EXCESS 3.8 mmol/L; ARTERIAL BLOOD FIO2 40%; ARTERIAL BLOOD H2CO3 1.25 mmol/L (1.05-1.35); ARTERIAL BLOOD HCO3 28.2 mmol/L (20-26); ARTERIAL BLOOD O2 SATURATION 96.2 % (94-98); ARTERIAL BLOOD PCO2 41.6 mmHg (35-45); ARTERIAL BLOOD PH 7.45 (7.35-7.45); ARTERIAL BLOOD PO2 79.3 mmHg (80-100); ARTERIAL BLOOD TOTAL CO2 29.5 mmol/L (23-27)
[2018-02-27 05:40] LABS: ANION GAP 12 (5-19); BLOOD UREA NITROGEN 28 mg/dL (7-20); CALCIUM 8.6 mg/dL (8.4-10.2); CARBON DIOXIDE 29 mmol/L (22-30); CHLORIDE 103 mmol/L (98-107); GLUCOSE 221 mg/dL (75-110); PHOSPHORUS 4.5 mg/dL (2.5-4.5); SODIUM 143.7 mmol/L (137-145)
[2018-02-27] MEDS: POLYETHYLENE GLYCOL 3350 POWDER 17 GM/1 PACKET NG SCH (10:16)
[2018-02-27] MEDS: PANTOPRAZOLE SODIUM 40 MG VIAL IV SCH (10:51)
[2018-02-27] MEDS: CLOPIDOGREL BISULFATE 75 MG TABLET PO SCH (10:52)
[2018-02-27] MEDS: NYSTATIN TOPICAL POWDER 15 GM TP SCH ×2 (10:52→18:31)
[2018-02-27] MEDS: FUROSEMIDE INJ/PF 20 MG/2 ML SDV IV SCH (10:52)
[2018-02-27 12:38] LABS: ARTERIAL BLOOD BASE EXCESS 6.5 mmol/L; ARTERIAL BLOOD H2CO3 1.23 mmol/L (1.05-1.35); ARTERIAL BLOOD HCO3 30.3 mmol/L (20-26); ARTERIAL BLOOD O2 SATURATION 96.8 % (94-98); ARTERIAL BLOOD PCO2 40.7 mmHg (35-45); ARTERIAL BLOOD PH 7.49 (7.35-7.45); ARTERIAL BLOOD TOTAL CO2 31.6 mmol/L (23-27)
[2018-02-27 12:40] LABS: ARTERIAL BLOOD FIO2 40%
--- NOTE | 2018-02-27 16:41 | PDOC PROGRESS REPORT ---
Subjective Progress Note for:: 02/27/18 Subjective:: Status post tracheostomy and PEG tube placement on 02/20/2018. PEG tube and tracheostomy tube are functional. There was some inflammation and purulent secretion around PEG tube insertion site 1 of the socorro were removed by the nurse and the following the the purulent discharge had disappeared the discharge was sent to be cultured which came back negative so far. No acute events overnight family still deciding on disposition of the patient. Patient's clinical status remains the same Reason For Visit: ALTERED MENTAL STATUS,LEUKOCYTOSIS Physical Exam Vital Signs: Temp Pulse Resp BP Pulse Ox 99.0 F 86 11 L 116/75 94 02/27/18 12:00 02/27/18 14:00 02/27/18 14:00 02/27/18 14:00 02/27/18 14:00 Intake & Output 02/26/18 02/27/18 02/28/18 06:59 06:59 06:59 Intake Total 1924 2224 275 Output Total 1065 940 600 Balance 859 1284 -325 Weight 105.5 kg 106.3 kg General appearance: PRESENT: no acute distress, well-developed, well-nourished Head exam: PRESENT: atraumatic, normocephalic Eye exam: PRESENT: conjunctiva pink, EOMI, PERRLA. ABSENT: scleral icterus Ear exam: PRESENT: normal external ear exam Mouth exam: PRESENT: moist, tongue midline Neck exam: ABSENT: carotid bruit, JVD, lymphadenopathy, thyromegaly Respiratory exam: PRESENT: clear to auscultation karime. ABSENT: rales, rhonchi, wheezes Cardiovascular exam: PRESENT: RRR. ABSENT: diastolic murmur, rubs, systolic murmur Pulses: PRESENT: normal dorsalis pedis pul Vascular exam: PRESENT: normal capillary refill GI/Abdominal exam: PRESENT: normal bowel sounds, soft, other - Skine irritation at the site of PEG tube improving.. ABSENT: distended, guarding, mass, organolmegaly, rebound, tenderness Rectal exam: PRESENT: deferred Extremities exam: PRESENT: full ROM. ABSENT: calf tenderness, clubbing, pedal edema Neurological exam: PRESENT: alert, other - GCS 5-6. Responds to painful stiumuli. Does not follow command.. ABSENT: motor sensory deficit Psychiatric exam: PRESENT: appropriate affect, normal mood. ABSENT: homicidal ideation, suicidal ideation Skin exam: PRESENT: dry, intact, warm. ABSENT: cyanosis, rash Results Laboratory Results: 02/27/18 05:00 02/27/18 05:00 02/27/18 02/27/18 02/27/18 05:00 05:00 05:00 WBC 9.7 RBC 3.46 L Hgb 9.7 L Hct 29.5 L MCV 85 MCH 28.0 MCHC 32.9 RDW 17.6 H Plt Count 406 Seg Neutrophils % 77.3 Lymphocytes % 10.5 L Monocytes % 6.3 Eosinophils % 5.1 Basophils % 0.8 Absolute Neutrophils 7.5 Absolute Lymphocytes 1.0 Absolute Monocytes 0.6 Absolute Eosinophils 0.5 Absolute Basophils 0.1 Carbonic Acid 1.25 HCO3/H2CO3 Ratio 22:1 ABG pH 7.45 ABG pCO2 41.6 ABG pO2 79.3 L ABG HCO3 28.2 H ABG O2 Saturation 96.2 ABG Base Excess 3.8 FiO2 40% Sodium 143.7 Potassium 4.0 Chloride 103 Carbon Dioxide 29 Anion Gap 12 BUN 28 H Creatinine 0.92 Est GFR ( Amer) > 60 Est GFR (Non-Af Amer) > 60 Glucose 221 H Calcium 8.6 Phosphorus 4.5 Magnesium 2.4 H 02/27/18 12:19 WBC RBC Hgb Hct MCV MCH MCHC RDW Plt Count Seg Neutrophils % Lymphocytes % Monocytes % Eosinophils % Basophils % Absolute Neutrophils Absolute Lymphocytes Absolute Monocytes Absolute Eosinophils Absolute Basophils Carbonic Acid 1.23 HCO3/H2CO3 Ratio 24:1 ABG pH 7.49 H ABG pCO2 40.7 ABG pO2 82.0 ABG HCO3 30.3 H ABG O2 Saturation 96.8 ABG Base Excess 6.5 FiO2 40% Sodium Potassium Chloride Carbon Dioxide Anion Gap BUN Creatinine Est GFR ( Amer) Est GFR (Non-Af Amer) Glucose Calcium Phosphorus Magnesium 02/24/18 08:15 Tracheal Aspirate Gram Stain - Final 02/24/18 08:15 Tracheal Aspirate Sputum Culture - Final Pseudomonas Aeruginosa Normal Alison Absent 02/25/18 00:40 Abdomen - G Tube Site Gram Stain - Final 02/25/18 00:40 Groin - Incision Site MRSA Culture - Final NO MRSA RECOVERED 01/29/18 01/29/18 01/30/18 17:45 23:40 05:45 Creatine Kinase CK-MB (CK-2) Troponin I 0.244 0.319 0.379 01/30/18 01/30/18 01/30/18 12:00 12:00 18:44 Creatine Kinase 105 74 CK-MB (CK-2) 5.01 H Troponin I 0.349 01/30/18 01/30/18 01/30/18 18:44 23:55 23:55 Creatine Kinase 58 CK-MB (CK-2) 3.04 2.10 Troponin I 0.290 0.268 Impressions: Guidance Fluoroscopy 01/28/18 00:00 IMPRESSION: Please see combined report for performance of procedure and radiologic supervision and interpretation. Head MRI 01/28/18 00:00 IMPRESSION: Positive for acute or sub-acute punctate- lacunar infarctions in multiple locations of both frontal lobes, left parietal-occipital lobe, and the left cerebellum. This pattern suggests embolic phenomenon but can be seen with other etiologies such as traumatic brain injury, correlate clinically. No enhancing lesions. EVIDENCE OF ACUTE STROKE: YES. Multiple vessel distribution Lumbar Puncture 01/28/18 17:17 IMPRESSION: Lumbar puncture under fluoroscopy. No immediate complication. Carotid Doppler Study 01/30/18 00:00 IMPRESSION: NO HEMODYNAMICALLY SIGNIFICANT STENOSIS. Head CT 01/30/18 00:00 IMPRESSION: 1. No acute intracranial abnormality identified. This exam was performed according to our departmental dose-optimization program, which includes automated exposure control, adjustment of the mA and/or kV according to patient size and/or use of iterative reconstruction technique. Chest/Abdomen CTA 01/31/18 12:47 IMPRESSION: 1. Normal CTA of the chest. No pulmonary emboli. 2. Right lower lobe consolidation may represent atelectasis on the basis of submaximal aeration in this intubated patient. Left lower lobe atelectasis. 3. 4.5 x 4.0 x 3.5 cm irregularly marginated heterogeneous appearing mass within the superior pole of the right kidney. This requires further evaluation with dedicated renal CT or MR imaging when feasible. Abdomen/Pelvis CT 02/04/18 10:57 IMPRESSION: 1. LIMITED STUDY. INDISTINCT AREA OF DECREASED ATTENUATION IN THE UPPER POLE OF THE RIGHT KIDNEY, DIFFICULT TO COMPLETELY VISUALIZE DUE TO STREAK ARTIFACT FROM PATIENT'S ARMS. MALIGNANCY SUCH RENAL CELL CARCINOMA IS IN THE DIFFERENTIAL. ANOTHER POSSIBILITY COULD BE AN AREA OF RENAL INFARCTION. IDEALLY, AN MRI OF THE KIDNEYS AFTER THE PATIENT'S CLINICAL CONDITION HAS IMPROVED WOULD BE OPTIMAL TO PROVIDE COMPLETE EVALUATION. 2. CORTICAL CYST IN THE LEFT KIDNEY. 3. GALLSTONES. 4. 3.5 CM INFRARENAL ABDOMINAL AORTIC ANEURYSM. 5. SMALL PLEURAL EFFUSIONS AND BASILAR INFILTRATES, RIGHT GREATER THAN LEFT. Chest X-Ray 02/22/18 06:00 IMPRESSION: 1. Interval removal of endotracheal and enteric tubes. Placement of a tracheostomy tube terminating at the level of the clavicles. 2. Otherwise, no significant interval change. Assessment & Plan - Diagnosis (1) Acute CVA (cerebrovascular accident) Is this a current diagnosis for this admission?: Yes Plan: MRI positive for acute or subacute punctate lacunar infarction in multiple locations of the both frontal lobes parietal occipital left cerebellar patient was not a TPA candidate as stroke. Also continue supportive management. Continue PT OT ST (2) Acute respiratory failure Is this a current diagnosis for this admission?: Yes Plan: .Patient's MRI had showed acute or subacute punctate lacunar infarction in multiple locations along both frontal lobes left parietal occipital lobe on the left cerebellum. Patient was not a TPA candidate as he presented beyond the window. Patient has remained neurologically unchanged. Disposition decision is pending on family decision. We will continue supportive care (3) Cardiopulmonary arrest with successful resuscitation Is this a current diagnosis for this admission?: Yes Plan: Patient is a status post tracheostomy and PEG tube placement on 02/20/2018. Patient is saturating well on the vitals are stable. Patient is pending family decision on disposition (4) Bacteremia due to Enterococcus Is this a current diagnosis for this admission?: Yes Plan: Patient completed a course of antibiotics repeat blood cultures has remained negative. If any signs of bacteremia we will repeat blood cultures and start on empiric antibiotics. (5) HIE (hypoxic-ischemic encephalopathy) Qualifiers: Hypoxic ischemic encephalopathy severity: severe Qualified Code(s): P91.63 - Severe hypoxic ischemic encephalopathy [HIE] Is this a current diagnosis for this admission?: Yes Plan: Patient likely has hypoxic ischemic top of the most likely due to PEA cardiac arrest and multiple severe
[2018-02-28] MEDS: LEVALBUTEROL HCL NEB 1.25 MG/3 ML AMPUL NEB SCH ×3 (00:29→16:46)
[2018-02-28] MEDS: PROPOFOL 1,000 MG/100 ML INFUS..BTL IV PRN ×4 (04:03→23:11)
[2018-02-28] MEDS: NORMAL SALINE 500 ML IV PRN (04:09)
[2018-02-28] MEDS: HEPARIN SOD (PORCINE) 5,000 UNIT/ML 1 ML SYRINGE SUBCUT SCH ×3 (06:19→21:26)
[2018-02-28 06:37] LABS: ARTERIAL BLOOD BASE EXCESS 5.2 mmol/L; ARTERIAL BLOOD FIO2 40%; ARTERIAL BLOOD H2CO3 1.23 mmol/L (1.05-1.35); ARTERIAL BLOOD HCO3 29.2 mmol/L (20-26); ARTERIAL BLOOD PCO2 40.8 mmHg (35-45); ARTERIAL BLOOD PH 7.47 (7.35-7.45); ARTERIAL BLOOD PO2 76.1 mmHg (80-100); ARTERIAL BLOOD TOTAL CO2 30.5 mmol/L (23-27)
[2018-02-28 07:09] LABS: ALANINE AMINOTRANSFERASE 20 U/L (21-72); ALBUMIN 3.2 g/dL (3.5-5.0); ALKALINE PHOSPHATASE 93 U/L (38-126); ANION GAP 11 (5-19); ASPARTATE AMINO TRANSFERASE 32 U/L (17-59); BILIRUBIN,DIRECT 0.4 mg/dL (0.0-0.4); BILIRUBIN,TOTAL 0.4 mg/dL (0.2-1.3); BLOOD UREA NITROGEN 30 mg/dL (7-20); CALCIUM 8.8 mg/dL (8.4-10.2); CARBON DIOXIDE 30 mmol/L (22-30); CHLORIDE 102 mmol/L (98-107); GLUCOSE 158 mg/dL (75-110); PHOSPHORUS 4.7 mg/dL (2.5-4.5); POTASSIUM 4.5 mmol/L (3.6-5.0); SODIUM 143.1 mmol/L (137-145); TOTAL PROTEIN 6.8 g/dL (6.3-8.2)
[2018-02-28] MEDS ORDERED: SODIUM BICARBONATE 8.4% INJ 50 MEQ/50 ML DISP.SYRIN ONE (07:13)
[2018-02-28 08:19] LABS: ABSOLUTE BASOPHILS # (AUTO) 0.1 10^3/uL (0.0-0.2); ABSOLUTE EOSINOPHILS # (AUTO) 0.5 10^3/uL (0.0-0.6); ABSOLUTE MONOCYTES (AUTO) 0.7 10^3/uL (0.1-1.4); ABSOLUTE NEUT (AUTO) 9.9 10^3/uL (1.7-8.2); BASOPHILS % (AUTO) 0.8 % (0-2); EOSINOPHILS % (AUTO) 4.2 % (0-6); LYMPHOCYTES % (AUTO) 8.1 % (13-45); MEAN CORPUSCULAR HEMOGLOBIN 27.5 pg (27.0-33.4); MEAN CORPUSCULAR HGB CONC 32.2 g/dL (32.0-36.0); MEAN CORPUSCULAR VOLUME 85 fl (80-97); MONOCYTES % (AUTO) 5.5 % (3-13); PLATELET COUNT 422 10^3/uL (150-450); RED BLOOD COUNT 3.63 10^6/uL (4.35-5.55); SEGMENTED NEUTROPHILS % (AUTO) 81.4 % (42-78); TOTAL CELLS COUNTED % (AUTO) 100 %; WHITE BLOOD COUNT 12.2 10^3/uL (4.0-10.5)
[2018-02-28] MEDS: PANTOPRAZOLE SODIUM 40 MG VIAL IV SCH (10:09)
[2018-02-28] MEDS: POLYETHYLENE GLYCOL 3350 POWDER 17 GM/1 PACKET NG SCH (10:09)
[2018-02-28] MEDS: FUROSEMIDE INJ/PF 20 MG/2 ML SDV IV SCH (10:09)
[2018-02-28] MEDS: NYSTATIN TOPICAL POWDER 15 GM TP SCH ×2 (10:09→17:04)
[2018-02-28] MEDS: CLOPIDOGREL BISULFATE 75 MG TABLET PO SCH (10:10)
--- NOTE | 2018-02-28 17:58 | PDOC CONSULTATION ---
Consultation Consult Date: 02/28/18 Consult reason:: Broken trach History of Present Illness Admission Date/PCP: 01/28/18 17:39 Patient complains of: Anoxic brain injury History of Present Illness: AGNIESZKA GOMEZ is a 57 year old male The patient is a 57-year-old male in the intensive care unit room 607 now 7-1/2 day status post operative tracheostomy by Dr. Irwin Hall with a #8 Shiley cuffed tracheostomy tube. I was called to the bedside because the tube was felt to be broken. I examined the tube and found the plastic retaining ring that secures the in-line ventilator cannula to be detached from the trach proper. Past Medical History Cardiac Medical History: Reports: Hypertension Pulmonary Medical History: Reports: Chronic Obstructive Pulmonary Disease (COPD) Endocrine Medical History: Reports: Diabetes Mellitus Type 2 GI Medical History: Reports: Hepatitis Skin Medical History: Reports: Psoriasis Psychiatric Medical History: Reports: Depression - anxiety Traumatic Medical History: Denies: Traumatic Brain Injury Hematology: Denies: Hemophilia, Sickle Cell Disease Infectious Medical History: Denies: Clostridium Difficile Past Surgical History Past Surgical History: Reports: Appendectomy, Orthopedic Surgery - left ankle Social History Smoking Status: Current Every Day Smoker Hx Recreational Drug Use: No - Advance Directive Resuscitation Status: Full Code Family History Family History: Other - Unable to obtain seconadary to patient's condition. Parental Family History Reviewed: Yes Children Family History Reviewed: Yes Sibling(s) Family History Reviewed.: Yes Medication/Allergy Home Medications: Albuterol Sulfate [Proair HFA] 2 puff IH Q6HP PRN 01/29/18 Amlodipine Besylate/Benazepril [Amlodipine-Benazepril 10-20 mg] 1 tab PO DAILY 01/29/18 Budesonide/Formoterol Fumarate [Symbicort HFA 160-4.5 mcg Inhaler 6 gm] 2 puff IH BID 01/29/18 Bupropion HCl [Wellbutrin 75 mg Tablet] 150 mg PO BID 01/29/18 Gabapentin [Neurontin] 300 mg PO Q12 01/29/18 Metformin HCl [Glucophage XR 500 mg Tablet] 1,000 mg PO DAILY 01/29/18 Tiotropium [place] [Spiriva Respimat] 2 puff IH BID 01/29/18 Allergies/Adverse Reactions: No Known Allergies Allergy (Verified 01/29/18 10:52) Physical Exam Vital Signs: Temp Pulse Resp BP Pulse Ox 100.8 F H 87 28 H 122/72 97 02/28/18 16:00 02/28/18 16:45 02/28/18 16:45 02/28/18 15:04 02/28/18 16:45 Intake & Output 02/27/18 02/28/18 03/01/18 06:59 06:59 06:59 Intake Total 2224 1395 1404 Output Total 270 832 0398 Balance 1284 440 -96 Weight 106.3 kg 104.5 kg General appearance: PRESENT: other - Patient on the ventilator, essentially in a comatose state, responding to stimulation non-purposefully Neck exam: PRESENT: other - Tracheostomy in position; lots of mucus; rescue stitch and securing stitches to 4 points keeping the trach in position. The plastic ring to which the inner cannula is clipped to has snapped from the trachea itself. Otherwise the trach is functioning satisfactorily Results Laboratory Results: 02/28/18 06:00 02/28/18 06:00 02/28/18 02/28/18 02/28/18 06:00 06:00 06:00 WBC 12.2 H RBC 3.63 L Hgb 10.0 L Hct 31.0 L MCV 85 MCH 27.5 MCHC 32.2 RDW 18.0 H Plt Count 422 Seg Neutrophils % 81.4 H Lymphocytes % 8.1 L Monocytes % 5.5 Eosinophils % 4.2 Basophils % 0.8 Absolute Neutrophils 9.9 H Absolute Lymphocytes 1.0 Absolute Monocytes 0.7 Absolute Eosinophils 0.5 Absolute Basophils 0.1 Carbonic Acid 1.23 HCO3/H2CO3 Ratio 23:1 ABG pH 7.47 H ABG pCO2 40.8 ABG pO2 76.1 L ABG HCO3 29.2 H ABG O2 Saturation 96.0 ABG Base Excess 5.2 FiO2 40% Sodium 143.1 Potassium 4.5 Chloride 102 Carbon Dioxide 30 Anion Gap 11 BUN 30 H Creatinine 0.88 Est GFR ( Amer) > 60 Est GFR (Non-Af Amer) > 60 Glucose 158 H Calcium 8.8 Phosphorus 4.7 H Magnesium 2.3 Total Bilirubin 0.4 AST 32 ALT 20 L Alkaline Phosphatase 93 Total Protein 6.8 Albumin 3.2 L 02/25/18 00:40 Abdomen - G Tube Site Gram Stain - Final 02/25/18 00:40 Abdomen - G Tube Site Wound Culture - Final Pseudomonas Aeruginosa Enterococcus Faecalis(Group D) Skin Alison 02/24/18 08:15 Tracheal Aspirate Gram Stain - Final 02/24/18 08:15 Tracheal Aspirate Sputum Culture - Final Pseudomonas Aeruginosa Normal Alison Absent 01/29/18 01/29/18 01/30/18 17:45 23:40 05:45 Creatine Kinase CK-MB (CK-2) Troponin I 0.244 0.319 0.379 01/30/18 01/30/18 01/30/18 12:00 12:00 18:44 Creatine Kinase 105 74 CK-MB (CK-2) 5.01 H Troponin I 0.349 01/30/18 01/30/18 01/30/18 18:44 23:55 23:55 Creatine Kinase 58 CK-MB (CK-2) 3.04 2.10 Troponin I 0.290 0.268 Impressions: Guidance Fluoroscopy 01/28/18 00:00 IMPRESSION: Please see combined report for performance of procedure and radiologic supervision and interpretation. Head MRI 01/28/18 00:00 IMPRESSION: Positive for acute or sub-acute punctate- lacunar infarctions in multiple locations of both frontal lobes, left parietal-occipital lobe, and the left cerebellum. This pattern suggests embolic phenomenon but can be seen with other etiologies such as traumatic brain injury, correlate clinically. No enhancing lesions. EVIDENCE OF ACUTE STROKE: YES. Multiple vessel distribution Lumbar Puncture 01/28/18 17:17 IMPRESSION: Lumbar puncture under fluoroscopy. No immediate complication. Carotid Doppler Study 01/30/18 00:00 IMPRESSION: NO HEMODYNAMICALLY SIGNIFICANT STENOSIS. Head CT 01/30/18 00:00 IMPRESSION: 1. No acute intracranial abnormality identified. This exam was performed according to our departmental dose-optimization program, which includes automated exposure control, adjustment of the mA and/or kV according to patient size and/or use of iterative reconstruction technique. Chest/Abdomen CTA 01/31/18 12:47 IMPRESSION: 1. Normal CTA of the chest. No pulmonary emboli. 2. Right lower lobe consolidation may represent atelectasis on the basis of submaximal aeration in this intubated patient. Left lower lobe atelectasis. 3. 4.5 x 4.0 x 3.5 cm irregularly marginated heterogeneous appearing mass within the superior pole of the right kidney. This requires further evaluation with dedicated renal CT or MR imaging when feasible. Abdomen/Pelvis CT 02/04/18 10:57 IMPRESSION: 1. LIMITED STUDY. INDISTINCT AREA OF DECREASED ATTENUATION IN THE UPPER POLE OF THE RIGHT KIDNEY, DIFFICULT TO COMPLETELY VISUALIZE DUE TO STREAK ARTIFACT FROM PATIENT'S ARMS. MALIGNANCY SUCH RENAL CELL CARCINOMA IS IN THE DIFFERENTIAL. ANOTHER POSSIBILITY COULD BE AN AREA OF RENAL INFARCTION. IDEALLY, AN MRI OF THE KIDNEYS AFTER THE PATIENT'S CLINICAL CONDITION HAS IMPROVED WOULD BE OPTIMAL TO PROVIDE COMPLETE EVALUATION. 2. CORTICAL CYST IN THE LEFT KIDNEY. 3. GALLSTONES. 4. 3.5 CM INFRARENAL ABDOMINAL AORTIC ANEURYSM. 5. SMALL PLEURAL EFFUSIONS AND BASILAR INFILTRATES, RIGHT GREATER THAN LEFT. Chest X-Ray 02/22/18 06:00 IMPRESSION: 1. Interval removal of endotracheal and enteric tubes. Placement of a tracheostomy tube terminating at the level of the clavicles. 2. Otherwise, no significant interval change. Assessment & Plan - Diagnosis (1) Status post tracheostomy Is this a current diagnosis for this admission?: Yes Plan: Impression: The patient has a functioning tray, specifically the glue securing the plastic O ring to the tracheostomy tube proper has given way. Therefore the plastic ring can no longer be permanently secured back to the trach. However the inner cannula to which the ventilator tubing attaches is able to support itself within the tracheostomy tube proper. Recommendations: 1. This is a fairly fresh tracheostomy tube 7-1/2 days old in a large man with this event occurring at 5:00 PM on a Saturday night with resources in the operating room currently engaged in other schedule procedures. This is not an emergency therefore I have suggested we support the existing apparatus as it is until a decision can be made at a later time where the future of this trach tube. 2. In addition, this is a patient with a severe anoxic brain injury who is essentially in a coma. I question the value of additional tracheostomy tube manipulation, repair or even replacement in this very unfortunate situation from a medical and ethical standpoint. (2) Acute encephalopathy Is this a current diagnosis for this admission?: Yes (3) Ventilator dependent Is this a current diagnosis for this admission?: Yes
[2018-02-28] MEDS: ACETAMINOPHEN SOLN 325 MG/10.15 ML UDCUP NG PRN (18:15)
--- NOTE | 2018-02-28 21:49 | PDOC PROGRESS REPORT ---
Subjective Progress Note for:: 02/28/18 Subjective:: Status post tracheostomy and PEG tube placement on 02/20/2018. PEG tube and tracheostomy tube are functional. Patient more responsive to situmli, but otherwise clinical status remains unchanged. No acute events overnight family still deciding on disposition of the patient. Reason For Visit: ALTERED MENTAL STATUS,LEUKOCYTOSIS Physical Exam Vital Signs: Temp Pulse Resp BP Pulse Ox 101.3 F H 100 29 H 123/95 H 98 02/28/18 19:57 02/28/18 20:00 02/28/18 18:05 02/28/18 18:05 02/28/18 20:23 Intake & Output 02/27/18 02/28/18 03/01/18 06:59 06:59 06:59 Intake Total 2224 1395 1547 Output Total 485 498 1230 Balance 1284 440 -13 Weight 106.3 kg 104.5 kg General appearance: PRESENT: no acute distress Head exam: PRESENT: atraumatic Respiratory exam: PRESENT: clear to auscultation karime. ABSENT: rales, rhonchi, wheezes Cardiovascular exam: PRESENT: RRR. ABSENT: diastolic murmur, rubs, systolic murmur Pulses: PRESENT: normal dorsalis pedis pul GI/Abdominal exam: PRESENT: normal bowel sounds, soft. ABSENT: distended, guarding, mass, organolmegaly, rebound, tenderness Extremities exam: PRESENT: +1 edema Neurological exam: PRESENT: abnormal gait, ataxia, normal gait. ABSENT: alert, altered, awake, oriented to person, oriented to place, oriented to time, oriented to situation, reflexes normal, CN II-XII grossly intact, motor sensory deficit Results Laboratory Results: 02/28/18 06:00 02/28/18 06:00 02/28/18 02/28/18 02/28/18 06:00 06:00 06:00 WBC 12.2 H RBC 3.63 L Hgb 10.0 L Hct 31.0 L MCV 85 MCH 27.5 MCHC 32.2 RDW 18.0 H Plt Count 422 Seg Neutrophils % 81.4 H Lymphocytes % 8.1 L Monocytes % 5.5 Eosinophils % 4.2 Basophils % 0.8 Absolute Neutrophils 9.9 H Absolute Lymphocytes 1.0 Absolute Monocytes 0.7 Absolute Eosinophils 0.5 Absolute Basophils 0.1 Carbonic Acid 1.23 HCO3/H2CO3 Ratio 23:1 ABG pH 7.47 H ABG pCO2 40.8 ABG pO2 76.1 L ABG HCO3 29.2 H ABG O2 Saturation 96.0 ABG Base Excess 5.2 FiO2 40% Sodium 143.1 Potassium 4.5 Chloride 102 Carbon Dioxide 30 Anion Gap 11 BUN 30 H Creatinine 0.88 Est GFR ( Amer) > 60 Est GFR (Non-Af Amer) > 60 Glucose 158 H Calcium 8.8 Phosphorus 4.7 H Magnesium 2.3 Total Bilirubin 0.4 AST 32 ALT 20 L Alkaline Phosphatase 93 Total Protein 6.8 Albumin 3.2 L 02/25/18 00:40 Abdomen - G Tube Site Gram Stain - Final 02/25/18 00:40 Abdomen - G Tube Site Wound Culture - Final Pseudomonas Aeruginosa Enterococcus Faecalis(Group D) Skin Alison 01/29/18 01/29/18 01/30/18 17:45 23:40 05:45 Creatine Kinase CK-MB (CK-2) Troponin I 0.244 0.319 0.379 01/30/18 01/30/18 01/30/18 12:00 12:00 18:44 Creatine Kinase 105 74 CK-MB (CK-2) 5.01 H Troponin I 0.349 01/30/18 01/30/18 01/30/18 18:44 23:55 23:55 Creatine Kinase 58 CK-MB (CK-2) 3.04 2.10 Troponin I 0.290 0.268 Impressions: Guidance Fluoroscopy 01/28/18 00:00 IMPRESSION: Please see combined report for performance of procedure and radiologic supervision and interpretation. Head MRI 01/28/18 00:00 IMPRESSION: Positive for acute or sub-acute punctate- lacunar infarctions in multiple locations of both frontal lobes, left parietal-occipital lobe, and the left cerebellum. This pattern suggests embolic phenomenon but can be seen with other etiologies such as traumatic brain injury, correlate clinically. No enhancing lesions. EVIDENCE OF ACUTE STROKE: YES. Multiple vessel distribution Lumbar Puncture 01/28/18 17:17 IMPRESSION: Lumbar puncture under fluoroscopy. No immediate complication. Carotid Doppler Study 01/30/18 00:00 IMPRESSION: NO HEMODYNAMICALLY SIGNIFICANT STENOSIS. Head CT 01/30/18 00:00 IMPRESSION: 1. No acute intracranial abnormality identified. This exam was performed according to our departmental dose-optimization program, which includes automated exposure control, adjustment of the mA and/or kV according to patient size and/or use of iterative reconstruction technique. Chest/Abdomen CTA 01/31/18 12:47 IMPRESSION: 1. Normal CTA of the chest. No pulmonary emboli. 2. Right lower lobe consolidation may represent atelectasis on the basis of submaximal aeration in this intubated patient. Left lower lobe atelectasis. 3. 4.5 x 4.0 x 3.5 cm irregularly marginated heterogeneous appearing mass within the superior pole of the right kidney. This requires further evaluation with dedicated renal CT or MR imaging when feasible. Abdomen/Pelvis CT 02/04/18 10:57 IMPRESSION: 1. LIMITED STUDY. INDISTINCT AREA OF DECREASED ATTENUATION IN THE UPPER POLE OF THE RIGHT KIDNEY, DIFFICULT TO COMPLETELY VISUALIZE DUE TO STREAK ARTIFACT FROM PATIENT'S ARMS. MALIGNANCY SUCH RENAL CELL CARCINOMA IS IN THE DIFFERENTIAL. ANOTHER POSSIBILITY COULD BE AN AREA OF RENAL INFARCTION. IDEALLY, AN MRI OF THE KIDNEYS AFTER THE PATIENT'S CLINICAL CONDITION HAS IMPROVED WOULD BE OPTIMAL TO PROVIDE COMPLETE EVALUATION. 2. CORTICAL CYST IN THE LEFT KIDNEY. 3. GALLSTONES. 4. 3.5 CM INFRARENAL ABDOMINAL AORTIC ANEURYSM. 5. SMALL PLEURAL EFFUSIONS AND BASILAR INFILTRATES, RIGHT GREATER THAN LEFT. Chest X-Ray 02/22/18 06:00 IMPRESSION: 1. Interval removal of endotracheal and enteric tubes. Placement of a tracheostomy tube terminating at the level of the clavicles. 2. Otherwise, no significant interval change. Assessment & Plan - Diagnosis (1) Acute CVA (cerebrovascular accident) Is this a current diagnosis for this admission?: Yes Plan: MRI positive for acute or subacute punctate lacunar infarction in multiple locations of the both frontal lobes parietal occipital left cerebellar patient was not a TPA candidate as stroke. Also continue supportive management. Continue PT OT ST (2) Acute respiratory failure Is this a current diagnosis for this admission?: Yes Plan: .Patient's MRI had showed acute or subacute punctate lacunar infarction in multiple locations along both frontal lobes left parietal occipital lobe on the left cerebellum. Patient was not a TPA candidate as he presented beyond the window. Patient has remained neurologically unchanged. Disposition decision is pending on family decision. We will continue supportive care (3) Cardiopulmonary arrest with successful resuscitation Is this a current diagnosis for this admission?: Yes Plan: Patient is a status post tracheostomy and PEG tube placement on 02/20/2018. Patient is saturating well on the vitals are stable. Patient is pending family decision on disposition (4) HIE (hypoxic-ischemic encephalopathy) Qualifiers: Hypoxic ischemic encephalopathy severity: severe Qualified Code(s): P91.63 - Severe hypoxic ischemic encephalopathy [HIE] Is this a current diagnosis for this admission?: Yes Plan: Patient likely has hypoxic ischemic top of the most likely due to PEA cardiac arrest and multiple severe
[2018-03-01] MEDS: LEVALBUTEROL HCL NEB 1.25 MG/3 ML AMPUL NEB SCH ×2 (00:19→08:36)
[2018-03-01 04:31] LABS: ABSOLUTE BASOPHILS # (AUTO) 0.1 10^3/uL (0.0-0.2); ABSOLUTE EOSINOPHILS # (AUTO) 0.6 10^3/uL (0.0-0.6); ABSOLUTE MONOCYTES (AUTO) 0.8 10^3/uL (0.1-1.4); ABSOLUTE NEUT (AUTO) 10.5 10^3/uL (1.7-8.2); BASOPHILS % (AUTO) 0.5 % (0-2); EOSINOPHILS % (AUTO) 4.4 % (0-6); HEMATOCRIT 32.2 % (37.9-51.0); HEMOGLOBIN 10.4 g/dL (13.5-17.0); LYMPHOCYTES % (AUTO) 7.6 % (13-45); MEAN CORPUSCULAR HEMOGLOBIN 27.6 pg (27.0-33.4); MEAN CORPUSCULAR HGB CONC 32.5 g/dL (32.0-36.0); MEAN CORPUSCULAR VOLUME 85 fl (80-97); MONOCYTES % (AUTO) 6.1 % (3-13); PLATELET COUNT 402 10^3/uL (150-450); RED BLOOD COUNT 3.78 10^6/uL (4.35-5.55); RED CELL DISTRIBUTION WIDTH 17.7 % (11.5-14.0); SEGMENTED NEUTROPHILS % (AUTO) 81.4 % (42-78); TOTAL CELLS COUNTED % (AUTO) 100 %; WHITE BLOOD COUNT 12.9 10^3/uL (4.0-10.5)
[2018-03-01 04:49] LABS: BLOOD UREA NITROGEN 30 mg/dL (7-20); CALCIUM 9.3 mg/dL (8.4-10.2); GLUCOSE 152 mg/dL (75-110)
[2018-03-01 04:50] LABS: ALANINE AMINOTRANSFERASE 21 U/L (21-72); ALBUMIN 3.3 g/dL (3.5-5.0); ALKALINE PHOSPHATASE 97 U/L (38-126); ANION GAP 13 (5-19); ASPARTATE AMINO TRANSFERASE 29 U/L (17-59); BILIRUBIN,DIRECT 0.4 mg/dL (0.0-0.4); BILIRUBIN,TOTAL 0.5 mg/dL (0.2-1.3); CARBON DIOXIDE 29 mmol/L (22-30); CHLORIDE 101 mmol/L (98-107); POTASSIUM 4.2 mmol/L (3.6-5.0); SODIUM 142.8 mmol/L (137-145); TOTAL PROTEIN 6.9 g/dL (6.3-8.2)
[2018-03-01] MEDS ORDERED: PROPOFOL 1,000 MG/100 ML INFUS..BTL IV ONE ×2 (06:01→12:10)
[2018-03-01] MEDS: HEPARIN SOD (PORCINE) 5,000 UNIT/ML 1 ML SYRINGE SUBCUT SCH ×3 (06:46→22:36)
[2018-03-01] MEDS: PANTOPRAZOLE SODIUM 40 MG VIAL IV SCH (09:22)
[2018-03-01] MEDS: FUROSEMIDE 40 MG TABLET PO SCH ×2 (09:22→13:10)
[2018-03-01] MEDS: CLOPIDOGREL BISULFATE 75 MG TABLET PO SCH (09:23)
[2018-03-01] MEDS: POLYETHYLENE GLYCOL 3350 POWDER 17 GM/1 PACKET NG SCH (09:23)
[2018-03-01] MEDS: NYSTATIN TOPICAL POWDER 15 GM TP SCH ×2 (09:23→17:41)
[2018-03-01] MEDS: PROPOFOL 1,000 MG/100 ML INFUS..BTL IV PRN ×4 (12:12→22:37)
--- NOTE | 2018-03-01 17:37 | PDOC PROGRESS REPORT ---
Subjective Progress Note for:: 03/01/18 Subjective:: Status post tracheostomy and PEG tube placement on 02/20/2018. PEG tube and tracheostomy tube are functional. Patient more responsive to situmli, but otherwise clinical status remains unchanged. No acute events overnight family still deciding on disposition of the patient. Reason For Visit: ALTERED MENTAL STATUS,LEUKOCYTOSIS Physical Exam Vital Signs: Temp Pulse Resp BP Pulse Ox 98.4 F 71 21 H 102/71 98 03/01/18 14:05 03/01/18 13:55 03/01/18 14:05 03/01/18 14:05 03/01/18 15:20 Intake & Output 02/28/18 03/01/18 03/02/18 06:59 06:59 06:59 Intake Total 1395 2388 80 Output Total 955 1800 635 Balance 440 588 -555 Weight 104.5 kg 104.1 kg General appearance: PRESENT: no acute distress, well-developed, well-nourished, other - Tracheostomy tube Head exam: PRESENT: atraumatic Cardiovascular exam: PRESENT: RRR. ABSENT: diastolic murmur, rubs, systolic murmur Pulses: PRESENT: normal dorsalis pedis pul GI/Abdominal exam: PRESENT: normal bowel sounds, soft. ABSENT: distended, guarding, mass, organolmegaly, rebound, tenderness Extremities exam: PRESENT: full ROM. ABSENT: calf tenderness, clubbing, pedal edema Neurological exam: ABSENT: alert, altered, awake, oriented to person, oriented to place, oriented to time, oriented to situation, other - GCS of 6-7 neurologically patient is status the same. Results Laboratory Results: 03/01/18 03:56 03/01/18 03:56 03/01/18 03/01/18 03/01/18 03:56 03:56 03:56 WBC 12.9 H RBC 3.78 L Hgb 10.4 L Hct 32.2 L MCV 85 MCH 27.6 MCHC 32.5 RDW 17.7 H Plt Count 402 Seg Neutrophils % 81.4 H Lymphocytes % 7.6 L Monocytes % 6.1 Eosinophils % 4.4 Basophils % 0.5 Absolute Neutrophils 10.5 H Absolute Lymphocytes 1.0 Absolute Monocytes 0.8 Absolute Eosinophils 0.6 Absolute Basophils 0.1 Sodium 142.8 Potassium 4.2 Chloride 101 Carbon Dioxide 29 Anion Gap 13 BUN 30 H Creatinine 0.91 Est GFR ( Amer) > 60 Est GFR (Non-Af Amer) > 60 Glucose 152 H Calcium 9.3 Magnesium 2.5 H Total Bilirubin 0.5 AST 29 ALT 21 Alkaline Phosphatase 97 Total Protein 6.9 Albumin 3.3 L 01/29/18 01/29/18 01/30/18 17:45 23:40 05:45 Creatine Kinase CK-MB (CK-2) Troponin I 0.244 0.319 0.379 01/30/18 01/30/18 01/30/18 12:00 12:00 18:44 Creatine Kinase 105 74 CK-MB (CK-2) 5.01 H Troponin I 0.349 01/30/18 01/30/18 01/30/18 18:44 23:55 23:55 Creatine Kinase 58 CK-MB (CK-2) 3.04 2.10 Troponin I 0.290 0.268 Impressions: Guidance Fluoroscopy 01/28/18 00:00 IMPRESSION: Please see combined report for performance of procedure and radiologic supervision and interpretation. Head MRI 01/28/18 00:00 IMPRESSION: Positive for acute or sub-acute punctate- lacunar infarctions in multiple locations of both frontal lobes, left parietal-occipital lobe, and the left cerebellum. This pattern suggests embolic phenomenon but can be seen with other etiologies such as traumatic brain injury, correlate clinically. No enhancing lesions. EVIDENCE OF ACUTE STROKE: YES. Multiple vessel distribution Lumbar Puncture 01/28/18 17:17 IMPRESSION: Lumbar puncture under fluoroscopy. No immediate complication. Carotid Doppler Study 01/30/18 00:00 IMPRESSION: NO HEMODYNAMICALLY SIGNIFICANT STENOSIS. Head CT 01/30/18 00:00 IMPRESSION: 1. No acute intracranial abnormality identified. This exam was performed according to our departmental dose-optimization program, which includes automated exposure control, adjustment of the mA and/or kV according to patient size and/or use of iterative reconstruction technique. Chest/Abdomen CTA 01/31/18 12:47 IMPRESSION: 1. Normal CTA of the chest. No pulmonary emboli. 2. Right lower lobe consolidation may represent atelectasis on the basis of submaximal aeration in this intubated patient. Left lower lobe atelectasis. 3. 4.5 x 4.0 x 3.5 cm irregularly marginated heterogeneous appearing mass within the superior pole of the right kidney. This requires further evaluation with dedicated renal CT or MR imaging when feasible. Abdomen/Pelvis CT 02/04/18 10:57 IMPRESSION: 1. LIMITED STUDY. INDISTINCT AREA OF DECREASED ATTENUATION IN THE UPPER POLE OF THE RIGHT KIDNEY, DIFFICULT TO COMPLETELY VISUALIZE DUE TO STREAK ARTIFACT FROM PATIENT'S ARMS. MALIGNANCY SUCH RENAL CELL CARCINOMA IS IN THE DIFFERENTIAL. ANOTHER POSSIBILITY COULD BE AN AREA OF RENAL INFARCTION. IDEALLY, AN MRI OF THE KIDNEYS AFTER THE PATIENT'S CLINICAL CONDITION HAS IMPROVED WOULD BE OPTIMAL TO PROVIDE COMPLETE EVALUATION. 2. CORTICAL CYST IN THE LEFT KIDNEY. 3. GALLSTONES. 4. 3.5 CM INFRARENAL ABDOMINAL AORTIC ANEURYSM. 5. SMALL PLEURAL EFFUSIONS AND BASILAR INFILTRATES, RIGHT GREATER THAN LEFT. Chest X-Ray 02/22/18 06:00 IMPRESSION: 1. Interval removal of endotracheal and enteric tubes. Placement of a tracheostomy tube terminating at the level of the clavicles. 2. Otherwise, no significant interval change. Assessment & Plan - Diagnosis (1) Acute CVA (cerebrovascular accident) Is this a current diagnosis for this admission?: Yes Plan: MRI positive for acute or subacute punctate lacunar infarction in multiple locations of the both frontal lobes parietal occipital left cerebellar patient was not a TPA candidate as stroke. Also continue supportive management. Continue PT OT ST (2) Acute respiratory failure Is this a current diagnosis for this admission?: Yes Plan: Continue ventilatory support vitals are stable. Disposition decision is pending on family decision. We will continue supportive care (3) Cardiopulmonary arrest with successful resuscitation Is this a current diagnosis for this admission?: Yes Plan: Patient is a status post tracheostomy and PEG tube placement on 02/20/2018. Patient is saturating well on the vitals are stable. Patient is pending family decision on disposition (4) HIE (hypoxic-ischemic encephalopathy) Qualifiers: Hypoxic ischemic encephalopathy severity: severe Qualified Code(s): P91.63 - Severe hypoxic ischemic encephalopathy [HIE] Is this a current diagnosis for this admission?: Yes Plan: Patient likely has hypoxic ischemic top of the most likely due to PEA/cardiac arrest. Clinically patient still is unchanged
[2018-03-01 19:12] LABS: ABSOLUTE BASOPHILS # (AUTO) 0.1 10^3/uL (0.0-0.2); ABSOLUTE EOSINOPHILS # (AUTO) 0.7 10^3/uL (0.0-0.6); ABSOLUTE LYMPHOCYTES (AUTO) 1.2 10^3/uL (0.5-4.7); ABSOLUTE MONOCYTES (AUTO) 0.8 10^3/uL (0.1-1.4); BASOPHILS % (AUTO) 0.6 % (0-2); HEMATOCRIT 31.3 % (37.9-51.0); HEMOGLOBIN 9.9 g/dL (13.5-17.0); LYMPHOCYTES % (AUTO) 10.5 % (13-45); MEAN CORPUSCULAR HEMOGLOBIN 27.4 pg (27.0-33.4); MEAN CORPUSCULAR HGB CONC 31.6 g/dL (32.0-36.0); MEAN CORPUSCULAR VOLUME 87 fl (80-97); MONOCYTES % (AUTO) 6.6 % (3-13); PLATELET COUNT 406 10^3/uL (150-450); RED BLOOD COUNT 3.61 10^6/uL (4.35-5.55); RED CELL DISTRIBUTION WIDTH 17.7 % (11.5-14.0); SEGMENTED NEUTROPHILS % (AUTO) 76.3 % (42-78); TOTAL CELLS COUNTED % (AUTO) 100 %; WHITE BLOOD COUNT 11.8 10^3/uL (4.0-10.5)
[2018-03-01 19:39] LABS: ALANINE AMINOTRANSFERASE 20 U/L (21-72); ALKALINE PHOSPHATASE 88 U/L (38-126); ANION GAP 12 (5-19); ASPARTATE AMINO TRANSFERASE 33 U/L (17-59); BILIRUBIN,DIRECT 0.4 mg/dL (0.0-0.4); BILIRUBIN,TOTAL 0.4 mg/dL (0.2-1.3); BLOOD UREA NITROGEN 29 mg/dL (7-20); CALCIUM 8.7 mg/dL (8.4-10.2); CARBON DIOXIDE 26 mmol/L (22-30); CHLORIDE 102 mmol/L (98-107); GLUCOSE 138 mg/dL (75-110); PHOSPHORUS 4.6 mg/dL (2.5-4.5); POTASSIUM 4.2 mmol/L (3.6-5.0); SODIUM 140.1 mmol/L (137-145); TOTAL PROTEIN 6.5 g/dL (6.3-8.2)
[2018-03-02] MEDS: PROPOFOL 1,000 MG/100 ML INFUS..BTL IV PRN ×4 (02:10→16:19)
[2018-03-02] MEDS ORDERED: VANCOMYCIN HCL INJ 1000 MG VIAL IV PRN (04:14)
[2018-03-02] MEDS ORDERED: VANCOMYCIN HCL 2,000 MG in DEXTROSE 5%-WATER 500 ML IV ONE (05:00)
[2018-03-02 05:09] LABS: ANION GAP 12 (5-19); BLOOD UREA NITROGEN 29 mg/dL (7-20); CALCIUM 8.7 mg/dL (8.4-10.2); CARBON DIOXIDE 27 mmol/L (22-30); CHLORIDE 102 mmol/L (98-107); GLUCOSE 158 mg/dL (75-110); POTASSIUM 4.2 mmol/L (3.6-5.0); SODIUM 141.2 mmol/L (137-145)
[2018-03-02] MEDS: HEPARIN SOD (PORCINE) 5,000 UNIT/ML 1 ML SYRINGE SUBCUT SCH ×3 (06:54→21:26)
[2018-03-02] MEDS ORDERED: VANCOMYCIN HCL 0 MG in DEXTROSE 5%-WATER 250 ML IV NR (08:15)
[2018-03-02] MEDS: CLOPIDOGREL BISULFATE 75 MG TABLET PO SCH (11:14)
[2018-03-02] MEDS: FUROSEMIDE INJ/PF 40 MG/4 ML SDV IV SCH (11:15)
[2018-03-02] MEDS: NYSTATIN TOPICAL POWDER 15 GM TP SCH ×2 (11:15→18:01)
[2018-03-02] MEDS: POLYETHYLENE GLYCOL 3350 POWDER 17 GM/1 PACKET NG SCH (11:15)
[2018-03-02] MEDS: NORMAL SALINE 500 ML IV PRN (14:31)
[2018-03-02] MEDS: VANCOMYCIN HCL 1,250 MG in DEXTROSE 5%-WATER 250 ML IV SCH (18:03)
--- NOTE | 2018-03-02 18:15 | PDOC PROGRESS REPORT ---
Subjective Progress Note for:: 03/02/18 Subjective:: Status post tracheostomy and PEG tube placement on 02/20/2018. PEG tube and tracheostomy tube are functional. Clinical status remains unchanged. No acute events overnight family still deciding on disposition of the patient. Reason For Visit: ALTERED MENTAL STATUS,LEUKOCYTOSIS Physical Exam Vital Signs: Temp Pulse Resp BP Pulse Ox 99.3 F 78 24 H 96/69 L 96 03/02/18 16:00 03/02/18 16:00 03/02/18 16:00 03/02/18 16:00 03/02/18 16:00 Intake & Output 03/01/18 03/02/18 03/03/18 06:59 06:59 06:59 Intake Total 2888 416 184 Output Total 9153 222 9125 Balance 1088 -544 -1056 Weight 104.1 kg 107 kg General appearance: PRESENT: no acute distress Head exam: PRESENT: atraumatic, normocephalic Respiratory exam: PRESENT: clear to auscultation karime. ABSENT: rales, rhonchi, wheezes Cardiovascular exam: PRESENT: RRR. ABSENT: diastolic murmur, rubs, systolic murmur Pulses: PRESENT: normal dorsalis pedis pul GI/Abdominal exam: PRESENT: normal bowel sounds, soft. ABSENT: distended, guarding, mass, organolmegaly, rebound, tenderness Neurological exam: PRESENT: altered, CN II-XII grossly intact, motor sensory deficit, normal gait, aphasic - GCS 6 to 7. Neurological examination remains unchanged.. ABSENT: alert, awake, oriented to person, oriented to place, oriented to time, oriented to situation, reflexes normal, abnormal gait, ataxia , other Results Laboratory Results: 03/01/18 19:00 03/02/18 04:25 03/01/18 03/01/18 03/02/18 19:00 19:00 04:25 WBC 11.8 H RBC 3.61 L Hgb 9.9 L Hct 31.3 L MCV 87 MCH 27.4 MCHC 31.6 L RDW 17.7 H Plt Count 406 Seg Neutrophils % 76.3 Lymphocytes % 10.5 L Monocytes % 6.6 Eosinophils % 6.0 Basophils % 0.6 Absolute Neutrophils 9.0 H Absolute Lymphocytes 1.2 Absolute Monocytes 0.8 Absolute Eosinophils 0.7 H Absolute Basophils 0.1 Sodium 140.1 141.2 Potassium 4.2 4.2 Chloride 102 102 Carbon Dioxide 26 27 Anion Gap 12 12 BUN 29 H 29 H Creatinine 0.86 0.84 Est GFR ( Amer) > 60 > 60 Est GFR (Non-Af Amer) > 60 > 60 Glucose 138 H 158 H Calcium 8.7 8.7 Phosphorus 4.6 H Magnesium 2.4 H Total Bilirubin 0.4 AST 33 ALT 20 L Alkaline Phosphatase 88 Total Protein 6.5 Albumin 3.0 L 01/29/18 01/29/18 01/30/18 17:45 23:40 05:45 Creatine Kinase CK-MB (CK-2) Troponin I 0.244 0.319 0.379 01/30/18 01/30/18 01/30/18 12:00 12:00 18:44 Creatine Kinase 105 74 CK-MB (CK-2) 5.01 H Troponin I 0.349 01/30/18 01/30/18 01/30/18 18:44 23:55 23:55 Creatine Kinase 58 CK-MB (CK-2) 3.04 2.10 Troponin I 0.290 0.268 Impressions: Guidance Fluoroscopy 01/28/18 00:00 IMPRESSION: Please see combined report for performance of procedure and radiologic supervision and interpretation. Head MRI 01/28/18 00:00 IMPRESSION: Positive for acute or sub-acute punctate- lacunar infarctions in multiple locations of both frontal lobes, left parietal-occipital lobe, and the left cerebellum. This pattern suggests embolic phenomenon but can be seen with other etiologies such as traumatic brain injury, correlate clinically. No enhancing lesions. EVIDENCE OF ACUTE STROKE: YES. Multiple vessel distribution Lumbar Puncture 01/28/18 17:17 IMPRESSION: Lumbar puncture under fluoroscopy. No immediate complication. Carotid Doppler Study 01/30/18 00:00 IMPRESSION: NO HEMODYNAMICALLY SIGNIFICANT STENOSIS. Head CT 01/30/18 00:00 IMPRESSION: 1. No acute intracranial abnormality identified. This exam was performed according to our departmental dose-optimization program, which includes automated exposure control, adjustment of the mA and/or kV according to patient size and/or use of iterative reconstruction technique. Chest/Abdomen CTA 01/31/18 12:47 IMPRESSION: 1. Normal CTA of the chest. No pulmonary emboli. 2. Right lower lobe consolidation may represent atelectasis on the basis of submaximal aeration in this intubated patient. Left lower lobe atelectasis. 3. 4.5 x 4.0 x 3.5 cm irregularly marginated heterogeneous appearing mass within the superior pole of the right kidney. This requires further evaluation with dedicated renal CT or MR imaging when feasible. Abdomen/Pelvis CT 02/04/18 10:57 IMPRESSION: 1. LIMITED STUDY. INDISTINCT AREA OF DECREASED ATTENUATION IN THE UPPER POLE OF THE RIGHT KIDNEY, DIFFICULT TO COMPLETELY VISUALIZE DUE TO STREAK ARTIFACT FROM PATIENT'S ARMS. MALIGNANCY SUCH RENAL CELL CARCINOMA IS IN THE DIFFERENTIAL. ANOTHER POSSIBILITY COULD BE AN AREA OF RENAL INFARCTION. IDEALLY, AN MRI OF THE KIDNEYS AFTER THE PATIENT'S CLINICAL CONDITION HAS IMPROVED WOULD BE OPTIMAL TO PROVIDE COMPLETE EVALUATION. 2. CORTICAL CYST IN THE LEFT KIDNEY. 3. GALLSTONES. 4. 3.5 CM INFRARENAL ABDOMINAL AORTIC ANEURYSM. 5. SMALL PLEURAL EFFUSIONS AND BASILAR INFILTRATES, RIGHT GREATER THAN LEFT. Chest X-Ray 02/22/18 06:00 IMPRESSION: 1. Interval removal of endotracheal and enteric tubes. Placement of a tracheostomy tube terminating at the level of the clavicles. 2. Otherwise, no significant interval change. Assessment & Plan - Diagnosis (1) Acute CVA (cerebrovascular accident) Is this a current diagnosis for this admission?: Yes Plan: MRI positive for acute or subacute punctate lacunar infarction in multiple locations of the both frontal lobes parietal occipital left cerebellar patient was not a TPA candidate as stroke. Also continue supportive management. Continue PT OT ST (2) Acute respiratory failure Is this a current diagnosis for this admission?: Yes Plan: Continue ventilatory support vitals are stable. Disposition decision is pending on family decision. We will continue supportive care (3) Cardiopulmonary arrest with successful resuscitation Is this a current diagnosis for this admission?: Yes Plan: Patient is a status post tracheostomy and PEG tube placement on 02/20/2018. Patient is saturating well on the vitals are stable. Patient is pending family decision on disposition (4) HIE (hypoxic-ischemic encephalopathy) Qualifiers: Hypoxic ischemic encephalopathy severity: severe Qualified Code(s): P91.63 - Severe hypoxic ischemic encephalopathy [HIE] Is this a current diagnosis for this admission?: Yes Plan: Patient likely has hypoxic ischemic top of the most likely due to PEA/cardiac arrest. Clinically patient still is unchanged (5) Gram-positive bacteremia Is this a current diagnosis for this admission?: No Plan: Vancomycin. Repeat blood cultures. Pending sensitivity.
[2018-03-03] MEDS: PROPOFOL 1,000 MG/100 ML INFUS..BTL IV PRN ×5 (01:24→17:38)
[2018-03-03] MEDS: FENTANYL CITRATE INJ/PF 100 MCG/2 ML AMPUL IV PRN (01:26)
[2018-03-03 04:12] LABS: HEMOGLOBIN 10.1 g/dL (13.5-17.0); MEAN CORPUSCULAR HEMOGLOBIN 27.3 pg (27.0-33.4); MEAN CORPUSCULAR HGB CONC 32.7 g/dL (32.0-36.0); MEAN CORPUSCULAR VOLUME 84 fl (80-97); PLATELET COUNT 400 10^3/uL (150-450); RED BLOOD COUNT 3.71 10^6/uL (4.35-5.55); RED CELL DISTRIBUTION WIDTH 17.3 % (11.5-14.0); WHITE BLOOD COUNT 11.9 10^3/uL (4.0-10.5)
[2018-03-03 04:28] LABS: ALANINE AMINOTRANSFERASE 20 U/L (21-72); ALKALINE PHOSPHATASE 100 U/L (38-126); ANION GAP 13 (5-19); ASPARTATE AMINO TRANSFERASE 30 U/L (17-59); BILIRUBIN,DIRECT 0.3 mg/dL (0.0-0.4); BILIRUBIN,TOTAL 0.3 mg/dL (0.2-1.3); BLOOD UREA NITROGEN 27 mg/dL (7-20); CALCIUM 8.7 mg/dL (8.4-10.2); CARBON DIOXIDE 28 mmol/L (22-30); CHLORIDE 98 mmol/L (98-107); GLUCOSE 171 mg/dL (75-110); POTASSIUM 3.9 mmol/L (3.6-5.0); SODIUM 138.5 mmol/L (137-145); TOTAL PROTEIN 6.4 g/dL (6.3-8.2)
[2018-03-03 04:32] LABS: ABSOLUTE LYMPHOCYTES# (MANUAL) 1.5 10^3/uL (0.5-4.7); ABSOLUTE MONOCYTES # (MANUAL) 0.5 10^3/uL (0.1-1.4); ABSOLUTE NEUTROPHILS# (MANUAL) 8.7 10^3/uL (1.7-8.2); BAND NEUTROPHILS % (MANUAL) 1 % (3-5); BASOPHILS % (MANUAL) 0 % (0-2); EOSINOPHILS % (MANUAL) 10 % (0-6); LYMPHOCYTES % (MANUAL) 13 % (13-45); MONOCYTES % (MANUAL) 4 % (3-13); SEGMENTED NEUTROPHILS % (MAN) 71 % (42-78); TOTAL CELLS COUNTED 100
[2018-03-03 04:35] LABS: PROMYELOCYTES % (MANUAL) 1 % (0)
[2018-03-03 04:37] LABS: ANISOCYTOSIS 1+; OVALOCYTES 1+; PLATELET COMMENT ADEQUATE; POIKILOCYTOSIS 1+; TOXIC GRANULATION SLIGHT; TOXIC VACUOLATION PRESENT
[2018-03-03] MEDS: VANCOMYCIN HCL 1,250 MG in DEXTROSE 5%-WATER 250 ML IV SCH ×2 (05:06→17:34)
[2018-03-03] MEDS: HEPARIN SOD (PORCINE) 5,000 UNIT/ML 1 ML SYRINGE SUBCUT SCH ×3 (05:06→23:37)
[2018-03-03] MEDS: POLYETHYLENE GLYCOL 3350 POWDER 17 GM/1 PACKET NG SCH (09:43)
[2018-03-03] MEDS: FUROSEMIDE INJ/PF 40 MG/4 ML SDV IV SCH (09:43)
[2018-03-03] MEDS: CLOPIDOGREL BISULFATE 75 MG TABLET PO SCH (10:14)
[2018-03-03] MEDS: NYSTATIN TOPICAL POWDER 15 GM TP SCH ×2 (10:15→17:34)
[2018-03-03 14:21] LABS: PATH REVIEW PATHOLOGIST REVIEWED
[2018-03-03 18:29] LABS: VANCOMYCIN,TROUGH 15.7 ug/mL (5.0-20.0)
--- NOTE | 2018-03-03 18:55 | PDOC PROGRESS REPORT ---
Subjective Progress Note for:: 03/03/18 Subjective:: Status post tracheostomy and PEG tube placement on 02/20/2018. PEG tube and tracheostomy tube are functional. Clinical status remains unchanged. No acute events overnight family still deciding on disposition of the patient. Reason For Visit: ALTERED MENTAL STATUS,LEUKOCYTOSIS Physical Exam Vital Signs: Temp Pulse Resp BP Pulse Ox 99.9 F 75 22 H 119/77 93 03/03/18 18:19 03/03/18 08:00 03/03/18 18:19 03/03/18 18:19 03/03/18 18:19 Intake & Output 03/02/18 03/03/18 03/04/18 06:59 06:59 06:59 Intake Total 416 861 268 Output Total 960 1490 1240 Balance -544 -849 -972 Weight 107 kg 107.3 kg General appearance: PRESENT: no acute distress, well-developed, well-nourished Head exam: PRESENT: atraumatic, normocephalic Eye exam: PRESENT: conjunctiva pink, EOMI, PERRLA. ABSENT: scleral icterus Ear exam: PRESENT: normal external ear exam Mouth exam: PRESENT: moist, tongue midline Neck exam: ABSENT: carotid bruit, JVD, lymphadenopathy, thyromegaly Respiratory exam: PRESENT: clear to auscultation karime. ABSENT: rales, rhonchi, wheezes Cardiovascular exam: PRESENT: RRR. ABSENT: diastolic murmur, rubs, systolic murmur Pulses: PRESENT: normal dorsalis pedis pul Vascular exam: PRESENT: normal capillary refill GI/Abdominal exam: PRESENT: normal bowel sounds, soft. ABSENT: distended, guarding, mass, organolmegaly, rebound, tenderness Rectal exam: PRESENT: deferred Extremities exam: PRESENT: full ROM. ABSENT: calf tenderness, clubbing, pedal edema Neurological exam: PRESENT: altered, other - GCS 67. Patient is on propofol. Limited neurological examination. Right spastic upper extremity, left upper extremity flaccid. Psychiatric exam: PRESENT: appropriate affect, normal mood. ABSENT: homicidal ideation, suicidal ideation Skin exam: PRESENT: dry, intact, warm. ABSENT: cyanosis, rash Results Laboratory Results: 03/03/18 04:02 03/03/18 04:02 03/02/18 03/03/18 03/03/18 04:25 04:02 04:02 WBC 11.9 H RBC 3.71 L Hgb 10.1 L Hct 31.0 L MCV 84 MCH 27.3 MCHC 32.7 RDW 17.3 H Plt Count 400 Seg Neutrophils % Not Reportable Lymphocytes % Not Reportable Monocytes % Not Reportable Eosinophils % Not Reportable Basophils % Not Reportable Absolute Neutrophils Not Reportable Absolute Lymphocytes Not Reportable Absolute Monocytes Not Reportable Absolute Eosinophils Not Reportable Absolute Basophils Not Reportable Sodium Potassium Chloride Carbon Dioxide Anion Gap BUN Creatinine Est GFR ( Amer) Est GFR (Non-Af Amer) Glucose Calcium Phosphorus 4.5 Magnesium 2.2 Total Bilirubin AST ALT Alkaline Phosphatase Total Protein Albumin 03/03/18 03/03/18 04:02 18:02 WBC RBC Hgb Hct MCV MCH MCHC RDW Plt Count Seg Neutrophils % Lymphocytes % Monocytes % Eosinophils % Basophils % Absolute Neutrophils Absolute Lymphocytes Absolute Monocytes Absolute Eosinophils Absolute Basophils Sodium 138.5 Potassium 3.9 Chloride 98 Carbon Dioxide 28 Anion Gap 13 BUN 27 H Creatinine 0.89 Est GFR ( Amer) > 60 Est GFR (Non-Af Amer) > 60 Glucose 171 H Calcium 8.7 Phosphorus 4.2 Magnesium Total Bilirubin 0.3 AST 30 ALT 20 L Alkaline Phosphatase 100 Total Protein 6.4 Albumin 3.0 L 02/28/18 22:00 Blood Blood Culture - Final Staphylococcus Epidermidis 01/29/18 01/29/18 01/30/18 17:45 23:40 05:45 Creatine Kinase CK-MB (CK-2) Troponin I 0.244 0.319 0.379 01/30/18 01/30/18 01/30/18 12:00 12:00 18:44 Creatine Kinase 105 74 CK-MB (CK-2) 5.01 H Troponin I 0.349 01/30/18 01/30/18 01/30/18 18:44 23:55 23:55 Creatine Kinase 58 CK-MB (CK-2) 3.04 2.10 Troponin I 0.290 0.268 Impressions: Guidance Fluoroscopy 01/28/18 00:00 IMPRESSION: Please see combined report for performance of procedure and radiologic supervision and interpretation. Head MRI 01/28/18 00:00 IMPRESSION: Positive for acute or sub-acute punctate- lacunar infarctions in multiple locations of both frontal lobes, left parietal-occipital lobe, and the left cerebellum. This pattern suggests embolic phenomenon but can be seen with other etiologies such as traumatic brain injury, correlate clinically. No enhancing lesions. EVIDENCE OF ACUTE STROKE: YES. Multiple vessel distribution Lumbar Puncture 01/28/18 17:17 IMPRESSION: Lumbar puncture under fluoroscopy. No immediate complication. Carotid Doppler Study 01/30/18 00:00 IMPRESSION: NO HEMODYNAMICALLY SIGNIFICANT STENOSIS. Head CT 01/30/18 00:00 IMPRESSION: 1. No acute intracranial abnormality identified. This exam was performed according to our departmental dose-optimization program, which includes automated exposure control, adjustment of the mA and/or kV according to patient size and/or use of iterative reconstruction technique. Chest/Abdomen CTA 01/31/18 12:47 IMPRESSION: 1. Normal CTA of the chest. No pulmonary emboli. 2. Right lower lobe consolidation may represent atelectasis on the basis of submaximal aeration in this intubated patient. Left lower lobe atelectasis. 3. 4.5 x 4.0 x 3.5 cm irregularly marginated heterogeneous appearing mass within the superior pole of the right kidney. This requires further evaluation with dedicated renal CT or MR imaging when feasible. Abdomen/Pelvis CT 02/04/18 10:57 IMPRESSION: 1. LIMITED STUDY. INDISTINCT AREA OF DECREASED ATTENUATION IN THE UPPER POLE OF THE RIGHT KIDNEY, DIFFICULT TO COMPLETELY VISUALIZE DUE TO STREAK ARTIFACT FROM PATIENT'S ARMS. MALIGNANCY SUCH RENAL CELL CARCINOMA IS IN THE DIFFERENTIAL. ANOTHER POSSIBILITY COULD BE AN AREA OF RENAL INFARCTION. IDEALLY, AN MRI OF THE KIDNEYS AFTER THE PATIENT'S CLINICAL CONDITION HAS IMPROVED WOULD BE OPTIMAL TO PROVIDE COMPLETE EVALUATION. 2. CORTICAL CYST IN THE LEFT KIDNEY. 3. GALLSTONES. 4. 3.5 CM INFRARENAL ABDOMINAL AORTIC ANEURYSM. 5. SMALL PLEURAL EFFUSIONS AND BASILAR INFILTRATES, RIGHT GREATER THAN LEFT. Chest X-Ray 02/22/18 06:00 IMPRESSION: 1. Interval removal of endotracheal and enteric tubes. Placement of a tracheostomy tube terminating at the level of the clavicles. 2. Otherwise, no significant interval change. Assessment & Plan - Diagnosis (1) Acute CVA (cerebrovascular accident) Is this a current diagnosis for this admission?: Yes Plan: MRI positive for acute or subacute punctate lacunar infarction in multiple locations of the both frontal lobes parietal occipital left cerebellar patient was not a TPA candidate as stroke. Continue PT OT ST and supportive management. (2) Acute respiratory failure Is this a current diagnosis for this admission?: Yes Plan: Continue ventilatory support vitals are stable. Disposition decision is pending on family decision. We will continue supportive care (3) Cardiopulmonary arrest with successful resuscitation Is this a current diagnosis for this admission?: Yes Plan: Patient is a status post tracheostomy and PEG tube placement on 02/20/2018. Patient is saturating well on the vitals are stable. Patient is pending family decision on disposition (4) HIE (hypoxic-ischemic encephalopathy) Qualifiers: Hypoxic ischemic encephalopathy severity: severe Qualified Code(s): P91.63 - Severe hypoxic ischemic encephalopathy [HIE] Is this a current diagnosis for this admission?: Yes Plan: Patient likely has hypoxic ischemic top of the most likely due to PEA/cardiac arrest. Clinically patient still is unchanged (5) Gram-positive bacteremia Is this a current diagnosis for this admission?: No Plan: Vancomycin. Repeat blood cultures. Pending sensitivity.
[2018-03-03] MEDS: NORMAL SALINE 500 ML IV PRN (23:37)
[2018-03-04] MEDS: PROPOFOL 1,000 MG/100 ML INFUS..BTL IV PRN ×5 (02:00→23:38)
[2018-03-04] MEDS: HEPARIN SOD (PORCINE) 5,000 UNIT/ML 1 ML SYRINGE SUBCUT SCH ×3 (05:32→21:50)
[2018-03-04] MEDS: VANCOMYCIN HCL 1,250 MG in DEXTROSE 5%-WATER 250 ML IV SCH ×2 (05:34→17:47)
[2018-03-04 05:43] LABS: HEMATOCRIT 28.9 % (37.9-51.0); HEMOGLOBIN 9.6 g/dL (13.5-17.0); MEAN CORPUSCULAR HEMOGLOBIN 27.7 pg (27.0-33.4); MEAN CORPUSCULAR HGB CONC 33.3 g/dL (32.0-36.0); MEAN CORPUSCULAR VOLUME 83 fl (80-97); PLATELET COUNT 413 10^3/uL (150-450); RED BLOOD COUNT 3.47 10^6/uL (4.35-5.55); RED CELL DISTRIBUTION WIDTH 17.4 % (11.5-14.0); WHITE BLOOD COUNT 8.7 10^3/uL (4.0-10.5)
[2018-03-04 05:51] LABS: ALANINE AMINOTRANSFERASE 21 U/L (21-72); ALBUMIN 2.8 g/dL (3.5-5.0); ALKALINE PHOSPHATASE 101 U/L (38-126); ANION GAP 11 (5-19); ASPARTATE AMINO TRANSFERASE 26 U/L (17-59); BILIRUBIN,DIRECT 0.2 mg/dL (0.0-0.4); BILIRUBIN,TOTAL 0.2 mg/dL (0.2-1.3); BLOOD UREA NITROGEN 21 mg/dL (7-20); CALCIUM 8.5 mg/dL (8.4-10.2); CARBON DIOXIDE 29 mmol/L (22-30); CHLORIDE 100 mmol/L (98-107); GLUCOSE 163 mg/dL (75-110); POTASSIUM 3.9 mmol/L (3.6-5.0); TOTAL PROTEIN 6.1 g/dL (6.3-8.2)
[2018-03-04 06:09] LABS: ARTERIAL BLOOD BASE EXCESS 4.4 mmol/L; ARTERIAL BLOOD H2CO3 1.23 mmol/L (1.05-1.35); ARTERIAL BLOOD HCO3 28.5 mmol/L (20-26); ARTERIAL BLOOD O2 SATURATION 97.7 % (94-98); ARTERIAL BLOOD PCO2 40.8 mmHg (35-45); ARTERIAL BLOOD PH 7.46 (7.35-7.45); ARTERIAL BLOOD PO2 97.4 mmHg (80-100); ARTERIAL BLOOD TOTAL CO2 29.7 mmol/L (23-27)
[2018-03-04 06:14] LABS: ARTERIAL BLOOD FIO2 30%
[2018-03-04 06:19] LABS: ABSOLUTE LYMPHOCYTES# (MANUAL) 0.8 10^3/uL (0.5-4.7); ABSOLUTE MONOCYTES # (MANUAL) 0.8 10^3/uL (0.1-1.4); ABSOLUTE NEUTROPHILS# (MANUAL) 6.4 10^3/uL (1.7-8.2); BAND NEUTROPHILS % (MANUAL) 1 % (3-5); BASOPHILS % (MANUAL) 0 % (0-2); EOSINOPHILS % (MANUAL) 9 % (0-6); LYMPHOCYTES % (MANUAL) 9 % (13-45); METAMYELOCYTES % (MANUAL) 1 % (0); MONOCYTES % (MANUAL) 9 % (3-13); MYELOCYTES % (MANUAL) 2 % (0); SEGMENTED NEUTROPHILS % (MAN) 69 % (42-78); TOTAL CELLS COUNTED 100
[2018-03-04 06:26] LABS: ANISOCYTOSIS 1+; OVALOCYTES 1+; POIKILOCYTOSIS 1+; POLYCHROMASIA SLIGHT; SCHISTOCYTES SLIGHT; TEAR DROP CELLS 1+
[2018-03-04 06:27] LABS: PLATELET CLUMPS PRESENT; PLATELET COMMENT ADEQUATE
[2018-03-04] MEDS: NORMAL SALINE 500 ML IV PRN (08:01)
[2018-03-04] MEDS: POLYETHYLENE GLYCOL 3350 POWDER 17 GM/1 PACKET NG SCH (09:44)
[2018-03-04] MEDS: CLOPIDOGREL BISULFATE 75 MG TABLET PO SCH (09:50)
[2018-03-04] MEDS: NYSTATIN TOPICAL POWDER 15 GM TP SCH ×2 (09:50→17:48)
[2018-03-04] MEDS: FUROSEMIDE INJ/PF 40 MG/4 ML SDV IV SCH (09:50)
[2018-03-04] MEDS: PANTOPRAZOLE SODIUM 40 MG VIAL IV SCH (09:51)
--- NOTE | 2018-03-04 19:48 | PDOC PROGRESS REPORT ---
Subjective Progress Note for:: 03/04/18 Subjective:: S/P tracheostomy and PEG tube placement on 02/20/18 which was uneventful. No acute event overnight. No significant secretions from the ET. Continues to have spontaneous eye movement but does not track. Tolerating tube feeding well. Still awaiting for final decision from family regarding transitioning patient to hospice. Reason For Visit: ALTERED MENTAL STATUS,LEUKOCYTOSIS Physical Exam Vital Signs: Temp Pulse Resp BP Pulse Ox 99.5 F 81 25 H 115/72 94 03/04/18 19:33 03/04/18 18:00 03/04/18 18:00 03/04/18 18:00 03/04/18 18:00 Intake & Output 03/03/18 03/04/18 03/05/18 06:59 06:59 06:59 Intake Total 861 2135 2194 Output Total 1710 1940 2185 Balance -849 195 9 Weight 236 lb 8.896 oz 238 lb 8.642 oz General appearance: PRESENT: no acute distress Eye exam: PRESENT: conjunctiva pink, EOMI, PERRLA. ABSENT: scleral icterus Neck exam: ABSENT: carotid bruit, JVD, lymphadenopathy, thyromegaly Respiratory exam: PRESENT: clear to auscultation karime. ABSENT: rales, wheezes Cardiovascular exam: PRESENT: RRR. ABSENT: diastolic murmur, rubs, systolic murmur GI/Abdominal exam: PRESENT: normal bowel sounds, soft. ABSENT: distended, guarding, mass, organolmegaly, rebound, tenderness Rectal exam: PRESENT: deferred Neurological exam: PRESENT: other - 0/5 motor strength on the left upper and lower extremities, patient does not track, cranial nerves III to appear to be intact, patient also has gag reflex Results Laboratory Results: 03/04/18 05:10 03/04/18 05:10 03/04/18 03/04/18 03/04/18 05:10 05:10 05:10 WBC 8.7 RBC 3.47 L Hgb 9.6 L Hct 28.9 L MCV 83 MCH 27.7 MCHC 33.3 RDW 17.4 H Plt Count 413 Seg Neutrophils % Not Reportable Lymphocytes % Not Reportable Monocytes % Not Reportable Eosinophils % Not Reportable Basophils % Not Reportable Absolute Neutrophils Not Reportable Absolute Lymphocytes Not Reportable Absolute Monocytes Not Reportable Absolute Eosinophils Not Reportable Absolute Basophils Not Reportable Carbonic Acid HCO3/H2CO3 Ratio ABG pH ABG pCO2 ABG pO2 ABG HCO3 ABG O2 Saturation ABG Base Excess FiO2 Sodium Cancelled 140.0 Potassium Cancelled 3.9 Chloride Cancelled 100 Carbon Dioxide Cancelled 29 Anion Gap Cancelled 11 BUN Cancelled 21 H Creatinine Cancelled 0.82 Est GFR ( Amer) Cancelled > 60 Est GFR (Non-Af Amer) Cancelled > 60 Glucose Cancelled 163 H Calcium Cancelled 8.5 Magnesium 2.3 Total Bilirubin 0.2 AST 26 ALT 21 Alkaline Phosphatase 101 Total Protein 6.1 L Albumin 2.8 L 03/04/18 05:30 WBC RBC Hgb Hct MCV MCH MCHC RDW Plt Count Seg Neutrophils % Lymphocytes % Monocytes % Eosinophils % Basophils % Absolute Neutrophils Absolute Lymphocytes Absolute Monocytes Absolute Eosinophils Absolute Basophils Carbonic Acid 1.23 HCO3/H2CO3 Ratio 23:1 ABG pH 7.46 H ABG pCO2 40.8 ABG pO2 97.4 ABG HCO3 28.5 H ABG O2 Saturation 97.7 ABG Base Excess 4.4 FiO2 30% Sodium Potassium Chloride Carbon Dioxide Anion Gap BUN Creatinine Est GFR ( Amer) Est GFR (Non-Af Amer) Glucose Calcium Magnesium Total Bilirubin AST ALT Alkaline Phosphatase Total Protein Albumin 01/29/18 01/29/18 01/30/18 17:45 23:40 05:45 Creatine Kinase CK-MB (CK-2) Troponin I 0.244 0.319 0.379 01/30/18 01/30/18 01/30/18 12:00 12:00 18:44 Creatine Kinase 105 74 CK-MB (CK-2) 5.01 H Troponin I 0.349 01/30/18 01/30/18 01/30/18 18:44 23:55 23:55 Creatine Kinase 58 CK-MB (CK-2) 3.04 2.10 Troponin I 0.290 0.268 Impressions: Guidance Fluoroscopy 01/28/18 00:00 IMPRESSION: Please see combined report for performance of procedure and radiologic supervision and interpretation. Head MRI 01/28/18 00:00 IMPRESSION: Positive for acute or sub-acute punctate- lacunar infarctions in multiple locations of both frontal lobes, left parietal-occipital lobe, and the left cerebellum. This pattern suggests embolic phenomenon but can be seen with other etiologies such as traumatic brain injury, correlate clinically. No enhancing lesions. EVIDENCE OF ACUTE STROKE: YES. Multiple vessel distribution Lumbar Puncture 01/28/18 17:17 IMPRESSION: Lumbar puncture under fluoroscopy. No immediate complication. Carotid Doppler Study 01/30/18 00:00 IMPRESSION: NO HEMODYNAMICALLY SIGNIFICANT STENOSIS. Head CT 01/30/18 00:00 IMPRESSION: 1. No acute intracranial abnormality identified. This exam was performed according to our departmental dose-optimization program, which includes automated exposure control, adjustment of the mA and/or kV according to patient size and/or use of iterative reconstruction technique. Chest/Abdomen CTA 01/31/18 12:47 IMPRESSION: 1. Normal CTA of the chest. No pulmonary emboli. 2. Right lower lobe consolidation may represent atelectasis on the basis of submaximal aeration in this intubated patient. Left lower lobe atelectasis. 3. 4.5 x 4.0 x 3.5 cm irregularly marginated heterogeneous appearing mass within the superior pole of the right kidney. This requires further evaluation with dedicated renal CT or MR imaging when feasible. Abdomen/Pelvis CT 02/04/18 10:57 IMPRESSION: 1. LIMITED STUDY. INDISTINCT AREA OF DECREASED ATTENUATION IN THE UPPER POLE OF THE RIGHT KIDNEY, DIFFICULT TO COMPLETELY VISUALIZE DUE TO STREAK ARTIFACT FROM PATIENT'S ARMS. MALIGNANCY SUCH RENAL CELL CARCINOMA IS IN THE DIFFERENTIAL. ANOTHER POSSIBILITY COULD BE AN AREA OF RENAL INFARCTION. IDEALLY, AN MRI OF THE KIDNEYS AFTER THE PATIENT'S CLINICAL CONDITION HAS IMPROVED WOULD BE OPTIMAL TO PROVIDE COMPLETE EVALUATION. 2. CORTICAL CYST IN THE LEFT KIDNEY. 3. GALLSTONES. 4. 3.5 CM INFRARENAL ABDOMINAL AORTIC ANEURYSM. 5. SMALL PLEURAL EFFUSIONS AND BASILAR INFILTRATES, RIGHT GREATER THAN LEFT. Chest X-Ray 02/22/18 06:00 IMPRESSION: 1. Interval removal of endotracheal and enteric tubes. Placement of a tracheostomy tube terminating at the level of the clavicles. 2. Otherwise, no significant interval change. Assessment & Plan - Diagnosis (1) Acute respiratory failure Is this a current diagnosis for this admission?: Yes Plan: Patient was intubated after going into PEA arrest. S/P tracheostomy and PEG tube placement on 02/20/18. Saturating well on minimal vent settings. Awaiting for final decision from family regarding transitioning patient to hospice. (2) Acute CVA (cerebrovascular accident) Is this a current diagnosis for this admission?: Yes Plan: Patient's MRI showed acute or subacute punctate lacunar infarctions in multiple locations of both the frontal lobes, left parietal occipital lobe and the left cerebellum. Patient was not a TPA candidate as he presented beyond the window period. (3) Bacteremia due to Enterococcus Is this a current diagnosis for this admission?: Yes Plan: Patient was restarted on vancomycin apparently because of growth of gram- positive cocci on blood cultures. Repeat blood cultures tomorrow morning. (4) Cardiopulmonary arrest with successful resuscitation Is this a current diagnosis for this admission?: Yes Plan: Patient's cardiopulmonary arrest was likely secondary to acute CVA. (5) Right renal mass Is this a current diagnosis for this admission?: Yes Plan: Urology was consulted for this. However due to patient's current status, further workup has been deferred. 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 - Time Time Spent with patient: 15-24 minutes
[2018-03-05] MEDS: PROPOFOL 1,000 MG/100 ML INFUS..BTL IV PRN ×5 (02:53→20:32)
[2018-03-05 04:39] LABS: ANION GAP 10 (5-19); BLOOD UREA NITROGEN 23 mg/dL (7-20); CALCIUM 8.8 mg/dL (8.4-10.2); CARBON DIOXIDE 31 mmol/L (22-30); CHLORIDE 99 mmol/L (98-107); GLUCOSE 171 mg/dL (75-110)
[2018-03-05] MEDS: HEPARIN SOD (PORCINE) 5,000 UNIT/ML 1 ML SYRINGE SUBCUT SCH ×3 (05:57→21:25)
[2018-03-05] MEDS: VANCOMYCIN HCL 1,250 MG in DEXTROSE 5%-WATER 250 ML IV SCH ×2 (06:01→18:18)
[2018-03-05] MEDS: POLYETHYLENE GLYCOL 3350 POWDER 17 GM/1 PACKET NG SCH (09:19)
[2018-03-05] MEDS: PANTOPRAZOLE SODIUM 40 MG VIAL IV SCH (10:10)
[2018-03-05] MEDS: FUROSEMIDE INJ/PF 40 MG/4 ML SDV IV SCH (10:11)
[2018-03-05] MEDS: NYSTATIN TOPICAL POWDER 15 GM TP SCH ×2 (10:11→18:18)
[2018-03-05] MEDS: CLOPIDOGREL BISULFATE 75 MG TABLET PO SCH (10:11)
[2018-03-05] MEDS: NORMAL SALINE 500 ML IV PRN (14:34)
--- NOTE | 2018-03-05 20:00 | PDOC PROGRESS REPORT ---
Subjective Progress Note for:: 03/05/18 Subjective:: S/P tracheostomy and PEG tube placement on 02/20/18 which was uneventful. No acute event overnight. No significant secretions from the ET. Continues to have spontaneous eye movement but does not track. Tolerating tube feeding well. Still awaiting for final decision from family regarding transitioning patient to hospice. Reason For Visit: ALTERED MENTAL STATUS,LEUKOCYTOSIS Physical Exam Vital Signs: Temp Pulse Resp BP Pulse Ox 99.3 F 83 19 104/63 95 03/05/18 18:00 03/05/18 19:00 03/05/18 18:00 03/05/18 17:21 03/05/18 18:00 Intake & Output 03/04/18 03/05/18 03/06/18 06:59 06:59 06:59 Intake Total 2135 2755 929 Output Total 1940 3110 1640 Balance 718 -651 -274 Weight 238 lb 8.642 oz 235 lb 14.314 oz General appearance: PRESENT: no acute distress, obese Head exam: PRESENT: atraumatic, normocephalic Eye exam: PRESENT: conjunctiva pink, EOMI, PERRLA. ABSENT: scleral icterus Ear exam: PRESENT: normal external ear exam Respiratory exam: PRESENT: clear to auscultation karime. ABSENT: rales, rhonchi, wheezes Cardiovascular exam: PRESENT: RRR. ABSENT: diastolic murmur, rubs, systolic murmur GI/Abdominal exam: PRESENT: normal bowel sounds, soft. ABSENT: distended, guarding, mass, organolmegaly, rebound, tenderness Rectal exam: PRESENT: deferred Results Laboratory Results: 03/04/18 05:10 03/05/18 04:06 03/05/18 04:06 Sodium 140.0 Potassium 4.0 Chloride 99 Carbon Dioxide 31 H Anion Gap 10 BUN 23 H Creatinine 0.81 Est GFR ( Amer) > 60 Est GFR (Non-Af Amer) > 60 Glucose 171 H Calcium 8.8 03/02/18 10:40 Blood Blood Culture - Final Staphylococcus Hominis 01/29/18 01/29/18 01/30/18 17:45 23:40 05:45 Creatine Kinase CK-MB (CK-2) Troponin I 0.244 0.319 0.379 01/30/18 01/30/18 01/30/18 12:00 12:00 18:44 Creatine Kinase 105 74 CK-MB (CK-2) 5.01 H Troponin I 0.349 01/30/18 01/30/18 01/30/18 18:44 23:55 23:55 Creatine Kinase 58 CK-MB (CK-2) 3.04 2.10 Troponin I 0.290 0.268 Impressions: Guidance Fluoroscopy 01/28/18 00:00 IMPRESSION: Please see combined report for performance of procedure and radiologic supervision and interpretation. Head MRI 01/28/18 00:00 IMPRESSION: Positive for acute or sub-acute punctate- lacunar infarctions in multiple locations of both frontal lobes, left parietal-occipital lobe, and the left cerebellum. This pattern suggests embolic phenomenon but can be seen with other etiologies such as traumatic brain injury, correlate clinically. No enhancing lesions. EVIDENCE OF ACUTE STROKE: YES. Multiple vessel distribution Lumbar Puncture 01/28/18 17:17 IMPRESSION: Lumbar puncture under fluoroscopy. No immediate complication. Carotid Doppler Study 01/30/18 00:00 IMPRESSION: NO HEMODYNAMICALLY SIGNIFICANT STENOSIS. Head CT 01/30/18 00:00 IMPRESSION: 1. No acute intracranial abnormality identified. This exam was performed according to our departmental dose-optimization program, which includes automated exposure control, adjustment of the mA and/or kV according to patient size and/or use of iterative reconstruction technique. Chest/Abdomen CTA 01/31/18 12:47 IMPRESSION: 1. Normal CTA of the chest. No pulmonary emboli. 2. Right lower lobe consolidation may represent atelectasis on the basis of submaximal aeration in this intubated patient. Left lower lobe atelectasis. 3. 4.5 x 4.0 x 3.5 cm irregularly marginated heterogeneous appearing mass within the superior pole of the right kidney. This requires further evaluation with dedicated renal CT or MR imaging when feasible. Abdomen/Pelvis CT 02/04/18 10:57 IMPRESSION: 1. LIMITED STUDY. INDISTINCT AREA OF DECREASED ATTENUATION IN THE UPPER POLE OF THE RIGHT KIDNEY, DIFFICULT TO COMPLETELY VISUALIZE DUE TO STREAK ARTIFACT FROM PATIENT'S ARMS. MALIGNANCY SUCH RENAL CELL CARCINOMA IS IN THE DIFFERENTIAL. ANOTHER POSSIBILITY COULD BE AN AREA OF RENAL INFARCTION. IDEALLY, AN MRI OF THE KIDNEYS AFTER THE PATIENT'S CLINICAL CONDITION HAS IMPROVED WOULD BE OPTIMAL TO PROVIDE COMPLETE EVALUATION. 2. CORTICAL CYST IN THE LEFT KIDNEY. 3. GALLSTONES. 4. 3.5 CM INFRARENAL ABDOMINAL AORTIC ANEURYSM. 5. SMALL PLEURAL EFFUSIONS AND BASILAR INFILTRATES, RIGHT GREATER THAN LEFT. Chest X-Ray 02/22/18 06:00 IMPRESSION: 1. Interval removal of endotracheal and enteric tubes. Placement of a tracheostomy tube terminating at the level of the clavicles. 2. Otherwise, no significant interval change. Assessment & Plan - Diagnosis (1) Acute respiratory failure Is this a current diagnosis for this admission?: Yes Plan: Patient was intubated after going into PEA arrest. S/P tracheostomy and PEG tube placement on 02/20/18. Saturating well on minimal vent settings. Awaiting for final decision from family regarding transitioning patient to hospice. (2) Acute CVA (cerebrovascular accident) Is this a current diagnosis for this admission?: Yes Plan: Patient's MRI showed acute or subacute punctate lacunar infarctions in multiple locations of both the frontal lobes, left parietal occipital lobe and the left cerebellum. Patient was not a TPA candidate as he presented beyond the window period. (3) Bacteremia due to Enterococcus Is this a current diagnosis for this admission?: Yes Plan: Patient was restarted on vancomycin apparently because of growth of gram- positive cocci on blood cultures. Will discontinue vancomycin pending final culture results. (4) Cardiopulmonary arrest with successful resuscitation Is this a current diagnosis for this admission?: Yes Plan: Patient's cardiopulmonary arrest was likely secondary to acute CVA. (5) Right renal mass Is this a current diagnosis for this admission?: Yes Plan: Urology was consulted for this. However due to patient's current status, further workup has been deferred. 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
[2018-03-06] MEDS: PROPOFOL 1,000 MG/100 ML INFUS..BTL IV PRN ×6 (00:42→23:55)
[2018-03-06 04:39] LABS: ANION GAP 10 (5-19); BLOOD UREA NITROGEN 25 mg/dL (7-20); CARBON DIOXIDE 31 mmol/L (22-30); CHLORIDE 99 mmol/L (98-107); GLUCOSE 149 mg/dL (75-110); POTASSIUM 4.1 mmol/L (3.6-5.0); SODIUM 140.4 mmol/L (137-145)
[2018-03-06] MEDS: VANCOMYCIN HCL 1,250 MG in DEXTROSE 5%-WATER 250 ML IV SCH (05:16)
[2018-03-06] MEDS: HEPARIN SOD (PORCINE) 5,000 UNIT/ML 1 ML SYRINGE SUBCUT SCH ×3 (05:16→21:15)
[2018-03-06] MEDS: POLYETHYLENE GLYCOL 3350 POWDER 17 GM/1 PACKET NG SCH (09:02)
[2018-03-06] MEDS: FUROSEMIDE INJ/PF 40 MG/4 ML SDV IV SCH (09:42)
[2018-03-06] MEDS: PANTOPRAZOLE SODIUM 40 MG VIAL IV SCH (09:43)
[2018-03-06] MEDS: NYSTATIN TOPICAL POWDER 15 GM TP SCH ×2 (09:43→17:51)
[2018-03-06] MEDS: CLOPIDOGREL BISULFATE 75 MG TABLET PO SCH (09:44)
[2018-03-06] MEDS: NORMAL SALINE 500 ML IV PRN (15:25)
--- NOTE | 2018-03-06 17:52 | PDOC PROGRESS REPORT ---
Subjective Progress Note for:: 03/06/18 Subjective:: S/P tracheostomy and PEG tube placement on 02/20/18 which was uneventful. No acute event overnight. No significant secretions from the ET. Continues to have spontaneous eye movement but does not track. Tolerating tube feeding well. Still awaiting for final decision from family regarding transitioning patient to hospice. Reason For Visit: ALTERED MENTAL STATUS,LEUKOCYTOSIS Physical Exam Vital Signs: Temp Pulse Resp BP Pulse Ox 98.6 F 78 20 132/77 H 97 03/06/18 14:00 03/06/18 08:00 03/06/18 14:00 03/06/18 13:21 03/06/18 16:35 Intake & Output 03/05/18 03/06/18 03/07/18 06:59 06:59 06:59 Intake Total 2755 1437 947 Output Total 3110 1890 1450 Balance -692 -749 -849 Weight 235 lb 14.314 oz 231 lb 7.766 oz General appearance: PRESENT: no acute distress, obese Head exam: PRESENT: atraumatic, normocephalic Eye exam: PRESENT: conjunctiva pink, EOMI, PERRLA. ABSENT: scleral icterus Ear exam: PRESENT: normal external ear exam Respiratory exam: PRESENT: clear to auscultation karime. ABSENT: rales, rhonchi, wheezes Cardiovascular exam: PRESENT: RRR. ABSENT: diastolic murmur, rubs, systolic murmur GI/Abdominal exam: PRESENT: normal bowel sounds, soft. ABSENT: distended, guarding, mass, organolmegaly, rebound, tenderness Rectal exam: PRESENT: deferred Neurological exam: PRESENT: other - other - 0/5 motor strength on the left upper and lower extremities, patient does not track, cranial nerves III to appear to be intact, patient also has intact gag reflex Results Laboratory Results: 03/04/18 05:10 03/06/18 04:07 03/06/18 04:07 Sodium 140.4 Potassium 4.1 Chloride 99 Carbon Dioxide 31 H Anion Gap 10 BUN 25 H Creatinine 0.83 Est GFR ( Amer) > 60 Est GFR (Non-Af Amer) > 60 Glucose 149 H Calcium 9.0 02/28/18 22:12 Blood Blood Culture - Final NO GROWTH IN 5 DAYS 01/29/18 01/29/18 01/30/18 17:45 23:40 05:45 Creatine Kinase CK-MB (CK-2) Troponin I 0.244 0.319 0.379 01/30/18 01/30/18 01/30/18 12:00 12:00 18:44 Creatine Kinase 105 74 CK-MB (CK-2) 5.01 H Troponin I 0.349 01/30/18 01/30/18 01/30/18 18:44 23:55 23:55 Creatine Kinase 58 CK-MB (CK-2) 3.04 2.10 Troponin I 0.290 0.268 Impressions: Guidance Fluoroscopy 01/28/18 00:00 IMPRESSION: Please see combined report for performance of procedure and radiologic supervision and interpretation. Head MRI 01/28/18 00:00 IMPRESSION: Positive for acute or sub-acute punctate- lacunar infarctions in multiple locations of both frontal lobes, left parietal-occipital lobe, and the left cerebellum. This pattern suggests embolic phenomenon but can be seen with other etiologies such as traumatic brain injury, correlate clinically. No enhancing lesions. EVIDENCE OF ACUTE STROKE: YES. Multiple vessel distribution Lumbar Puncture 01/28/18 17:17 IMPRESSION: Lumbar puncture under fluoroscopy. No immediate complication. Carotid Doppler Study 01/30/18 00:00 IMPRESSION: NO HEMODYNAMICALLY SIGNIFICANT STENOSIS. Head CT 01/30/18 00:00 IMPRESSION: 1. No acute intracranial abnormality identified. This exam was performed according to our departmental dose-optimization program, which includes automated exposure control, adjustment of the mA and/or kV according to patient size and/or use of iterative reconstruction technique. Chest/Abdomen CTA 01/31/18 12:47 IMPRESSION: 1. Normal CTA of the chest. No pulmonary emboli. 2. Right lower lobe consolidation may represent atelectasis on the basis of submaximal aeration in this intubated patient. Left lower lobe atelectasis. 3. 4.5 x 4.0 x 3.5 cm irregularly marginated heterogeneous appearing mass within the superior pole of the right kidney. This requires further evaluation with dedicated renal CT or MR imaging when feasible. Abdomen/Pelvis CT 02/04/18 10:57 IMPRESSION: 1. LIMITED STUDY. INDISTINCT AREA OF DECREASED ATTENUATION IN THE UPPER POLE OF THE RIGHT KIDNEY, DIFFICULT TO COMPLETELY VISUALIZE DUE TO STREAK ARTIFACT FROM PATIENT'S ARMS. MALIGNANCY SUCH RENAL CELL CARCINOMA IS IN THE DIFFERENTIAL. ANOTHER POSSIBILITY COULD BE AN AREA OF RENAL INFARCTION. IDEALLY, AN MRI OF THE KIDNEYS AFTER THE PATIENT'S CLINICAL CONDITION HAS IMPROVED WOULD BE OPTIMAL TO PROVIDE COMPLETE EVALUATION. 2. CORTICAL CYST IN THE LEFT KIDNEY. 3. GALLSTONES. 4. 3.5 CM INFRARENAL ABDOMINAL AORTIC ANEURYSM. 5. SMALL PLEURAL EFFUSIONS AND BASILAR INFILTRATES, RIGHT GREATER THAN LEFT. Chest X-Ray 02/22/18 06:00 IMPRESSION: 1. Interval removal of endotracheal and enteric tubes. Placement of a tracheostomy tube terminating at the level of the clavicles. 2. Otherwise, no significant interval change. Assessment & Plan - Diagnosis (1) Acute respiratory failure Is this a current diagnosis for this admission?: Yes Plan: Patient was intubated after going into PEA arrest. S/P tracheostomy and PEG tube placement on 02/20/18. Saturating well on minimal vent settings. Awaiting for final decision from family regarding transitioning patient to hospice. (2) Acute CVA (cerebrovascular accident) Is this a current diagnosis for this admission?: Yes Plan: Patient's MRI showed acute or subacute punctate lacunar infarctions in multiple locations of both the frontal lobes, left parietal occipital lobe and the left cerebellum. Patient was not a TPA candidate as he presented beyond the window period. (3) Bacteremia due to Enterococcus Is this a current diagnosis for this admission?: Yes Plan: Blood cultures are negative. Discontinue vancomycin (4) Cardiopulmonary arrest with successful resuscitation Is this a current diagnosis for this admission?: Yes Plan: Patient's cardiopulmonary arrest was likely secondary to acute CVA. (5) Right renal mass Is this a current diagnosis for this admission?: Yes Plan: Urology was consulted for this. However due to patient's current status, further workup has been deferred. 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 - Time Time Spent with patient: 15-24 minutes
--- NOTE | 2018-03-06 17:54 | PDOC PROGRESS REPORT ---
Subjective Progress Note for:: 03/06/18 Subjective:: S/P tracheostomy and PEG tube placement on 02/20/18 which was uneventful. No acute event overnight. No significant secretions from the ET. Continues to have spontaneous eye movement but does not track. Tolerating tube feeding well. Still awaiting for final decision from family regarding transitioning patient to hospice. Reason For Visit: ALTERED MENTAL STATUS,LEUKOCYTOSIS Physical Exam Vital Signs: Temp Pulse Resp BP Pulse Ox 98.6 F 78 20 132/77 H 97 03/06/18 14:00 03/06/18 08:00 03/06/18 14:00 03/06/18 13:21 03/06/18 16:35 Intake & Output 03/05/18 03/06/18 03/07/18 06:59 06:59 06:59 Intake Total 2755 1437 947 Output Total 3110 1890 1450 Balance -778 -267 -999 Weight 235 lb 14.314 oz 231 lb 7.766 oz General appearance: PRESENT: no acute distress, obese Eye exam: PRESENT: conjunctiva pink, EOMI, PERRLA. ABSENT: scleral icterus Ear exam: PRESENT: normal external ear exam Neck exam: ABSENT: carotid bruit, JVD, lymphadenopathy, thyromegaly Respiratory exam: PRESENT: clear to auscultation karime. ABSENT: rales, rhonchi, wheezes Cardiovascular exam: PRESENT: RRR. ABSENT: diastolic murmur, rubs, systolic murmur GI/Abdominal exam: PRESENT: normal bowel sounds, soft. ABSENT: distended, guarding, mass, organolmegaly, rebound, tenderness Rectal exam: PRESENT: deferred Neurological exam: PRESENT: other - other - 0/5 motor strength on the left upper and lower extremities, patient does not track, cranial nerves III to appear to be intact, patient also has intact gag reflex Results Laboratory Results: 03/04/18 05:10 03/06/18 04:07 03/06/18 04:07 Sodium 140.4 Potassium 4.1 Chloride 99 Carbon Dioxide 31 H Anion Gap 10 BUN 25 H Creatinine 0.83 Est GFR ( Amer) > 60 Est GFR (Non-Af Amer) > 60 Glucose 149 H Calcium 9.0 02/28/18 22:12 Blood Blood Culture - Final NO GROWTH IN 5 DAYS 01/29/18 01/29/1801/30/18 17:45 23:40 05:45 Creatine Kinase CK-MB (CK-2) Troponin I 0.244 0.319 0.379 01/30/18 01/30/18 01/30/18 12:00 12:00 18:44 Creatine Kinase 105 74 CK-MB (CK-2) 5.01 H Troponin I 0.349 01/30/18 01/30/18 01/30/18 18:44 23:55 23:55 Creatine Kinase 58 CK-MB (CK-2) 3.04 2.10 Troponin I 0.290 0.268 Impressions: Guidance Fluoroscopy 01/28/18 00:00 IMPRESSION: Please see combined report for performance of procedure and radiologic supervision and interpretation. Head MRI 01/28/18 00:00 IMPRESSION: Positive for acute or sub-acute punctate- lacunar infarctions in multiple locations of both frontal lobes, left parietal-occipital lobe, and the left cerebellum. This pattern suggests embolic phenomenon but can be seen with other etiologies such as traumatic brain injury, correlate clinically. No enhancing lesions. EVIDENCE OF ACUTE STROKE: YES. Multiple vessel distribution Lumbar Puncture 01/28/18 17:17 IMPRESSION: Lumbar puncture under fluoroscopy. No immediate complication. Carotid Doppler Study 01/30/18 00:00 IMPRESSION: NO HEMODYNAMICALLY SIGNIFICANT STENOSIS. Head CT 01/30/18 00:00 IMPRESSION: 1. No acute intracranial abnormality identified. This exam was performed according to our departmental dose-optimization program, which includes automated exposure control, adjustment of the mA and/or kV according to patient size and/or use of iterative reconstruction technique. Chest/Abdomen CTA 01/31/18 12:47 IMPRESSION: 1. Normal CTA of the chest. No pulmonary emboli. 2. Right lower lobe consolidation may represent atelectasis on the basis of submaximal aeration in this intubated patient. Left lower lobe atelectasis. 3. 4.5 x 4.0 x 3.5 cm irregularly marginated heterogeneous appearing mass within the superior pole of the right kidney. This requires further evaluation with dedicated renal CT or MR imaging when feasible. Abdomen/Pelvis CT 02/04/18 10:57 IMPRESSION: 1. LIMITED STUDY. INDISTINCT AREA OF DECREASED ATTENUATION IN THE UPPER POLE OF THE RIGHT KIDNEY, DIFFICULT TO COMPLETELY VISUALIZE DUE TO STREAK ARTIFACT FROM PATIENT'S ARMS. MALIGNANCY SUCH RENAL CELL CARCINOMA IS IN THE DIFFERENTIAL. ANOTHER POSSIBILITY COULD BE AN AREA OF RENAL INFARCTION. IDEALLY, AN MRI OF THE KIDNEYS AFTER THE PATIENT'S CLINICAL CONDITION HAS IMPROVED WOULD BE OPTIMAL TO PROVIDE COMPLETE EVALUATION. 2. CORTICAL CYST IN THE LEFT KIDNEY. 3. GALLSTONES. 4. 3.5 CM INFRARENAL ABDOMINAL AORTIC ANEURYSM. 5. SMALL PLEURAL EFFUSIONS AND BASILAR INFILTRATES, RIGHT GREATER THAN LEFT. Chest X-Ray 02/22/18 06:00 IMPRESSION: 1. Interval removal of endotracheal and enteric tubes. Placement of a tracheostomy tube terminating at the level of the clavicles. 2. Otherwise, no significant interval change. Assessment & Plan - Diagnosis (1) Acute respiratory failure Is this a current diagnosis for this admission?: Yes Plan: Patient was intubated after going into PEA arrest. S/P tracheostomy and PEG tube placement on 02/20/18. Saturating well on minimal vent settings. Awaiting for final decision from family regarding transitioning patient to hospice. (2) Acute CVA (cerebrovascular accident) Is this a current diagnosis for this admission?: Yes Plan: Patient's MRI showed acute or subacute punctate lacunar infarctions in multiple locations of both the frontal lobes, left parietal occipital lobe and the left cerebellum. Patient was not a TPA candidate as he presented beyond the window period. (3) Bacteremia due to Enterococcus Is this a current diagnosis for this admission?: Yes Plan: On vancomycin. Awaiting for final results of repeat blood cultures. (4) Cardiopulmonary arrest with successful resuscitation Is this a current diagnosis for this admission?: Yes Plan: Patient's cardiopulmonary arrest was likely secondary to acute CVA. (5) Right renal mass Is this a current diagnosis for this admission?: Yes Plan: Urology was consulted for this. However due to patient's current status, further workup has been deferred. 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 - Time Time Spent with patient: 15-24 minutes
[2018-03-07] MEDS: PROPOFOL 1,000 MG/100 ML INFUS..BTL IV PRN ×4 (02:55→23:37)
[2018-03-07 04:50] LABS: ANION GAP 11 (5-19); BLOOD UREA NITROGEN 28 mg/dL (7-20); CALCIUM 8.9 mg/dL (8.4-10.2); CARBON DIOXIDE 31 mmol/L (22-30); CHLORIDE 99 mmol/L (98-107); GLUCOSE 162 mg/dL (75-110); POTASSIUM 3.9 mmol/L (3.6-5.0); SODIUM 141.1 mmol/L (137-145)
[2018-03-07] MEDS: HEPARIN SOD (PORCINE) 5,000 UNIT/ML 1 ML SYRINGE SUBCUT SCH ×3 (05:19→21:21)
[2018-03-07] MEDS: FUROSEMIDE INJ/PF 40 MG/4 ML SDV IV SCH (10:56)
[2018-03-07] MEDS: POLYETHYLENE GLYCOL 3350 POWDER 17 GM/1 PACKET NG SCH (10:56)
[2018-03-07] MEDS: NYSTATIN TOPICAL POWDER 15 GM TP SCH ×2 (10:56→18:21)
[2018-03-07] MEDS: CLOPIDOGREL BISULFATE 75 MG TABLET PO SCH (10:57)
--- NOTE | 2018-03-07 18:25 | PDOC PROGRESS REPORT ---
Subjective Progress Note for:: 03/07/18 Subjective:: S/P tracheostomy and PEG tube placement on 02/20/18 which was uneventful. No acute event overnight. No significant secretions from the ET. Continues to have spontaneous eye movement but does not track. Tolerating tube feeding well. Still awaiting for final decision from family regarding transitioning patient to hospice. DPOA/guardian has been difficult to contact. Reason For Visit: ALTERED MENTAL STATUS,LEUKOCYTOSIS Physical Exam Vital Signs: Temp Pulse Resp BP Pulse Ox 99.1 F 89 24 H 121/70 94 03/07/18 18:00 03/07/18 10:00 03/07/18 18:00 03/07/18 17:22 03/07/18 18:00 Intake & Output 03/06/18 03/07/18 03/08/18 06:59 06:59 06:59 Intake Total 1437 2460 Output Total 1890 2135 850 Balance -453 325 -850 Weight 231 lb 7.766 oz 232 lb 2.348 oz General appearance: PRESENT: no acute distress, obese Head exam: PRESENT: atraumatic, normocephalic Eye exam: PRESENT: conjunctiva pink, EOMI, PERRLA. ABSENT: scleral icterus Ear exam: PRESENT: normal external ear exam Mouth exam: PRESENT: moist, tongue midline Neck exam: ABSENT: carotid bruit, JVD, lymphadenopathy, thyromegaly Respiratory exam: PRESENT: clear to auscultation karime. ABSENT: rales, rhonchi, wheezes Cardiovascular exam: PRESENT: RRR. ABSENT: diastolic murmur, rubs, systolic murmur Pulses: PRESENT: normal dorsalis pedis pul Vascular exam: PRESENT: normal capillary refill GI/Abdominal exam: PRESENT: normal bowel sounds, soft. ABSENT: distended, guarding, mass, organolmegaly, rebound, tenderness Rectal exam: PRESENT: deferred Neurological exam: PRESENT: altered - other - 0/5 motor strength on the left upper and lower extremities, patient does not track, cranial nerves III to appear to be intact, patient also has intact gag reflex, awake, other Results Laboratory Results: 03/04/18 05:10 03/07/18 04:22 03/07/18 04:22 Sodium 141.1 Potassium 3.9 Chloride 99 Carbon Dioxide 31 H Anion Gap 11 BUN 28 H Creatinine 0.84 Est GFR ( Amer) > 60 Est GFR (Non-Af Amer) > 60 Glucose 162 H Calcium 8.9 03/02/18 11:01 Blood Blood Culture - Final NO GROWTH IN 5 DAYS 01/29/18 01/29/18 01/30/18 17:45 23:40 05:45 Creatine Kinase CK-MB (CK-2) Troponin I 0.244 0.319 0.379 01/30/18 01/30/18 01/30/18 12:00 12:00 18:44 Creatine Kinase 105 74 CK-MB (CK-2) 5.01 H Troponin I 0.349 01/30/18 01/30/18 01/30/18 18:44 23:55 23:55 Creatine Kinase 58 CK-MB (CK-2) 3.04 2.10 Troponin I 0.290 0.268 Impressions: Guidance Fluoroscopy 01/28/18 00:00 IMPRESSION: Please see combined report for performance of procedure and radiologic supervision and interpretation. Head MRI 01/28/18 00:00 IMPRESSION: Positive for acute or sub-acute punctate- lacunar infarctions in multiple locations of both frontal lobes, left parietal-occipital lobe, and the left cerebellum. This pattern suggests embolic phenomenon but can be seen with other etiologies such as traumatic brain injury, correlate clinically. No enhancing lesions. EVIDENCE OF ACUTE STROKE: YES. Multiple vessel distribution Lumbar Puncture 01/28/18 17:17 IMPRESSION: Lumbar puncture under fluoroscopy. No immediate complication. Carotid Doppler Study 01/30/18 00:00 IMPRESSION: NO HEMODYNAMICALLY SIGNIFICANT STENOSIS. Head CT 01/30/18 00:00 IMPRESSION: 1. No acute intracranial abnormality identified. This exam was performed according to our departmental dose-optimization program, which includes automated exposure control, adjustment of the mA and/or kV according to patient size and/or use of iterative reconstruction technique. Chest/Abdomen CTA 01/31/18 12:47 IMPRESSION: 1. Normal CTA of the chest. No pulmonary emboli. 2. Right lower lobe consolidation may represent atelectasis on the basis of submaximal aeration in this intubated patient. Left lower lobe atelectasis. 3. 4.5 x 4.0 x 3.5 cm irregularly marginated heterogeneous appearing mass within the superior pole of the right kidney. This requires further evaluation with dedicated renal CT or MR imaging when feasible. Abdomen/Pelvis CT 02/04/18 10:57 IMPRESSION: 1. LIMITED STUDY. INDISTINCT AREA OF DECREASED ATTENUATION IN THE UPPER POLE OF THE RIGHT KIDNEY, DIFFICULT TO COMPLETELY VISUALIZE DUE TO STREAK ARTIFACT FROM PATIENT'S ARMS. MALIGNANCY SUCH RENAL CELL CARCINOMA IS IN THE DIFFERENTIAL. ANOTHER POSSIBILITY COULD BE AN AREA OF RENAL INFARCTION. IDEALLY, AN MRI OF THE KIDNEYS AFTER THE PATIENT'S CLINICAL CONDITION HAS IMPROVED WOULD BE OPTIMAL TO PROVIDE COMPLETE EVALUATION. 2. CORTICAL CYST IN THE LEFT KIDNEY. 3. GALLSTONES. 4. 3.5 CM INFRARENAL ABDOMINAL AORTIC ANEURYSM. 5. SMALL PLEURAL EFFUSIONS AND BASILAR INFILTRATES, RIGHT GREATER THAN LEFT. Chest X-Ray 02/22/18 06:00 IMPRESSION: 1. Interval removal of endotracheal and enteric tubes. Placement of a tracheostomy tube terminating at the level of the clavicles. 2. Otherwise, no significant interval change. Assessment & Plan - Diagnosis (1) Acute respiratory failure Is this a current diagnosis for this admission?: Yes Plan: Patient was intubated after going into PEA arrest. S/P tracheostomy and PEG tube placement on 02/20/18. Saturating well on minimal vent settings. Awaiting for final decision from family regarding transitioning patient to hospice. (2) Acute CVA (cerebrovascular accident) Is this a current diagnosis for this admission?: Yes Plan: Patient's MRI showed acute or subacute punctate lacunar infarctions in multiple locations of both the frontal lobes, left parietal occipital lobe and the left cerebellum. Patient was not a TPA candidate as he presented beyond the window period. (3) Bacteremia due to Enterococcus Is this a current diagnosis for this admission?: Yes Plan: Repeat blood cultures negative. Vancomycin discontinued. (4) Cardiopulmonary arrest with successful resuscitation Is this a current diagnosis for this admission?: Yes Plan: Patient's cardiopulmonary arrest was likely secondary to acute CVA. (5) Right renal mass Is this a current diagnosis for this admission?: Yes Plan: Urology was consulted for this. However due to patient's current status, further workup has been deferred. 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 - Time Time Spent with patient: Less than 15 minutes
[2018-03-08] MEDS: PROPOFOL 1,000 MG/100 ML INFUS..BTL IV PRN ×3 (02:41→09:12)
[2018-03-08 04:39] LABS: ANION GAP 12 (5-19); BLOOD UREA NITROGEN 27 mg/dL (7-20); CALCIUM 9.3 mg/dL (8.4-10.2); CARBON DIOXIDE 30 mmol/L (22-30); CHLORIDE 102 mmol/L (98-107); GLUCOSE 127 mg/dL (75-110); POTASSIUM 3.9 mmol/L (3.6-5.0); SODIUM 143.9 mmol/L (137-145)
[2018-03-08] MEDS: HEPARIN SOD (PORCINE) 5,000 UNIT/ML 1 ML SYRINGE SUBCUT SCH ×2 (06:35→15:52)
[2018-03-08] MEDS: POLYETHYLENE GLYCOL 3350 POWDER 17 GM/1 PACKET NG SCH (09:10)
[2018-03-08] MEDS: NYSTATIN TOPICAL POWDER 15 GM TP SCH (09:10)
[2018-03-08] MEDS: FUROSEMIDE INJ/PF 40 MG/4 ML SDV IV SCH (09:10)
[2018-03-08] MEDS: CLOPIDOGREL BISULFATE 75 MG TABLET PO SCH (09:12)
--- NOTE | 2018-03-08 13:34 | PDOC TRANSFER SUMMARY ---
General Admission Date/PCP: 01/28/18 17:39 Resuscitation Status: Do Not Resuscitate - Transfer Diagnosis (1) Acute respiratory failure Is this a current diagnosis for this admission?: Yes (2) Acute CVA (cerebrovascular accident) Is this a current diagnosis for this admission?: Yes (3) Bacteremia due to Enterococcus Is this a current diagnosis for this admission?: Yes (4) Cardiopulmonary arrest with successful resuscitation Is this a current diagnosis for this admission?: Yes (5) Right renal mass Is this a current diagnosis for this admission?: Yes (6) HIE (hypoxic-ischemic encephalopathy) Is this a current diagnosis for this admission?: Yes - Transfer Medications Home Medications: Albuterol Sulfate [Proair HFA] 2 puff IH Q6HP PRN 01/29/18 Amlodipine Besylate/Benazepril [Amlodipine-Benazepril 10-20 mg] 1 tab PO DAILY 01/29/18 Budesonide/Formoterol Fumarate [Symbicort HFA 160-4.5 mcg Inhaler 6 gm] 2 puff IH BID 01/29/18 Bupropion HCl [Wellbutrin 75 mg Tablet] 150 mg PO BID 01/29/18 Gabapentin [Neurontin] 300 mg PO Q12 01/29/18 Metformin HCl [Glucophage XR 500 mg Tablet] 1,000 mg PO DAILY 01/29/18 Tiotropium [place] [Spiriva Respimat] 2 puff IH BID 01/29/18 Transfer Medications: Current Medications Acetaminophen (Tylenol Soln 325 Mg/10.15 Ml Udcup) 650 mg NG Q4HP PRN PRN Reason: FEVER ABOVE 100.4 F Stop: 03/14/18 22:32 Last Admin: 02/28/18 18:15 Dose: 650 mg Acetaminophen (Tylenol 650 Mg Supp) 650 mg MA Q4HP PRN PRN Reason: SEE LABEL COMMENTS Stop: 03/17/18 11:33 Last Admin: 02/15/18 11:55 Dose: 650 mg Clopidogrel Bisulfate (Plavix 75 Mg Tablet) 75 mg PO DAILY REPLACED BY [facility] Stop: 03/10/18 13:59 Last Admin: 03/08/18 09:12 Dose: 75 mg Furosemide (Lasix Inj/Pf 40 Mg/4 Ml Sdv) 40 mg IV DAILY REPLACED BY [facility] Stop: 04/01/18 09:59 Last Admin: 03/08/18 09:10 Dose: 40 mg Heparin Sodium (Porcine) (Heparin Inj 5,000 Units/Ml 1 Ml Syringe) 5,000 unit SUBCUT Q8 HAN Stop: 03/10/18 13:59 Last Admin: 03/08/18 06:35 Dose: 5,000 unit Sodium Chloride (Nacl 0.9% 500 Ml Iv Soln) 500 mls @ 20 mls/hr IV CONTINUOUS PRN PRN Reason: THIS MED IS NOT "PRN" Stop: 03/26/18 13:40 Last Admin: 03/06/18 15:25 Dose: 20 mls/hr Propofol (Diprivan Rtu 1000 Mg/100 Ml Inf.Bottle) 1,000 mg in 100 mls @ 0 mls/ hr IV CONTINUOUS PRN; Protocol; Titrate PRN Reason: THIS MED IS NOT "PRN" Stop: 03/31/18 11:56 Last Titration: 03/08/18 11:15 Dose: 18.95 ml/hr, 18.95 mls/hr Nystatin (Mycostatin Topical Powder 15 Gm) 1 applic TP BID REPLACED BY [facility] Stop: 03/12/18 17:59 Last Admin: 03/08/18 09:10 Dose: 1 applic Ondansetron HCl (Zofran Inj/Pf 4 Mg/2 Ml Sdv) 4 mg IV Q8HP PRN PRN Reason: FOR NAUSEA/VOMITING Stop: 03/28/18 17:29 Polyethylene Glycol (Miralax Powder 17 Gm/Packet) 17 gm NG DAILY REPLACED BY [facility] Stop: 03/12/18 11:59 Last Admin: 03/08/18 09:10 Dose: Not Given - Allergies Allergies/Adverse Reactions: No Known Allergies Allergy (Verified 01/29/18 10:52) Hospital Course Hospital Course: HPI: AGNIESZKA GOMEZ is a 57 year old male with past medical history of hypertension, COPD and an anxiety disorder brought by EMS for altered mental status and questionable slurred speech. Brief information is obtained from ER attending note. Attending notes patient brought by EMS secondary to 1 hour prior to arrival walking and then falling to the ground supposedly being " unable to walk" according to EMS. They state that the stroke schedule was negative showing no focal weakness. Patient was only mumbling words. His initial blood workup shows leukocytosis of 31,000. CT scan of the head is negative further detailed history and review of system is unobtainable. COURSE: Patient was initially admitted for acute CVA. Patient did went into arrest/PEA on the floor and was subsequently intubated. Patient's MRI showed acute or subacute punctate lacunar infarctions in multiple locations of both the frontal lobes, left parietal occipital lobe and the left cerebellum. Patient was not a TPA candidate. Patient was not a TPA candidate. Patient's course was complicated by bacteremia due to enterococcus. Patient also developed tracheobronchitis and pneumonia. Patient was started on multiple courses of antibiotics including vancomycin for enterococcal bacteremia. Patient was also closely followed by pulmonology. He was placed on levofloxacin was also started on nebulized gentamicin by pulmonology. Patient's bacteremia did clear up on repeated blood cultures. Patient likely developed hypoxic ischemic encephalopathy after he is arrest compounded by multiple CVA. Patient did not come back to baseline and is aphasic. He does not track. He had persistent left sided weakness. Patient was not amenable from ventilator and eventually underwent tracheostomy and PEG tube placement on 02/20/18 by surgery. Patient was also found to have a right renal mass and urology was consulted for this. However the patient's status, further workup has been deferred. Patient does have poor prognosis and extremely unlikely that he will go back to his baseline given his hypoxic encephalopathy and multiple infarctions. Initial plan was [facility]. Case management was also consulted and was following up with patient and guardian. Hospice team was also consulted to discuss further options with the patient's guardian who decided to transition patient to hospice. [facility]. Physical Exam Vital Signs: Temp Pulse Resp BP Pulse Ox 97.7 F 71 18 125/71 95 03/08/18 11:22 03/08/18 08:00 03/08/18 11:22 03/08/18 11:22 03/08/18 11:22 Intake & Output 03/07/18 03/08/18 03/09/18 06:59 06:59 06:59 Intake Total 2460 369 119 Output Total 2135 1095 150 Balance 325 -726 -31 Weight 232 lb 2.348 oz 224 lb 13.944 oz General appearance: PRESENT: no acute distress, obese Head exam: PRESENT: atraumatic, normocephalic Eye exam: PRESENT: conjunctiva pink, EOMI, PERRLA. ABSENT: scleral icterus Ear exam: PRESENT: normal external ear exam Mouth exam: PRESENT: moist, tongue midline Neck exam: ABSENT: carotid bruit, JVD, lymphadenopathy, thyromegaly Respiratory exam: PRESENT: clear to auscultation karime. ABSENT: rales, rhonchi, wheezes Cardiovascular exam: PRESENT: RRR. ABSENT: diastolic murmur, rubs, systolic murmur GI/Abdominal exam: PRESENT: normal bowel sounds, soft. ABSENT: distended, guarding, mass, organolmegaly, rebound, tenderness Rectal exam: PRESENT: deferred Neurological exam: PRESENT: altered, awake, other - 0/5 motor strength on the left upper and lower extremities, patient does not track, cranial nerves III to appear to be intact, patient also has intact gag reflex, awake Results Laboratory Results: 03/04/18 05:10 03/08/18 04:08 03/08/18 04:08 Sodium 143.9 Potassium 3.9 Chloride 102 Carbon Dioxide 30 Anion Gap 12 BUN 27 H Creatinine 0.82 Est GFR ( Amer) > 60 Est GFR (Non-Af Amer) > 60 Glucose 127 H Calcium 9.3 03/02/18 11:01 Blood Blood Culture - Final NO GROWTH IN 5 DAYS 01/29/18 01/29/18 01/30/18 17:45 23:40 05:45 Creatine Kinase CK-MB (CK-2) Troponin I 0.244 0.319 0.379 01/30/18 01/30/18 01/30/18 12:00 12:00 18:44 Creatine Kinase 105 74 CK-MB (CK-2) 5.01 H Troponin I 0.349 01/30/18 01/30/18 01/30/18 18:44 23:55 23:55 Creatine Kinase 58 CK-MB (CK-2) 3.04 2.10 Troponin I 0.290 0.268 Impressions: Guidance Fluoroscopy 01/28/18 00:00 IMPRESSION: Please see combined report for performance of procedure and radiologic supervision and interpretation. Head MRI 01/28/18 00:00 IMPRESSION: Positive for acute or sub-acute punctate- lacunar infarctions in multiple locations of both frontal lobes, left parietal-occipital lobe, and the left cerebellum. This pattern suggests embolic phenomenon but can be seen with other etiologies such as traumatic brain injury, correlate clinically. No enhancing lesions. EVIDENCE OF ACUTE STROKE: YES. Multiple vessel distribution Lumbar Puncture 01/28/18 17:17 IMPRESSION: Lumbar puncture under fluoroscopy. No immediate complication. Carotid Doppler Study 01/30/18 00:00 IMPRESSION: NO HEMODYNAMICALLY SIGNIFICANT STENOSIS. Head CT 01/30/18 00:00 IMPRESSION: 1. No acute intracranial abnormality identified. This exam was performed according to our departmental dose-optimization program, which includes automated exposure control, adjustment of the mA and/or kV according to patient size and/or use of iterative reconstruction technique. Chest/Abdomen CTA 01/31/18 12:47 IMPRESSION: 1. Normal CTA of the chest. No pulmonary emboli. 2. Right lower lobe consolidation may represent atelectasis on the basis of submaximal aeration in this intubated patient. Left lower lobe atelectasis. 3. 4.5 x 4.0 x 3.5 cm irregularly marginated heterogeneous appearing mass within the superior pole of the right kidney. This requires further evaluation with dedicated renal CT or MR imaging when feasible. Abdomen/Pelvis CT 02/04/18 10:57 IMPRESSION: 1. LIMITED STUDY. INDISTINCT AREA OF DECREASED ATTENUATION IN THE UPPER POLE OF THE RIGHT KIDNEY, DIFFICULT TO COMPLETELY VISUALIZE DUE TO STREAK ARTIFACT FROM PATIENT'S ARMS. MALIGNANCY SUCH RENAL CELL CARCINOMA IS IN THE DIFFERENTIAL. ANOTHER POSSIBILITY COULD BE AN AREA OF RENAL INFARCTION. IDEALLY, AN MRI OF THE KIDNEYS AFTER THE PATIENT'S CLINICAL CONDITION HAS IMPROVED WOULD BE OPTIMAL TO PROVIDE COMPLETE EVALUATION. 2. CORTICAL CYST IN THE LEFT KIDNEY. 3. GALLSTONES. 4. 3.5 CM INFRARENAL ABDOMINAL AORTIC ANEURYSM. 5. SMALL PLEURAL EFFUSIONS AND BASILAR INFILTRATES, RIGHT GREATER THAN LEFT. Chest X-Ray 02/22/18 06:00 IMPRESSION: 1. Interval removal of endotracheal and enteric tubes. Placement of a tracheostomy tube terminating at the level of the clavicles. 2. Otherwise, no significant interval change.
[2018-03-08 15:54] VITALS: BP 119/75
[2018-03-08] MEDS ORDERED: KETOROLAC TROMETHAMINE INJ/PF 30 MG/1 ML SDV IV ONE (16:05)
== END 2018-03-08 17:00 | disposition hospice, inpatient (51) | DRG 4 ==
LOC: ER 14:46 → EH 17:39 → 3W 01-29 15:53 → ICU 01-29 17:25
PROVIDERS: ADMIT Internal Medicine; ATTEND Internal Medicine
PROC: 009U3ZX Drainage of Spinal Canal, Percutaneous Approach, Diagnostic (ICD-10-PCS; 2018-01-28)
PROC: 5A1955Z Respiratory Ventilation, Greater than 96 Consecutive Hours (ICD-10-PCS; 2018-01-29)
PROC: 5A12012 Performance of Cardiac Output, Single, Manual (ICD-10-PCS; 2018-01-29)
PROC: 0BH17EZ Insertion of Endotracheal Airway into Trachea, Via Natural or Artificial Opening (ICD-10-PCS; 2018-01-29)
PROC: 02HV33Z Insertion of Infusion Device into Superior Vena Cava, Percutaneous Approach (ICD-10-PCS; 2018-01-29)
PROC: B548ZZA Ultrasonography of Superior Vena Cava, Guidance (ICD-10-PCS; 2018-01-29)
PROC: 0DH63UZ Insertion of Feeding Device into Stomach, Percutaneous Approach (ICD-10-PCS; 2018-02-20)
PROC: 0B110F4 Bypass Trachea to Cutaneous with Tracheostomy Device, Open Approach (ICD-10-PCS; principal; 2018-02-20 14:00)
DX: I63.49 Cerebral infarction due to embolism of other cerebral artery (principal); I46.9 Cardiac arrest, cause unspecified; J96.00 Acute respiratory failure, unspecified whether with hypoxia or hypercapnia; G81.94 Hemiplegia, unspecified affecting left nondominant side; J98.11 Atelectasis; G93.1 Anoxic brain damage, not elsewhere classified; E87.1 Hypo-osmolality and hyponatremia; R78.81 Bacteremia; R64 Cachexia; Z99.11 Dependence on respirator [ventilator] status; R47.81 Slurred speech; I10 Essential (primary) hypertension; J44.9 Chronic obstructive pulmonary disease, unspecified; N28.89 Other specified disorders of kidney and ureter; E11.65 Type 2 diabetes mellitus with hyperglycemia; I71.4 Abdominal aortic aneurysm, without rupture; D64.9 Anemia, unspecified; K59.00 Constipation, unspecified; R79.89 Other specified abnormal findings of blood chemistry; R41.82 Altered mental status, unspecified; B95.2 Enterococcus as the cause of diseases classified elsewhere; F41.8 Other specified anxiety disorders; F17.210 Nicotine dependence, cigarettes, uncomplicated; Z79.84 Long term (current) use of oral hypoglycemic drugs; Z79.51 Long term (current) use of inhaled steroids; Z79.899 Other long term (current) drug therapy; Z68.31 Body mass index [BMI] 31.0-31.9, adult; Z75.1 Person awaiting admission to adequate facility elsewhere
CPT/HCPCS: 320; 36415; 62270; 70450; 70553; 71045; 71275; 74178; 77003; 80048; 80053; 80076; 80202; 80307; 81001; 82140; 82550; 82553; 82565; 82803; 82945; 82962; 83036; 83605; 83735; 84100; 84157; 84484; 85025; 85027; 85362; 85379; 85384; 85610; 85730; 87040; 87070; 87077; 87086; 87186; 87205; 89050; 92950; 93005; 93010; 93306; 93880; 94002; 94003; 94640; 95819; 96361; 96374; 99291; C1751; J0133; J0171; J0290; J0330; J0690; J0692; J0696; J1630; J1642; J1644; J1885; J1940; J2001; J2060; J2250; J2310; J2704; J2997; J3010; J3370; J3475; J3490; J7030; J7040; J7050; J7060; S0164